=== PATIENT | female | born 1950 | race Caucasian/White ===

== ENCOUNTER → 2016-11-20 | Outpatient (CLI) | payer OTHER ==
[~2016-11-20] MED LIST: ASPEC81 PO; CLTP PO; INDSR60 PO; SERT-234 PO; TOPI50TA16 PO
--- NOTE | 2016-11-21 12:58 | MAMMOGRAPHY REPORT ---
BILATERAL DIGITAL SCREENING MAMMOGRAM TOMOSYNTHESIS WITH CAD: 11/20/2016 CLINICAL HISTORY: Asymptomatic. Personal history of breast cancer. TECHNIQUE: Breast tomosynthesis in addition to standard 2D mammography was performed. Current study was also evaluated with a Computer Aided Detection (CAD) system. COMPARISON: Comparison is made to exams dated: 11/15/2015 mammogram, 11/09/2014 mammogram, 11/03/2013 m ammogram, 10/31/2012 mammogram, 10/31/2011 mammogram, and 10/25/2010 mammogram - [facility] nter. BREAST COMPOSITION: There are scattered areas of fibroglandular density in both breasts. FINDINGS: There is expected architectural distortion and surgical clips in the upper outer posterior right breast, at the site of prior lumpectomy. There is a stable asymmetry in the superior posteri or left breast, only seen on the MLO view. No new suspicious mass, architectural distortion or clus ter of microcalcifications is seen. IMPRESSION: ACR BI-RADS CATEGORY 1: NEGATIVE There is no mammographic evidence of malignancy. A 1 year screening mammogram is recommended. The p atient will receive written notification of the results. Approximately 10% of breast cancers are not detected with mammography. A negative mammographic repor t should not delay biopsy if a clinically suggestive mass is present. Kenisha Gore M.D. ay/:11/20/2016 17:38:09 Facilities Assistant: Radha LONG)(Darnell), [facility] letter sent: Normal 1/2 BI-RADS Code: ACR BI-RADS Category 1: Negative
== END | disposition home or self-care (01) ==
LOC: C.MAMM 08:43
PROVIDERS: ATTEND Family Medicine
DX: Z12.31 Encounter for screening mammogram for malignant neoplasm of breast (principal); Z85.3 Personal history of malignant neoplasm of breast

== ENCOUNTER 2017-11-04 11:33 | Emergency (ER) | payer OTHER ==
[~2017-11-04] VITALS: Ht 167.6 cm; Wt 72.6 kg
[2017-11-04 11:38] VITALS: Ht 167.6 cm; Wt 72.6 kg
[2017-11-04] MEDS ORDERED: ASPCH81X PO (11:50)
[2017-11-04] MEDS ORDERED: PROP120C PO (11:50)
[2017-11-04] MEDS ORDERED: CALC-354 PO (11:50)
[2017-11-04] MEDS ORDERED: ACETAMINOPHEN 325 MG TAB PO STA (12:26)
[2017-11-04] MEDS ORDERED: ONDANSETRON INJ 2 MG/ML 2 ML VIAL IV STA (12:26)
[2017-11-04 12:33] VITALS: O2SAT 99
[2017-11-04 12:37] LABS: HEMATOCRIT 40.5 % (37-47); HEMOGLOBIN 13.3 g/dL (12.0-16.0); MEAN CELL VOLUME 87.5 fL (80-100); MEAN CORPUSCULAR HEMOGLOBIN 28.7 pg (25-34); MEAN CORPUSCULAR HGB CONC 32.8 g/dl (32-36); MEAN PLATELET VOLUME 9.1 fL (7.4-10.4); PLATELET COUNT 164 K/uL (130-400); RED CELL DISTRIBUTION WIDTH CV 13.9 % (11.5-14.5); RED CELL DISTRIBUTION WIDTH SD 44.5 fL (36.4-46.3); WHITE BLOOD COUNT 4.15 K/uL (4.8-10.8)
[2017-11-04] MEDS: MoRPHine SULFATE 4 MG/ML 1 ML CARP\\VIAL IV PRN ×2 (12:45→13:10)
--- NOTE | 2017-11-04 12:46 | EMERGENCY ROOM VISIT NOTE ---
History Report prepared by Silvana: Hector Moore Under the Supervision of: Dr. Tang Michelle D.O. First contact with patient: 12:20 Chief Complaint: CHEST PAIN Stated Complaint: CHEST PAINS History of Present Illness The patient is a 67 year old female who presents to the Emergency Room with complaints of worsening sharp left sided chest pain starting around 0800 this morning. She currently rates her discomfort as an 8-9/10 in severity, and nothing makes the pain better or worse. The patient states that she did not have any pain this morning, and she states that she did not do anything to irritate the chest wall, and she has not been coughing more recently. She notes that the pain makes her feel short of breath, and she denies any nausea, vomiting, sweating, and rash. The patient notes that the pain is staying in the same spot. She reports that she took aspirin prior to coming in, and she states that this has not helped the pain. The patient denies any history of blood clots in the legs or lungs, family history of blood clots, recent long travel or car trips, history of heart attack, asthma and COPD, and she is not on blood thinners. Source of History: patient Onset: 0800 Position: chest (left) Symptom Intensity: 8-9/10 Quality: sharp Timing: worsening Modifying Factors (Worsening): other (nothing) Modifying Factors (Relieving): other (nothing) Associated Symptoms: No SOB, No nausea, No vomiting, No rash Review of Systems See HPI for pertinent positives & negatives. A total of 10 systems reviewed and were otherwise negative. Past Medical & Surgical Surgical Problems: (1) H/O Spinal surgery Family History Cancer Diabetes mellitus FH: heart disease Hypertension Social History Smoking Status: Former Smoker Alcohol Use: none Marital Status: Occupation Status: retired Current/Historical Medications Scheduled Aspirin (Aspirin Chewable), 81 MG PO DAILY Calcium Carbonate-Cholecalcife (Caltrate 600+D), 1 TAB PO DAILY Propranolol Er (Inderal Er *), 120 MG PO QPM Propranolol Hcl (Propranolol Hcl Er), 120 MG PO QPM Sertraline (Zoloft), 100 MG PO QPM Topiramate (Topamax), 50 MG PO BID Scheduled PRN Tramadol (Ultram), 50 MG PO Q4H PRN for Pain Allergies Coded Allergies: BEE STING (Verified Allergy, Mild, 5/7/18) NO KNOWN DRUG ALLERGIES (Verified Allergy, Unknown, ., 11/04/17) Physical Exam Vital Signs Date Time Temp Pulse Resp B/P (MAP) Pulse Ox O2 Delivery O2 Flow Rate FiO2 11/04/17 13:46 63 18 122/75 96 Room Air 11/04/17 12:42 63 18 142/93 96 Room Air 11/04/17 12:33 99 Room Air 11/04/17 12:20 66 11/04/17 11:38 68 20 147/92 100 Room Air Physical Exam GENERAL: Patient is in mild distress secondary to pain. HEENT: No acute trauma, normocephalic atraumatic, mucous membranes moist, no nasal congestion, no scleral icterus. NECK: No stridor, no adenopathy, no meningismus, trachea is midline. LUNGS: Clear to auscultation bilaterally, no wheeze, no rhonchi, breath sounds equal. HEART: Without murmurs gallops or rubs, regular rate and rhythm. CHEST: Non-tender chest wall. No rash. Pain does not worsen with movement or twisting. ABDOMEN: Soft, nontender, bowel sounds positive, no hernias, no peritonitis. EXTREMITIES: No cyanosis or edema, full range of motion of all the joints without pain or difficulty, no signs for acute trauma. NEUROLOGIC: Oriented x 3, no acute motor or sensory deficits, no focal weakness. SKIN: No rash, no jaundice, no diaphoresis. Medical Decision & Procedures ER Provider Diagnostic Interpretation: Radiology results as stated below per my review and radiologist interpretation: CHEST ONE VIEW PORTABLE HISTORY: Atypical CHEST PAIN COMPARISON: Chest 05/10/2008. FINDINGS: The heart is normal in size. Linear density within the left perihilar location favors scarring or atelectasis. The lungs are otherwise clear. Surgical clips again noted within the right breast. No pleural effusions. No pneumothorax. IMPRESSION: No acute process. Electronically signed by: Bartolome Hughes M.D. 11/04/2017 1:06 PM Dictated Date/Time: 11/04/2017 1:04 PM Laboratory Results 11/04/17 12:10 11/04/17 12:10 Test 11/04/17 12:10 11/04/17 12:31 Red Blood Count 4.63 M/uL (4.2-5.4) Mean Corpuscular Volume 87.5 fL (80-100) Mean Corpuscular Hemoglobin 28.7 pg (25-34) Mean Corpuscular Hemoglobin Concent 32.8 g/dl (32-36) RDW Standard Deviation 44.5 fL (36.4-46.3) RDW Coefficient of Variation 13.9 % (11.5-14.5) Mean Platelet Volume 9.1 fL (7.4-10.4) Prothrombin Time 10.0 SECONDS (9.0-12.0) Prothromb Time International Ratio 1.0 (0.9-1.1) Activated Partial Thromboplast Time 24.9 SECONDS (21.0-31.0) Partial Thromboplastin Ratio 1.0 Anion Gap 8.0 mmol/L (3-11) Est Creatinine Clear Calc Drug Dose 51.8 ml/min Estimated GFR () 62.5 Estimated GFR (Non- 53.9 BUN/Creatinine Ratio 20.4 (10-20) Calcium Level 8.7 mg/dl (8.5-10.1) Total Bilirubin 0.5 mg/dl (0.2-1) Aspartate Amino Transf (AST/SGOT) 16 U/L (15-37) Alanine Aminotransferase (ALT/SGPT) 16 U/L (12-78) Alkaline Phosphatase 79 U/L (45-117) Troponin I < 0.015 ng/ml (0-0.045) Total Protein 7.4 gm/dl (6.4-8.2) Albumin 3.7 gm/dl (3.4-5.0) Globulin 3.7 gm/dl (2.5-4.0) Albumin/Globulin Ratio 1.0 (0.9-2) Lipase 420 U/L (73-393) Bedside D-Dimer 345 ng/mlFEU (0-450) Laboratory results reviewed by me. Medications Administered Medications (Trade) Dose Ordered Sig/Radha Route Start Time Stop Time Status Last Admin Dose Admin Morphine Sulfate (MoRPHine SULFATE INJ) 4 mg Q15M PRN IV 11/04/17 12:30 11/04/17 14:15 DC 11/04/17 13:10 4 MG Ondansetron HCl (Zofran Inj) 4 mg NOW STAT IV 11/04/17 12:26 11/04/17 12:28 DC 11/04/17 12:45 4 MG Acetaminophen (Tylenol Tab) 650 mg NOW STAT PO 11/04/17 12:26 11/04/17 12:28 DC 11/04/17 12:45 650 MG ECG Per My Interpretation Indication: chest pain Rate (beats per minute): 67 Rhythm: normal sinus Findings: no ectopy, other (No ST elevation or PVC) ED Course 1220: The patient was evaluated in room A2. A complete history and physical exam was performed. 1226: Tylenol Tab 650mg PO, Zofran 4mg IV 1230: Morphine Sulfate 4mg IV 1336: Reevaluated the patient. Discussed results and discharge instructions: she verbalized understanding and agreement. The patient is ready for discharge. Medical Decision Differential diagnoses include: TX, musculoskeletal pain, pleurisy, pneumonia, pneumothorax, PE, aortic dissection, rib injury. There is no leukocytosis or concerning anemia. No significant electrolyte abnormality, kidney failure or hepatitis. Lipase is slightly elevated but not high enough to diagnose pancreatitis. EKG done while she was having significant pain shows a normal sinus rhythm, no acute ischemia. Cardiac enzyme testing 1 is not consistent with acute cardiac injury. Chest film does not show free air, mediastinal widening, pneumonia or pneumothorax. There was no coagulopathy. D-dimer testing here is not elevated, with a negative d-dimer and my low suspicion for PE, I will stop the workup for this diagnosis. The patient was given oral Tylenol, IV Zofran and IV morphine. She feels markedly improved. The patient presents with sharp left-sided chest pain. The pain is very likely musculoskeletal as her workup here is benign. She was reassured. She is being discharged with heat to the area, Tylenol or tramadol for pain. If worsening, she can return. Outpatient family doctor follow-up was suggested. [place] Drug Monitoring Program Search Results: patient reviewed within database, no issues identified Medication Reconcilliation Current Medication List: was personally reviewed by me Blood Pressure Screening Patient's blood pressure: Elevated blood pressure Blood pressure disposition: Elevated BP felt to be situational Impression Primary Impression: Left sided chest pain Scribe Attestation The scribe's documentation has been prepared under my direction and personally reviewed by me in its entirety. I confirm that the note above accurately reflects all work, treatment, procedures, and medical decision making performed by me. Departure Information Dispostion Home / Self-Care Prescriptions Tramadol (Ultram) 50 Mg Tab 50 MG PO Q4H Y for Pain, #10 TAB Prov: Mitch Cast M.D. 11/04/17 Referrals Tushar Mina III, M.D. (PCP) Forms Call Back Authorization, HOME CARE DOCUMENTATION FORM, IMPORTANT VISIT INFORMATION Patient Instructions My [employer] Additional Instructions heat to the chest wall will help--40 minutes at a time several times per day rest no lifting tylenol for pain may use tramadol 1 tab every 4 hours for severe pain if needed see caleb ambrocio for a recheck this week heart and lung testing today was all ok return if worsening or not improving
[2017-11-04 12:47] LABS: PTT PATIENT 24.9 SECONDS (21.0-31.0)
[2017-11-04 12:57] LABS: ALBUMIN 3.7 gm/dl (3.4-5.0); ALT/SGPT 16 U/L (12-78); AST/SGOT 16 U/L (15-37); BLOOD UREA NITROGEN 22 mg/dl (7-18); CALCIUM 8.7 mg/dl (8.5-10.1); CARBON DIOXIDE 22 mmol/L (21-32); CREATININE 1.06 mg/dl (0.60-1.20); GLUCOSE 90 mg/dl (70-99); LIPASE 420 U/L (73-393); POTASSIUM 3.9 mmol/L (3.5-5.1); SODIUM 137 mmol/L (136-145)
[2017-11-04 13:02] LABS: ALKALINE PHOSPHATASE 79 U/L (45-117); TOTAL PROTEIN 7.4 gm/dl (6.4-8.2)
--- NOTE | 2017-11-04 13:07 | DIAGNOSTIC IMAGING REPORT ---
CHEST ONE VIEW PORTABLE HISTORY: Atypical CHEST PAIN COMPARISON: Chest 05/10/2008. FINDINGS: The heart is normal in size. Linear density within the left perihilar location favors scarring or atelectasis. The lungs are otherwise clear. Surgical clips again noted within the right breast. No pleural effusions. No pneumothorax. IMPRESSION: No acute process. Electronically signed by: Bartolome Hughes M.D. 11/04/2017 1:06 PM Dictated Date/Time: 11/04/2017 1:04 PM
[2017-11-04] MEDS ORDERED: TRAM-10 PO (13:44)
[2017-11-04 13:46] VITALS: BP 122/75; PULSE 63; O2SAT 96
== END 2017-11-04 14:00 | disposition home or self-care (01) ==
LOC: C.EDB 11:34 → C.EDA 14:00
DX: R07.89 Other chest pain (principal); Z87.891 Personal history of nicotine dependence; Z79.82 Long term (current) use of aspirin; Z79.899 Other long term (current) drug therapy; Z91.030 Bee allergy status

== ENCOUNTER → 2017-11-21 | Outpatient (CLI) | payer OTHER ==
[~2017-11-21] MED LIST changes: +ASPCH81X PO; -ASPEC81 PO; +CALC-354 PO; -CLTP PO; +PROP120C PO; +TRAM-10 PO
--- NOTE | 2017-11-22 15:19 | MAMMOGRAPHY REPORT ---
BILATERAL DIGITAL SCREENING MAMMOGRAM TOMOSYNTHESIS WITH CAD: 11/21/2017 CLINICAL HISTORY: Asymptomatic. Personal history of breast cancer. TECHNIQUE: Breast tomosynthesis in addition to standard 2D mammography was performed. Current study was also evaluated with a Computer Aided Detection (CAD) system. COMPARISON: Comparison is made to exams dated: 11/20/2016 mammogram, 11/15/2015 mammogram, 11/09/2014 m ammogram, 11/03/2013 mammogram, 10/31/2012 mammogram, and 10/31/2011 mammogram - [facility] er. BREAST COMPOSITION: There are scattered areas of fibroglandular density in both breasts. FINDINGS: No suspicious masses, calcifications, or areas of architectural distortion are noted in ei ther breast. There has been no significant interval change compared to prior exams. There are stable postsurgical changes in the right upper outer quadrant. A linear scar marker overlies the right upp er outer breast. Focal asymmetry in the left superior posterior breast at approximately 12:00 is sta ble dating back to at least the 2008 exam. IMPRESSION: ACR BI-RADS CATEGORY 2: BENIGN There is no mammographic evidence of malignancy. A 1 year screening mammogram is recommended. The pa tient will receive written notification of the results. Approximately 10% of breast cancers are not detected with mammography. A negative mammographic report should not delay biopsy if a clinically suggestive mass is present. Yulia Kruse M.D. /:11/21/2017 16:01:04 Manager Shell: Radha ORO(Jennyfer)(Darnell), [facility] letter sent: Normal 1/2 BI-RADS Code: ACR BI-RADS Category 2: Benign
== END | disposition home or self-care (01) ==
LOC: C.MAMM 09:38
PROVIDERS: ATTEND Family Medicine
DX: Z12.31 Encounter for screening mammogram for malignant neoplasm of breast (principal); Z85.3 Personal history of malignant neoplasm of breast

== ENCOUNTER 2020-06-06 14:45 | Observation (INO) ==
[2020-06-06] MEDS ORDERED: ONDANSETRON INJ 2 MG/ML 2 ML VIAL IV STA (15:12)
[2020-06-06] MEDS ORDERED: MoRPHine SULFATE 4 MG/ML 1 ML CARP\\VIAL IV STA (15:12)
--- NOTE | 2020-06-06 15:20 | Emergency Department Note ---
History of Present Illness General Chief complaint: Chest Pain Stated complaint: CHEST PAIN Time Seen by Provider: 06/06/20 15:06 History of Present Illness Maximum Pain Intensity: 10 This is a 70-year-old female that presents to the emergency department via private vehicle with complaints of "left-sided chest pain". The patient notes that the discomfort began earlier today around 1 PM while she was laying down at her home watching TV. She notes that the pain radiates into the left shoulder/left neck region and into the left proximal arm. She has associated lightheadedness. She describes the pain as sharp and currently rates the pain is a 6/10 that waxes and wanes. She notes that when she sat up the pain did seem to dissipate but then returned therefore prompting arrival here today. She denies any known trauma, injury, aggravating or alleviating factors, shortness of breath, fevers, chills or cough. She denies any history of VA or PE. No history of hypertension or hypercholesterolemia. She denies any known cardiac troubles. Patient denies any recent strenuous activities. She denies worsening pain with movement of the left arm or pressing on the chest. Home Medications Medication Instructions Recorded Confirmed Type aspirin [Aspirin Low-Strength] 81 mg PO DAILY #0 11/04/17 06/06/20 History propranolol 120 mg PO HS #0 11/04/17 06/06/20 History doxepin 20 mg PO HS 06/06/20 06/06/20 History rizatriptan 0 mg PO .COMPLEX 06/06/20 06/06/20 History topiramate 50 mg PO BID 06/06/20 06/06/20 History trazodone 150 mg PO HS 06/06/20 06/06/20 History Allergies Allergy/AdvReac Type Severity Reaction Status Date / Time bee venom protein (honey bee) Allergy Mild Verified 06/06/20 16:18 No Known Drug Allergies Allergy Unknown . Verified 06/06/20 16:18 Past Med/Surg History Medical History CKD (chronic kidney disease), stage III History of breast cancer 20 years ago, s/p partial mastectomy Hx of migraines Insomnia Ulcerative colitis Surgical History H/O laminectomy H/O partial mastectomy H/O spinal fusion H/O Spinal surgery Hx of tonsillectomy Family History Other Diabetes Heart disease Rheumatoid arthritis Social History Smoking Status: Never smoker Hx Alcohol Use: No Hx Substance Use: No Feels Safe at Home: Yes Review of Systems A total of 10 systems reviewed and were otherwise negative Physical Exam Vital Signs Vital Signs - 24 hr 06/06/20 14:50 06/06/20 15:13 06/06/20 17:57 Temperature 36.5 C Temperature Source Oral Pulse Rate 73 Pulse Rate [Apical] 66 Pulse Rhythm [Apical] Regular Pulse Strength [Apical] Normal Respiratory Rate 20 16 Respiratory Effort / Characteristics Non-Labored Spontaneous Non-Labored Spontaneous Respiratory Depth Normal Normal Respiratory Pattern Regular Regular Blood Pressure 125/82 Blood Pressure [Right Arm] 129/67 Blood Pressure Mean 96 Blood Pressure Mean [Right Arm] 87 Blood Pressure Position Sitting Blood Pressure Position [Right Arm] Sitting Pulse Oximetry 100 98 Oxygen Delivery Method Room Air Room Air Room Air Sepsis Recent Fever Within 48 Hours No Sepsis New/Unexplained Change in Mental Status N/A Sepsis Action Taken by Nursing No Action Required 06/06/20 19:00 Temperature Temperature Source Pulse Rate Pulse Rate [Apical] 64 Pulse Rhythm [Apical] Regular Pulse Strength [Apical] Normal Respiratory Rate 14 Respiratory Effort / Characteristics Non-Labored Spontaneous Respiratory Depth Normal Respiratory Pattern Regular Blood Pressure Blood Pressure [Right Arm] 114/70 Blood Pressure Mean Blood Pressure Mean [Right Arm] 84 Blood Pressure Position Blood Pressure Position [Right Arm] Lying Pulse Oximetry 98 Oxygen Delivery Method Room Air Sepsis Recent Fever Within 48 Hours Sepsis New/Unexplained Change in Mental Status Sepsis Action Taken by Nursing VITAL SIGNS - Vital signs and nursing notes were reviewed. Stable and afebrile. GENERAL -70-year-old female appearing her stated age who is in no acute distress. Communicates well with provider and answers questions appropriately. SKIN - Without rashes. No meningeal or petechial rash. HEAD - NC/AT. EYES - Sclera anicteric. NECK - Neck with FROM. No nuchal rigidity. LUNGS - Chest wall symmetric without accessory muscle use, intercostals retractions, or central cyanosis. Normal vesicular breath sounds CTA B/L. No wheezes, rales, or rhonchi appreciated. CARDIAC - RRR with S1/S2. No murmur, rubs, or gallops appreciated. ABDOMEN - Abdominal contour normal without pulsations or visible masses. BS normoactive all four quadrants. No tenderness, palpable masses, hepatosplenomegaly, or ascites noted. EXTREMITIES - No clubbing or peripheral cyanosis. No pretibial edema present. Left shoulder with active range of motion does not elicit any worsening of sym ptoms. +5/5 strength noted in UE/LE bilaterally. NEUROLOGIC - Cranial nerves II through XII grossly intact. PSYCH - A&Ox3 and cooperates fully with examiner. Pt is very pleasant and interacts well with examiner. Course Administered Medications Discontinued Medications Ioversol (Optiray 320 125ml) 119 ml IV ONCE ONE Stop: 06/06/20 17:22 Last Admin: 06/06/20 17:21 Dose: 119 ml Documented by: [id number] Morphine Sulfate (Morphine Sulfate 4 Mg/Ml 1 Ml Carp\\Vial) 4 mg IV NOW STA Stop: 06/06/20 15:13 Last Admin: 06/06/20 16:32 Dose: 4 mg Documented by: [id number] Ondansetron HCl (Ondansetron Inj 2 Mg/Ml 2 Ml Vial) 4 mg IV NOW STA Stop: 06/06/20 15:13 Last Admin: 06/06/20 16:32 Dose: 4 mg Documented by: [id number] Medical Decision Making Laboratory Data Result diagrams: 06/06/20 15:47 06/06/20 15:47 Lab Results 06/06/20 06/06/20 06/06/20 Range/Units 15:47 15:47 15:47 WBC 3.89 L (4.8-10.8) K/uL RBC 4.30 (4.2-5.4) M/uL Hgb 11.7 L (12.0-16.0) g/dL Hct 36.9 L (37-47) % MCV 85.8 (80-100) fL MCH 27.2 (25-34) pg MCHC 31.7 L (32-36) g/dL RDW Std Deviation 50.1 H (36.4-46.3) fL RDW Coeff of Ashley 15.9 H (11.5-14.5) % Plt Count 170 (130-400) K/uL MPV 9.5 (7.4-10.4) fL Immature Gran % (Auto) 2.6 % Neut % (Auto) 36.8 % Lymph % (Auto) 45.2 % [place] % (Auto) 9.0 % Eos % (Auto) 5.9 % Baso % (Auto) 0.5 % Neut # (Auto) 1.43 (1.4-6.5) K/uL Lymph # (Auto) 1.76 (1.2-3.4) K/uL [place] # (Auto) 0.35 (0.11-0.59) K/uL Eos # (Auto) 0.23 (0-0.5) K/uL Baso # (Auto) 0.02 (0-0.2) K/uL Immature Gran # (Auto) 0.10 H (0.00-0.02) K/uL PT 10.6 (9.0-12.0) Seconds INR 1.0 (0.9-1.1) APTT 27.0 (21.0-31.0) Seconds PTT Ratio 1.0 D-Dimer 580 H* (0-500) ug/L FEU Sodium 140 (136-145) mmol/L Potassium 3.4 L (3.5-5.1) mmol/L Chloride 111 H (98-107) mmol/L Carbon Dioxide 22 (21-32) mmol/L Anion Gap 7.0 (3-11) BUN 18 (7-18) mg/dl Creatinine 1.13 (0.6-1.2) mg/dl Est Cr Clr Drug Dosing Not Reportable Est GFR ( Amer) 56.6 Est GFR (Non-Af Amer) 48.9 BUN/Creatinine Ratio 15.8 (10-20) Glucose 88 (70-99) mg/dl Calcium 8.4 L (8.5-10.1) mg/dl Magnesium 2.1 (1.8-2.4) mg/dl Total Bilirubin 0.5 (0.2-1) mg/dl AST 11 L (15-37) U/L ALT 11 L (12-78) U/L Alkaline Phosphatase 95 (45-117) U/L Troponin I < 0.015 (0-0.045) ng/ml Total Protein 7.4 (6.4-8.2) gm/dl Albumin 3.6 (3.4-5.0) gm/dl Globulin 3.8 (2.5-4.0) gm/dl Albumin/Globulin Ratio 0.9 (0.9-2) Lipase 281 (73-393) U/L TSH 8.040 H (0.300-4.500) uIu/ml Free T4 0.98 (0.8-1.6) ng/dl SARS-CoV-2 Ag (Rapid) (Negative) 06/06/20 06/06/20 Range/Units 18:18 18:47 WBC (4.8-10.8) K/uL RBC (4.2-5.4) M/uL Hgb (12.0-16.0) g/dL Hct (37-47) % MCV (80-100) fL MCH (25-34) pg MCHC (32-36) g/dL RDW Std Deviation (36.4-46.3) fL RDW Coeff of Ashley (11.5-14.5) % Plt Count (130-400) K/uL MPV (7.4-10.4) fL Immature Gran % (Auto) % Neut % (Auto) % Lymph % (Auto) % [place] % (Auto) % Eos % (Auto) % Baso % (Auto) % Neut # (Auto) (1.4-6.5) K/uL Lymph # (Auto) (1.2-3.4) K/uL [place] # (Auto) (0.11-0.59) K/uL Eos # (Auto) (0-0.5) K/uL Baso # (Auto) (0-0.2) K/uL Immature Gran # (Auto) (0.00-0.02) K/uL PT (9.0-12.0) Seconds INR (0.9-1.1) APTT (21.0-31.0) Seconds PTT Ratio D-Dimer (0-500) ug/L FEU Sodium (136-145) mmol/L Potassium (3.5-5.1) mmol/L Chloride (98-107) mmol/L Carbon Dioxide (21-32) mmol/L Anion Gap (3-11) BUN (7-18) mg/dl Creatinine (0.6-1.2) mg/dl Est Cr Clr Drug Dosing Est GFR ( Amer) Est GFR (Non-Af Amer) BUN/Creatinine Ratio (10-20) Glucose (70-99) mg/dl Calcium (8.5-10.1) mg/dl Magnesium (1.8-2.4) mg/dl Total Bilirubin (0.2-1) mg/dl AST (15-37) U/L ALT (12-78) U/L Alkaline Phosphatase (45-117) U/L Troponin I < 0.015 (0-0.045) ng/ml Total Protein (6.4-8.2) gm/dl Albumin (3.4-5.0) gm/dl Globulin (2.5-4.0) gm/dl Albumin/Globulin Ratio (0.9-2) Lipase (73-393) U/L TSH (0.300-4.500) uIu/ml Free T4 (0.8-1.6) ng/dl SARS-CoV-2 Ag (Rapid) Negative (Negative) Imaging Data Radiologist's Impression: XR chest 1V portable CLINICAL HISTORY: left sided chest pain COMPARISON STUDY: Chest radiograph November 04, 2017. FINDINGS: Lung volumes are normal. There is no pneumothorax or pleural effusion. Apparent left basilar opacity likely reflects pulmonary vessels or atelectasis. Cardiac size is normal. Mediastinal contours are normal. IMPRESSION: Apparent left basilar opacity. This likely reflects pulmonary vessels or atelectasis. An infectious process could appear similar but is considered less likely. ACT 112: Negative or not required by law. Electronically signed by: Agustín Wharton M.D. 06/06/2020 4:14 PM CHEST CTA for PULMONARY ARTERIES CT DOSE: 214.44 mGy.cm HISTORY: left sided chest pain, elevated D dimer TECHNIQUE: Multiaxial CT images of the chest were performed following the intravenous administration of contrast to evaluate the pulmonary arteries. Maximal intensity projection images were also obtained. A dose lowering technique was utilized adhering to the principles of ALARA. COMPARISON STUDY: Chest CTA 09/29/2010. FINDINGS: Normal caliber thoracic aorta with no evidence for dissection. The heart is normal in size. No pleural or pericardial effusions. Limited views of the upper abdomen demonstrate a normal liver and spleen. Normal esophagus. Surgical clips noted within the right breast. No mediastinal lymphadenopathy. No filling defects within the pulmonary arteries to suggest pulmonary embolus. A few prominent bilateral hilar lymph nodes have slightly increased in size. Dominant right hilar lymph node on image 128 measures 9 mm in short axis diameter. Old, healed left-sided rib fractures. No acute fractures within the visualized osseous structures. No pneumothorax. There is mild central bronchial wall thickening. Mosaic attenuation within the lungs likely represents air trapping. A few scattered small linear densities suggestive of subsegmental atelectasis. Groundglass densities within the lung bases also favor dependent change. A low-grade pneumonitis is considered less likely but not entirely excluded. IMPRESSION: 1. No evidence for pulmonary embolus. 2. Mosaic attenuation within the lungs consistent with air trapping. This can be seen in the setting of small airways disease. 3. Mild central bronchial wall thickening suggestive of a bronchitis. 4. Groundglass densities within the lung bases favor mild dependent change. A low-grade superimposed pneumonitis cannot be excluded but is considered less l ikely. 5. A few prominent subcentimeter bilateral hilar lymph nodes. These have slightly increased in size. ACT 112: Negative or not required by law. Electronically signed by: Bartolome Hughes M.D. 06/06/2020 5:38 PM Blood Pressure Additional Comments: EKG per my interpretation reveals normal sinus rhythm rate of 69 bpm. No ectopy or ischemic change. No ST elevation. QTc 420. No evidence of VA. This was compared to EKG of November 04, 2017 and no significant change was found. Indication for EKG is left-sided chest pain. MDM Narrative Patient was seen and evaluated as above in room C2. Review was performed of nursing notes and vital signs. I did review pertinent previous visits and patient history. After obtaining a thorough history and physical examination the above work up was performed. Patient presents to us today with left-sided chest pain. No known trauma or injury. It is sharp in nature. It radiates to the left side of the neck and left arm. She denies any known cardiac or pulmonary history. No fevers or chills. Her vital signs are stable. Patient did take 2 baby aspirin prior to arrival. On my examination at this time she has nontoxic. No reproducible discomfort. She was ordered IV morphine for pain and IV Zofran for any potential nausea that may come from this. She was reevaluated with some improvement. Her EKG is not consistent with STEMI. Chest x-ray reveals possible left basilar opacity versus pulmonary vessels versus atelectasis. Laboratory studies reveal decreased white blood cell count of 3.9 with hemoglobin 11.7. No significant electrolyte disturbance. Mild hypokalemia at 3.4. Troponin negative. TSH elevated with free T4 being normal. Patient's heart score is 3-4. D-dimer elevated. CT of the chest obtained. No PE. The patient CTA does not suggest any PE. There is potential bronchitis but I will note she has no cough and clinically this does not appear to be the case. Given the patient's presentation with elevated heart score it is felt that further evaluation and management the inpatient setting is warranted. Please refer to further documentation regarding her stay. Case discussed with the hospitalist. Patient amenable to staying and is in agreement with plan. Case was discussed with the attending physician. An order was placed for continuous cardiac monitoring. The monitor shows a rate of 69 with sinus rhythm. I attest that I have personally reviewed the patient medication list. I attest that I have reviewed the patient's blood pressure and it was found to be elevated at time of arrival mildly. GCS: 15 In the evaluation and treatment of this patient, the following differential diagnoses were considered: VA, ASC, Dysrhythmia, Angina, Mediastinitis, GERD, Esophagitis, PE, Pneumonia, Bronchitis, Costochondritis, Rib Fracture, Zoster, COVID-19, among others. Impression & Plan Left-sided chest pain Discharge Plan Visit Data Chief Complaint: Chest Pain Stated Complaint: CHEST PAIN ED Provider: Mitch Cast ED Midlevel Provider: Matthew Reyes Discharge Problem: Left-sided chest pain Patient Disposition: Admitted As Inpatient Condition: Good Forms Stand Alone Forms: [facility] Prescriptions Prescriptions: No Action aspirin [Aspirin Low-Strength] 81 mg Tablet,Delayed Release (Dr/Ec) 81 mg PO DAILY Qty: 0 RF: 0 propranolol 120 mg Capsule,Extended Release 24 Hr 120 mg PO HS Qty: 0 RF: 0 doxepin 10 mg capsule 20 mg PO HS RF: 0 topiramate 25 mg tablet 50 mg PO BID RF: 0 trazodone 150 mg tablet 150 mg PO HS RF: 0 rizatriptan 10 mg Tablet 0 mg PO .COMPLEX RF: 0 Referrals Referrals: Tushar Mina MD [Primary Care Provider] -
[2020-06-06 15:56] LABS: Basophils # (auto) 0.02 K/uL (0-0.2); Basophils % (auto) 0.5 %; Eosinophils # (auto) 0.23 K/uL (0-0.5); Eosinophils % (auto) 5.9 %; Hematocrit (blood only) 36.9 % (37-47); Hemoglobin 11.7 g/dL (12.0-16.0); Immature Granulocytes % (auto) 2.6 %; Lymphocytes # (auto) 1.76 K/uL (1.2-3.4); Lymphocytes % (auto) 45.2 %; Mean Corpuscular Hemoglobin 27.2 pg (25-34); Mean Corpuscular Hgb Conc 31.7 g/dL (32-36); Mean Corpuscular Volume 85.8 fL (80-100); Mean Platelet Volume 9.5 fL (7.4-10.4); Monocytes # (auto) 0.35 K/uL (0.11-0.59); Neutrophils # (auto) 1.43 K/uL (1.4-6.5); Neutrophils % (auto) 36.8 %; Platelet Count 170 K/uL (130-400); RDW Coefficient of Variation 15.9 % (11.5-14.5); RDW Standard Deviation 50.1 fL (36.4-46.3); White Blood Count 3.89 K/uL (4.8-10.8)
--- NOTE | 2020-06-06 16:03 | Electrocardiogram Report ---
Test Reason : Blood Pressure : / mmHG Vent. Rate : 069 BPM Atrial Rate : 069 BPM P-R Int : 158 ms QRS Dur : 080 ms QT Int : 392 ms P-R-T Axes : 061 050 033 degrees QTc Int : 420 ms Normal sinus rhythm Normal ECG When compared with ECG of 04-NOV-2017 11:42, No significant change was found Confirmed by Darío Waller ([id number]) on 06/06/2020 4:02:48 PM Referred By: ED Confirmed By:Darío Waller
[2020-06-06 16:11] LABS: Prothrombin Time 10.6 Seconds (9.0-12.0)
--- NOTE | 2020-06-06 16:16 | XRay Report ---
XR chest 1V portable CLINICAL HISTORY: left sided chest pain COMPARISON STUDY: Chest radiograph November 04, 2017. FINDINGS: Lung volumes are normal. There is no pneumothorax or pleural effusion. Apparent left basila r opacity likely reflects pulmonary vessels or atelectasis. Cardiac size is normal. Mediastinal conto urs are normal. IMPRESSION: Apparent left basilar opacity. This likely reflects pulmonary vessels or atelectasis. An infectious process could appear similar but is considered less likely. ACT 112: Negative or not required by law. Electronically signed by: Agustín Wharton M.D. 06/06/2020 4:14 PM
[2020-06-06 16:17] LABS: D Dimer 580 ug/L FEU (0-500)
[2020-06-06 16:45] LABS: Alanine Aminotransferase 11 U/L (12-78); Albumin Level 3.6 gm/dl (3.4-5.0); Aspartate Aminotransferase 11 U/L (15-37); BUN Creatinine Ratio 15.8 (10-20); Blood Urea Nitrogen 18 mg/dl (7-18); Calcium 8.4 mg/dl (8.5-10.1); Carbon Dioxide 22 mmol/L (21-32); Chloride 111 mmol/L (98-107); Est GFR (African American) 56.6; Est GFR (Non-African American) 48.9; Glucose 88 mg/dl (70-99); Lipase 281 U/L (73-393); Magnesium 2.1 mg/dl (1.8-2.4); Potassium 3.4 mmol/L (3.5-5.1); Sodium 140 mmol/L (136-145)
[2020-06-06 16:56] LABS: Albumin Globulin Ratio 0.9 (0.9-2); Alkaline Phosphatase 95 U/L (45-117); Bilirubin,Total 0.5 mg/dl (0.2-1); Globulin 3.8 gm/dl (2.5-4.0); Total Protein 7.4 gm/dl (6.4-8.2); Troponin I < 0.015 ng/ml (0-0.045)
[2020-06-06 17:09] LABS: T4 Free Thyroxine 0.98 ng/dl (0.8-1.6)
[2020-06-06] MEDS ORDERED: OPTIRAY 320 125ml IV ONE (17:21)
--- NOTE | 2020-06-06 17:39 | CT Scan Report ---
CHEST CTA for PULMONARY ARTERIES CT DOSE: 214.44 mGy.cm HISTORY: left sided chest pain, elevated D dimer TECHNIQUE: Multiaxial CT images of the chest were performed following the intravenous administration of contrast to evaluate the pulmonary arteries. Maximal intensity projection images were also obtaine d. A dose lowering technique was utilized adhering to the principles of ALARA. COMPARISON STUDY: Chest CTA 09/29/2010. FINDINGS: Normal caliber thoracic aorta with no evidence for dissection. The heart is normal in size. No pleural or pericardial effusions. Limited views of the upper abdomen demonstrate a normal liver a nd spleen. Normal esophagus. Surgical clips noted within the right breast. No mediastinal lymphadenop athy. No filling defects within the pulmonary arteries to suggest pulmonary embolus. A few prominent bilateral hilar lymph nodes have slightly increased in size. Dominant right hilar lymph node on image 128 measures 9 mm in short axis diameter. Old, healed left-sided rib fractures. No acute fractures w ithin the visualized osseous structures. No pneumothorax. There is mild central bronchial wall thicke [place]. Mosaic attenuation within the lungs likely represents air trapping. A few scattered small linea r densities suggestive of subsegmental atelectasis. Groundglass densities within the lung bases also favor dependent change. A low-grade pneumonitis is considered less likely but not entirely excluded. IMPRESSION: 1. No evidence for pulmonary embolus. 2. Mosaic attenuation within the lungs consistent with air trapping. This can be seen in the setting of small airways disease. 3. Mild central bronchial wall thickening suggestive of a bronchitis. 4. Groundglass densities within the lung bases favor mild dependent change. A low-grade superimposed pneumonitis cannot be excluded but is considered less likely. 5. A few prominent subcentimeter bilateral hilar lymph nodes. These have slightly increased in size. ACT 112: Negative or not required by law. Electronically signed by: Bartolome Hughes M.D. 06/06/2020 5:38 PM
--- NOTE | 2020-06-06 18:43 | Emergency Department Note ---
ED Visit Note Patient was seen by our PA/REHABILITATION ENGINEER. I was involved in the patient's care and did evaluate the patient myself. I was involved in the care throughout the ER stay. The patient presents with chest pain. Initial cardiac troponin was unremarkable. ECG was unremarkable. She does carry some cardiac risk factors. Further cardiac work-up was felt warranted. The patient is being hospitalized. .
--- NOTE | 2020-06-06 19:35 | History & Physical Report ---
Date of Service June 06, 2020 Assessment & Plan (1) Chest pain: This is a 70yo F with a PMH of CKD III, migraines, history of ulcerative colitis, history of breast cancer and other medical problems who presents with chest pain starting this afternoon. 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 + family history of heart disease -Initial troponin normal, EKG with normal sinus rhythm -D-dimer elevated but CTA without evidence of PE -CTA chest with mosaic attenuation within the lungs consistent with air trapping. This can be seen in the setting of small airways disease and mild central bronchial wall thickening suggestive of a bronchitis but afebrile, no cough or SOB -Monitor on telemetry, trend troponin, repeat EKG in AM, SL NTG PRN -TTE, routine cardiology consult, NPO @ [place] in case of stress test (2) CKD (chronic kidney disease), stage III: Kidney function at baseline. Monitor with daily BMP (3) Hx of migraines: Continue propranolol, doxepin, topiramate (4) Insomnia: Continue trazodone DVT Ppx: SQ heparin Code status: FULL PCP: Leopoldo Dispo: Observation telemetry. Plan to return home once medically stable. Patient seen in collaboration with Dr. Cai. Please see addendum. History of Present Illness Chief Complaint: chest pain Primary Care Provider: Tushar Mina MD This is a 70yo F with a PMH of CKD III, migraines, history of ulcerative colitis, history of breast cancer and other medical problems who presents with chest pain starting this afternoon. Discomfort came on while watching TV and describes as 6/10 sharp left-sided pain with radiation into left shoulder and neck. Pain would wax and wane, lasting approximately 1-2 minutes before dissipating. Has not had pain since arriving in ED. Associated with lightheadedness but denies diaphoresis, SOB, nausea or vomiting. Not made worse with exertion. Denies any personal history of chest pain except for one episode in 2010, when she underwent an exercise stress test that was negative. Denies increased stress or history of acid reflux. No h/o HTN or DM. Family history of arrhythmia (father) and CAD requiring triple bypass (son). Currently chest pain free. Denies fever, chills, lightheadedness, headache, chest pain, SOB, nausea, vomiting, abdominal pain, dysuria, diarrhea or constipation. Allergies Allergy/AdvReac Type Severity Reaction Status Date / Time bee venom protein (honey bee) Allergy Mild Verified 06/06/20 16:18 No Known Drug Allergies Allergy Unknown . Verified 06/06/20 16:18 Home Medications Medication Instructions Recorded Confirmed Type aspirin [Aspirin Low-Strength] 81 mg PO DAILY #0 11/04/17 06/06/20 History propranolol 120 mg PO HS #0 11/04/17 06/06/20 History doxepin 20 mg PO HS 06/06/20 06/06/20 History rizatriptan 0 mg PO .COMPLEX 06/06/20 06/06/20 History topiramate 50 mg PO BID 06/06/20 06/06/20 History trazodone 150 mg PO HS 06/06/20 06/06/20 History Past Med/Surg History Medical History CKD (chronic kidney disease), stage III History of breast cancer 20 years ago, s/p partial mastectomy Hx of migraines Insomnia Ulcerative colitis Surgical History H/O laminectomy H/O partial mastectomy H/O spinal fusion H/O Spinal surgery Hx of tonsillectomy Family History Other Diabetes Heart disease Rheumatoid arthritis Social History Smoking Status: Never smoker Hx Alcohol Use: No Hx Substance Use: No Preferred Language: Maori Communication Ability: Effective 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 Physical Exam Physical Exam: General Appearance: WD/WN, vitals as above, NAD, sitting up in bed, pleasant, conversing easily Head: normocephalic, atraumatic Eyes: normal inspection, PERRL, conjunctivae normal, anicteric sclerae ENT: external ear and nose normal, oropharynx normal Neck: normal visual inspection, trachea midline, no thyromegaly Respiratory: normal respiratory effort, lungs clear to auscultation, no wheeze, rales, rhonchi. No accessory muscle use Cardiovascular: regular rate, rhythm, no murmur, normal peripheral pulses, no BLE edema. Vessels: no JVD Chest: normal inspection of chest, pain not reproducible with palpation Abdomen/GI: normal bowel sounds, soft, nontender, no hepatosplenomegaly Extremities/Musculoskeletal: no cyanosis or clubbing, extremities motor strength 5/5 Neurologic: PERRL, EOMI, accommodation nl, no face palsy, no dysarthria, CN's II-XI intact bilaterally and moves all extremities Psychiatric: A+Ox3, euthymic affect Skin: no rashes, normal color, warm/dry Results & Data Results & Data ([facility]) Vital Signs (Past 12 Hours) Vital Signs Temp Pulse Pulse Resp BP BP Pulse Ox 06/06/20 19:00 64 14 114/70 98 06/06/20 17:57 66 16 129/67 98 06/06/20 14:50 36.5 C 73 20 125/82 100 Laboratory Results Short CBC 06/06/20 Range/Units 15:47 WBC 3.89 L (4.8-10.8) K/uL Hgb 11.7 L (12.0-16.0) g/dL Hct 36.9 L (37-47) % Plt Count 170 (130-400) K/uL BMP 06/06/20 15:47 Sodium 140 Potassium 3.4 L Chloride 111 H Carbon Dioxide 22 BUN 18 Creatinine 1.13 Glucose 88 Calcium 8.4 L Cardiac Enzymes 06/06/20 06/06/20 Range/Units 15:47 18:47 Troponin I < 0.015 < 0.015 (0-0.045) ng/ml Liver Function 06/06/20 Range/Units 15:47 Total Bilirubin 0.5 (0.2-1) mg/dl AST 11 L (15-37) U/L ALT 11 L (12-78) U/L Alkaline Phosphatase 95 (45-117) U/L Albumin 3.6 (3.4-5.0) gm/dl Diagnostic Findings CXR: IMPRESSION: Apparent left basilar opacity. This likely reflects pulmonary vessels or atelectasis. An infectious process could appear similar but is considered less likely. CTA chest: IMPRESSION: 1. No evidence for pulmonary embolus. 2. Mosaic attenuation within the lungs consistent with air trapping. This can be seen in the setting of small airways disease. 3. Mild central bronchial wall thickening suggestive of a bronchitis. 4. Groundglass densities within the lung bases favor mild dependent change. A low-grade superimposed pneumonitis cannot be excluded but is considered less likely. 5. A few prominent subcentimeter bilateral hilar lymph nodes. These have slightly increased in size. ECG Rhythm: normal sinus Change: no significant change Code Status & VTE Plan VTE Prophylaxis Plan VTE Prophylaxis will be ordered: Yes Supervising Physician Co-Signing Physician Notes Pt seen and examined by me, care coordinated with Constance Rasheed PA-C, pls refer to her note above for further detail. Mrs. De La Cruz is a 70yo F with CKD III, migraines, history of ulcerative colitis, history of breast cancer, fam hx odf CAD, who presents with chest pain associated w/ lightheadedness while at rest. Pt reports 6/10 sharp left-sided pain with radiation into left shoulder and neck. Received ASA and nitro. In ED CT PE obtained and negative for PE or aortic dissection. ECG w/o ischemic changes, Trop so far negative. Pain has resolved in ED however later when pt was laying on her side it was bothering her again but says not nearly as much. She also reports frequent episodes of lightheadedness. Currently laying in bed in NAD, reports mild left chest discomfort while laying on the left side and on and off feeling of lightheadedness. However pain/ discomfort not reproducible on phys. exam. She is alert and oriented and answering questions appropriately. Heart sounds regular. Lung clear to auscultation w/o wheezing, rhonchi, crackles. Abdomen soft, nontender, nondistended. Pt moves all extremities spontaneously. Skin is warm dry, well perfused. There is no LE edema. Pt brings up her code status and wants to make sure she is DNR/DNI. Will monitor on tele overnight, trend trop., repeat ECG in the morning. Plan to obtain echo and further discuss results w/ cardiology. Beata Cai MD
[2020-06-06] MEDS ORDERED: ACETAMINOPHEN 325 MG TAB PO PRN (21:42)
[2020-06-06] MEDS ORDERED: POLYETHYLENE (MIRALAX) 17 GM PACK PO PRN (21:42)
[2020-06-06] MEDS ORDERED: ONDANSETRON INJ 2 MG/ML 2 ML VIAL IV PRN (21:42)
[2020-06-06] MEDS ORDERED: NITROGLYCERIN SL 0.4 MG/TAB TAB SL PRN (21:42)
[2020-06-06] MEDS: TOPIRAMATE 50 MG TAB PO SCH (22:54)
[2020-06-06] MEDS: traZODone HCL 50 MG TAB PO SCH (22:54)
[2020-06-06] MEDS: DOXEPIN HCL 10 MG CAPSULE PO SCH (22:54)
[2020-06-06] MEDS: HEPARIN SOD 5,000 UNIT/0.5 ML VIAL SQ SCH (22:54)
[2020-06-06] MEDS: PROPRANOLOL HCL 60 MG LA CAP PO SCH (22:54)
[2020-06-06] MEDS ORDERED: POTASSIUM CHLORIDE CRTAB 20 MEQ TABCR PO STA (23:15)
[2020-06-07 04:02] LABS: Hematocrit (blood only) 33.8 % (37-47); Hemoglobin 10.6 g/dL (12.0-16.0); Mean Corpuscular Hemoglobin 27.3 pg (25-34); Mean Corpuscular Hgb Conc 31.4 g/dL (32-36); Mean Corpuscular Volume 87.1 fL (80-100); Mean Platelet Volume 9.5 fL (7.4-10.4); Platelet Count 149 K/uL (130-400); RDW Coefficient of Variation 15.9 % (11.5-14.5); RDW Standard Deviation 51.1 fL (36.4-46.3); Red Blood Count 3.88 M/uL (4.2-5.4); White Blood Count 4.17 K/uL (4.8-10.8)
[2020-06-07 04:34] LABS: BUN Creatinine Ratio 13.5 (10-20); Blood Urea Nitrogen 18 mg/dl (7-18); Carbon Dioxide 26 mmol/L (21-32); Chloride 113 mmol/L (98-107); Creatinine Clr Calc Pharmacy 37.7 ml/min; Est GFR (African American) 46.5; Est GFR (Non-African American) 40.1; Glucose 109 mg/dl (70-99); Potassium 3.9 mmol/L (3.5-5.1); Sodium 142 mmol/L (136-145)
[2020-06-07 04:42] LABS: Chol HDL Ratio 3; Cholesterol 187 mg/dl (0-200); HDL Cholesterol 55 mg/dl; LDL Cholesterol Calculated 114 mg/dl; Triglycerides 92 mg/dl (0-150); Troponin I < 0.015 ng/ml (0-0.045); VLDL Cholesterol 18 mg/dl
[2020-06-07 06:07] LABS: Estimated Average Glucose 105 mg/dl; Hemoglobin A1C 5.3 % (4.5-5.6)
[2020-06-07 06:18] LABS: Appearance Urine Clear (Clear); Bilirubin Urine Negative (Negative); Blood Urine Negative (Negative); Color Urine Yellow; Glucose Urine UA Negative (Negative); Ketones Urine Negative (Negative); Leukocyte Esterase Urine Negative (Negative); Nitrite Urine Negative (Negative); Protein Urine Negative (Negative); Specific Gravity Urine 1.035 (1.000-1.030); Urobilinogen Urine Negative (Negative)
[2020-06-07] MEDS: HEPARIN SOD 5,000 UNIT/0.5 ML VIAL SQ SCH ×3 (06:21→21:04)
[2020-06-07] MEDS: ASPIRIN 81 MG ECTAB PO SCH (08:46)
[2020-06-07] MEDS: TOPIRAMATE 50 MG TAB PO SCH ×2 (08:46→20:55)
[2020-06-07] MEDS ORDERED: LACTATED RINGER'S 1,000 ML IV SCH (10:15)
[2020-06-07] MEDS ORDERED: METOPROLOL TARTRATE 1 MG/ML VIAL IV ONE (12:07)
[2020-06-07] MEDS ORDERED: ATROPINE SULFATE 0.1 MG/ML 10ML SYR IV ONE (12:07)
[2020-06-07] MEDS ORDERED: DOBUTamine HCL 12.5 MG/ML 20 ML VIAL IV ONE (12:07)
--- NOTE | 2020-06-07 14:14 | Cardiology Consultation ---
Date of Consultation June 07, 2020 Assessment & Plan (1) Chest pain: (2) CKD (chronic kidney disease), stage III: Dobutamine stress echocardiogram was negative for ischemia. No cardiac source for chest discomfort found. Recommend treatment for GERD. History of Present Illness Reason for Consultation: chest pain Requesting Physician: Dr. Coronado Attending Physician: Jamie Shultz MD History of Present Illness Mrs. Bonner a very pleasant 70-year-old woman who does not routinely follow with outpatient cardiology. She presented to [facility] on 06/06/2020 with complaints of chest pain. Patient states that around 1:00 in the afternoon she was sitting watching television when she suddenly developed left- sided chest pain. She described the sensation as sharp and burning with radiation up to her left shoulder and down her left arm. She denies any associated symptoms of shortness of breath, diaphoresis, palpitations, lightheadedness, nausea, dizziness or syncope. The discomfort waxed and waned and she presented to the emergency department.Upon arrival her ischemic evaluation was unremarkable and she was admitted to telemetry without further chest discomfort overnight. States she had one previously similar episode approximately 10 years ago for which she underwent stress testing as an outpatient which was unremarkable. Allergies Allergy/AdvReac Type Severity Reaction Status Date / Time bee venom protein (honey bee) Allergy Mild Verified 06/06/20 16:18 No Known Drug Allergies Allergy Unknown . Verified 06/06/20 16:18 Home Medications Medication Instructions Recorded Confirmed Type aspirin [Aspirin Low-Strength] 81 mg PO DAILY #0 11/04/17 06/06/20 History propranolol 120 mg PO HS #0 11/04/17 06/06/20 History doxepin 20 mg PO HS 06/06/20 06/06/20 History rizatriptan 0 mg PO .COMPLEX 06/06/20 06/06/20 History topiramate 50 mg PO BID 06/06/20 06/06/20 History trazodone 150 mg PO HS 06/06/20 06/06/20 History Patient History Medical History CKD (chronic kidney disease), stage III History of breast cancer 20 years ago, s/p partial mastectomy Hx of migraines Insomnia Ulcerative colitis Surgical History H/O laminectomy H/O partial mastectomy H/O spinal fusion H/O Spinal surgery Hx of tonsillectomy Family History Other Diabetes Heart disease Rheumatoid arthritis Social History Smoking Status: Never smoker Hx Alcohol Use: No Hx Substance Use: No Preferred Language: Burkinan Communication Ability: Effective 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 No acute distress. HEENT: Normocephalic, atraumatic. Pupils equal, round and reactive to light and accommodation. Extraocular muscles are intact. Anicteric sclera. Moist mucous membranes. Neck: No JVD. No bruit. Cardiovascular: Regular. Positive S-4. Normal S-1 and S-2. No S-3. No murmurs or rubs. Pulmonary: Clear to auscultation B/L. No rales, rhonchi or wheezing Abdomen: Bowel sounds x 4, soft. No rebound, guarding or tenderness. No organomegaly. Extremities: No clubbing, cyanosis or edema. +2 pedal pulses bilaterally. Skin: Warm and dry. Results & Data ([facility]) Vital Signs (Past 12 Hours) Vital Signs Temp Pulse Pulse Resp BP BP Pulse Ox 06/07/20 11:05 36.4 C L 65 18 102/65 96 06/07/20 08:00 62 06/07/20 07:01 36.5 C 62 16 94/52 L 92 06/07/20 03:38 36.4 C L 63 18 93/59 L 90 Laboratory Results Laboratory Results - last 24 hr 06/06/20 06/06/20 06/06/20 15:47 15:47 15:47 WBC 3.89 L RBC 4.30 Hgb 11.7 L Hct 36.9 L MCV 85.8 MCH 27.2 MCHC 31.7 L RDW Std Deviation 50.1 H RDW Coeff of Ashley 15.9 H Plt Count 170 MPV 9.5 Immature Gran % (Auto) 2.6 Neut % (Auto) 36.8 Lymph % (Auto) 45.2 [place] % (Auto) 9.0 Eos % (Auto) 5.9 Baso % (Auto) 0.5 Neut # (Auto) 1.43 Lymph # (Auto) 1.76 [place] # (Auto) 0.35 Eos # (Auto) 0.23 Baso # (Auto) 0.02 Immature Gran # (Auto) 0.10 H PT 10.6 INR 1.0 APTT 27.0 PTT Ratio 1.0 D-Dimer 580 H* Sodium 140 Potassium 3.4 L Chloride 111 H Carbon Dioxide 22 Anion Gap 7.0 BUN 18 Creatinine 1.13 Est Cr Clr Drug Dosing Not Reportable Est GFR ( Amer) 56.6 Est GFR (Non-Af Amer) 48.9 BUN/Creatinine Ratio 15.8 Glucose 88 Estimat Average Glucose Hemoglobin A1c Calcium 8.4 L Magnesium 2.1 Total Bilirubin 0.5 AST 11 L ALT 11 L Alkaline Phosphatase 95 Troponin I < 0.015 Total Protein 7.4 Albumin 3.6 Globulin 3.8 Albumin/Globulin Ratio 0.9 Triglycerides Cholesterol LDL Cholesterol, Calc VLDL Cholesterol, Calc HDL Cholesterol Cholesterol/HDL Ratio Lipase 281 TSH 8.040 H Free T4 0.98 Urine Color Urine Appearance Urine pH Ur Specific [place] Urine Protein Urine Glucose (UA) Urine Ketones Urine Blood Urine Nitrite Urine Bilirubin Urine Urobilinogen Ur Leukocyte Esterase SARS-CoV-2 Ag (Rapid) 06/06/20 06/06/20 06/06/20 18:18 18:47 21:49 WBC RBC Hgb Hct MCV MCH MCHC RDW Std Deviation RDW Coeff of [place] Plt Count MPV Immature Gran % (Auto) Neut % (Auto) Lymph % (Auto) [place] % (Auto) Eos % (Auto) Baso % (Auto) Neut # (Auto) Lymph # (Auto) [place] # (Auto) Eos # (Auto) Baso # (Auto) Immature Gran # (Auto) PT INR APTT PTT Ratio D-Dimer Sodium Potassium Chloride Carbon Dioxide Anion Gap BUN Creatinine Est Cr Clr Drug Dosing Est GFR ( Amer) Est GFR (Non-Af Amer) BUN/Creatinine Ratio Glucose Estimat Average Glucose Hemoglobin A1c Calcium Magnesium Total Bilirubin AST ALT Alkaline Phosphatase Troponin I < 0.015 < 0.015 Total Protein Albumin Globulin Albumin/Globulin Ratio Triglycerides Cholesterol LDL Cholesterol, Calc VLDL Cholesterol, Calc HDL Cholesterol Cholesterol/HDL Ratio Lipase TSH Free T4 Urine Color Urine Appearance Urine pH Ur Specific [place] Urine Protein Urine Glucose (UA) Urine Ketones Urine Blood Urine Nitrite Urine Bilirubin Urine Urobilinogen Ur Leukocyte Esterase SARS-CoV-2 Ag (Rapid) Negative 06/07/20 06/07/20 06/07/20 03:52 03:52 03:52 WBC 4.17 L RBC 3.88 L Hgb 10.6 L Hct 33.8 L MCV 87.1 MCH 27.3 MCHC 31.4 L RDW Std Deviation 51.1 H RDW Coeff of Ashley 15.9 H Plt Count 149 MPV 9.5 Immature Gran % (Auto) Neut % (Auto) Lymph % (Auto) [place] % (Auto) Eos % (Auto) Baso % (Auto) Neut # (Auto) Lymph # (Auto) [place] # (Auto) Eos # (Auto) Baso # (Auto) Immature Gran # (Auto) PT INR APTT PTT Ratio D-Dimer Sodium 142 Potassium 3.9 Chloride 113 H Carbon Dioxide 26 Anion Gap 3.0 BUN 18 Creatinine 1.33 H Est Cr Clr Drug Dosing 37.7 Est GFR ( Amer) 46.5 Est GFR (Non-Af Amer) 40.1 BUN/Creatinine Ratio 13.5 Glucose 109 H Estimat Average Glucose 105 Hemoglobin A1c 5.3 Calcium 8.0 L Magnesium Total Bilirubin AST ALT Alkaline Phosphatase Troponin I < 0.015 Total Protein Albumin Globulin Albumin/Globulin Ratio Triglycerides 92 Cholesterol 187 LDL Cholesterol, Calc 114 VLDL Cholesterol, Calc 18 HDL Cholesterol 55 Cholesterol/HDL Ratio 3 Lipase TSH Free T4 Urine Color Urine Appearance Urine pH Ur Specific [place] Urine Protein Urine Glucose (UA) Urine Ketones Urine Blood Urine Nitrite Urine Bilirubin Urine Urobilinogen Ur Leukocyte Esterase SARS-CoV-2 Ag (Rapid) 06/07/20 06:05 WBC RBC Hgb Hct MCV MCH MCHC RDW Std Deviation RDW Coeff of [place] Plt Count MPV Immature Gran % (Auto) Neut % (Auto) Lymph % (Auto) [place] % (Auto) Eos % (Auto) Baso % (Auto) Neut # (Auto) Lymph # (Auto) [place] # (Auto) Eos # (Auto) Baso # (Auto) Immature Gran # (Auto) PT INR APTT PTT Ratio D-Dimer Sodium Potassium Chloride Carbon Dioxide Anion Gap BUN Creatinine Est Cr Clr Drug Dosing Est GFR ( Amer) Est GFR (Non-Af Amer) BUN/Creatinine Ratio Glucose Estimat Average Glucose Hemoglobin A1c Calcium Magnesium Total Bilirubin AST ALT Alkaline Phosphatase Troponin I Total Protein Albumin Globulin Albumin/Globulin Ratio Triglycerides Cholesterol LDL Cholesterol, Calc VLDL Cholesterol, Calc HDL Cholesterol Cholesterol/HDL Ratio Lipase TSH Free T4 Urine Color Yellow Urine Appearance Clear Urine pH 5.0 Ur Specific [place] 1.035 H Urine Protein Negative Urine Glucose (UA) Negative Urine Ketones Negative Urine Blood Negative Urine Nitrite Negative Urine Bilirubin Negative Urine Urobilinogen Negative Ur Leukocyte Esterase Negative SARS-CoV-2 Ag (Rapid) Medications Administered Current Inpatient Medications Acetaminophen (Acetaminophen 325 Mg Tab) 650 mg PO Q4H PRN PRN Reason: Pain or Fever Stop: 07/06/20 21:41 Aspirin (Aspirin 81 Mg Ectab) 81 mg PO DAILY [facility] Stop: 07/07/20 08:59 Last Admin: 06/07/20 08:46 Dose: 81 mg Documented by: Doxepin HCl (Doxepin Hcl 10 Mg Capsule) 20 mg PO HS [facility] Stop: 07/06/20 21:59 Last Admin: 06/06/20 22:54 Dose: 20 mg Documented by: Heparin Sodium (Porcine) (Heparin Sod 5,000 Unit/0.5 Ml Vial) 5,000 units SQ Q8 DIMITRI Stop: 07/06/20 21:59 Last Admin: 06/07/20 06:21 Dose: 5,000 units Documented by: Lactated Ringer's (Lr) 1,000 mls @ 80 mls/hr IV .[id number] [facility] Stop: 06/07/20 22:44 Last Admin: 06/07/20 11:39 Dose: 80 mls/hr Documented by: Nitroglycerin (Nitroglycerin Sl 0.4 Mg/Tab Tab) 0.4 mg SL UD PRN PRN Reason: Chest Pain Stop: 07/06/20 21:41 Ondansetron HCl (Ondansetron Inj 2 Mg/Ml 2 Ml Vial) 4 mg IV Q6H PRN PRN Reason: Nausea Stop: 07/06/20 21:41 Polyethylene Glycol (Polyethylene (Miralax) 17 Gm Pack) 17 gm PO DAILY PRN PRN Reason: Constipation Stop: 07/06/20 21:41 Propranolol HCl (Propranolol Hcl 60 Mg [place]) 120 mg PO [facility] Stop: 07/06/20 21:59 Last Admin: 06/06/20 22:54 Dose: 120 mg Documented by: Topiramate (Topiramate 50 Mg Tab) 50 mg PO BID [facility] Stop: 07/06/20 21:59 Last Admin: 06/07/20 08:46 Dose: 50 mg Documented by: Trazodone HCl (Trazodone Hcl 50 Mg Tab) 150 mg PO [facility] Stop: 07/06/20 21:59 Last Admin: 06/06/20 22:54 Dose: 150 mg Documented by:
--- NOTE | 2020-06-07 14:58 | Electrocardiogram Report ---
Test Reason : Blood Pressure : / mmHG Vent. Rate : 061 BPM Atrial Rate : 061 BPM P-R Int : 172 ms QRS Dur : 078 ms QT Int : 424 ms P-R-T Axes : 066 064 053 degrees QTc Int : 426 ms Normal sinus rhythm Nonspecific ST abnormality Abnormal ECG When compared with ECG of 06-JUN-2020 14:55, No significant change was found Confirmed by Darío Waller ([id number]) on 06/07/2020 2:58:09 PM Referred By: REFERRED SELF Confirmed By:Darío Waller
--- NOTE | 2020-06-07 15:42 | Hospitalist Progress Note ---
Date of Service June 07, 2020 Assessment & Plan (1) Chest pain: Patient is a 70yr female with H/O CKD III, migraines, history of ulcerative colitis, history of breast cancer and other medical problems who presents with chest pain starting this afternoon. Chest Pain: R/O ACS Troponin:Negative EKG shows: Nonspecific ST abnormality CXR: Apparent left basilar opacity. This likely reflects pulmonary vessels or atelectasis. An infectious process could appear similar but is considered less likely. ECHO: Borderline global hypokinesis of left ventricle. Grade 2 diastolic dysfunction. Mild aortic regurgitation. Mild mitral regurgitation. EF 50 to 55%. Mild concentric LVH. Lipid Panel WNL Planned for Stress test today Continue Aspirin 81mg daily Oxygen PRN Further management based on stress test Appreciate cardiology input Elevated D-dimer CT:No evidence for pulmonary embolus. Abnormal CT -CTA: Mosaic attenuation within the lungs consistent with air trapping. This can be seen in the setting of small airways disease. Mild central bronchial wall thickening suggestive of a bronchitis. Groundglass densities within the lung bases favor mild dependent change. A low-grade superimposed pneumonitis cannot be excluded but is considered less likely. A few prominent subcentimeter bilateral hilar lymph nodes. These have slightly increased in size. -Denies any respiratory symptoms -SARS-CoV2 Ag Negative -Further work-up prior hilar lymphadenopathy as outpatient (2) CKD (chronic kidney disease), stage III: SHALONDA on CKD III Cr:1.33 today Gentle IV fluids Avoid nephrotoxic agents as able Monitor renal function (3) Hx of migraines: Continue propranolol, doxepin, topiramate (4) Insomnia: Continue trazodone DVT Px: SQ heparin Code status: FULL Disposition Expect to discharge home when medically stable Admission and Anticipated Discharge Date Admission Date: June 06, 2020 Subjective Patient is seen and examined at bedside Chest pain completely resolved respiration Denies any nausea, vomiting, abdominal pain, shortness of breath, dizziness Discussed with cardiology today Plan for stress test today Offers no other complaints Eager to get discharged Review of Systems Review of Systems: All systems reviewed & are unremarkable except as noted in HPI & below Physical Exam Physical Exam: Physical Exam: Vitals signs as noted above General Appearance:Moderately built and nourished, no apparent distress Head: normocephalic, Atraumatic Eyes: normal inspection, EOMI Neck: supple, Trachea midline Respiratory/Chest: Normal breath sounds, CTA, No accessory muscle use Cardiovascular: S1, S2, No murmur Abdomen/GI:Soft, Non tender, Bowel sounds present Extremities/Musculoskelatal:normal inspection, no edema Neurologic/Psych:AAOX3, grossly no focal neurological deficits Skin: normal color, warm Results & Data Results & Data ([facility]) Vital Signs (Past 12 Hours) Vital Signs Temp Pulse Pulse Resp BP BP Pulse Ox 06/07/20 15:12 36.6 C 76 18 99/63 L 97 06/07/20 11:05 36.4 C L 65 18 102/65 96 06/07/20 08:00 62 06/07/20 07:01 36.5 C 62 16 94/52 L 92 Laboratory Results Short CBC 06/06/20 06/07/20 Range/Units 15:47 03:52 WBC 3.89 L 4.17 L (4.8-10.8) K/uL Hgb 11.7 L 10.6 L (12.0-16.0) g/dL Hct 36.9 L 33.8 L (37-47) % Plt Count 170 149 (130-400) K/uL BMP 06/06/20 06/07/20 15:47 03:52 Sodium 140 142 Potassium 3.4 L 3.9 Chloride 111 H 113 H Carbon Dioxide 22 26 BUN 18 18 Creatinine 1.13 1.33 H Glucose 88 109 H Calcium 8.4 L 8.0 L Cardiac Enzymes 06/06/20 06/06/20 06/06/20 Range/Units 15:47 18:47 21:49 Troponin I < 0.015 < 0.015 < 0.015 (0-0.045) ng/ml 06/07/20 Range/Units 03:52 Troponin I < 0.015 (0-0.045) ng/ml Liver Function 06/06/20 Range/Units 15:47 Total Bilirubin 0.5 (0.2-1) mg/dl AST 11 L (15-37) U/L ALT 11 L (12-78) U/L Alkaline Phosphatase 95 (45-117) U/L Albumin 3.6 (3.4-5.0) gm/dl Urine 06/07/20 Range/Units 06:05 Urine Color Yellow Urine Appearance Clear (Clear) Urine pH 5.0 (4.5-7.5) Ur Specific [place] 1.035 H (1.000-1.030) Urine Protein Negative (Negative) Urine Glucose (UA) Negative (Negative)
[2020-06-07] MEDS: traZODone HCL 50 MG TAB PO SCH (20:53)
[2020-06-07] MEDS: PROPRANOLOL HCL 60 MG LA CAP PO SCH ×2 (20:54→21:01)
[2020-06-07] MEDS: DOXEPIN HCL 10 MG CAPSULE PO SCH (20:54)
[2020-06-08] MEDS: HEPARIN SOD 5,000 UNIT/0.5 ML VIAL SQ SCH (05:49)
[2020-06-08 07:44] LABS: Hematocrit (blood only) 32.9 % (37-47); Hemoglobin 10.4 g/dL (12.0-16.0); Mean Corpuscular Hemoglobin 27.2 pg (25-34); Mean Corpuscular Hgb Conc 31.6 g/dL (32-36); Mean Corpuscular Volume 86.1 fL (80-100); Mean Platelet Volume 9.6 fL (7.4-10.4); Platelet Count 139 K/uL (130-400); RDW Coefficient of Variation 15.8 % (11.5-14.5); RDW Standard Deviation 49.5 fL (36.4-46.3); Red Blood Count 3.82 M/uL (4.2-5.4); White Blood Count 3.53 K/uL (4.8-10.8)
[2020-06-08 08:15] LABS: BUN Creatinine Ratio 14.7 (10-20); Calcium 8.9 mg/dl (8.5-10.1); Creatinine Clr Calc Pharmacy 34.8 ml/min; Est GFR (African American) 42.2; Est GFR (Non-African American) 36.4; Potassium 3.9 mmol/L (3.5-5.1)
[2020-06-08] MEDS: TOPIRAMATE 50 MG TAB PO SCH (08:33)
[2020-06-08] MEDS: ASPIRIN 81 MG ECTAB PO SCH (08:34)
[2020-06-08] MEDS ORDERED: MECLIZINE 12.5 MG TAB PO PRN (11:56)
--- NOTE | 2020-06-08 12:40 | Hospitalist Progress Note ---
Date of Service June 08, 2020 Assessment & Plan (1) Chest pain: Patient is a 70yr female with H/O CKD III, migraines, history of ulcerative colitis, history of breast cancer and other medical problems who presents with chest pain starting this afternoon. Chest Pain: R/O ACS Troponin:Negative EKG shows: Nonspecific ST abnormality CXR: Apparent left basilar opacity. This likely reflects pulmonary vessels or atelectasis. An infectious process could appear similar but is considered less likely. ECHO: Borderline global hypokinesis of left ventricle. Grade 2 diastolic dysfunction. Mild aortic regurgitation. Mild mitral regurgitation. EF 50 to 55%. Mild concentric LVH. Lipid Panel WNL Dobutamine stress test: Nonischemic. No arrhythmias. Diffuse upsloping ST segment depressions at peak heart rate. Chest discomfort was not reproduced. Normal heart rate and blood pressure response to dobutamine infusion. Continue Aspirin 81mg daily Oxygen PRN Appreciate cardiology input Chronic Dizziness > 2 months as per patient w she describes as "room spinning" Start on Antivert PRN Advised to to follow up with ENT as outpatient Elevated D-dimer CT:No evidence for pulmonary embolus. No leg swelling noted Denies calf pain Abnormal CT -CTA: Mosaic attenuation within the lungs consistent with air trapping. This can be seen in the setting of small airways disease. Mild central bronchial wall thickening suggestive of a bronchitis. Groundglass densities within the lung bases favor mild dependent change. A low-grade superimposed pneumonitis cannot be excluded but is considered less likely. A few prominent subcentimeter bilateral hilar lymph nodes. These have slightly increased in size. -Denies any respiratory symptoms -SARS-CoV2 Ag Negative -Further work-up prior hilar lymphadenopathy as outpatient (2) CKD (chronic kidney disease), stage III: CKD III Baseline Cr 1.2-1.3 Cr:1.4 today Received gentle IV fluids Avoid nephrotoxic agents as able Monitor renal function (3) Hx of migraines: Continue propranolol, doxepin, topiramate (4) Insomnia: Continue trazodone DVT Px: SQ heparin Code status: FULL Disposition Plan to discharge home today Admission and Anticipated Discharge Date Admission Date: June 06, 2020 Subjective Patient is seen and examined at bedside No recurrence of chest pain Eager to get discharged Reports chronic dizziness for 2 months or greater Discussed with cardiology today Offers no other complaints Plan to discharge home today Denies any Chest pain, nausea, vomiting, abdominal pain, shortness of breath, dizziness Review of Systems Review of Systems: All systems reviewed & are unremarkable except as noted in HPI & below Physical Exam Physical Exam: Physical Exam: Vitals signs as noted above General Appearance:Moderately built and nourished, no apparent distress Head: normocephalic, Atraumatic Eyes: normal inspection, EOMI Neck: supple, Trachea midline Respiratory/Chest: Normal breath sounds, CTA, No accessory muscle use Cardiovascular: S1, S2, No murmur Abdomen/GI:Soft, Non tender, Bowel sounds present Extremities/Musculoskelatal:normal inspection, no edema Neurologic/Psych:AAOX3, grossly no focal neurological deficits Skin: normal color, warm Results & Data Results & Data ([facility]) Vital Signs (Past 12 Hours) Vital Signs Temp Pulse Pulse Resp BP Pulse Ox 06/08/20 11:38 36.7 C 78 18 109/62 95 06/08/20 07:05 36.4 C L 74 18 96/89 L 94 06/08/20 03:21 37 C 66 16 109/65 95 06/08/20 03:03 82 Laboratory Results Short CBC 06/08/20 Range/Units 07:08 WBC 3.53 L (4.8-10.8) K/uL Hgb 10.4 L (12.0-16.0) g/dL Hct 32.9 L (37-47) % Plt Count 139 (130-400) K/uL BMP 06/08/20 07:08 Sodium 141 Potassium 3.9 Chloride 112 H Carbon Dioxide 23 BUN 21 H Creatinine 1.44 H Glucose 93 Calcium 8.9
--- NOTE | 2020-06-08 12:46 | Discharge Summary ---
Date of Service June 08, 2020 Admission HPI Per Admitting Provider This is a 70yo F with a PMH of CKD III, migraines, history of ulcerative colitis, history of breast cancer and other medical problems who presents with chest pain starting this afternoon. Discomfort came on while watching TV and describes as 6/10 sharp left-sided pain with radiation into left shoulder and neck. Pain would wax and wane, lasting approximately 1-2 minutes before dissipating. Has not had pain since arriving in ED. Associated with lightheadedness but denies diaphoresis, SOB, nausea or vomiting. Not made worse with exertion. Denies any personal history of chest pain except for one episode in 2010, when she underwent an exercise stress test that was negative. Denies increased stress or history of acid reflux. No h/o HTN or DM. Family history of arrhythmia (father) and CAD requiring triple bypass (son). Currently chest pain free. Denies fever, chills, lightheadedness, headache, chest pain, SOB, nausea, vomiting, abdominal pain, dysuria, diarrhea or constipation. Admission Exam Per Admitting Provider Physical Exam Physical Exam: General Appearance: WD/WN, vitals as above, NAD, sitting up in bed, pleasant, conversing easily Head: normocephalic, atraumatic Eyes: normal inspection, PERRL, conjunctivae normal, anicteric sclerae ENT: external ear and nose normal, oropharynx normal Neck: normal visual inspection, trachea midline, no thyromegaly Respiratory: normal respiratory effort, lungs clear to auscultation, no wheeze, rales, rhonchi. No accessory muscle use Cardiovascular: regular rate, rhythm, no murmur, normal peripheral pulses, no BLE edema. Vessels: no JVD Chest: normal inspection of chest, pain not reproducible with palpation Abdomen/GI: normal bowel sounds, soft, nontender, no hepatosplenomegaly Extremities/Musculoskeletal: no cyanosis or clubbing, extremities motor strength 5/5 Neurologic: PERRL, EOMI, accommodation nl, no face palsy, no dysarthria, CN's II-XI intact bilaterally and moves all extremities Psychiatric: A+Ox3, euthymic affect Skin: no rashes, normal color, warm/dry Principal Diagnosis Chest Pain Discharge Data Allergies Allergy/AdvReac Type Severity Reaction Status Date / Time bee venom protein (honey bee) Allergy Mild Verified 06/06/20 16:18 No Known Drug Allergies Allergy Unknown . Verified 06/06/20 16:18 Consultations 06/06/20 17:53 ED Decision to Admit Stat 06/07/20 08:00 Consult Cardiology Routine Procedures Performed CXR: Apparent left basilar opacity. This likely reflects pulmonary vessels or atelectasis. An infectious process could appear similar but is considered less likely. ECHO: Borderline global hypokinesis of left ventricle. Grade 2 diastolic dysfunction. Mild aortic regurgitation. Mild mitral regurgitation. EF 50 to 55%. Mild concentric LVH Ordered Studies 06/06/20 16:27 CT angio chest PE protocol Stat Hospital Course (1) Chest pain: Patient is a 70yr female with H/O CKD III, migraines, history of ulcerative colitis, history of breast cancer and other medical problems who presents with chest pain starting this afternoon. Chest Pain: R/O ACS Troponin:Negative EKG shows: Nonspecific ST abnormality CXR: Apparent left basilar opacity. This likely reflects pulmonary vessels or atelectasis. An infectious process could appear similar but is considered less likely. ECHO: Borderline global hypokinesis of left ventricle. Grade 2 diastolic dysfunction. Mild aortic regurgitation. Mild mitral regurgitation. EF 50 to 55%. Mild concentric LVH. Lipid Panel WNL Dobutamine stress test: Nonischemic. No arrhythmias. Diffuse upsloping ST segment depressions at peak heart rate. Chest discomfort was not reproduced. Normal heart rate and blood pressure response to dobutamine infusion. Continue Aspirin 81mg daily Oxygen PRN Appreciate cardiology input Chronic Dizziness > 2 months as per patient w she describes as "room spinning" Start on Antivert PRN Advised to to follow up with ENT as outpatient Elevated D-dimer CT:No evidence for pulmonary embolus. No leg swelling noted Denies calf pain Abnormal CT -CTA: Mosaic attenuation within the lungs consistent with air trapping. This can be seen in the setting of small airways disease. Mild central bronchial wall thickening suggestive of a bronchitis. Groundglass densities within the lung bases favor mild dependent change. A low-grade superimposed pneumonitis cannot be excluded but is considered less likely. A few prominent subcentimeter bilateral hilar lymph nodes. These have slightly increased in size. -Denies any respiratory symptoms -SARS-CoV2 Ag Negative -Further work-up prior hilar lymphadenopathy as outpatient (2) CKD (chronic kidney disease), stage III: CKD III Baseline Cr 1.2-1.3 Cr:1.4 today Received gentle IV fluids Avoid nephrotoxic agents as able Monitor renal function (3) Hx of migraines: Continue propranolol, doxepin, topiramate (4) Insomnia: Continue trazodone DVT Px: SQ heparin Code status: FULL Disposition Plan to discharge home today Total Time Total Time Spent Total Time Spent (In Minutes): 36 minutes Total Time Includes: Examination of the Patient, Discharge Planning, Medication Reconciliation, Communication With Other Providers and Other Discharge Plan Discharge Items Patient Disposition: Home - Self-Care Reason For Visit: CHEST PAIN RULE OUT Discharge Diagnosis: Chest Pain Condition on Discharge: Good Activity: Resume your previous activity Exercise/Sports: Gradually increase as tolerated Non-emergency contact: Primary Care Provider Call non-emergency contact if: you have any medication questions, your symptoms worsen, your pain is not controlled, your pain is worsening, your pain is unusual for you, your pain is concerning for you and you have a fever Follow-up/Referrals: Tushar Mina MD [Primary Care Provider] - (Date & Time 06/13/2020 2:00 PM Provider Tushar Mina III, MD Department [facility] ) Diet: Heart Healthy Addtl Attending Provider Instructions: Follow up with your PCP on 06/13/2020 at 2:00 PM Follow-up with your ENT physician as outpatient as advised for evaluation of your dizziness. Seek immediate medical attention if your symptoms reoccur or worsen Pending Studies at Discharge: No Stand-Alone Forms: My Vers[employer], Smoking Cessation Medications and DC Order Prescriptions: New meclizine 12.5 mg Tablet 12.5 mg PO BID PRN (Reason: dizziness) Qty: 30 RF: 0 Continued aspirin 81 mg Tablet,Delayed Release (Dr/Ec) 81 mg PO DAILY Qty: 0 RF: 0 propranolol 120 mg Capsule,Extended Release 24 Hr 120 mg PO HS Qty: 0 RF: 0 doxepin 10 mg capsule 20 mg PO HS RF: 0 topiramate 25 mg tablet 50 mg PO BID RF: 0 trazodone 150 mg tablet 150 mg PO HS RF: 0 rizatriptan 10 mg Tablet 0 mg PO .COMPLEX RF: 0 Discharge Orders: Discharge Order (Routine); Ordered 06/08/20 Ordered By: Jamie K. Vangala Admission Data Admit Date/Time: 06/06/20 19:33 Attending Provider: Jamie Shultz Admit Provider: Pedro Cai Primary Care Provider: Tushar Mina Other Providers: Pedro Cai ; Elijah Powell Other Interventions: Discharge Summary Assessment (RN) Last Done: 06/08/20 12:52
--- NOTE | 2020-06-08 13:10 | Cardiology Progress Note ---
Date of Service June 08, 2020 Assessment & Plan (1) Chest pain: (2) CKD (chronic kidney disease), stage III: Dobutamine stress echocardiogram was negative for ischemia. No cardiac source for chest discomfort found. Recommend treatment for GERD. Will start on Protonix. Recommend follow-up with PCP for further management. Okay to DC to home from a cardiac standpoint. Admission and Anticipated Discharge Date Admission Date: June 06, 2020 Subjective Patient seen and examined, chart reviewed. States that she feels well. No complaints of recurrent chest discomfort, shortness of breath, palpitations, lightheadedness, dizziness or syncope. Telemetry reviewed: Normal sinus rhythm without arrhythmia or significant ectopy. Review of Systems Review of Systems: All systems reviewed & are unremarkable except as noted in HPI & below Physical Exam Physical Exam: General: Awake, alert and oriented x 3. No acute distress. HEENT: Normocephalic, atraumatic. Pupils equal, round and reactive to light and accommodation. Extraocular muscles are intact. Anicteric sclera. Moist mucous membranes. Neck: No JVD. No bruit. Cardiovascular: Regular. Positive S-4. Normal S-1 and S-2. No S-3. No murmurs or rubs. Pulmonary: Clear to auscultation B/L. No rales, rhonchi or wheezing Abdomen: Bowel sounds x 4, soft. No rebound, guarding or tenderness. No organomegaly. Extremities: No clubbing, cyanosis or edema. +2 pedal pulses bilaterally. Skin: Warm and dry. Results & Data ([facility]) Vital Signs (Past 12 Hours) Vital Signs Temp Pulse Pulse Pulse Resp BP Pulse Ox 06/08/20 12:52 36.7 C 71 78 18 109/62 95 06/08/20 11:38 36.7 C 78 18 109/62 95 06/08/20 07:05 36.4 C L 74 18 96/89 L 94 06/08/20 03:21 37 C 66 16 109/65 95 06/08/20 03:03 82
[2020-06-08] MEDS ORDERED: PANTOprazole 40 MG TAB PO SCH (13:15)
== END 2020-06-08 13:32 | disposition home or self-care (01) ==
LOC: 2S 14:45 → ED 14:45 → SUATTDRO 19:33 → 2S 21:23

== ENCOUNTER 2023-10-29 14:07 | Inpatient (IN) ==
[2023-10-29 15:15] LABS: Appearance Urine Clear (Clear); Bilirubin Urine Negative (Negative); Blood Urine Negative (Negative); Color Urine Yellow; Glucose Urine UA Negative (Negative); Ketones Urine Negative (Negative); Leukocyte Esterase Urine Negative (Negative); Nitrite Urine Negative (Negative); Protein Urine Negative (Negative); Specific Gravity Urine 1.014 (1.000-1.030); Urobilinogen Urine Negative (Negative); pH Urine 5.5 (4.5-7.5)
[2023-10-29 15:25] LABS: Albumin Globulin Ratio 1.2 (0.9-2); Albumin Level 4.1 gm/dl (3.4-5.0); BUN Creatinine Ratio 16.2 (10-20); Bilirubin,Total 1.1 mg/dl (0.2-1.0); Calcium 9.3 mg/dl (8.6-10.3); Creatinine Clr Calc Pharmacy 43.2 ml/min; Est GFR (African American) 56.7 ml/min; Est GFR (Non-African American) 48.9 ml/min; Globulin 3.3 gm/dl (2.5-4.0); Potassium 3.6 mmol/L (3.5-5.1); Total Protein 7.4 gm/dl (6.0-8.3)
[2023-10-29 15:30] LABS: Basophils # (auto) 0.04 K/uL (0.00-0.20); Basophils % (auto) 0.9 %; Eosinophils # (auto) 0.13 K/uL (0.00-0.50); Hemoglobin 10.8 g/dl (12.0-16.0); Immature Granulocytes # (auto) 0.27 K/uL (0.01-0.20); Immature Granulocytes % (auto) 6.1 %; Lymphocytes # (auto) 1.82 K/uL (1.20-3.40); Lymphocytes % (auto) 41.4 %; Mean Corpuscular Hemoglobin 28.1 pg (25.0-34.0); Mean Corpuscular Hgb Conc 31.8 g/dL (32.0-36.0); Mean Corpuscular Volume 88.3 fL (80.0-100.0); Monocytes # (auto) 0.38 K/uL (0.11-0.59); Monocytes % (auto) 8.6 %; Neutrophils # (auto) 1.76 K/uL (1.40-6.50); Platelet Count 0 K/uL (130-400); Platelet Estimate Signific. Decreased (Normal); Polychromasia 1+; RDW Coefficient of Variation 15.9 % (11.5-14.5); RDW Standard Deviation 50.4 fL (36.4-46.3); Red Blood Count 3.85 M/uL (4.20-5.40)
[2023-10-29 15:42] LABS: Partial Thromboplastin Ratio 1.1; Partial Thromboplastin Time 30 Seconds (21-31); Prothrombin Time 10.9 Seconds (9.0-12.0)
[2023-10-29] MEDS ORDERED: SODIUM CHLORIDE 0.9% 250 ML IV PRN (15:53)
[2023-10-29] MEDS ORDERED: methylPREDNISolone 1,000 MG in SYRINGE 0 ML IV ONE (15:53)
--- NOTE | 2023-10-29 16:05 | History & Physical Report ---
Date of Service October 29, 2023 Assessment & Plan (1) Acute ITP: (2) CKD (chronic kidney disease), stage III: (3) Ulcerative colitis: (4) Hx of migraines: (5) Insomnia: Plan This is a 73yo F with a PMH of migraine headaches, CKD III, ulcerative colitis, insomnia and other medical problems listed below who presents with a new rash on arms and legs as well as on tongue she first noticed earlier today and was found to have severe thrombocytopenia with platelet count of zero concerning for ITP. Acute ITP Endorsing early satiety, ambulatory instability and intermittent hematuria for past few months, developed lesion on hard palate 2 weeks ago and diffuse petechial/purpuric rash on BUE and BLE as well as tongue and intraorally today Platelet count of zero VSS, pancytopenic CBC with WBC 4.4, RBC 3.85, hgb 10.8, plt 0 No acute bleeding, CT head without evidence of hemorrhage, mass effect, or evidence of acute territorial ischemia by CT criteria. ED provider discussed with Dr. Aguayo, who recommends methylprednisolone 1gm, IVIG 1g/kg to continue daily, 1u platelets ordered in the ED (verified, not yet received from blood bank) Heme/onc consulted Repeat CBC with diff in AM, as well as coags, CMP, HIV hepatitis panel, EBV and CMV Discontinued aspirin Reviewed home meds - denies new medications, no obvious cause for drug induced ITP Fall precautions, monitor for acute bleeding Early satiety Intermittent hematuria Endorsing these complains for >2 months No N/V, CMP unremarkable aside from tbili 1.1, notably pancytopenic as above UA unremarkable Likely to need at least abdominal imaging once more stable H/o Migraine headaches Denies currently Continue Topamax, doxepin, propranolol with hold parameters, PRN Rizatriptan History of Ulcerative colitis Per chart review Not on any meds, endorses intermittent BRBPR with bowel movements but usually when constipation, attributes to hemorrhoids Insomnia Trazodone HS DVT Ppx: contraindicated given severe thrombocytopenia as above Code status: DNR/DNI PCP: Leopoldo Dispo: Admitted to PCU Patient seen in collaboration with Dr. Gates. Please see addendum. I spent a total of 75 minutes coordinating, documenting, and providing care for this patient excluding time spent in the performance of separately billed se rvices. History of Present Illness Chief Complaint: lesions on tongue Primary Care Provider: Tushar Mina MD This is a 73yo F with a PMH of migraine headaches, CKD III, ulcerative colitis, insomnia and other medical problems listed below who presents with a new rash on arms and legs as well as on tongue she first noticed earlier today. Noted a black ulcer on top of mouth 2 weeks ago but rash on limps, tongue developed today and patient came to ED for further evaluation. Endorses feeling poorly over the past 3 months - first noted some "stumbling" with walking but denies fall, does not use assistive device to walk but "probably should". Also endorses feeling sick after eating over the past 2 months. She has been cooking and then takes a bite or two and feels like she cannot eat anymore and needs to lay down. Denies nausea, vomiting or abdominal pain. Endorses occasional gum bleeding when brushes teeth and also occasionally notes bright red urine in toilet bowl but "hasn't thought much of it". Does not remember the last time she went to PCP. No recent medication changes, URI symptoms or significant tylenol/advil use. Allergies Allergy/AdvReac Type Severity Reaction Status Date / Time bee venom protein (honey bee) Allergy Mild Verified 06/06/20 16:18 No Known Drug Allergies Allergy Unknown . Verified 06/06/20 16:18 Home Medications Medication Instructions Recorded Confirmed Type aspirin 81 mg tablet,delayed 81 mg PO HS ##0 11/04/17 10/29/23 History release doxepin 10 mg capsule 20 mg PO HS 06/06/20 10/29/23 History rizatriptan 10 mg tablet 10 mg PO UD 06/06/20 10/29/23 History topiramate 25 mg tablet 50 mg PO BID 06/06/20 10/29/23 History trazodone 150 mg tablet 150 mg PO HS 06/06/20 10/29/23 History docusate sodium 100 mg tablet 100 mg PO HS 10/29/23 10/29/23 History fluticasone propionate 50 1 spray intranasal DAILY 10/29/23 10/29/23 History mcg/actuation nasal spray,suspension levothyroxine 50 mcg tablet 50 mcg PO DAILY 10/29/23 10/29/23 History propranolol 160 mg capsule,24 160 mg PO HS 10/29/23 10/29/23 History hr,extended release sertraline 100 mg tablet 100 mg PO HS 10/29/23 10/29/23 History Past Med/Surg History Medical History History of breast cancer 20 years ago, s/p partial mastectomy Insomnia CKD (chronic kidney disease), stage III Ulcerative colitis Hx of migraines Surgical History Hx of tonsillectomy H/O laminectomy H/O spinal fusion H/O partial mastectomy H/O Spinal surgery Family History Other Diabetes Heart disease Rheumatoid arthritis Social History Smoking Status: Former smoker Hx Alcohol Use: No Hx Substance Use: No Preferred Language: Icelandic Communication Ability: Effective 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 Physical Exam Physical Exam: Please see Dr. Gates' addendum for physical exam. Results & Data Results & Data Vital Signs (Past 12 Hours) Vital Signs Temp Pulse Resp BP Pulse Ox O2 Del Method O2 Flow Rate 10/29/23 15:31 76 10/29/23 15:00 Room Air 0 10/29/23 14:12 36.6 C 90 20 107/73 98 Room Air Laboratory Results Short CBC 10/29/23 Range/Units 14:40 WBC 4.40 L (4.8-10.8) K/ul Hgb 10.8 L (12.0-16.0) g/dl Hct 34.0 L (37.0-47.0) % Plt Count 0 L* (130-400) K/uL BMP 10/29/23 14:40 Sodium 135 L Potassium 3.6 Chloride 103 Carbon Dioxide 22 BUN 18 Creatinine 1.11 Glucose 95 Calcium 9.3 Liver Function 10/29/23 Range/Units 14:40 Total Bilirubin 1.1 H (0.2-1.0) mg/dl AST 35 (13-39) U/L ALT 21 (7-52) U/L Alkaline Phosphatase 149 H (34-104) U/L Albumin 4.1 (3.4-5.0) gm/dl Urine 10/29/23 Range/Units 14:39 Urine Color Yellow Urine Appearance Clear (Clear) Urine pH 5.5 (4.5-7.5) Ur Specific [place]ster 1.014 (1.000-1.030) Urine Protein Negative (Negative) Urine Glucose (UA) Negative (Negative) Diagnostic Findings Head CT 10/29/23 15:42 CT SCAN OF THE BRAIN WITHOUT IV CONTRAST CLINICAL HISTORY: Bruising. Rash. COMPARISON STUDY: CT of the brain dated 07/05/2006. TECHNIQUE: Unenhanced axial CT scan of the brain is performed from the vertex to the skull base. A dose lowering technique was utilized adhering to the principles of ALARA. CT DOSE: 625.8 mGy.cm FINDINGS: Brain parenchyma: There is age-related involutional change noting mild subcortic al and periventricular microangiopathic disease. There is no hemorrhage, mass effect, or evidence of acute territorial ischemia by CT criteria. Lopez-white matter differentiation is preserved. No extra-axial fluid collection is seen. Ventricles, sulci, cisterns: Prominent secondary to involutional change. Intracranial vasculature: There is atherosclerotic calcification of the cavernous carotid arteries. Calvarium: Unremarkable. Sinuses and mastoids: There is moderate mucosal thickening in the left maxillary antrum. The remaining visualized paranasal sinuses are clear. There is a right m astoid effusion. The left mastoid air cells are well pneumatized. Orbits: The bony orbits are grossly intact. There are bilateral ocular lens implants. IMPRESSION: There is no hemorrhage, mass effect, or evidence of acute territorial ischemia by CT criteria. ACT 112: Negative or not required by law. Electronically signed by: Mitch Tarango M.D. 10/29/2023 4:18 PM Supervising Physician Co-Signing Physician Notes I have seen and discussed the case with the collaborating advanced practitioner. I agree with the above H&P. I have reviewed and confirmed the patients medical history, the findings on physical examination, and the patients diagnosis and treatment plan with Wili CHO and agree with the information documented. In short, Ms De La Cruz is a 73 year old woman with history CKD III, migraines, history of ulcerative colitis, history of breast cancer who is admitted for eval and management of ITP. Patient states she awoke this morning with new, black and painful lesions on tongue. She reports a small painful lesion on the roof of her mouth that was present roughly 1-2 weeks prior, but she didn't pay much mind. She reports feeling poorly for last 2 months--marked by poor appetite, but states that last few days it was much better. She reports weakness when walking, noting she should, but doesn't, use a cane. She also mentions vague history of intermittent hematuria--stating her urine is bright red at times and she thought that just was "apart of stage 3 kidney issues." She denies fevers. Endorses night sweats and attributes it to weather. Denies chest pain, abdominal pain, or other concerns. She states she does not take NSAIDS--outside of a daily aspirin. No recent falls. No recent medication adjustments. No history of autoimmunity. GENERAL APPEARANCE: AxOx4, seemingly well appearing, pleasant woman HEENT: NC, AT. MMM. EOMI, clear conjunctiva, oropharynx clear. NECK: Supple without lymphadenopathy. No stiffness or restricted ROM. HEART: Normal rate and regular rhythm, normal S1/S1, no m/r/g LUNGS: CTAB, moving air well. No crackles or wheezes are heard. ABDOMEN: Soft, nontender, nondistended with good bowel sounds heard. BACK: No CVAT, no obvious deformity. EXTREMITIES: Without cyanosis, clubbing or edema. NEUROLOGICAL: Grossly nonfocal. Alert and oriented, moving all 4 extremities. CN not formally tested but appear grossly intact. Observed to ambulate with normal gait. Skin: Warm and dry without any rash. #ITP CT head w/o bleed Hematology consult -1g methylprednisolone, IVIG 1g/kg to continue daily -1 U platelets to be administered in ED HIV, hepatitis panel, EBV and CMV in am CBC and coags in am Reviewed meds, nothing c/w with drug induced thrombocytopenia, d/c asa #Intermittent hematuria -UA negative, consider abdominal imaging #Migraines doxepin, propranolol, topamax #insomnia trazadone rest of plan as above I spent a total of 35 minutes coordinating, documenting, and providing care for this patient excluding time spent in the performance of separately billed services. All of the aforementioned completed outside of collaborating with the assigned advanced practitioner for a full treatment plan. I have reviewed the advanced practitioner's documentation, and I agree with, and take responsibility for the plan of care
--- NOTE | 2023-10-29 16:20 | CT Scan Report ---
CT SCAN OF THE BRAIN WITHOUT IV CONTRAST CLINICAL HISTORY: Bruising. Rash. COMPARISON STUDY: CT of the brain dated 07/05/2006. TECHNIQUE: Unenhanced axial CT scan of the brain is performed from the vertex to the skull base. A do se lowering technique was utilized adhering to the principles of ALARA. CT DOSE: 625.8 mGy.cm FINDINGS: Brain parenchyma: There is age-related involutional change noting mild subcortical and periventricula r microangiopathic disease. There is no hemorrhage, mass effect, or evidence of acute territorial isc hemia by CT criteria. Lopez-white matter differentiation is preserved. No extra-axial fluid collection is seen. Ventricles, sulci, cisterns: Prominent secondary to involutional change. Intracranial vasculature: There is atherosclerotic calcification of the cavernous carotid arteries. Calvarium: Unremarkable. Sinuses and mastoids: There is moderate mucosal thickening in the left maxillary antrum. The remainin g visualized paranasal sinuses are clear. There is a right mastoid effusion. The left mastoid air nikki ls are well pneumatized. Orbits: The bony orbits are grossly intact. There are bilateral ocular lens implants. IMPRESSION: There is no hemorrhage, mass effect, or evidence of acute territorial ischemia by CT manuelt marco. ACT 112: Negative or not required by law. Electronically signed by: Mitch Tarango M.D. 10/29/2023 4:18 PM
[2023-10-29] MEDS: methylPREDNISolone 1,000 MG in DEXTROSE 5% 250 ML IV STA (16:29)
[2023-10-29] MEDS: Octagam 10% IVIG 10 gram bottle IV SCH (18:24)
[2023-10-29] MEDS: IMMUNE GLOBULIN (HUMAN) SOLN IV ONE (18:45)
--- NOTE | 2023-10-29 19:43 | Emergency Department Note ---
History of Present Illness General Chief complaint: Referred by Doctor Stated complaint: REF BY DOC, POTENTIAL INTERNAL BLEEDING Time Seen by Provider: 10/29/23 15:00 History of Present Illness Provider complaint: Mouth lesions rash Onset (ago): day(s) 1 Associated symptoms: + rash 73-year-old female presents emergency department for lesions in her mouth and rash. Patient states she woke up this morning had black blisters on her tongue swell a rash on her body. She denies any new foods, detergents, soaps. No itching. No difficulty swallowing. No headache. No chest pain or difficult breathing no nausea vomiting or diarrhea. No melena hematochezia. No hematuria or dysuria. No blood thinners. Home Medications Medication Instructions Recorded Confirmed Type aspirin 81 mg tablet,delayed 81 mg PO HS ##0 11/04/17 10/29/23 History release doxepin 10 mg capsule 20 mg PO HS 06/06/20 10/29/23 History rizatriptan 10 mg tablet 10 mg PO UD 06/06/20 10/29/23 History topiramate 25 mg tablet 50 mg PO BID 06/06/20 10/29/23 History trazodone 150 mg tablet 150 mg PO HS 06/06/20 10/29/23 History docusate sodium 100 mg tablet 100 mg PO HS 10/29/23 10/29/23 History fluticasone propionate 50 1 spray intranasal DAILY 10/29/23 10/29/23 History mcg/actuation nasal spray,suspension levothyroxine 50 mcg tablet 50 mcg PO DAILY 10/29/23 10/29/23 History propranolol 160 mg capsule,24 160 mg PO HS 10/29/23 10/29/23 History hr,extended release sertraline 100 mg tablet 100 mg PO HS 10/29/23 10/29/23 History Allergies Allergy/AdvReac Type Severity Reaction Status Date / Time bee venom protein (honey bee) Allergy Mild Verified 06/06/20 16:18 No Known Drug Allergies Allergy Unknown . Verified 06/06/20 16:18 Past Med/Surg History Medical History History of breast cancer 20 years ago, s/p partial mastectomy Insomnia CKD (chronic kidney disease), stage III Ulcerative colitis Hx of migraines Surgical History Hx of tonsillectomy H/O laminectomy H/O spinal fusion H/O partial mastectomy H/O Spinal surgery Family History Other Diabetes Heart disease Rheumatoid arthritis Social History Smoking Status: Former smoker Hx Alcohol Use: No Hx Substance Use: No Preferred Language: Eritrean Communication Ability: Effective Email Production Specialist Required: No Beliefs That Will Affect Care: None Current Living Situation: Spouse Feels Safe at Home: Yes Assistive Devices: Hearing Aid - Bilateral Physical Exam Vital Signs Vital Signs - 24 hr 10/29/23 14:12 10/29/23 15:00 10/29/23 15:15 Temperature 36.6 C Temperature Source Temporal Artery Scan Pulse Rate 90 79 Pulse Rate [Apical] Pulse Rate from SpO2 Sensor 79 Pulse Rhythm Respiratory Rate 20 16 Respiratory Effort / Characteristics Non-Labored Spontaneous Respiratory Depth Normal Blood Pressure 107/73 Blood Pressure [Right Arm] Blood Pressure Mean 84 Blood Pressure Mean [Right Arm] Pulse Oximetry 98 96 Oxygen Delivery Method Room Air Room Air Oxygen Flow Rate 0 Sepsis Recent Fever Within 48 Hours No Sepsis New/Unexplained Change in Mental Status N/A Sepsis Action Taken by Nursing No Action Required 10/29/23 15:30 10/29/23 15:30 10/29/23 15:31 Temperature Temperature Source Pulse Rate 76 76 Pulse Rate [Apical] Pulse Rate from SpO2 Sensor 76 Pulse Rhythm Respiratory Rate 17 Respiratory Effort / Characteristics Respiratory Depth Blood Pressure 104/62 Blood Pressure [Right Arm] Blood Pressure Mean 80 Blood Pressure Mean [Right Arm] Pulse Oximetry 97 Oxygen Delivery Method Oxygen Flow Rate Sepsis Recent Fever Within 48 Hours Sepsis New/Unexplained Change in Mental Status Sepsis Action Taken by Nursing 10/29/23 16:11 10/29/23 16:11 10/29/23 16:15 Temperature Temperature Source Pulse Rate 79 81 Pulse Rate [Apical] 81 Pulse Rate from SpO2 Sensor 79 80 Pulse Rhythm Respiratory Rate 18 17 18 Respiratory Effort / Characteristics Respiratory Depth Blood Pressure Blood Pressure [Right Arm] 114/92 Blood Pressure Mean Blood Pressure Mean [Right Arm] 99 Pulse Oximetry 100 99 99 Oxygen Delivery Method Room Air Oxygen Flow Rate Sepsis Recent Fever Within 48 Hours Sepsis New/Unexplained Change in Mental Status Sepsis Action Taken by Nursing 10/29/23 16:30 10/29/23 16:30 10/29/23 16:45 Temperature Temperature Source Pulse Rate 80 74 Pulse Rate [Apical] Pulse Rate from SpO2 Sensor 80 74 Pulse Rhythm Respiratory Rate 16 19 Respiratory Effort / Characteristics Respiratory Depth Blood Pressure 130/86 Blood Pressure [Right Arm] Blood Pressure Mean 101 Blood Pressure Mean [Right Arm] Pulse Oximetry 98 100 Oxygen Delivery Method Oxygen Flow Rate Sepsis Recent Fever Within 48 Hours Sepsis New/Unexplained Change in Mental Status Sepsis Action Taken by Nursing 10/29/23 17:00 10/29/23 17:00 10/29/23 17:44 Temperature 36.8 C Temperature Source Oral Pulse Rate 73 76 Pulse Rate [Apical] Pulse Rate from SpO2 Sensor 72 Pulse Rhythm Regular Respiratory Rate 15 20 Respiratory Effort / Characteristics Respiratory Depth Blood Pressure 134/78 133/79 Blood Pressure [Right Arm] Blood Pressure Mean 95 97 Blood Pressure Mean [Right Arm] Pulse Oximetry 99 99 Oxygen Delivery Method Oxygen Flow Rate Sepsis Recent Fever Within 48 Hours Sepsis New/Unexplained Change in Mental Status Sepsis Action Taken by Nursing 10/29/23 18:07 10/29/23 18:22 10/29/23 18:43 Temperature 36.5 C 36.4 C L Temperature Source Oral Oral Pulse Rate 75 74 Pulse Rate [Apical] 75 Pulse Rate from SpO2 Sensor Pulse Rhythm Regular Respiratory Rate 20 20 14 Respiratory Effort / Characteristics Respiratory Depth Blood Pressure 111/75 118/76 Blood Pressure [Right Arm] 121/73 Blood Pressure Mean 87 90 Blood Pressure Mean [Right Arm] 89 Pulse Oximetry 97 95 96 Oxygen Delivery Method Room Air Oxygen Flow Rate Sepsis Recent Fever Within 48 Hours Sepsis New/Unexplained Change in Mental Status Sepsis Action Taken by Nursing 10/29/23 18:52 10/29/23 19:00 10/29/23 19:19 Temperature 36.8 C Temperature Source Oral Pulse Rate 79 Pulse Rate [Apical] 77 77 Pulse Rate from SpO2 Sensor Pulse Rhythm Respiratory Rate 18 14 17 Respiratory Effort / Characteristics Respiratory Depth Blood Pressure 121/73 Blood Pressure [Right Arm] 124/74 124/74 Blood Pressure Mean 89 Blood Pressure Mean [Right Arm] 90 90 Pulse Oximetry 97 95 96 Oxygen Delivery Method Room Air Oxygen Flow Rate Sepsis Recent Fever Within 48 Hours Sepsis New/Unexplained Change in Mental Status Sepsis Action Taken by Nursing 10/29/23 19:20 10/29/23 19:24 Temperature Temperature Source Pulse Rate 77 81 Pulse Rate [Apical] Pulse Rate from SpO2 Sensor Pulse Rhythm Respiratory Rate 17 Respiratory Effort / Characteristics Respiratory Depth Blood Pressure 124/74 Blood Pressure [Right Arm] Blood Pressure Mean 90 Blood Pressure Mean [Right Arm] Pulse Oximetry 96 Oxygen Delivery Method Oxygen Flow Rate Sepsis Recent Fever Within 48 Hours Sepsis New/Unexplained Change in Mental Status Sepsis Action Taken by Nursing Physical Exam GENERAL: She is oriented to person, place, and time. She appears well-developed and well-nourished. She does not appear distressed. HENT: Exam performed. -Head: Normocephalic and atraumatic. -Right Ear: External ear normal. No mastoid erythema -Left Ear: External ear normal. No mastoid erythema -Mouth/Throat: The oropharynx is clear and moist. No trismus in the jaw. No dental abscesses or uvula swelling. No oropharyngeal exudate or tonsillar abscesses. Multiple dark lesions on the patient's tongue, palate, and buccal mucosa consistent with the appearance of wet purpura. EYES: Conjunctivae and EOM are normal. Pupils are equal, round, and reactive to light. Right eye exhibits no discharge. Left eye exhibits no discharge. No scleral icterus. NECK: Normal range of motion. Neck supple. No JVD present. No spinous process tenderness present. No rigidity. No tracheal deviation and normal range of motion present. CV: Normal rate, regular rhythm, normal heart sounds and intact distal pulses. There is no peripheral edema. Palpable radial pulses bue. PULM/CHEST: Effort normal and breath sounds normal. No respiratory distress. No stridor. She has no wheezes. She has no rales. -Chest Wall: She exhibits no tenderness. ABD: The abdomen is soft.There is no tenderness. There is no rebound, no guarding. MUSC/SKEL: Normal range of motion. There is no peripheral edema, tenderness or deformity. LYMPH: No cervical adenopathy. NEURO: She is alert and oriented to person, place, and time. She has normal strength. No cranial nerve deficit or sensory deficit. Coordination and gait normal. GCS eye subscore is 4. GCS verbal subscore is 5. GCS motor subscore is 6. Cerebellar tests wnl. SKIN: Petechial rash over the bilateral upper and lower extremities. PSYCH: She has a normal mood and affect. Behavior is normal. Judgment and thought content normal. Course Course 1500: The patient was evaluated in room D6. A complete history and physical exam was performed Cardiac monitoring: An order was placed for continuous cardiac monitoring. The monitor shows a rate of 80 with sinus rhythm interpreted by me 1553: Vital signs stable. Labs show white blood cell count of 4.4 hemoglobin 10.8 platelet count of 0. Metabolic profile within normal limits. Discussed the case with Dr. Aguayo. She agrees we should obtain a CT of the head to rule out spontaneous ICH. She recommends giving the patient 1 g methylprednisolone, IVIG 1 g/kg/day, and 1 unit of platelets. Will plan to admit to the hospitalist team. 1620: CT of the head within normal limits. Patient will be admitted to [facility] hospitalist team Administered Medications Immune Globulin (Octagam 10%) 100 mls @ 42.06 mls/hr IV TODAY@1830 [facility]; Protocol Stop: 10/31/23 20:53 Last Admin: 10/29/23 18:24 Dose: 1 mg/kg/min, 42.1 mls/hr Documented By: SJ Discontinued Medications Methylprednisolone 1,000 mg/ (Dextrose) 266 mls @ 266 mls/hr IV NOW STA Stop: 10/29/23 16:58 Last Infusion: 10/29/23 17:29 Dose: Infused Documented By: Admin: 10/29/23 16:29 Dose: 266 mls/hr Documented By: SJ Immune Globulin (Immune Globulin (Human) Soln ) 1 each IV NOW ONE Stop: 10/29/23 15:54 Last Admin: 10/29/23 18:45 Dose: Not Given Documented By: SJ Critical Care Time Critical Care Time: Yes Total Critical Care Time: 74 I have personally spent greater than 74 minutes of critical care time in the direct management of this patient. This includes bedside care, interpretation of diagnostic studies, and testing, discussion with consultants, patient, and family members, and other required patient management activities. This 74 minutes is in excess of all separately billable procedures. Medical Decision Making Laboratory Data Attestation: I reviewed the patient's lab results. 10/29/23 14:40 10/29/23 14:40 Lab Results 10/29/23 10/29/23 10/29/23 Range/Units 14:39 14:40 16:28 WBC 4.40 L (4.8-10.8) K/ul RBC 3.85 L (4.20-5.40) M/uL Hgb 10.8 L (12.0-16.0) g/dl Hct 34.0 L (37.0-47.0) % MCV 88.3 (80.0-100.0) fL MCH 28.1 (25.0-34.0) pg MCHC 31.8 L (32.0-36.0) g/dL RDW Std Deviation 50.4 H (36.4-46.3) fL RDW Coeff of Ashley 15.9 H (11.5-14.5) % Plt Count 0 L* (130-400) K/uL Immature Gran % (Auto) 6.1 % Neut % (Auto) 40.0 % Lymph % (Auto) 41.4 % [place] % (Auto) 8.6 % Eos % (Auto) 3.0 % Baso % (Auto) 0.9 % Neut # (Auto) 1.76 (1.40-6.50) K/uL Lymph # (Auto) 1.82 (1.20-3.40) K/uL [place] # (Auto) 0.38 (0.11-0.59) K/uL Eos # (Auto) 0.13 (0.00-0.50) K/uL Baso # (Auto) 0.04 (0.00-0.20) K/uL Immature Gran # (Auto) 0.27 H (0.01-0.20) K/uL Platelet Estimate Signific. Decreased L (Normal) Polychromasia 1+ PT 10.9 (9.0-12.0) Seconds INR 1.0 (0.9-1.1) APTT 30 (21-31) Seconds PTT Ratio 1.1 Sodium 135 L (136-145) mmol/L Potassium 3.6 (3.5-5.1) mmol/L Chloride 103 (98-107) mmol/L Carbon Dioxide 22 (21-32) mmol/L Anion Gap 10 (3-11) BUN 18 (6-23) mg/dl Creatinine 1.11 (0.6-1.2) mg/dl Est Cr Clr Drug Dosing 43.2 ml/min Est GFR ( Amer) 56.7 ml/min Est GFR (Non-Af Amer) 48.9 ml/min BUN/Creatinine Ratio 16.2 (10-20) Glucose 95 (70-99(Fasting)) mg/dl Calcium 9.3 (8.6-10.3) mg/dl Total Bilirubin 1.1 H (0.2-1.0) mg/dl AST 35 (13-39) U/L ALT 21 (7-52) U/L Alkaline Phosphatase 149 H (34-104) U/L Total Protein 7.4 (6.0-8.3) gm/dl Albumin 4.1 (3.4-5.0) gm/dl Globulin 3.3 (2.5-4.0) gm/dl Albumin/Globulin Ratio 1.2 (0.9-2) Urine Color Yellow Urine Appearance Clear (Clear) Urine pH 5.5 (4.5-7.5) Ur Specific [place] 1.014 (1.000-1.030) Urine Protein Negative (Negative) Urine Glucose (UA) Negative (Negative) Urine Ketones Negative (Negative) Urine Blood Negative (Negative) Urine Nitrite Negative (Negative) Urine Bilirubin Negative (Negative) Urine Urobilinogen Negative (Negative) Ur Leukocyte Esterase Negative (Negative) Blood Type A Positive Blood Type Recheck Antibody Screen NEGATIVE 10/29/23 Range/Units 17:45 WBC (4.8-10.8) K/ul RBC (4.20-5.40) M/uL Hgb (12.0-16.0) g/dl Hct (37.0-47.0) % MCV (80.0-100.0) fL MCH (25.0-34.0) pg MCHC (32.0-36.0) g/dL RDW Std Deviation (36.4-46.3) fL RDW Coeff of Ashley (11.5-14.5) % Plt Count (130-400) K/uL Immature Gran % (Auto) % Neut % (Auto) % Lymph % (Auto) % [place] % (Auto) % Eos % (Auto) % Baso % (Auto) % Neut # (Auto) (1.40-6.50) K/uL Lymph # (Auto) (1.20-3.40) K/uL [place] # (Auto) (0.11-0.59) K/uL Eos # (Auto) (0.00-0.50) K/uL Baso # (Auto) (0.00-0.20) K/uL Immature Gran # (Auto) (0.01-0.20) K/uL Platelet Estimate (Normal) Polychromasia PT (9.0-12.0) Seconds INR (0.9-1.1) APTT (21-31) Seconds PTT Ratio Sodium (136-145) mmol/L Potassium (3.5-5.1) mmol/L Chloride (98-107) mmol/L Carbon Dioxide (21-32) mmol/L Anion Gap (3-11) BUN (6-23) mg/dl Creatinine (0.6-1.2) mg/dl Est Cr Clr Drug Dosing ml/min Est GFR ( Amer) ml/min Est GFR (Non-Af Amer) ml/min BUN/Creatinine Ratio (10-20) Glucose (70-99(Fasting)) mg/dl Calcium (8.6-10.3) mg/dl Total Bilirubin (0.2-1.0) mg/dl AST (13-39) U/L ALT (7-52) U/L Alkaline Phosphatase (34-104) U/L Total Protein (6.0-8.3) gm/dl Albumin (3.4-5.0) gm/dl Globulin (2.5-4.0) gm/dl Albumin/Globulin Ratio (0.9-2) Urine Color Urine Appearance (Clear) Urine pH (4.5-7.5) Ur Specific [place] (1.000-1.030) Urine Protein (Negative) Urine Glucose (UA) (Negative) Urine Ketones (Negative) Urine Blood (Negative) Urine Nitrite (Negative) Urine Bilirubin (Negative) Urine Urobilinogen (Negative) Ur Leukocyte Esterase (Negative) Blood Type Blood Type Recheck A Positive Antibody Screen Imaging Data Attestation: I personally reviewed and interpreted this imaging study as follows: My Impression: CT head: No ICH Radiologist's Impression: Head CT 10/29/23 15:42 CT SCAN OF THE BRAIN WITHOUT IV CONTRAST CLINICAL HISTORY: Bruising. Rash. COMPARISON STUDY: CT of the brain dated 07/05/2006. TECHNIQUE: Unenhanced axial CT scan of the brain is performed from the vertex to the skull base. A dose lowering technique was utilized adhering to the principles of ALARA. CT DOSE: 625.8 mGy.cm FINDINGS: Brain parenchyma: There is age-related involutional change noting mild subcortical and periventricular microangiopathic disease. There is no hemorrhage, mass effect, or evidence of acute territorial ischemia by CT criteria. Lopez-white matter differentiation is preserved. No extra-axial fluid collection is seen. Ventricles, sulci, cisterns: Prominent secondary to involutional change. Intracranial vasculature: There is atherosclerotic calcification of the cavernous carotid arteries. Calvarium: Unremarkable. Sinuses and mastoids: There is moderate mucosal thickening in the left maxillary antrum. The remaining visualized paranasal sinuses are clear. There is a right mastoid effusion. The left mastoid air cells are well pneumatized. Orbits: The bony orbits are grossly intact. There are bilateral ocular lens implants. IMPRESSION: There is no hemorrhage, mass effect, or evidence of acute territorial ischemia by CT criteria. ACT 112: Negative or not required by law. Electronically signed by: Mitch Tarango M.D. 10/29/2023 4:18 PM [facility] Narrative 1500: The patient was evaluated in room D6. A complete history and physical exam was performed Cardiac monitoring: An order was placed for continuous cardiac monitoring. The monitor shows a rate of 80 with sinus rhythm interpreted by oh 1553: Vital signs stable. Labs show white blood cell count of 4.4 hemoglobin 10.8 platelet count of 0. Metabolic profile within normal limits. Discussed the case with Dr. Aguayo. She agrees we should obtain a CT of the head to rule out spontaneous ICH. She recommends giving the patient 1 g methylprednisolone, IVIG 1 g/kg/day, and 1 unit of platelets. Will plan to admit to the hospitalist team. 1620: CT of the head within normal limits. Patient will be admitted to [facility] hospitalist team Impression & Plan Acute ITP Discharge Plan Visit Data Chief Complaint: Referred by Doctor Stated Complaint: REF BY DOC, POTENTIAL INTERNAL BLEEDING ED Provider: Angel Lindsey Discharge Problem: Acute ITP Patient Disposition: Admitted As Inpatient Forms Stand Alone Forms: [facility] [place] Prescriptions Prescriptions: No Action aspirin 81 mg Tablet,Delayed Release (Dr/Ec) 81 mg PO HS Qty: 0 doxepin 10 mg capsule 20 mg PO HS topiramate 25 mg tablet 50 mg PO BID trazodone 150 mg tablet 150 mg PO HS rizatriptan 10 mg Tablet 10 mg PO UD Rx Instructions: Take 1 tab PO for migraine at onset of headache propranolol 160 mg capsule,extended release 24 hr 160 mg PO HS sertraline 100 mg tablet 100 mg PO HS levothyroxine 50 mcg tablet 50 mcg PO DAILY fluticasone propionate 50 mcg/actuation spray,suspension 1 spray INTRANASAL DAILY docusate sodium 100 mg Tablet 100 mg PO HS Referrals Referrals: Tushar Mina MD [Primary Care Provider] -
[2023-10-29] MEDS ORDERED: ONDANSETRON INJ 2 MG/ML 2 ML VIAL IV PRN (20:03)
[2023-10-29] MEDS ORDERED: ACETAMINOPHEN 325 MG TAB PO PRN (20:03)
[2023-10-29] MEDS: Octagam 10% IVIG 20 gram bottle IV SCH (20:32)
[2023-10-29] MEDS: FIRST - Mouthwash BLM 119 ML PO SCH (21:07)
[2023-10-29] MEDS: DOCUSATE SODIUM 100 MG CAP PO SCH (21:09)
[2023-10-29] MEDS: DOXEPIN HCL 10 MG CAPSULE PO SCH (21:10)
[2023-10-29] MEDS: SERTRALINE HCL 100 MG TABLET PO SCH (21:11)
[2023-10-29] MEDS: PROPRANOLOL HCL LA 80 MG CAPCR PO SCH (21:11)
[2023-10-29] MEDS: TOPIRAMATE 50 MG TAB PO SCH (21:12)
[2023-10-29] MEDS: traZODone HCL 50 MG TAB PO SCH (21:12)
[2023-10-29] MEDS ORDERED: Nursing to Pharmacy Communication SCH (23:15)
[2023-10-30] MEDS: LEVOTHYROXINE SODIUM 50 MCG TABLET PO SCH (06:04)
[2023-10-30 07:28] LABS: Albumin Globulin Ratio 0.7 (0.9-2); Albumin Level 3.6 gm/dl (3.4-5.0); BUN Creatinine Ratio 16.3 (10-20); Bilirubin,Total 0.8 mg/dl (0.2-1.0); Calcium 8.6 mg/dl (8.6-10.3); Creatinine Clr Calc Pharmacy 51.1 ml/min; Est GFR (African American) 61.3 ml/min; Est GFR (Non-African American) 52.9 ml/min; Globulin 5.1 gm/dl (2.5-4.0); Potassium 3.7 mmol/L (3.5-5.1); Total Protein 8.7 gm/dl (6.0-8.3)
[2023-10-30 07:38] LABS: Partial Thromboplastin Ratio 1.1; Partial Thromboplastin Time 30 Seconds (21-31); Prothrombin Time 11.1 Seconds (9.0-12.0)
[2023-10-30 07:46] LABS: Basophils # (auto) 0.01 K/uL (0.00-0.20); Basophils % (auto) 0.4 %; Hematocrit (blood only) 29.4 % (37.0-47.0); Hemoglobin 9.6 g/dl (12.0-16.0); Immature Granulocytes # (auto) 0.21 K/uL (0.01-0.20); Immature Retic Fraction 18.6 % (2.3-15.9); Lymphocytes # (auto) 0.47 K/uL (1.20-3.40); Lymphocytes % (auto) 17.9 %; Mean Corpuscular Hemoglobin 28.5 pg (25.0-34.0); Mean Corpuscular Hgb Conc 32.7 g/dL (32.0-36.0); Mean Corpuscular Volume 87.2 fL (80.0-100.0); Monocytes # (auto) 0.04 K/uL (0.11-0.59); Monocytes % (auto) 1.5 %; Neutrophils % (auto) 72.2 %; Platelet Count 4 K/uL (130-400); Platelet Estimate Signific. Decreased (Normal); RDW Coefficient of Variation 15.7 % (11.5-14.5); RDW Standard Deviation 49.5 fL (36.4-46.3); Red Blood Count 3.37 M/uL (4.20-5.40); Reticulated Hemoglobin 31.8 pg (28.2-36.6); Reticulocyte % 3.53 % (0.50-2.00); White Blood Count 2.63 K/ul (4.8-10.8)
[2023-10-30] MEDS: FLUTICASONE PROPIONATE NA SPR 16 GM BTL NAE SCH (08:35)
[2023-10-30] MEDS: methylPREDNISolone 1,000 MG in DEXTROSE 5% 250 ML IV SCH (08:49)
[2023-10-30] MEDS ORDERED: methylPREDNISolone 125 MG/2 ML VIAL IV SCH (09:00)
--- NOTE | 2023-10-30 13:40 | Hospitalist Progress Note ---
Date of Service October 30, 2023 Assessment & Plan (1) Acute ITP: (2) CKD (chronic kidney disease), stage III: (3) Ulcerative colitis: (4) Hx of migraines: (5) Insomnia: Plan This is a 73yo F with a PMH of migraine headaches, CKD III, ulcerative colitis, insomnia who presented with a new rash on arms and legs as well as on tongue she first noticed earlier today and was found to have severe thrombocytopenia with platelet count of zero concerning for ITP. Acute ITP Endorsing early satiety, ambulatory instability and intermittent hematuria for past few months, developed lesion on hard palate 2 weeks ago and diffuse petechial/purpuric rash on BUE and BLE as well as tongue and intraorally Platelet count of zero on admission Pancytopenic CBC with WBC 4.4, hgb 10.8, plt 0 No acute bleeding, CT head without evidence of hemorrhage, mass effect, or evidence of acute territorial ischemia by CT criteria. ED provider discussed with Hematology Dr. Aguayo on admission, who recommended methylprednisolone 1gm, IVIG 1g/kg to continue daily, 1u platelets ordered in the ED Heme/onc consulted, appreciate recs Coags, peripheral smear, anemia labs pending HIV, hepatitis panel, EBV and CMV testing all pending Discontinued aspirin Reviewed home meds - denies new medications, no obvious cause for drug induced ITP Fall precautions, monitor for acute bleeding Continue IVIG, methylprednisolone as above, appreciate further Hematology recs Platelet count currently improving. Early satiety Intermittent hematuria Endorsing these complaints for >2 months No N/V, CMP unremarkable aside from tbili 1.1, notably pancytopenic as above UA unremarkable Consider CT abd/pelvis for further evaluation H/o Migraine headaches Denies currently Continue Topamax, doxepin, propranolol with hold parameters, PRN Rizatriptan History of Ulcerative colitis Per chart review Not on any meds, endorses intermittent BRBPR with bowel movements but usually when constipation, attributes to hemorrhoids Insomnia Trazodone HS DVT Ppx: contraindicated given severe thrombocytopenia as above Code status: DNR/DNI Dispo: PT/OT once medically stable Admission and Anticipated Discharge Date Admission Date: October 29, 2023 Subjective Pt was seen in the AM with at bedside. She was sitting in the chair, denied acute concerns. Notes no episodes of hematuria while in the hospital. Denied epistaxis, hemoptysis, bloody stools Review of Systems Review of Systems: All systems reviewed & are unremarkable except as noted in Subjective Physical Exam Physical Exam: General: Alert, oriented. No acute distress Skin: noted petechial rash on lower extremities bilaterally, tongue Psych: Appropriate mood and affect Neuro: No gross deficits HEENT: NC/AT Chest: Nontender to palpation. CV: RRR Resp: Breath sounds clear bilaterally, no increased effort of breathing. Abdomen: Soft, nontender, nondistended Extremities: No edema in lower extremities bilaterally. noted petechial rash on lower extremities bilaterally Results & Data Results & Data Vital Signs (Past 12 Hours) Vital Signs Temp Pulse Resp BP Pulse Ox O2 Del Method 10/30/23 11:24 36.3 C L 69 18 136/75 99 Room Air 10/30/23 07:32 36.4 C L 67 17 109/67 95 Room Air 10/30/23 03:46 36.4 C L 76 16 119/72 97 Room Air
[2023-10-30] MEDS ORDERED: RIZATRIPTAN BENZOATE 10 MG TAB PO PRN (16:50)
--- NOTE | 2023-10-30 19:16 | Oncology Consultation ---
Date of Consultation October 30, 2023 Assessment & Plan (1) Acute ITP: S/p IVIG and steroids. Platelets are improving. If the platelets stay above 15,000/mcL than the and the patient does not have bleeding she can be discharged safely for an outpatient evaluation and institution of therapy for ITP. Will recommend dexamethasone 40 mg p.o. daily for 4 days which can be done while the patient is in the hospital and discharged. Plan Hematology will continue to follow the patient and make appropriate recommendations. Thank you for this interesting hematological consult. History of Present Illness Reason for Consultation: Thrombocytopenia Attending Physician: Molly Jerry MD History of Present Illness The patient is a very pleasant 73-year-old woman with history of chronic kidney disease, ulcerative colitis, migraines who presented to the hospital with new rash on arms and legs as well as on. Was found to have severe thrombocytopenia with a platelet count of 0 concerning for ITP. She was started on IVIG and methylprednisolone. Platelets improved to 17,000 on day 2. Hematology's been consulted to assist in management of this patient with severe ITP. Allergies Allergy/AdvReac Type Severity Reaction Status Date / Time bee venom protein (honey bee) Allergy Mild Verified 06/06/20 16:18 No Known Drug Allergies Allergy Unknown . Verified 06/06/20 16:18 Home Medications Medication Instructions Recorded Confirmed Type aspirin 81 mg tablet,delayed 81 mg PO HS ##0 11/04/17 10/29/23 History release doxepin 10 mg capsule 20 mg PO HS 06/06/20 10/29/23 History rizatriptan 10 mg tablet 10 mg PO UD 06/06/20 10/29/23 History topiramate 25 mg tablet 50 mg PO BID 06/06/20 10/29/23 History trazodone 150 mg tablet 150 mg PO HS 06/06/20 10/29/23 History docusate sodium 100 mg tablet 100 mg PO HS 10/29/23 10/29/23 History fluticasone propionate 50 1 spray intranasal DAILY 10/29/23 10/29/23 History mcg/actuation nasal spray,suspension levothyroxine 50 mcg tablet 50 mcg PO DAILY 10/29/23 10/29/23 History propranolol 160 mg capsule,24 160 mg PO HS 10/29/23 10/29/23 History hr,extended release sertraline 100 mg tablet 100 mg PO HS 10/29/23 10/29/23 History Patient History Medical History History of breast cancer 20 years ago, s/p partial mastectomy Insomnia CKD (chronic kidney disease), stage III Ulcerative colitis Hx of migraines Surgical History Hx of tonsillectomy H/O laminectomy H/O spinal fusion H/O partial mastectomy H/O Spinal surgery Family History Other Diabetes Heart disease Rheumatoid arthritis Social History Smoking Status: Never smoker Hx Alcohol Use: Yes Hx Substance Use: No Preferred Language: Khmer Communication Ability: Effective Cooler Worker Required: No Beliefs That Will Affect Care: None Current Living Situation: Spouse Current Living Situation Comment: From Home with Other Information That Helps Us Care for You: No Feels Safe at Home: Yes Safety Concerns: Feels Safe At This Time Assistive Devices: Cane and Walker Review of Systems Review of Systems: All systems reviewed & are unremarkable except as noted in HPI & below Constitutional: as per Subjective / HPI Eyes: as per Subjective / HPI Ear, Nose, Mouth, Throat: as per Subjective / HPI Respiratory: as per Subjective / HPI Cardiovascular: as per Subjective / HPI Gastrointestinal: as per Subjective / HPI Genitourinary: as per Subjective / HPI Musculoskeletal: as per Subjective / HPI Integumentary: as per Subjective / HPI Neurologic: as per Subjective / HPI Endocrine: as per Subjective / HPI Hematologic / Lymphatic: as per Subjective / HPI Results & Data Vital Signs (Past 12 Hours) Vital Signs Temp Pulse Resp BP Pulse Ox O2 Del Method 10/30/23 18:47 36.5 C 78 18 130/82 96 Room Air 10/30/23 18:33 36.5 C 75 18 128/80 96 Room Air 10/30/23 18:14 36.6 C 76 18 120/73 96 Room Air 10/30/23 16:21 36.5 C 78 16 138/73 95 Room Air 10/30/23 11:24 36.3 C L 69 18 136/75 99 Room Air 10/30/23 07:32 36.4 C L 67 17 109/67 95 Room Air
--- OUTSIDE RECORDS SUMMARY | 2023-10-30 20:37 | External Medical Summary | Summary of Care ---
Author Name Unknown Organization [facility] Address [address] [place] [address] Phone [phone] Care Team Providers Care Photocopying Machine Operator Name Role Phone Leopoldo BARNHART MD, Tushar Manzo Primary Care Provider [phone] Reason for Visit * Reason Onset Date Comments Test Results 09/04/2023 Encounter Details Date Type Department Care Team (Late st Contact Info) Description 09/04/2023 Telephone Family Practice [facility] [address] [facility] [place] [address] Tusahr Mina III, MD [address] [place] [address] Test Results Allergies Active Allergy Reactions Criticality Noted Date Comments Bee Stings 04/04/2010 Swelling, sick to stomach Yellow Jacket Venom 02/28/2012 Swelling, sick to stomach documented as of this encounter (statuses as of 09/04/2023) Medications Medication Sig Dispensed Refills Start Date End Date Status ASPIRIN 81 MG PO TABS patient takes one tablet by mouth daily at bedtime 0 Active tiZANidine HCl 4 MG Oral Tablet (Zanaflex) Take 1 Tablet by mouth every 6 hours as needed for Muscle spasms. 30 Tablet 0 08/16/2022 Active Rizatriptan Benzoate 10 MG Oral Tablet (Maxalt)Indication s:Migraine variant TAKE ONE TABLET BY MOUTH NEEDED FOR MIGRAINE AT ONSET OF HEADACHE, MAY REPEAT EVERY 2 HOURS UP TO TWO TIMES. UP TO 3 TABLETS IN 24 HOURS 20 Tablet 1 09/19/2022 09/19/2023 Active Doxepin HCl 10 MG Oral Capsule (SINEquan) TAKE TWO CAPSULES BY MOUTH AT BEDTIME 200 Capsule 1 07/04/2023 07/03/2024 Active Propranolol HCl ER 160 MG Oral Capsule Extended Release 24 Hour TAKE ONE CAPSULE BY MOUTH EVERY DAY 90 Capsule 1 07/20/2023 07/19/2024 Active Sertraline HCl 100 MG Oral Tablet (Zoloft)Indication s:Adjustment disorder with depressed mood TAKE ONE TABLET BY MOUTH EVERY DAY 90 Tablet 2 07/30/2023 07/29/2024 Active Topiramate 25 MG Oral Tablet (topAMAX)Indicatio ns:Migraine variant TAKE TWO TABLETS BY MOUTH TWICE A DAY 360 Tablet 3 07/30/2023 07/29/2024 Active traZODone HCl 150 MG Oral Tablet (Desyrel) TAKE ONE TABLET BY MOUTH EVERY DAY AT BEDTIME 90 Tablet 2 07/30/2023 07/29/2024 Active Fluticasone Propionate 50 MCG/ACT Nasal Suspension (Flonase) APPLY ONE SPRAY INTO NOSTRIL EVERY MORNING 48 g 1 08/14/2023 08/13/2024 Active Levothyroxine Sodium 50 MCG Oral Tablet (Levoxyl) Take 1 Tablet by mouth in the morning. (at least 30 min prior to breakfast or other meds)mon, tuues,thurs,fri sattake 1and 1/2 tab wed and sun. 35 Tablet 11 08/28/2023 Active Docusate Sodium 60 MG/15ML Oral Syrup (Colace) Take 25 mL by mouth in the morning and 25 mL before bedtime. 0 Active documented as of this encounter (statuses as of 09/04/2023) Active Problems Problem Noted Date Diagnosed Date Adjustment disorder with depressed mood 05/07/20 22 Classical migraine without intractable migraine 07/14/2021 Hyperlipidemia 07/14/2021 Ulcerative colitis without complications 021 Gastro-esophageal reflux disease without esophag itis 03/29/2021 Dependent relative needing care at home 03/29/20 21 Stage 3b chronic kidney disease 05/09/2020 Overview: Per CKD protocol Status post lumbar laminectomy 05/30/2019 Hypokalemia 05/30/2019 Collagenous colitis 08/23/2017 Spondylolisthesis 09/02/2012 Disorder of intervertebral disc 04/07/2008 ADVANCE DIRECTIVE INFORMATION 03/28/2005 Overview: Yes, Patient instructed to provide copy of advance directive for provider to review and to be scanned into Electronic Medical Record CA IN SITU BREAST 03/02/2003 CLASSICAL MIGRAINE WITHOU MENTION OF INTRACTABLE MIGRAINE documented as of this encounter (statuses as of 09/04/2023) Resolved Problems Problem Noted Date Diagnosed Date Resolved Date 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 Kidney disease, chronic, sta ge III (GFR 30-59 ml/min) 09/13/2014 05/12/2020 Overview: Per CKD protocol #1 Other osteoporosis without c urrent pathological fracture 07/13/2009 07/14/2021 Overview: ICD-10 update of inactive term Menopause 05/18/2019 INFORMATION 01/02/2023 documented as of this encounter (statuses as of 09/04/2023) Immunizations Name Administration Dates Next Due COVID-19 mRNA, LNP-s, No Pre serve, 2-Dose Series (G-Snap!) 06/20/2021,09/22/2020,09/01/2020 COVID-19, MRNA-LNP, 23-24, P F, 30 MCG/0.3 mL, 12 YRS AND ABOVE, IM ([employer]-Comirnat) 04/08/2023 Covid-19, Mrna, Lnp-s, Pf, B ivalent, 30 Mcg, IM, 12 yrs and above (Pfizer) 04/19/2022 H1N1 2009 Influenza, IM 05/20/2009 Hepatitis B, 20+ yrs 11/27/2006,05/22/2006,04/24 PPD 04/24/2006 Pneumococcal Conjugate Vacc, 13 Valent (Prevnar) 04/05/2014 Pneumococcal Polysaccharide PPV23 (Pneumovax) 08/23/2017,09/30/2010 Seasonal Influenza Virus Vac cine, Unspecified Formulation 03/19/2018 Seasonal Influenza, PF, 6 M & above, IM , (FluLaval or Fluzone) 03/16/2020,03/28/2019,03/25/2017 Seasonal Influenza, Quadriva lent Hd (Fluzone Hd) 03/22/2023,03/07/2022,03/20/2021 Seasonal Influenza, Quadriva lent, No Preserve, IM 03/26/2016 Seasonal Influenza, Split, I IV3, With Preserve, Inj 03/21/2015,03/22/2014,03/16/2013,03/01,03/27/2011,03/15/2010,05/25/20,05/12/2008,05/06/2007,04/24/2006 03/22/2015 Seasonal Influenza, Trivalen t, High Dose, No Preserve, IM 03/18/2018 TDAP (age 10 and older)(Boostrix) 03/29/2021 TDAP (age 11 and older)(Adacel) 07/13/2009 Varicella Zoster Vaccine (Adult) 08/10/2009 Zoster Vaccine Recombinant (Shingrix) 03/18/2018 ,11/23/2017 documented as of this encounter Social History Tobacco Use Types Packs/Day Years Used Date Smoking Tobacco: Never Smokeless Tobacco: Never Alcohol Use Standard Drinks/Week Comments No 0 (1 standard drink = 0.6 oz pur e alcohol) PHQ-2 Answer Date Recorded PHQ Adult Total Score 0 03/01/2022 Sex and Gender Information Value Date Recorded Sex Assigned at Not on file Gender Identity Not on file Sexual Orientation Not on file Job Start Date Occupation Industry Not on file Not on file Not on file documented as of this encounter Functional Status Functional Status Response Date of Assess ment Are you deaf or do you have serious difficulty h earing? No 05/27/2019 Are you blind or do you have serious difficulty seeing, even when wearing glasses? No 05/27/2019 Do you have serious difficul ty walking or climbing stairs? (5 years old or older) No 05/27/2019 Do you have difficulty dress ing or bathing? (5 years old or older) No 05/27/2019 Because of a physical, menta l, or emotional condition, do you have difficulty doing errands alone such as visiting a doctor s office or shopping? (15 years old or older) No 05/27/20 19 Cognitive Status Response Date of Assessm ent Because of a physical, menta l, or emotional condition, do you have serious difficulty concentrating, remembering, or making decisions? (5 years old or older) No 05/27/2019 documented as of this encounter Miscellaneous Notes * Telephone Encounter - Flaquita Dimas LPN - 09/04/2023 10:10 AM EST Called pt. Informed of message. She verbalized understanding. * Telephone Encounter - Flaquita Dimas LPN - 09/04/2023 10:09 AM EST ----- Message from Tushar Mina III, MD sent at 08/28/2023 11:45 AM EST ----- Would increase thyroid to take 1-1/2 tablets on Saturday and Saturday check labs 2 months documented in this encounter Plan of Treatment Upcoming Encounters Date Type Department Care Team (Late st Contact Info) Description 11/08/2023 8:00 AM EDT Laboratory Laboratory [facility] [address] [place] [id number] [place] [address] [address] [facility] [place] [address] 01/09/2024 9:00 AM EDT Office Visit Family Practice [facility] [place] [address] [place] [address] Tushar Mina III, MD [address] [facility] [place] [address] Health Maintenance Due Date Last Done Comments Cologuard 1994 Sigmoidoscopy 1994 Fecal Occult Blood Test 06/29/2007 06/29/20, 06/08/2000, 05/22/1999 Depression Screening 03/01/2023 03/01/2022, 07/07/2015 (Discussed) Mammogram 12/13/2023 12/12/2022, 11/29, 12/01/2021, Additional history exists GFR 02/25/2024 08/27/2023, 07/0 10/2022, 02/26/2022, Additional history exists Albumin/Creatinine Ratio 08/27/2024 024, 03/19/2023, 04/12/2022, Additional history exists CKD HGB USE SMARTSET 56112 08/27/202408/27, 01/02/2023, 01/02/2023, Additional history exists CKD PHOS USE SMARTSET 72881 08/27/202408/02, 03/19/2023, 02/26/2022, Additional history exists TSH 08/27/2024 08/27/2023, 1008/2022, 03/29/2023, Additional history exists DXA Scan 05/14/2026 05/14/2022, 05/01, 08/28/2017, Additional history exists Lipid Panel 08/27/2028 08/27/2023, 07/01, 03/22/2021, Additional history exists DTaP,Tdap,and Td Vaccines (3 - Td or Tdap) 03/29/2031 03/29/2021, 07/13/2009, 05/12/1999 Colonoscopy 08/24/2031 08/24/2021, 08/02, 07/11/2015, Additional history exists Colorectal Cancer Screening 08/24/2031 Hepatitis B Completed 11/27/2006, 05/02, 04/24/2006 Pneumococcal Vaccine: 65+ Years Completed 08/23/2017, 04/05/2014, 09/30/2010 Zoster Vaccines Completed 03/18/2018, 10/30, 08/10/2009 Influenza Vaccine (FLU shot) Completed , 03/07/2022, 03/20/2021, Additional history exists COVID-19 Vaccine Completed 04/08/2023, , 06/20/2021, Additional history exists GARDASIL-HPV IMMUNIZATION SERIES Aged Out No longer eligible based on patient's age to complete this topic MENINGOCOCCAL (MENACTRA/MENVEO) Aged Out No longer eligible based on patient's age to complete this topic documented as of this encounter Medical Devices Implanted Type Area Network Applications Specialist Device Identifier Shelf Expiration Date Model / Serial / Lot Screw 6x45 Poly Si [id number] - [id number] Implanted:Qty : 4 on 10/22/2012 at OR [facility] [place] N/A: Spine Lumbar JNJ : [employer] [id number] / / Dung 5.5x45 Ti Prbnt [id number] - [id number] Implanted:Qty : 2 on 10/22/2012 at OR [facility] [place] N/A: Spine Lumbar JNJ : [employer] [id number] / / Screw Set Sng Inner [id number] - [id number] Implanted:Qty : 4 on 10/22/2012 at OR [facility] [place] N/A: Spine Lumbar JNJ : [employer] [id number] / / Graft Infuse Bone Sm [id number] - [id number] Implanted:Qty : 1 on 10/22/2012 at OR [facility] [place] N/A: Spine Lumbar [employer] : NEUROLOGIC PAIN 12/28/2014 [id number] / / [id number] Expedium Ti Sfx 5.5 Lat A6 - [id number] Implanted:Qty : 1 on 10/22/2012 at OR [facility] [place] N/A: Spine Lumbar JNJ : [employer] [id number] / / Cage 13 X 28 Implanted:Qty : 1 on 10/22/2012 at OR [facility] [place] N/A: Spine Lumbar [id number] / / Screw Set Sng Inner [id number] - [id number] Implanted:Qty : 4 on 06/06/2018 by Elijah Thorne MD at OR [facility] [place] N/A: Spine Lumbar JNJ : [employer] [id number] / / Description:Part of implant set Pre Lordosed Dung W Line 55mm - [id number] Implanted:Qty : 2 on 06/06/2018 by Elijah Thorne MD at OR [facility] [place] N/A: Spine Lumbar JNJ : [employer] [id number] / / Description:Part of implant set Expedium Ti Sfx 5.5 Lat A6 - [id number] Implanted:Qty : 1 on 06/06/2018 by Elijah Thorne MD at OR [facility] [place] N/A: Spine Lumbar JNJ : [employer] [id number] / / Description:Part of implant set Graft Infuse Bone Sm [id number] - [id number] Implanted:12/2017 by Elijah Thorne MD at OR [facility] [place] (Quantity not on file) [employer] : NEURO CARE 08/29/2019 [id number] / / [id number] 10x22 Caliber Interbody Implanted:Qty : 2 on 06/06/2018 by Elijah Thorne MD at OR [facility] [place] N/A: Spine Lumbar [employer] [id number] / / Description:Part of implant set Screw 7x40 Poly Si [id number] - [id number] Implanted:Qty : 2 on 06/06/2018 by Elijah Thorne MD at OR [facility] [place] N/A: Spine Lumbar JNJ : [employer] [id number] / / Description:Part of implant set Stimulan Rapid Cure 10cc - [id number] Implanted:Qty : 1 on 05/27/2019 by Elijah Thorne MD at OR [facility] [place] N/A: Spine Lumbar [employer] [id number] 02/28/2022 [id number] / / [id number] Screw 7x50 Poly Si [id number] - [id number] Implanted:Qty : 2 on 05/27/2019 by Elijah Thorne MD at OR [facility] [place] N/A: Spine Lumbar JNJ : [employer] [id number] / / Screw Set Sng Inner [id number] - [id number] Implanted:Qty : 2 on 05/27/2019 by Elijah Thorne MD at OR [facility] [place] N/A: Spine Lumbar JNJ : [employer] [id number] / / Depuy 5.5 Dung With Connector Implanted:Qty : 2 on 05/27/2019 by Elijah Thorne MD at OR [facility] [place] N/A: Spine Lumbar [id number] / / Expedium Ti Sfx 5.5 Lat A6 - [id number] Implanted:Qty : 1 on 05/27/2019 by Elijah Thorne MD at OR [facility] [place] N/A: Spine Lumbar JNJ : [employer] [id number] / / Globus 10x26 8-12mm Cage Implanted:Qty : 1 on 05/27/2019 by Elijah Thorne MD at OR [facility] [place] N/A: Spine Lumbar [id number] / / documented as of this encounter Advance Directives Latest Code Status on File Code Status Date Activated Date Inactivated Comments Full Code 05/27/2019 12:24 PM 05/31/2019 12:47 PM Th is order reflects the patients wishes and were consensually agreed upon. Question Answer Comments Discussion of Advance Directives occurred with: Patient Does the patient have a Living Will? No Does the patient have Health Care Power of Pediatric Clinical Nurse Specialist? No Code Status History Code Status Date Activated Date Inactivated Comments Full Code 06/09/2018 6:42 AM 06/11/2018 2:45 PM Thi s order reflects the patients wishes and were consensually agreed upon. Question Answer Comments Discussion of Advance Directives occurred with: Not Discussed Full Code 10/22/2012 11:03 AM 10/27/2012 2:43 PM This order reflects the patients wishes and were consensually agreed upon. Question Answer Comments Discussion of Advance Directives occurred with: Patient Does the patient have a Living Will? No Does the patient have Health Care Power of Pediatric Clinical Nurse Specialist? No Full Code 11/24/2009 6:53 AM 11/27/2009 3:28 PM This order reflects the patients wishes and were consensually agreed upon. Question Answer Comments Discussion of Advance Directives occurred with: Patient Does the patient have a Living Will? No Does the patient have Health Care Power of Pediatric Clinical Nurse Specialist? No Care Teams Photocopying Machine Operator Relationship Specialty Start Date End Date Tushar Mina III, MD [address] [place] [address] PCP - General 02/13/1996 documented as of this encounter
--- OUTSIDE RECORDS SUMMARY | 2023-10-30 20:38 | External Medical Summary ---
Author Name Unknown Address Unknown Organization K01:[facility] [place] - [address] [place] [address] Laboratory Report Ordering Provider Test Date Status RACHAEL PELAEZ III 08/27/2023 07:34:37 Final Observation Date Value Abnormality Reference (Units ) Status TSH 08/27/2023 07:34:37 32.40 Above high normal 0. 27-4.20 (uIU/mL) Final Performing Location [facility] [place] - [address] [place] [address]
--- OUTSIDE RECORDS SUMMARY | 2023-10-30 20:38 | External Medical Summary | Summary of Care ---
Author Name Unknown Organization [facility] Address [address] [place] [address] Phone [phone] Care Team Providers Care Information Services Manager Name Role Phone Leopoldo BARNHART MD, Latanya Manzo Primary Care Provider [phone] Reason for Visit * Reason Comments Medication Refill Encounter Details Date Type Department Care Team (Late st Contact Info) Description 07/29/2023 Refill Family Practice [facility] [address] [facility] [place] [address] Nannette Duncan PA-C [address] [facility] [place] [address] Migraine variant Allergies Active Allergy Reactions Criticality Noted Date Comments Bee Stings 04/04/2010 Swelling, sick to stomach Yellow Jacket Venom 02/28/2012 Swelling, sick to stomach documented as of this encounter (statuses as of 08/07/2023) Medications Medication Sig Dispensed Refills Start Date End Date Status ASPIRIN 81 MG PO TABS patient takes one tablet by mouth daily at bedtime 0 Active tiZANidine HCl 4 MG Oral Tablet (Zanaflex) Take 1 Tablet by mouth every 6 hours as needed for Muscle spasms. 30 Tablet 0 08/16/2022 Active Rizatriptan Benzoate 10 MG Oral Tablet (Maxalt)Indicati ons:Migraine variant TAKE ONE TABLET BY MOUTH NEEDED FOR MIGRAINE AT ONSET OF HEADACHE, MAY REPEAT EVERY 2 HOURS UP TO TWO TIMES. UP TO 3 TABLETS IN 24 HOURS 20 Tablet 1 09/19/2022 09/19/2023 Active Atorvastatin Calcium 20 MG Oral Tablet (Lipitor) TAKE ONE TABLET BY MOUTH EVERY DAY 90 Tablet 1 08/09/2022 08/09/2023 Active Fluticasone Propionate 50 MCG/ACT Nasal Suspension (Flonase) APPLY ONE SPRAY INTO NOSTRIL EVERY MORNING 48 g 1 02/14/2023 02/14/2024 Active Levothyroxine Sodium 50 MCG Oral Tablet (Levoxyl) Take 1 Tablet by mouth in the morning. (at least 30 min prior to breakfast or other meds)mon-sat,ta ke 1and 1/2 tab sun. 33 Tablet 11 03/20/2023 Active Levothyroxine Sodium 50 MCG Oral Tablet (Levoxyl) Take 1 Tablet by mouth in the morning. Mon-Sat -1and 1/2 tab Saturday (at least 30 min prior to breakfast or other meds). 90 Tablet 3 05/09/2023 Active Doxepin HCl 10 MG Oral Capsule (SINEquan) TAKE TWO CAPSULES BY MOUTH AT BEDTIME 200 Capsule 1 07/04/2023 07/03/2024 Active Propranolol HCl ER 160 MG Oral Capsule Extended Release 24 Hour TAKE ONE CAPSULE BY MOUTH EVERY DAY 90 Capsule 1 07/20/2023 07/19/2024 Active Sertraline HCl 100 MG Oral Tablet (Zoloft)Indicati ons:Adjustment disorder with depressed mood TAKE ONE TABLET BY MOUTH EVERY DAY 90 Tablet 2 07/30/2023 07/29/2024 Active Topiramate 25 MG Oral Tablet (topAMAX)Indicat ions:Migraine variant TAKE TWO TABLETS BY MOUTH TWICE A DAY 360 Tablet 3 07/30/2023 07/29/2024 Active traZODone HCl 150 MG Oral Tablet (Desyrel) TAKE ONE TABLET BY MOUTH EVERY DAY AT BEDTIME 90 Tablet 2 07/30/2023 07/29/2024 Active Topiramate 25 MG Oral Tablet (topAMAX)Indicat ions:Migraine variant TAKE TWO TABLETS BY MOUTH TWICE A DAY 360 Tablet 3 06/11/2022 07/29/2023 Discontinue d(Refill) documented as of this encounter (statuses as of 08/07/2023) Active Problems Problem Noted Date Diagnosed Date [...] as of this encounter (statuses as of 08/07/2023) Resolved Problems Problem Noted Date Diagnosed Date Resolved Date 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 Kidney disease, chronic, sta ge III (GFR 30-59 ml/min) 09/13/2014 05/12/2020 Overview: Per CKD protocol #1 Other osteoporosis without c urrent pathological fracture 07/13/2009 07/14/2021 Overview: ICD-10 update of inactive term Menopause 05/18/2019 INFORMATION 01/02/2023 documented as of this encounter (statuses as of 08/07/2023) Immunizations Name Administration Dates Next Due COVID-19 mRNA, LNP-s, No Pre serve, 2-Dose Series ([employer]) 06/20/2021,09/22/2020,09/01/2020 Covid-19, Mrna, Lnp-s, Pf, B ivalent, 30 Mcg, IM, 12 yrs and above ([employer]) 04/19/2022 H1N1 2009 Influenza, IM 05/20/2009 Hepatitis B, 20+ yrs 11/27/2006,05/22/2006,04/24 Influenza, Whole Virus 06/03/2000,03/31/1999 PPD 04/24/2006 Pneumococcal Conjugate Vacc, 13 Valent (Prevnar) 04/05/2014 Pneumococcal Polysaccharide PPV23 (Pneumovax) 08/23/2017,09/30/2010 Seasonal Influenza Virus Vac cine, Unspecified Formulation 03/19/2018 Seasonal Influenza, PF, 6 M & above, IM , (FluLaval or Fluzone) 03/16/2020,03/28/2019,03/25/2017 Seasonal Influenza, Quadriva lent Hd (Fluzone Hd) 03/22/2023,03/07/2022,03/20/2021 Seasonal Influenza, Quadriva lent, No Preserve, IM 03/26/2016 Seasonal Influenza, Split, I IV3, With Preserve, Inj 03/21/2015,03/22/2014,03/16/2013,03/01,03/27/2011,03/15/2010,05/25/20 09,05/12/2008,05/06/2007,04/24/2006,1 07/09/2004,04/15/2003,05/12/2002,06/0203/22/2015 Seasonal Influenza, Trivalen t, High Dose, No Preserve, IM 03/18/2018 TD - Tetanus/Diptheria (ADULT) 05/12/1999 TDAP (age 10 and older)(Boostrix) 03/29/2021 TDAP [...] encounter Miscellaneous Notes * Telephone Encounter - Aviva Barbosa OSA - 08/05/2023 4:22 PM EST Patient calling in stating that she received a message about scheduling a sooner appointment. Next available with DR Cano is at the end of October. Patient did take that appointment but wants to see if Dr Cano wanted her seen any sooner. Patient confirmed phone number as [phone] * Telephone Encounter - Lisette Rodriguez OSA - 08/03/2023 7:41 AM EST Several attempts Letter sent * Telephone Encounter - Lisette Rodriguez OSA - 08/02/2023 11:06 AM EST My g sent 2/ 2nd attempt * Telephone Encounter - Jen Rodriguez OSA - 07/31/2023 3:14 PM EST Unable to LMOM 07/31/2023 RMK * Telephone Encounter - Latanya Cano III, MD - 07/30/2023 11:13 AM EST Make a sooner appointment please for following up on chronic kidney disease * Telephone Encounter - Latanya Cano III, MD - 07/30/2023 11:13 AM ESTSigned Prescriptions: Disp Refills Topiramate 25 MG Oral Tablet (topAMAX) 360 Ta*3 Sig: TAKE TWO TABLETS BY MOUTH TWICE A DAY Authorizing Provider: LATANYA CANO III * Telephone Encounter - Shyla Webber RPh - 07/30/2023 7:00 AM EST Pending Prescriptions: Disp Refills Topiramate 25 MG Oral Tablet (topAMAX) 360 Ta*3 Sig: TAKE TWO TABLETS BY MOUTH TWICE A DAY * Telephone Encounter - Shyla Webber RPh - 07/30/2023 7:00 AM EST Refill pharmacists currently not authorized to approve refills for this class of medication per refill protocol. Please approve if appropriate. Thank you, Shyla Webber, PharmD. Clinical Pharmacist Pharmacy Refill Call Center 07/30/2023, 7:00 AM documented in this encounter Plan of Treatment Upcoming Encounters Date Type Department Care Team (Late st Contact Info) Description 09/02/2023 11:30 AM EST Office Visit Otolaryngology/Head & Neck/Facial Plastic [facility] [address] [facility] [place] [address] Gallo Sood MD [address] [facility] [place] [address] 11/27/2023 10:00 AM EDT Office Visit [facility] [address] [facility] [place], [place] [address] Latanya Cano III, MD [address] [facility] [place] [address] 01/09/2024 9:00 AM EDT Office Visit [facility] [address] [facility] [place] [address] Latanya Cano III, MD [address] [facility] [place] [address] Health Maintenance Due Date Last Done Comments Cologuard 1994 Sigmoidoscopy 1994 Fecal Occult Blood Test 06/29/2007 06/29/20 06, 06/08/2000, 05/22/1999 Depression Screening 03/01/2023 03/01/2022, 07/07/2015 (Discussed) GFR 07/05/2023 01/02/2023, 01/30, 07/12/2021, Additional history exists Mammogram 12/13/2023 12/12/2022, 11/29, 12/01/2021, Additional history exists CKD HGB USE SMARTSET 02145 01/03/202401/02, 01/02/2023, 04/12/2022, Additional history exists Albumin/Creatinine Ratio 03/19/2024 023, 04/12/2022, 09/02/2017, Additional history exists CKD PHOS USE SMARTSET 16349 03/19/202403/01, 02/26/2022, 03/22/2021, Additional history exists TSH 04/02/2024 04/02/2023, 03/02, 03/26/2023, Additional history exists DXA Scan 05/14/2026 05/14/2022, 05/01, 08/28/2017, Additional history exists Lipid Panel 07/12/2026 07/12/2021, 03/02, 08/15/2017, Additional history exists DTaP,Tdap,and Td Vaccines (3 [...] this encounter Medical Devices Implanted Type Area Family Therapist Device Identifier Shelf Expiration Date Model / Serial / Lot Cage 13 X 28 Implanted:Qty : 1 on 10/22/2012 at [place] [facility] [place]: Spine Lumbar [id number] / / Expedium Ti Sfx 5.5 Lat A6 - [id number] Implanted:Qty : 1 on 06/06/2018 by Elijah Thorne MD at [place] [facility] [place] N/A: Spine Lumbar JNJ : [employer] [id number] / / Description:Part of implant set Globus 10x26 8-12mm Cage Implanted:Qty : 1 on 05/27/2019 by Elijah Thorne MD at [place] [facility] [place] N/A: Spine Lumbar [id number] / / documented as of this encounter Visit Diagnoses Diagnosis Migraine variant Variants of migraine, not elsewhere classified, without mention of intractable migraine without mention of status migrainosus documented in this encounter Advance Directives Latest Code Status on File Code Status Date Activated Date Inactivated Comments Full Code 05/27/2019 12:24 PM 05/31/2019 12:47 PM Th is order reflects the patients wishes and were consensually agreed upon. Question Answer Comments Discussion of Advance Directives occurred with: Patient Does the patient have a Living Will? No Does the patient have Health Care Power of Supplier Engineer? No Code Status History Code Status Date Activated Date Inactivated Comments Full Code 06/09/2018 6:42 AM 06/11/2018 2:45 PM Th is order reflects the patients [...] the patient have Health Care Power of Supplier Engineer? No Full Code 11/24/2009 6:53 AM 11/27/2009 3:28 PM This order reflects the patients wishes and were consensually agreed upon. Question Answer Comments Discussion of Advance Directives occurred with: Patient Does the patient have a Living Will? No Does the patient have Health Care Power of Supplier Engineer? No Care Teams Information Services Manager Relationship Specialty Start Date End Date Latanya Cano III, MD [address] [place] [address] PCP - General 02/13/1996 documented as of this encounter
--- OUTSIDE RECORDS SUMMARY | 2023-10-30 20:38 | External Medical Summary | Summary of Care ---
Author Name Unknown Organization [facility] Address [address] [place] [address] Phone [phone] Care Team Providers Care Clipper Automatic Name Role Phone Leopoldo BARNHART MD, Tushar Manzo Primary Care Provider [phone] Reason for Visit * Reason Comments Outpatient Testing Encounter Details Date Type Department Care Team (Late st Contact Info) Description 08/27/2023 7:40 AM EST Laboratory [facility] [address] [place] [id number] [place] [address] [place] [address] [employer] Other*[id number]; Acquired hypothyroidism; Stage 3b chronic kidney disease (HCC); Stage 3 chronic kidney disease, unspecified whether stage 3a or 3b CKD (HCC); Screening for cardiovascular condition Allergies Active Allergy Reactions Criticality Noted Date Comments Bee Stings 04/04/2010 Swelling, sick to stomach Yellow Jacket Venom 02/28/2012 Swelling, sick to stomach documented as of this encounter (statuses as of 08/27/2023) Medications Medication Sig Dispensed Refills Start Date [...] HOURS 20 Tablet 1 09/19/2022 09/19/2023 Active Levothyroxine Sodium 50 MCG Oral Tablet (Levoxyl) Take 1 Tablet by mouth in the morning. (at least 30 min prior to breakfast or other meds)mon-sat,luis f e 1and / tab sun. 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 Kidney disease, chronic, sta ge III (GFR 30-59 ml/min) 09/13/2014 05/12/2020 Overview: Per CKD protocol #1 Other osteoporosis without c urrent pathological fracture 07/13/2009 07/14/2021 Overview: ICD-10 update of inactive term Menopause 05/18/2019 INFORMATION 01/02/2023 documented as of this encounter (statuses as of 08/27/2023) Immunizations Name Administration Dates Next Due COVID-19 mRNA, LNP-s, No Pre serve, 2-Dose Series ([employer]) 06/20/2021,09/22/2020,09/01/2020 Covid-19, Mrna, Lnp-s, Pf, B ivalent, 30 Mcg, IM, 12 yrs and above ([employer]) 04/19/2022 H1N1 2009 Influenza, IM 05/20/2009 Hepatitis [...] No 05/27/2019 documented as of this encounter Plan of Treatment Upcoming Encounters Date Type Department Care Team (Late st Contact Info) Description 08/27/2023 4:00 PM EST Office Visit [facility] [address] [facility] [place] [address] Nannette Duncan PA-C [address] [place] [address] 09/02/2023 11:30 AM EST Office Visit Otolaryngology/Head & Neck/Facial Plastic Surgery [address] [place] [address] Gallo Sood MD [address] [place] [address] 01/09/2024 9:00 AM EDT Office Visit [facility] [place] [address] Tusahr Mina III, MD [address] [facility] [place] [address] Pending Results Name Type Priority Associated Diagnoses Date /Time MYCODE SUBSEQUENT ADULT Lab Routine MyCode Research Other*[id number] 08/27/2023 7:34 AM EST TSH WITH FREE T4 IF INDICATED Lab Routine Acquired hypothyroidism 08/27/2023 7:34 AM EST RENAL FUNCTION PANEL Lab Routine Stage 3b chronic kidney disease (HCC) 08/27/2023 7:34 AM EST LIPID PANEL WITHOUT DIRECT LDL Lab Routine Screening for cardiovascular condition 08/27/2023 7:34 AM EST HGB Lab Routine Stage 3 chronic kidney disease, unspecified whether stage 3a or 3b CKD (HCC) 08/27/2023 7:34 AM EST PTH Lab Routine Stage 3 chronic kidney disease, unspecified whether stage 3a or 3b CKD (HCC) 08/27/2023 7:34 AM EST MYCODE SST1 Lab Routine My[employer] Other*[id number] 08/27/2023 7:34 AM EST MYCODE SST2 Lab Routine MyCode [employer] Other*[id number] 08/27/2023 7:34 AM EST ALBUMIN / CREATININE RATIO, URINE Lab Routine Stage 3 chronic kidney disease, unspecified whether stage 3a or 3b CKD (HCC) 08/27/2023 7:37 AM EST Health Maintenance Due Date Last Done Comments Cologuard 1994 Sigmoidoscopy 1994 Fecal Occult Blood Test 06/29/2007 06/29/20 06, 06/08/2000, 05/22/1999 Depression Screening 03/01/2023 03/01/2022, 07/07/2015 (Discussed) GFR 07/05/2023 01/02/2023, 01/30, 07/12/2021, Additional history exists Mammogram 12/13/2023 12/12/2022, 11/29, 12/01/2021, Additional history exists CKD HGB USE SMARTSET 15820 01/03/202401/02, 01/02/2023, 04/12/2022, Additional history exists Albumin/Creatinine Ratio 03/19/2024 023, 04/12/2022, 09/02/2017, Additional history exists CKD PHOS USE SMARTSET 53960 03/19/202403/01, 02/26/2022, 03/22/2021, Additional history exists TSH [...] this encounter Medical Devices Implanted Type Area Investigator Operator Device Identifier Shelf Expiration Date Model / Serial / Lot Screw 6x45 Poly Si [id number] - [id number] Implanted:Qty : 4 on 10/22/2012 at [place] [facility] [place] N/A: Spine Lumbar JNJ : [employer] [id number] / / Dung 5.5x45 Ti Prbnt [id number] - [id number] Implanted:Qty : 2 on 10/22/2012 at OR [facility] [place] N/A: Spine Lumbar JNJ : [employer] [id number] / / Screw Set Sng Inner [id number] - [id number] Implanted:Qty : 4 on 10/22/2012 at OR [facility] [place] N/A: Spine Lumbar JNJ : [employer] [id number] / / Graft Infuse Bone Sm [id number] - [id number] Implanted:Qty : 1 on 10/22/2012 at OR [facility] [place] N/A: Spine Lumbar [employer] : NEUROLOGIC PAIN 12/28/2014 [id number] / / [id number] Expedium Ti Sfx 5.5 Lat A6 - [id number] Implanted:Qty : 1 on 10/22/2012 at OR [facility] [place] N/A: Spine Lumbar JNJ : [employer] [id number] / / Cage 13 X 28 Implanted:Qty : 1 on 10/22/2012 at OR [facility] [place] N/A: Spine Lumbar 08.803.113 / / Screw Set Sng Inner [id number] - [id number] Implanted:Qty : 4 on 06/06/2018 by Elijah Thorne MD at OR [facility] [place] N/A: Spine Lumbar JNJ : [employer] [id number] / / Description:Part of implant set Pre Lordosed Dung W Line 55mm - [id number] Implanted:Qty : 2 on 06/06/2018 by Elijah Thorne MD at OR [facility] [place] N/A: Spine Lumbar JNJ : [facility]INE [id number] / / Description:Part of implant set Expedium Ti Sfx 5.5 Lat A6 - [id number] Implanted:Qty : 1 on 06/06/2018 by Elijah Thorne MD at OR [facility] [place] N/A: Spine Lumbar JNJ : [employer] [id number] / / Description:Part of implant set Graft Infuse Bone Sm [id number] - [id number] Implanted:12/2017 by Elijah Thorne MD at OR [facility] [place] (Quantity not on file) [employer] : NEURO CARE 08/29/2019 [id number] / / [id number] 10x22 Caliber Interbody Implanted:Qty : 2 on 06/06/2018 by Elijah Thorne MD at OR [facility] [place] N/A: Spine Lumbar [employer] 194.122 / / Description:Part of implant set Screw 7x40 Poly Si [id number] - [id number] Implanted:Qty : 2 on 06/06/2018 by Elijah Thorne MD at OR [facility] [place] N/A: Spine Lumbar JNJ : [employer] [id number] / / Description:Part of implant set Stimulan Rapid Cure 10cc - [id number] Implanted:Qty : 1 on 05/27/2019 by Elijah Thorne MD at OR [facility] [place] N/A: Spine Lumbar [employer] [id number] 02/28/2022 620-010 / / [id number] Screw 7x50 Poly Si [id number] - [id number] Implanted:Qty : 2 on 05/27/2019 by Elijah Thorne MD at OR [facility] [place] N/A: Spine Lumbar JNJ : [employer] [id number] / / Screw Set Sng Inner [id number] - [id number] Implanted:Qty : 2 on 05/27/2019 by Elijah Thorne MD at OR [facility] [place] N/A: Spine Lumbar JNJ : [employer] [id number] / / Depuy 5.5 Dung With Connector Implanted:Qty : 2 on 05/27/2019 by Elijah Thorne MD at OR [facility] [place] N/A: Spine Lumbar [id number] / / Expedium Ti Sfx 5.5 Lat A6 - [id number] Implanted:Qty : 1 on 05/27/2019 by Elijah Thorne MD at OR [facility] [place] N/A: Spine Lumbar JNJ : [employer] [id number] / / Globus 10x26 8-12mm Cage Implanted:Qty : 1 on 05/27/2019 by Elijah Thorne MD at OR [facility] [place] N/A: Spine Lumbar 194.126 / / documented as of this encounter Visit Diagnoses Diagnosis MyCode Research Other*[id number] Acquired hypothyroidism Unspecified hypothyroidism Stage 3b chronic kidney disease (HCC) Stage 3 chronic kidney disease, unspecified whether stage 3a or 3b CKD (HCC) Screening for cardiovascular condition Screening for other and unspecified cardiovascular conditions documented in this encounter Advance Directives Latest [...] the patient have Health Care Power of Manager Studio? No Code Status History Code Status Date [...] the patient have Health Care Power of Manager Studio? No Full Code 11/24/2009 6:53 AM 11/27/2009 3:28 PM This order reflects the patients wishes and were consensually agreed upon. Question Answer Comments Discussion of Advance Directives occurred with: Patient Does the patient have a Living Will? No Does the patient have Health Care Power of Manager Studio? No Care Teams Clipper Automatic Relationship Specialty Start Date End Date Tushar Mina III, MD [address] [facility] [place] [address] PCP - General 02/13/1996 documented as of this encounter
--- OUTSIDE RECORDS SUMMARY | 2023-10-30 20:38 | External Medical Summary ---
Author Name Unknown Address Unknown Organization [id number]:[facility] - [facility] [place] [address] [place] [address] Laboratory Report Ordering Provider Test Date Status 08/27/2023 07:34:37 Final Observation Date Value Abnormality Reference (Units ) Status Parathyrin.intact [Mass/volume] in Serum or Plasma 08/27/2023 07:34:37 46 15-65 (pg/mL) Final Performing Location [facility] - [address] [place] [address]
--- OUTSIDE RECORDS SUMMARY | 2023-10-30 20:38 | External Medical Summary ---
Author Name Unknown Address Unknown Organization [id number]:[facility] [address] Laboratory Report Ordering Provider Test Date Status 08/27/2023 07:34:37 Final Observation Date Value Abnormality Reference (Units ) Status Hemoglobin 08/27/2023 07:34:37 12.2 12.0-15.3 (g/dL) Final Performing Location [facility] [place] [address]
--- OUTSIDE RECORDS SUMMARY | 2023-10-30 20:38 | External Medical Summary ---
Author Name Unknown Address Unknown Organization [id number]:[facility] [place] [address] [place] [address] Laboratory Report Ordering Provider Test Date Status 08/27/2023 07:37:56 Final Normal: <30 mg/g creatinine< br/>High: 30-300 mg/g creatinine
Very High: >300 mg/g creatinine
Nephrotic: >2200 mg/g creatinine Observation Date Value Abnormality Reference (Units ) Status Albumin, Urine 08/27/2023 07:37:56 <1.20 (mg/dL) Final Creatinine, Urine 08/27/2023 07:37:56 89 (mg/dL) Final Albumin/Creatinine [Mass Ratio] in Urine 08/27/2023 07:37:56 <13 <30 (mg/g Creat) Final Performing Location [facility] [place] - [address] [place] [address]
--- OUTSIDE RECORDS SUMMARY | 2023-10-30 20:38 | External Medical Summary | Summary of Care ---
Author Name Unknown Organization [facility] Address [address] [place] [address] Phone [phone] Care Team Providers Care Lab Support Service Tech Name Role Phone Leopoldo BARNHART MD, Tushar Manzo Primary Care Provider [phone] Reason for Visit * Reason Comments Follow Up Encounter Details Date Type Department Care Team (Late st Contact Info) Description 09/02/2023 11:30 AM EST Office Visit Otolaryngology/Head & Neck/Facial Plastic Surgery [address] [place] [address] Gallo Sood MD [address], [place] [id number] Eustachian tube dysfunction, right*; Sensorineural hearing loss (SNHL) of both ears; Sudden right hearing loss; Middle ear effusion, right Allergies Active Allergy Reactions Criticality Noted Date Comments Bee Stings 04/04/2010 Swelling, sick to stomach Yellow Jacket Venom 02/28/2012 Swelling, sick to stomach documented as of this encounter (statuses as of 09/02/2023) Medications Medication Sig Dispensed Refills Start Date [...] breakfast or other meds)mon, tuues,thurs,fri sattake 1and 07/02 tab wed and sun. 35 Tablet 11 08/28/2023 Active Docusate Sodium 60 MG/15ML Oral Syrup (Colace) Take 25 mL by mouth in the morning and 25 mL before bedtime. 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 Kidney disease, chronic, sta ge III (GFR 30-59 ml/min) 09/13/2014 05/12/2020 Overview: Per CKD protocol #1 Other osteoporosis without c urrent pathological fracture 07/13/2009 07/14/2021 Overview: ICD-10 update of inactive term Menopause 05/18/2019 INFORMATION 01/02/2023 documented as of this encounter (statuses as of 09/02/2023) Immunizations Name Administration Dates Next Due COVID-19 mRNA, LNP-s, No Pre serve, 2-Dose Series ([employer]) 06/20/2021,09/22/2020,09/01/2020 COVID-19, MRNA-LNP, 23-24, P F, 30 MCG/0.3 mL, 12 YRS AND ABOVE, IM ([employer]-Comirnaty) 04/08/2023 Covid-19, Mrna, Lnp-s, Pf, B ivalent, [...] No 05/27/2019 documented as of this encounter Progress Notes * Shantell Palacios MD - 09/02/2023 11:54 AM EST Images from the original note were not included. Department of Otolaryngology - Head and Neck Surgery Facial Plastic Surgery [address] [address] 05/11/2022 3:22 PM CC: sudden hearing loss History of Present Illness: Cecily De La Cruz is a 72 year old female seen at the request of Tushar Mina III, MD for the initial evaluation of sudden hearing loss. Last week was in [place] and caught an upper respiratory infection, then felt her hearing in both ears went down. Feels crackling and snapping of both ears Feels she is getting drainage from both ear since this time Ears are itching a bit. She was seen by her PCP and given prednisone taper of 50mg. Feels her left ear is her better hearing ear since this time. Has had hearing aids for the last 6 years and states she has a symmetric hearing loss at her baseline. [facility] is where she obtained her hearing aids. Admits to tinnitus of both ears for many years, which has not changed since this recent ear issue started. Denies: Deafness, Vertigo, Ear drainage, Otalgia, Taste disturbance, Facial nerve palsy History of recurrent ear infections: yes History of ENT surgeries: none Family history of any ENT diseases: father and son with ear issues too Histories: Patient Active Problem List Diagnosis Code CA IN SITU BREAST D05.90 CLASSICAL MIGRAINE WITHOU MENTION OF INTRACTABLE MIGRAINE G43.109 ADVANCE DIRECTIVE INFORMATION Disorder of intervertebral disc M51.9 Spondylolisthesis M43.10 Collagenous colitis K52.831 Status post lumbar laminectomy Z98.890 Hypokalemia E87.6 Stage 3b chronic kidney disease N18.32 Ulcerative colitis without complications (HCC) K51.90 Gastro-esophageal reflux disease without esophagitis K21.9 Dependent relative needing care at home Z63.6 Classical migraine without intractable migraine G43.109 Hyperlipidemia E78.5 Adjustment disorder with depressed mood F43.21 Past Medical History: Diagnosis Date Breast Cancer, Past History 1999 right breast Diverticulitis of colon Herniated nucleus pulposus, L4-5 left 05/11/2008 left L4-5 disc INFORMATION FOOT PAIN Lumbar disc disease 2008 s/p surgery Migraine with aura Migraines-Classical Need for prophylactic hormone replacement therapy (postmenopausal) Hormone Therapy Relacement Steroid-induced osteoporosis Ulcerative colitis, unspecified collagenous Past Surgical History: Procedure Laterality Date BREAST LESION,OTHER,EXCISION Breast Lesion Excise COLONOSCOPY W/ BIOPSY (RECTUM) 01/27/09 done normal exam path pending COLONOSCOPY W/ BIOPSY (RECTUM) 09/09/2009 bxs, stool aspirate COLONOSCOPY, DIAGNOSTIC (RECTUM) 08/24/2021 diverticulosis in sigmoind and descending /biopsies show evidence of a condition called "microscopic colitis." / COLONOSCOPY FLEXIBLE PROXIMAL DIAGNOSTIC performed by Elvia Matthews MD at [facility] PROCEDURE NEC wisdom tooth removal INFORMATION reversal of tubal ligation LAMINOTOMY, ADDL LUMBAR N/A 06/06/2018 LAMINOTOMY ADDITIONAL LUMBAR DISK EXCISION performed by Mony Thorne MD at [facility] LIGATE/CUT OVIDUCT(S) REVERSAL LUMBAR / SACRAL EPIDURAL, SINGLE LEVEL 12/29/2018 INJECTION TRANSFORAMINAL EPIDURAL LUMBAR OR SACRAL performed by [place] Jermaine Craig DO at [facility] LUMBAR / SACRAL EPIDURAL, SINGLE LEVEL 01/15/2019 INJECTION TRANSFORAMINAL EPIDURAL LUMBAR OR SACRAL performed by Andrzej Craig DO at [facility] LUMBAR SPINE FUSION, POST INTERBODY 10/22/2012 ARTHRODESIS SPINE POSTERIOR INTERBODY WITH LAMINECTOMY LUMBAR performed by Mony Thorne MD at [facility] LUMBAR SPINE FUSION, POST INTERBODY N/A 06/06/2018 ARTHRODESIS SPINE POSTERIOR INTERBODY WITH LAMINECTOMY LUMBAR performed by Mony Thorne MD at [facility] LUMBAR SPINE FUSION, POST INTERBODY N/A 05/27/2019 ARTHRODESIS SPINE POSTERIOR INTERBODY WITH LAMINECTOMY LUMBAR performed by Mony Thorne MD at [facility] LUMBAR SPINE FUSION, POSTEROLATERAL 10/22/2012 ARTHRODESIS SPINE POSTERIOR LUMBAR performed by Mony Thorne MD at [facility] LUMBAR SPINE FUSION, POSTEROLATERAL N/A 05/27/2019 ARTHRODESIS SPINE POSTERIOR LUMBAR performed by Mony Thorne MD at [facility] MAMMOGRAM - 1 BREAST 10/17/2007 left, birad 2 MAMMOGRAM - BILATERAL 08/30/2003 birad code 2 MAMMOGRAM - BILATERAL 08/30/2004 birad code 2/yearly arbutina MAMMOGRAM - BILATERAL 09/05/2006 Birad code 2/benign findings MAMMOGRAM SCREENING-BILATERAL 10/15/2007 birad 0 MAMMOGRAM SCREENING-BILATERAL 10/19/2008 birad 2 OTHER back/spur removal PARTIAL MASTECTOMY 09/29/1999 Mastectomy, Partial RIGHT [facility] PUNCTURE DRAINAGE BREAST CYST 08/28/1999 Breast Biopsy, RIGHT [facility] REMOVE CATARACT, INSERT LENS PROSTH 07/01/2011 bilateral REMOVE LUMBAR SPINE LAMINA, 1 SEG 11/24/2009 LAMINECTOMY FACETECTOMY AND FORAMINOTOMY LUMBAR performed by MONY THORNE at [facility] REMOVE LUMBAR SPINE LAMINA, 1 SEG 10/22/2012 LAMINECTOMY FACETECTOMY AND FORAMINOTOMY POSTERIOR LUMBAR performed by Mony Thorne MD at [facility] REMOVE LUMBAR SPINE LAMINA, 1-2 N/A 06/06/2018 LAMINECTOMY POSTERIOR LUMBAR ONE OR TWO SEGMENTS performed by Mony Thorne MD at [facility] REMOVE LUMBAR SPINE LAMINA, 1-2 N/A 05/27/2019 LAMINECTOMY POSTERIOR LUMBAR ONE OR TWO SEGMENTS performed by Mony Thorne MD at [facility] REMOVE TONSILS & ADENOIDS, UNDER 12 Tonsillectomy/Adenoids,<12 Y/O SPINE SEG FIX, POST, 3-6 SEG, INSERT N/A 06/06/2018 POSTERIOR SPINE SEGMENTAL INSTRUMENTATION 3 TO 6 PSF performed by Mony Thorne MD at [facility] VAGINAL DELIVERY ONLY Vaginal Delivery VAGINAL DELIVERY ONLY Vaginal Delivery VAGINAL DELIVERY ONLY Vaginal Delivery Medications Current Outpatient Medications Medication Sig Dispense Refill ASPIRIN 81 MG PO TABS patient takes one tablet by mouth daily at bedtime tiZANidine HCl 4 MG Oral Tablet (Zanaflex) Take 1 Tablet by mouth every 6 hours as needed for Muscle spasms. 30 Tablet 0 Doxepin HCl 10 MG Oral Capsule (SINEquan) TAKE TWO CAPSULES BY MOUTH AT BEDTIME 200 Capsule 1 Propranolol HCl ER 160 MG Oral Capsule Extended Release 24 Hour TAKE ONE CAPSULE BY MOUTH EVERY DAY90 Capsule 1 Sertraline HCl 100 MG Oral Tablet (Zoloft) TAKE ONE TABLET BY MOUTH EVERY DAY 90 Tablet 2 Topiramate 25 MG Oral Tablet (topAMAX) TAKE TWO TABLETS BY MOUTH TWICE A DAY 360 Tablet 3 traZODone HCl 150 MG Oral Tablet (Desyrel) TAKE ONE TABLET BY MOUTH EVERY DAY AT BEDTIME 90 Tablet 2 Fluticasone Propionate 50 MCG/ACT Nasal Suspension (Flonase) APPLY ONE SPRAY INTO NOSTRIL EVERY MORNING 48 g 1 Levothyroxine Sodium 50 MCG Oral Tablet (Levoxyl) Take 1 Tablet by mouth in the morning. (at least 30 min prior to breakfast or other meds)mon, tuues,thurs,fri sattake 1and / tab wed and sun. 35 Tablet 11 Docusate Sodium 60 MG/15ML Oral Syrup (Colace) Take 25 mL by mouth in the morning and 25 mL before bedtime. Rizatriptan Benzoate 10 MG Oral Tablet (Maxalt) TAKE ONE TABLET BY MOUTH NEEDED FOR MIGRAINE AT ONSET OF HEADACHE, MAY REPEAT EVERY 2 HOURS UP TO TWO TIMES. UP TO 3 TABLETS IN 24 HOURS 20 Tablet 1 No current facility-administered medications for this visit. Allergies Review of patient's allergies indicates: Allergen Reactions Bee Stings Swelling, sick to stomach Yellow Jacket Venom Swelling, sick to stomach Family History Family History Problem Relation Age of Onset Hypertension Mother Heart Disorder Mother CHF Arthritis Mother rheumatoid Lung Disorder Mother 18 TB of lung Heart Disorder Father Afib Diabetes Father 50 IDDM No Past Hx Son No Past Hx Son Neurological Disorder Son mental retardation Diabetes Son Cancer Sister 54 breast, alive Lung Disorder Brother 54 sarcoidosis Arthritis Sister 50 unknown what kind Other (Arthritis sarcoid) Brother 50 unknown what kind Diabetes Brother 59 NIDDM Social History Social History Tobacco Use Smoking status: Never Smokeless tobacco: Never Substance Use Topics Alcohol use: No Vaping/E-Cigarette Use Vaping/E-Cigarette Use Never User Vaping/E-Cigarette Substances Vaping/E-Cigarette Devices Review of Systems Negative for constitutional, eyes, cardiac, pulmonary, hepatic, renal, digestive, hematologic, epileptic, syncopal, musculo-skeletal, mental health, integumentary, hypertensive, lipid, arthritic, diabetic, thyroid or neurologic disorders (except as listed in the PMH and Problem List). Physical Examination: There were no vitals taken for this visit. Vital Signs: There were no vitals filed for this visit. General: this is a healthy appearing female who appears her stated age, comfortable, and appropriately verbally conversant without hoarseness. Face: no cutaneous masses or lesions. Facial movement was symmetric without weakness. There was no sinus tenderness elicited. The parotid and submandibular glands were normal to palpation. Eyes: EOMI, pupils equal and reactive. No nystagmus. Cranial Nerves: Cranial nerves II, III, IV, and were noted to be intact via extra-ocular muscle movement testing. Cranial nerve VII noted to be intact and symmetric by facial movement. Cranial nerve VIII was tested. Cranial nerves IX and X noted to be intact by gag reflex and palatal movement. Cranial nerve XII noted to be intact by active and symmetric tongue movement. Nose: Examination of the nose revealed septum is non-obstructing. The turbinates are normal in appearance. No lesions, masses, polyps, or mucopurulence. Oral cavity: Examination of the oral cavity revealed no mass lesions or infection. The palate was noted to be intact without evidence of clefting. The tongue exhibited normal mobility. Oropharynx: Mucosa was moist without lesion or inflammation. Uvula midline. Tonsils unremakrable Ears: Examination of the ears revealed that the auricles were normally formed with no lesions. The external auditory canals were cleaned of any obstructing cerumen. Right Ear: Tympanic membrane intact with diffuse tympanosclerosis and effusion noted. Left Ear: Tympanic membrane intact with effusion and air bubbles noted. Neck: Visualization and palpation of the neck revealed no masses, thyromegaly or thyroid masses. Lymphatics (cervical):There were no palpable lymph nodes in the posterior triangle, submandibular triangle, jugulodigastric region, or central neck. Audiogram: Tympanograms: flat bilaterally with normal volume Consent: The patient has mixed hearing loss of the right ear Complications were discussed to include but not limited to bleeding, infection, scarring in the tympanic membrane, perforation which can be temporary or permanent, vertigo, hearing loss, inability tocure the condition and need for further intervention. Taste alteration was also discussed as was the remote chance of facial nerve palsy. Procedure: The patient was laid supine The right ear was examined under the microscope Cerumen was cleaned using the cerumen curette and suctioning The Apdyne applicator was used to anesthetize the anterior inferior quadrant of the tympanic membrane A myringotomy blade was used to make a small incision in the anterior inferior quadrant A mini reversible PE tube was placed Ciprodex drops were instilled into the right ear and patient felt her hearing was much improved Dr. Gallo Sood performed the procedure Patient felt she was able to hear and understand much better after tube placement, thus air scores and WRS were repeated on the right and revealed the following: Assessment and Plan: Cecily De La Cruz is a 72 year old female who presents for blocked ears and hearing loss (R>L) since last week. Patient was in [place] on a trip last week and developed an upper respiratory infection. Since this time she has felt the hearing is down and ears are blocked. At baseline she does wear hearing aids and has felt her hearing was the same in both ears, however now feels the left ear is the better hearing ear. Was seen by her PCP where she was placed on 50mg prednisone taper. Patient does not feel her hearing is any better. Denies otalgia or vertigo. Examination today reveals right TM intact with tympanosclerosis and effusion. Left TM intact with effusion and air bubbles noted. Audiogram reveals mixed hearing loss of both ears, worse in the right. WRS of the right ear has dropped from 84% at 70dB to now 0% at 95mcl. WRS of the left ear is 80% at 95dB. Discussed due infection of the right ear and WRS being 0%, infection could be spreading into inner ear and affecting speech discrimination. Discussed placement of right PE tube risks and benefits with patient. After informed consent, right PE tube placed by Dr. Gallo Sood as described above. Patient tolerated the procedure well. Left PE tube not placed, as left WRS is preserved and air-bubbles noted behind TM. After PE tube placement of the right ear and ciprodex drops were instilled, patient felt she was able to hear and understand speech much clearer. Air scores and WRS of the right ear wasrepeated and revealed closure of air-bone gap as well as increased WRS to 80% at 80dB. Based on clinical exam, history, and prior studies: Discussed findings with patient and her As hearing improved on the right with myringotomy and PE tube placement, no MRI or p.o. steroids warranted at this time Advised dry ear precautions to the right ear Ciprodex drops to the right ear twice daily x 2 weeks Augmentin BID x 10 days for left otitis media Afrin two sprays twice daily to the left nostril for 3 days then stop for 7 days and repeat cycle Continue daily Flonase as prescribed RTC 3-[address] Sood, or earlier as needed Patient seen and examined with Dr. Gallo Sood. I spent a total of 30-39 minutes (exact time 35 mins) on the date of service in preparation, delivery, and documentation of the care provided to Cecily De La Cruz excluding any time spent in the performance of separately billed services. Carlota Avila PA-C Otolaryngology / Head & Neck Surgery [facility] 05/11/22 3:22 PM Attending Attestation: I performed a history and physical examination of the patient on 05-11-2022, including specificallyon physical exam - ear exam . I have discussed the patient's management with the advanced practitioner. Please refer to the physician housekeeping assistant's note for the documented findings and plan of care. Consent: The patient has mixed hearing loss left ear . Complications were discussed to include but not limited to bleeding, infection, scarring in the tympanic membrane, perforation which can be temporary or permanent, vertigo, hearing loss, inability to cure the condition and need for further intervention. Taste alteration was also discussed as was the remote chance of facial nerve palsy. Procedure: The patient was laid supine The right ear was examined under the microscope Cerumen was cleaned using the cerumen curette and suctioning The Apdyne applicator was used to anesthetize the anterior inferior quadrant of the tympanic membrane A myringotomy blade was used to make a small incision in the anterior inferior quadrant A mini reversible PE tube was placed Patient's hearing immediately returned. Gallo Sood MD 05/11/2022 6:21 PM FOLLOW UP ON 06-06-2022 S: The patient reports that her hearing has been stable. She reports that she is having some difficulty understanding rather than hearing. She does not report any dizzy spells. She does have bilateral tinnitus. She does not complain of any ear drainage. She does complain of a clicking sound in the left ear. She [place] hearing aids [place] and mentions that they help her. She does not complain of any difficulty breathing swallowing or speaking. She does not have history of epistaxis. O: The patient is afebrile. Ears right ear shows a PE tube which is stable. The PE tube is not blocked. There is no drainage. Left ear tympanic membrane appears to be healthy. Air conduction was greater than bone conduction. Spencer's test did not lateralize to either ear. Nose nasal mucosa is pink and moist Throat and oropharynx are clear. Assessment and plan patient appears to have stable hearing after PE tube placement. She is here forher follow-up. She does not have any history of smoking. She is not undergone a nasopharyngoscopy and laryngoscopy. I will do this today to make certain that we are not dealing with a mass in the naso pharynx. I have explained to her that this is rather unusual since she is not a smoker however it does need to be checked out. Procedure: Due to patient's inability to cooperate with mirror exam or concern for structures otherwise not evaluated, fiberoptic examination of the larynx was performed. The nose was first topically decongested with topical oxymetazoline 0.05% spray and topically anesthetized with topical Lidocaine 4% spray. Nasopharynx was visualized and was without masses or lesions. Fiberoptic examination revealed no mass lesions. Vocal cord mobility was normal without paralysis or paresis. There was no significant edema or erythema of the larynx. No vocal cord masses were visualized. Exam was negative for post cricoid or pyriform sinuses lesions. The patient tolerated the procedure well. Patient should refrain from eating or drinking for 30-45 minutes due to anesthesia of the pharynx and possible interference with swallowing. Dr. Gallo Sood performed the procedure. Nasopharynx oropharynx and hypopharynx was all normal. On the right side the eustachian tubal orifice appears to have some swelling along the posterior nilsa. This is also the side that has the eustachian tube dysfunction. I have explained to the patient that once the tubes come out if she should develop fluid again in the ear 1 needs to consider doing a balloon tuboplasty. I would not do it prophy lactically. Of importance the patient also has a marked spur on the nasal septum on the right side. I have recommended that she continue using her Flonase. I will see her back in 6 months and earlierif necessary. Gallo Sood MD 06/06/2022 12:40 PM FOLLOW UP ON 12-05-2022 S: She is doing well No issues no pain or drainage out of the right ear O: Afebrile Patient has cerumen impaction in the right ear. The tube has extruded in the cerumen. Procedure: In order to assess ears in further detail, the patient was brought to the microscope room and the ears were evaluated under the operating microscope. The findings are as noted in the above physical exam. Dr. Gallo Sood performed the procedure. Using an alligator forceps the PE tube that was lying as a foreign body in the external auditory canal was removed. A very tiny perforation is noted in the anterior-inferior quadrant of the tympanic membrane. Assessment and plan: Patient has a tiny perforated tympanic membrane. This is acting like a ventilating tube. She uses hearing aids in both ears. I will see her back in 6 months and earlier if necessary. Dry ear precautions have been stressed. If the perforation does not get infected it may be reasonable to keep observing it. However if she starts developing ear infections it may be necessary to go in and patch the drum. Patient advised to see her coping machine operator in [facility] to adjust her hearing aids Gallo Sood MD 12/05/2022 12:55 PM FOLLOW UP ON 09/02/2023 Department of Otolaryngology - Head and Neck Surgery Facial Plastic Surgery [address] [phone] 09/02/2023 INTERVAL HISTORY: Cecily De La Cruz is a 73 year old female seen for follow-up of sudden hearing loss s/p PE tube placement on 05/11/2022 and tube was found to be extruded during last clinic visit on 12/05/2022. Since she was last seen, patient reports hearing and tinnitus are unchanged. She has not had any dizzy spells and has been consistent with Flonase daily. She keeps dry ear precautions. No muffled hearing, otalgia, otorrhea, autophony, or hyperacusis. Her last hearing evaluation was done at [facility] on 05/28/2023. Review of Systems: Negative for constitutional, eyes, cardiac, pulmonary, hepatic, renal, digestive, hematologic, epileptic, syncopal, musculo-skeletal, mental health, integumentary, hypertensive, lipid, arthritic, diabetic, thyroid or neurologic disorders (except as listed in the PMH and Problem List). Pertinent Physical Exam: General: Alert and appropriately verbally conversant without hoarseness. Ears: Examination of the ears revealed that the auricles were normally formed with no lesions. The external auditory canals were cleaned of any obstructing cerumen. Right Ear: Tympanic membrane with inferior perforation. Left Ear: Tympanic membrane intact. No evidence of perforations, effusions, infection, or retraction pockets. Tuning fork examination with the [employer] tuning fork revealed symmetric hearing with air > bone on left with no hearing on right. Spencer non-lateralizing. Nose: Examination of the nose revealed septum is non-obstructing. The turbinates are normal in appearance. No lesions, masses, polyps, or mucopurulence. Oral cavity: Examination of the oral cavity revealed no mass lesions or infection. Oropharynx: Mucosa was moist without lesion or inflammation. Uvula midline. Neck: Visualization and palpation of the neck revealed no masses, thyromegaly or thyroid masses. Assessment and Plan: Cecily De La Cruz is a 73 year old female who presents for follow-up of asymmetric HL (conductive on right and mixed on left) s/p PE tube placement in May 2022 with extrusion by 11/2022. She has persistent inferior perforation in the right ear. Audiogram today Follow up in 1 year or earlier if needed. Shantell Palacios MD Otolaryngology - Head and Neck Surgery, Resident 09/02/23 11:56 AM I have discussed the patient's management with the medical trainee and agree with the note. Please refer to the documented findings and plan of care. This patient's visit today consisted of an evaluation. I was present and confirmed the findings of the history and exam. I have seen and examined thepatient. She has a central perforation in the right ear. Audiogram was repeated. Word understanding is 76% on the right and 76% on the left. Bone conduction is almost symmetric on both sides. She has a small low-frequency air bone gap in the right ear which can be attributed to the tympanic membrane perforation. I would not recommend any repair since she has not had any ear drainage. She is doing well with the hearing aids. I will provide her with clearance for hearing aid evaluation and hearing aids. I will see her in 2 years and earlier if necessary. Gallo Sood MD 09/02/2023 1:01 PM Gallo Sood MD documented in this encounter Plan of Treatment Upcoming Encounters Date Type Department Care Team (Late st Contact Info) Description 01/09/2024 9:00 AM EDT Office Visit Family Practice [facility] [address] [facility] [place] [address] Tushar Mina III, MD [address] [facility] [place] [address] Scheduled Orders Name Type Priority Associated Diagnoses Orde r Schedule AUDIOLOGY LAB Procedures Routine Eustachian tube dysfunction, right Sensorineural hearing loss (SNHL) of both ears Ordered: 09/02/2023 Health Maintenance Due Date Last Done Comments Cologuard 1994 Sigmoidoscopy 1994 Fecal Occult Blood Test 06/29/2007 06/29/20 06, 06/08/2000, 05/22/1999 Depression Screening 03/01/2023 03/01/2022, 07/07/2015 (Discussed) Mammogram 12/13/2023 12/12/2022, 11/29, 12/01/2021, Additional history exists GFR 02/25/2024 08/27/2023, 10/2022, 02/26/2022, Additional history exists Albumin/Creatinine Ratio 08/27/2024 024, 03/19/2023, 04/12/2022, Additional history exists CKD HGB USE SMARTSET 24859 08/27/202408/27, 01/02/2023, 01/02/2023, Additional history exists CKD PHOS USE SMARTSET 30124 08/27/202408/02, 03/19/2023, 02/26/2022, Additional history exists TSH 08/27/2024 08/27/2023, 08/2022, 03/29/2023, Additional history exists DXA Scan 05/14/2026 [...] this encounter Medical Devices Implanted Type Area Advertising Display Rotator Device Identifier Shelf Expiration Date Model / Serial / Lot Screw 6x45 Poly Si [id number] - [id number] Implanted:Qty : 4 on 10/22/2012 at [place] [facility] [place] N/A: Spine Lumbar JNJ : [employer] [id number] / / Dung 5.5x45 Ti Prbnt [id number] - [id number] Implanted:Qty : 2 on 10/22/2012 at [place] [facility] [place] N/A: Spine Lumbar JNJ : [employer] [id number] / / Screw Set Sng Inner [id number] - [id number] Implanted:Qty : 4 on 10/22/2012 at [place] [facility] [place] N/A: Spine Lumbar JNJ : [employer] [id number] / / Graft Infuse Bone Sm 7328791 - [id number] Implanted:Qty : 1 on 10/22/2012 at [place] [facility] [place] N/A: Spine Lumbar [employer] : NEUROLOGIC PAIN 12/28/2014 [id number] / / [id number] Expedium Ti Sfx 5.5 Lat A6 - [id number] Implanted:Qty : 1 on 10/22/2012 at [place] [facility] [place] N/A: Spine Lumbar JNJ : [employer] [id number] / / Cage 13 X 28 Implanted:Qty : 1 on 10/22/2012 at [place] [facility] [place] N/A: Spine Lumbar 08.803.113 / / Screw Set Sng Inner [id number] - [id number] Implanted:Qty : 4 on 06/06/2018 by Mony Thorne MD at [place] [facility] [place] N/A: Spine Lumbar JNJ : [employer] [id number] / / Description:Part of implant set Pre Lordosed Dung W Line 55mm - [id number] Implanted:Qty : 2 on 06/06/2018 by Mony Thorne MD at [place] [facility] [place] N/A: Spine Lumbar JNJ : [employer] SP[employer] [id number] / / Description:Part of implant set Expedium Ti Sfx 5.5 Lat A6 - [id number] Implanted:Qty : 1 on 06/06/2018 by Mony Thorne MD at [place] [facility] [place] N/A: Spine Lumbar JNJ : [employer] [id number] / / Description:Part of implant set Graft Infuse Bone Sm [id number] - [id number] Implanted:12/2017 by Mony Thorne MD at [place] [facility] [place] (Quantity not on file) [employer] : NEURO CARE 08/29/2019 [id number] / / [id number] 10x22 Caliber Interbody Implanted:Qty : 2 on 06/06/2018 by Mony Thorne MD at [place] [facility] [place] N/A: Spine Lumbar [employer] 194.122 / / Description:Part of implant set Screw 7x40 Poly Si [id number] - [id number] Implanted:Qty : 2 on 06/06/2018 by Mony Thorne MD at [place] [facility] [place] N/A: Spine Lumbar JNJ : [employer] [id number] / / Description:Part of implant set Stimulan Rapid Cure 10cc - [id number] Implanted:Qty : 1 on 05/27/2019 by Mony Thorne MD at [place] [facility] [place] N/A: Spine Lumbar [employer] [id number] 02/28/2022 620-010 / / [id number] Screw 7x50 Poly Si [id number] - [id number] Implanted:Qty : 2 on 05/27/2019 by Mony Thorne MD at [place] [facility] [place] N/A: Spine Lumbar JNJ : [employer] [id number] / / Screw Set Sng Inner [id number] - [id number] Implanted:Qty : 2 on 05/27/2019 by Mony Thorne MD at [place] [facility] [place] N/A: Spine Lumbar JNJ : [employer] [id number] / / Depuy 5.5 Dung With Connector Implanted:Qty : 2 on 05/27/2019 by Mony Thorne MD at [place] [facility] [place] N/A: Spine Lumbar [id number] / / Expedium Ti Sfx 5.5 Lat A6 - [id number] Implanted:Qty : 1 on 05/27/2019 by Mony Thorne MD at [place] [facility] [place] N/A: Spine Lumbar JNJ : [employer] [id number] / / Globus 10x26 8-12mm Cage Implanted:Qty : 1 on 05/27/2019 by Mony Thorne MD at [place] [facility] [place] N/A: Spine Lumbar 194.126 / / documented as of this encounter Visit Diagnoses Diagnosis Eustachian tube dysfunction, right- Primary Sensorineural hearing loss (SNHL) of both ears Sudden right hearing loss Sudden hearing loss, unspecified Middle ear effusion, right documented in this encounter Advance Directives Latest [...] the patient have Health Care Power of Drafter Structural? No Code Status History Code Status Date [...] the patient have Health Care Power of Drafter Structural? No Full Code 11/24/2009 6:53 AM 11/27/2009 3:28 PM This order reflects the patients wishes and were consensually agreed upon. Question Answer Comments Discussion of Advance Directives occurred with: Patient Does the patient have a Living Will? No Does the patient have Health Care Power of Drafter Structural? No Care Teams Lab Support Service Tech Relationship Specialty Start Date End Date Tushar Mina III, MD [address] [place] [address] PCP - General 02/13/1996 documented as of this encounter
--- OUTSIDE RECORDS SUMMARY | 2023-10-30 20:38 | External Medical Summary ---
Author Name Unknown Address Unknown Organization K01:LAB[facility]ATORY [facility] - [address] [place] [address] Laboratory Report Ordering Provider Test Date Status RACHAEL PELAEZ III 08/27/2023 07:34:37 Final Observation Date Value Abnormality Reference (Units ) Status T4, Free 08/27/2023 07:34:37 1.2 0.9-1.7 (n g/dL) Final Performing Location [facility] - [address] [place] [address]
--- OUTSIDE RECORDS SUMMARY | 2023-10-30 20:38 | External Medical Summary | Summary of Care ---
Author Name Unknown Organization [facility] Address [address] [place] [address] Phone [phone] Care Team Providers Care Ep Specialist Name Role Phone Leopoldo BARNHART MD, Tushar Manzo Primary Care Provider [phone] Reason for Visit * Reason Onset Date Comments TRIAGE 05/28/2023 Encounter Details Date Type Department Care Team (Late st Contact Info) Description 05/28/2023 Telephone Otolaryngology/Head & Neck/Facial Plastic Surgery [address], [place] [phone] Gallo Sood MD [address], [place] [id number] TRIAGE Allergies Active Allergy Reactions Criticality Noted Date [...] Active Rizatriptan Benzoate 10 MG Oral Tablet (Maxalt)Indications :Migraine variant TAKE ONE TABLET BY MOUTH NEEDED FOR MIGRAINE AT ONSET OF HEADACHE, MAY REPEAT EVERY 2 HOURS UP TO TWO TIMES. UP TO 3 TABLETS IN 24 HOURS 20 Tablet 1 09/19/2022 09/19/2023 Active Levothyroxine Sodium 50 MCG Oral Tablet (Levoxyl) Take 1 Tablet by mouth in the morning. (at least 30 min prior to breakfast or other meds)mon-sat,take 1and 1/2 tab sun. 33 Tablet 11 03/20/2023 Active Levothyroxine Sodium 50 MCG Oral Tablet (Levoxyl) Take 1 Tablet by mouth in the morning. Mon-Sat -1and 1/2 tab Saturday (at least 30 min prior to breakfast or other meds). 90 Tablet 3 05/09/2023 Active documented as of this encounter (statuses [...] mRNA, LNP-s, No Pre serve, 2-Dose Series (RxApps) 06/20/2021,09/22/2020,09/01/2020 COVID-19, MRNA-LNP, 23-24, P F, 30 MCG/0.3 mL, 12 YRS AND ABOVE, IM ([facility]) 04/08/2023 Covid-19, Mrna, Lnp-s, Pf, B ivalent, 30 Mcg, IM, 12 yrs and above (RxApps) 04/19/2022 H1N1 2009 Influenza, IM 05/20/2009 Hepatitis [...] Split, I IV3, With Preserve, Inj 03/21/2015,03/22/2014,03/16/2013,03/01,03/27/2011,03/15/2010,05/25/20 09,05/12/2008,05/06/2007,04/24/2006 03/22/2015 Seasonal Influenza, Trivalen t, High Dose, [...] encounter Miscellaneous Notes * Telephone Encounter - Dez Phillips OSA - 05/28/2023 11:18 AM EST Pt has an ear infection in back of her ear drum and also needs clearance to get Hearing aids. She is schedule to be seen in August but she feels that she needs to be seen sooner. Thank You Dez documented in this encounter Plan of Treatment Upcoming Encounters Date Type Department Care Team (Late st Contact Info) Description 09/02/2023 11:30 AM EST Office Visit Otolaryngology/Head & Neck/Facial Plastic Surgery [address] [facility] [place] [id number] Gallo Sood MD [address] [place] [address] 01/09/2024 9:00 AM EDT Office Visit Family Practice [facility] [address] [place] [address] [place] [address] Tushar Mina III, MD [address] [place] [address] Health Maintenance Due Date Last Done Comments Cologuard 1994 Sigmoidoscopy 1994 Fecal Occult Blood Test 06/29/2007 06/29/20 06, 06/08/2000, 05/22/1999 Depression Screening 03/01/2023 03/01/2022, 07/07/2015 (Discussed) Mammogram 12/13/2023 12/12/2022, 11/29, 12/01/2021, Additional history exists GFR 02/25/2024 08/27/2023, 10/2022, 02/26/2022, Additional history exists Albumin/Creatinine Ratio 08/27/2024 024, 03/19/2023, 04/12/2022, Additional history exists CKD HGB USE SMARTSET 23872 08/27/202408/27, 01/02/2023, 01/02/2023, Additional history exists CKD PHOS USE SMARTSET 84636 08/27/202408/02, 03/19/2023, 02/26/2022, Additional history exists TSH [...] this encounter Medical Devices Implanted Type Area Staple Shear Operator Device Identifier Shelf Expiration Date Model / Serial / Lot Screw 6x45 Poly Si [id number] - [id number] Implanted:Qty : 4 on 10/22/2012 at OR [facility] [place] N/A: Spine Lumbar JNJ : [employer] [id number] / / Dung 5.5x45 Ti Prbnt [id number] - [id number] Implanted:Qty : 2 on 10/22/2012 at OR [facility] [place] N/A: Spine Lumbar JNJ : [employer] [id number] / / Screw Set Sng Inner [id number] - [id number] Implanted:Qty : 4 on 10/22/2012 at OR [facility] [place] N/A: Spine Lumbar JNJ : [employer] SP[employer] [id number] / / Graft Infuse Bone Sm 4988290 - [id number] Implanted:Qty : 1 on 10/22/2012 at OR [facility] [place] N/A: Spine Lumbar [employer] : NEUROLOGIC PAIN 12/28/2014 [id number] / / [id number] Expedium Ti Sfx 5.5 Lat A6 - [id number] Implanted:Qty : 1 on 10/22/2012 at OR [facility] [place] N/A: Spine Lumbar JNJ : [employer] [id number] / / Cage 13 X 28 Implanted:Qty : 1 on 10/22/2012 at OR [facility] [place] N/A: Spine Lumbar 08.803.113 / / Screw Set Sng Inner [id number] - [id number] Implanted:Qty : 4 on 06/06/2018 by Elijah Thorne MD at OR [facility] [place] N/A: Spine Lumbar JNJ : [employer] [id number] / / Description:Part of implant set Pre Lordosed Dung W Line 55mm - [id number] Implanted:Qty : 2 on 06/06/2018 by Elijah Thorne MD at OR [facility] [place] N/A: Spine Lumbar JNJ : [facility] SPINE [id number] / / Description:Part of implant set Expedium Ti Sfx 5.5 Lat A6 - [id number] Implanted:Qty : 1 on 06/06/2018 by Elijah Thorne MD at OR [facility] [place] N/A: Spine Lumbar JNJ : [employer] [id number] / / Description:Part of implant set Graft Infuse Bone Sm [id number] - [id number] Implanted:12/2017 by Elijah Thorne MD at OR [facility] [place] (Quantity not on file) [employer] : NEURO CARE 08/29/2019 [id number] / / [id number] 10x22 Caliber Interbody Implanted:Qty : 2 on 06/06/2018 by Elijah Thorne MD at OR [facility] [place] N/A: Spine Lumbar [employer] 194.122 / / Description:Part of implant set Screw 7x40 Poly Si [id number] - [id number] Implanted:Qty : 2 on 06/06/2018 by Elijah Thorne MD at OR [facility] [place] N/A: Spine Lumbar JNJ : [employer] [id number] / / Description:Part of implant set Stimulan Rapid Cure 10cc - [id number] Implanted:Qty : 1 on 05/27/2019 by Elijah Thorne MD at OR [facility] [place] N/A: Spine Lumbar [employer] [id number] 02/28/2022 620-010 / / [id number] Screw 7x50 Poly Si [id number] - [id number] Implanted:Qty : 2 on 05/27/2019 by Elijah Thorne MD at OR [facility] [place] N/A: Spine Lumbar JNJ : [employer] [id number] / / Screw Set Sng Inner [id number] - [id number] Implanted:Qty : 2 on 05/27/2019 by Elijah Thorne MD at OR [facility] [place] N/A: Spine Lumbar JNJ : [employer] [id number] / / Depuy 5.5 Dung With Connector Implanted:Qty : 2 on 05/27/2019 by Elijah Thorne MD at OR [facility] [place] N/A: Spine Lumbar [id number] / / Expedium Ti Sfx 5.5 Lat A6 - [id number] Implanted:Qty : 1 on 05/27/2019 by Elijah Thorne MD at OR [facility] [place] N/A: Spine Lumbar JNJ : [employer] [id number] / / Globus 10x26 8-12mm Cage Implanted:Qty : 1 on 05/27/2019 by Elijah Thorne MD at OR [facility] [place] N/A: Spine Lumbar 194.126 / / documented [...] the patient have Health Care Power of Landscape Photographer? No Code Status History Code Status Date [...] the patient have Health Care Power of Landscape Photographer? No Full Code 11/24/2009 6:53 AM 11/27/2009 3:28 PM This order reflects the patients wishes and were consensually agreed upon. Question Answer Comments Discussion of Advance Directives occurred with: Patient Does the patient have a Living Will? No Does the patient have Health Care Power of Landscape Photographer? No Care Teams Ep Specialist Relationship Specialty Start Date End Date Tushar Mina III, MD [address] [facility] [place] [address] PCP - General 02/13/1996 documented as of this encounter
--- OUTSIDE RECORDS SUMMARY | 2023-10-30 20:38 | External Medical Summary | Summary of Care ---
Author Name Unknown Organization [facility] Address [address] [place] [address] Phone [phone] Care Team Providers Care Retail Associate Manager Bilingual Name Role Phone Leopoldo BARNHART MD, Latanya Manoz Primary Care Provider [phone] Reason for Visit * Reason Comments Medication Refill Encounter Details Date Type Department Care Team (Late st Contact Info) Description 08/13/2023 Refill Family Practice [facility] [address] [facility] [place] [address] Latanya Cano III, MD [address] [place] [address] Allergies Active Allergy Reactions Criticality Noted Date Comments Bee Stings 04/04/2010 Swelling, sick to stomach Yellow Jacket Venom 02/28/2012 Swelling, sick to stomach documented as of this encounter (statuses as of 08/14/2023) Medications Medication Sig Dispensed Refills Start Date [...] 30 min prior to breakfast or other meds)mon-sat,asa ke 1and 1/2 tab sun. 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 Kidney disease, chronic, sta ge III (GFR 30-59 ml/min) 09/13/2014 05/12/2020 Overview: Per CKD protocol #1 Other osteoporosis without c urrent pathological fracture 07/13/2009 07/14/2021 Overview: ICD-10 update of inactive term Menopause 05/18/2019 INFORMATION 01/02/2023 documented as of this encounter (statuses as of 08/14/2023) Immunizations Name Administration Dates Next Due COVID-19 mRNA, LNP-s, No Pre serve, 2-Dose Series (Keepy) 06/20/2021,09/22/2020,09/01/2020 Covid-19, Mrna, Lnp-s, Pf, B ivalent, [...] encounter Miscellaneous Notes * Telephone Encounter - Josafat Tafoya [facility] - 08/14/2023 5:08 AM ESTSigned Prescriptions: Disp Refills Fluticasone Propionate 50 MCG/ACT Nasal Hare*48 g 1 Sig: APPLY ONESPRAY INTO NOSTRIL EVERY MORNINGAuthorizing Provider: LATANAY CANO III User: JOSAFAT TAFOYA documented in this encounter Plan of Treatment Upcoming Encounters Date Type Department Care Team (Late st Contact Info) Description 09/02/2023 11:30 AM EST Office Visit Otolaryngology/Head & Neck/Facial Plastic Surgery [address] [place] [address] Gallo Sood MD [address] [place] [address] 11/27/2023 10:00 AM EDT Office Visit [place] [address] [place] [address] Latanya Cano III, MD [facility] [place] [address] 01/09/2024 9:00 AM EDT Office Visit [place] [address] [place] [address] Latanya Cano III, MD [facility] [place] [address] Health Maintenance Due Date Last Done Comments Cologuard 1994 Sigmoidoscopy 1994 Fecal Occult Blood Test 06/29/2007 06/29/20 06, 06/08/2000, 05/22/1999 Depression Screening 03/01/2023 03/01/2022, 07/07/2015 (Discussed) GFR 07/05/2023 01/02/2023, 01/30, 07/12/2021, Additional history exists Mammogram 12/13/2023 12/12/2022, 11/29, 12/01/2021, Additional history exists CKD HGB USE SMARTSET 20468 01/03/202401/02, 01/02/2023, 04/12/2022, Additional history exists Albumin/Creatinine Ratio 03/19/2024 023, 04/12/2022, 09/02/2017, Additional history exists CKD PHOS USE SMARTSET 77785 03/19/202403/01, 02/26/2022, 03/22/2021, Additional history exists TSH [...] this encounter Medical Devices Implanted Type Area Checker In Device Identifier Shelf Expiration Date Model / Serial / Lot Cage 13 X 28 Implanted:Qty : 1 on 10/22/2012 [place] [facility] [place]/A: Spine Lumbar 08.803.113 / / Expedium Ti Sfx 5.5 Lat A6 - [id number] Implanted:Qty : 1 on 06/06/2018 by Elijah Thorne MD at [place] [facility] [place] N/A: Spine Lumbar JNJ : [employer] [id number] / / Description:Part of implant set Globus 10x26 8-12mm Cage Implanted:Qty : 1 on 05/27/2019 by Elijah Thorne MD at [place] [facility] [place] N/A: Spine Lumbar 194.126 / / documented [...] the patient have Health Care Power of Case Packer And Sealer? No Code Status History Code Status Date [...] the patient have Health Care Power of Case Packer And Sealer? No Full Code 11/24/2009 6:53 AM 11/27/2009 3:28 PM This order reflects the patients wishes and were consensually agreed upon. Question Answer Comments Discussion of Advance Directives occurred with: Patient Does the patient have a Living Will? No Does the patient have Health Care Power of Case Packer And Sealer? No Care Teams Retail Associate Manager Bilingual Relationship Specialty Start Date End Date Latanya Cano III, MD [address] [place] [address] PCP - General 02/13/1996 documented as of this encounter
--- OUTSIDE RECORDS SUMMARY | 2023-10-30 20:38 | External Medical Summary ---
Author Name Unknown Address Unknown Organization K01:LABORATORY [facility] [place] - [address] [place] [address] Laboratory Report Ordering Provider Test Date Status ANJUM JARRELL 08/27/2023 07:34:37 Final Observation Date Value Abnormality Reference (Units ) Status MYCODE SPECIMEN-SST 08/27/2023 07:34:37 Freezing of extracted DNA, whole blood and/or serum. Final Performing Location LABORATORY [facility] [place] - [address] [place] [address]
--- OUTSIDE RECORDS SUMMARY | 2023-10-30 20:38 | External Medical Summary ---
Author Name Unknown Address Unknown Organization K01:[facility] [place] [address] [place] [address] Laboratory Report Ordering Provider Test Date Status ANJUM JARRELL 08/27/2023 07:34:37 Final Observation Date Value Abnormality Reference (Units ) Status MYCODE SPECIMEN-SST 08/27/2023 07:34:37 Freezing of extracted DNA, whole blood and/or serum. Final Performing Location [facility] [place] [address] [place] [address]
--- OUTSIDE RECORDS SUMMARY | 2023-10-30 20:38 | External Medical Summary | Summary of Care ---
Author Name Unknown Organization [facility] Address [address] [place] [address] Phone [phone] Care Team Providers Care Recovery Engineer Name Role Phone Leopoldo BARNHART MD, Tushar Manzo Primary Care Provider Encounter Details Date Type Department Care Team (Latest Contact Info) Description 09/02/2023 9:00 AM EST Office Visit Audiology, [place] [address] [place] [address] Radha Jorge Au.D. [address], [place] [id number] Mixed conductive and sensorineural hearing loss of right ear with restricted hearing of left ear*; Sensorineural hearing loss (SNHL) of left ear with restricted hearing of right ear Allergies Active Allergy Reactions Criticality Noted Date [...] mRNA, LNP-s, No Pre serve, 2-Dose Series ([employer]) 06/20/2021,09/22/2020,09/01/2020 COVID-19, MRNA-LNP, 23-24, P F, 30 MCG/0.3 mL, 12 YRS AND ABOVE, IM ([facility]) 04/08/2023 Covid-19, Mrna, Lnp-s, Pf, B ivalent, [...] shopping? (15 years old or older) No 11/27/20 19 Cognitive Status Response Date of Assessm ent Because of a physical, menta l, or emotional condition, do you have serious difficulty concentrating, remembering, or making decisions? (5 years old or older) No 05/27/2019 documented as of this encounter Progress Notes * Radha Jorge Au.D. - 09/02/2023 12:44 PM EST Images from the original note were not included. AUDIOLOGIC EVALUATION Cecily De La Cruz 73 year old : 1950 Audiologic evaluation was completed on referral from Otolaryngology clinic. Tympanometry 41803 Right: Flat with normal equivalent volume ("Type B") Left: Flat with normal equivalent volume ("Type B") Standard comprehensive audiometry 88842 supra-aural earphones, Good reliability Right: moderate sloping to profound mixed hearing loss Left: mild sloping to profound sensorineural hearing loss Speech recognition thresholds were consistent with hearing thresholds. Word recognition scores, obtained via recorded material were: right 76%, left 76% Rigoberto Aguirre, [facility] [employer] Administrator Scan: audiogram, tympanograms documented in this encounter Plan of Treatment Upcoming Encounters Date Type Department Care Team (Late st Contact Info) Description 01/09/2024 9:00 AM EDT Office Visit Family Practice [facility] [address] [facility] [place] [address] Tushar Mina III, MD [address] [facility] [place] [address] Health Maintenance Due Date Last Done Comments Cologuard 1994 Sigmoidoscopy 1994 Fecal Occult Blood Test 06/29/2007 06/29/20 06, 06/08/2000, 05/22/1999 Depression Screening 03/01/2023 03/01/2022, 07/07/2015 (Discussed) Mammogram 12/13/2023 12/12/2022, 11/29, 12/01/2021, Additional history exists GFR 02/25/2024 08/27/2023, 070 10/2022, 02/26/2022, Additional history exists Albumin/Creatinine Ratio 08/27/2024 024, 03/19/2023, 04/12/2022, Additional history exists CKD HGB USE SMARTSET 19293 08/27/202408/27, 01/02/2023, 01/02/2023, Additional history exists CKD PHOS USE SMARTSET 56069 08/27/202408/02, 03/19/2023, 02/26/2022, Additional history exists TSH [...] this encounter Medical Devices Implanted Type Area Circulation Tender Device Identifier Shelf Expiration Date Model / Serial / Lot Screw 6x45 Poly Si [id number] - [id number] Implanted:Qty : 4 on 10/22/2012 at [facility] [place] N/A: Spine Lumbar JNJ : [employer] [id number] / / Dung 5.5x45 Ti Prbnt [id number] - [id number] Implanted:Qty : 2 on 10/22/2012 at [place] [facility] [place] N/A: Spine Lumbar JNJ : [employer] [id number] / / Screw Set Sng Inner [id number] - [id number] Implanted:Qty : 4 on 10/22/2012 at [place] [facility] [place] N/A: Spine Lumbar JNJ : DE[employer] SP[employer] [id number] / / Graft Infuse Bone Sm 1161219 - [id number] Implanted:Qty : 1 on 10/22/2012 at [place] [facility] [place] N/A: Spine Lumbar [employer] : NEUROLOGIC PAIN 12/28/2014 [id number] / / [id number] Expedium Ti Sfx 5.5 Lat A6 - [id number] Implanted:Qty : 1 on 10/22/2012 at [place] [facility] [place] N/A: Spine Lumbar JNJ : [employer] [id number] / / Cage 13 X 28 Implanted:Qty : 1 on 10/22/2012 at [place] [facility] [place] N/A: Spine Lumbar 08.803.113 / / Screw Set Sng Inner [id number] - [id number] Implanted:Qty : 4 on 06/06/2018 by Elijah Thorne MD at OR [facility] [place] N/A: Spine Lumbar JNJ : [employer] [id number] / / Description:Part of implant set Pre Lordosed Dung W Line 55mm - [id number] Implanted:Qty : 2 on 06/06/2018 by Elijah Thorne MD at [facility] [place] N/A: Spine Lumbar JNJ : DEPU[employer] SPINE [id number] / / Description:Part of implant set Expedium Ti Sfx 5.5 Lat A6 - [id number] Implanted:Qty : 1 on 06/06/2018 by Elijah Thorne MD at [facility] [place] N/A: Spine Lumbar JNJ : [employer] [id number] / / Description:Part of implant set Graft Infuse Bone Sm 6023933 - [id number] Implanted:12/2017 by Elijah Thorne MD at [facility] [place] (Quantity not on file) [employer] : NEURO CARE 08/29/2019 [id number] / / [id number] 10x22 Caliber Interbody Implanted:Qty : 2 on 06/06/2018 by Elijah Thorne MD at [facility] [place] N/A: Spine Lumbar [employer] 194.122 / / Description:Part of implant set Screw 7x40 Poly Si [id number] - [id number] Implanted:Qty : 2 on 06/06/2018 by Elijah Thorne MD at [facility] [place] N/A: Spine Lumbar JNJ : [employer] [id number] / / Description:Part of implant set Stimulan Rapid Cure 10cc - [id number] Implanted:Qty : 1 on 05/27/2019 by Elijah Thorne MD at [facility] [place] N/A: Spine Lumbar [employer] [id number] 02/28/2022 620-010 / / [id number] Screw 7x50 Poly Si [id number] - [id number] Implanted:Qty : 2 on 05/27/2019 by Elijah Thorne MD at [facility] [place] N/A: Spine Lumbar JNJ : [employer] [id number] / / Screw Set Sng Inner [id number] - [id number] Implanted:Qty : 2 on 05/27/2019 by Elijah Thorne MD at [facility] [place] N/A: Spine Lumbar JNJ : [employer] [id number] / / Depuy 5.5 Dung With Connector Implanted:Qty : 2 on 05/27/2019 by Elijah Thorne MD at [facility] [place] N/A: Spine Lumbar [id number] / / Expedium Ti Sfx 5.5 Lat A6 - [id number] Implanted:Qty : 1 on 05/27/2019 by Elijah Thorne MD at [facility] [place] N/A: Spine Lumbar JNJ : [employer] [id number] / / Globus 10x26 8-12mm Cage Implanted:Qty : 1 on 05/27/2019 by Elijah Thorne MD at [facility] [place] N/A: Spine Lumbar 194.126 / / documented as of this encounter Procedures Procedure Name Priority Date/Time Associated Diagnosis Comments AUDIOMETRIC RESULT 09/02/2023 documented in this encounter Results * AUDIOMETRIC RESULT (09/02/2023) 09/02/2023 Rad[facility] documented in this encounter Visit Diagnoses Diagnosis Mixed conductive and sensorineural hearing loss of right ear with restricted hearing of left ear- Primary Sensorineural hearing loss (SNHL) of left ear with restricted hearing of right ear documented in this encounter Advance Directives Latest [...] the patient have Health Care Power of International Trade Analyst? No Code Status History Code Status Date [...] the patient have Health Care Power of International Trade Analyst? No Full Code 11/24/2009 6:53 AM 11/27/2009 3:28 PM This order reflects the patients wishes and were consensually agreed upon. Question Answer Comments Discussion of Advance Directives occurred with: Patient Does the patient have a Living Will? No Does the patient have Health Care Power of International Trade Analyst? No Care Teams Recovery Engineer Relationship Specialty Start Date End Date Tushar Mina III, MD [address] [place] [address] PCP - General 02/13/1996 documented as of this encounter
--- OUTSIDE RECORDS SUMMARY | 2023-10-30 20:38 | External Medical Summary ---
Author Name Unknown Address Unknown Organization K09:[facility] [place] [address] Laboratory Report Ordering Provider Test Date Status 08/27/2023 07:34:37 Final Observation Date Value Abnormality Reference (Units ) Status BUN 08/27/2023 07:34:37 13 6-20 (mg/dL) Final Creatinine 08/27/2023 07:34:37 1.1 Above high normal 0.5-1.0 (mg/dL) Final Glomerular filtration rate/1.73 sq M.predicted [Volume Rate/Area] in Serum, Plasma or Blood by Creatinine-based formula (CKD-EPI) 08/27/2023 07:34:37 51 Below low normal >=60 (mL/min) Final eGFR is calculated based on the CKD-EPI 2020 equation SODIUM 08/27/2023 07:34:37 139 135-146 (m mol/L) Final Potassium 08/27/2023 07:34:37 3.7 3.5-5.1 (m mol/L) Final Cl 08/27/2023 07:34:37 104 98-107 (mm ol/L) Final CO2 08/27/2023 07:34:37 23 22-32 (mmo l/L) Final Anion gap 08/27/2023 07:34:37 12 7-15 (mmol /L) Final Glucose 08/27/2023 07:34:37 131 Above high normal 70 -120 (mg/dL) Final Calcium 08/27/2023 07:34:37 9.3 8.4-10.2 ( mg/dL) Final Albumin 08/27/2023 07:34:37 4.5 3.8-5.0 (g /dL) Final Phosphate 08/27/2023 07:34:37 3.8 2.5-4.8 (m g/dL) Final Performing Location [facility] [place] [address]
--- OUTSIDE RECORDS SUMMARY | 2023-10-30 20:38 | External Medical Summary | Summary of Care ---
Author Name Unknown Organization [facility] Address [address] [place] [address] Phone [phone] Care Team Providers Care Chief Deputy Coroner Name Role Phone Leopoldo BARNHART MD, Tushar Manzo Primary Care Provider [phone] Reason for Visit * Reason Comments Outpatient Testing Encounter Details Date Type Department Care Team (Late st Contact Info) Description 08/27/2023 7:40 AM EST Laboratory Laboratory [facility] [address] [place] [id number] [place], Lab Scenery [address] [place] [address] [employer] Other*[id number]; Acquired hypothyroidism; Stage 3b chronic kidney disease [...] mRNA, LNP-s, No Pre serve, 2-Dose Series ([employer]) 06/20/2021,09/22/2020,09/01/2020 Covid-19, Mrna, Lnp-s, Pf, B ivalent, 30 Mcg, IM, 12 yrs and above ([employer]) 04/19/2022 H1N1 2009 Influenza, IM 05/20/2009 Hepatitis [...] Description 08/27/2023 4:00 PM EST Office Visit [facility] [address] [facility] [place] [address] Nannette Duncan PA-C [address] [place] [address] 09/02/2023 11:30 AM EST Office Visit Otolaryngology/Head & Neck/Facial Plastic Surgery [address] [place] [facility] [place] [address] Gallo Sood MD [address] [place] [address] 01/09/2024 9:00 AM EDT [facility] Visit [facility] [place] [address] Tushar Mina III, MD [address] [facility] [place] [address] Pending Results Name Type Priority Associated Diagnoses Date /Time MYCODE SUBSEQUENT ADULT Lab Routine [employer] Other*[id number] 08/27/2023 7:34 AM EST TSH WITH FREE T4 IF INDICATED Lab Routine Acquired hypothyroidism 08/27/2023 7:34 AM EST RENAL FUNCTION PANEL Lab Routine Stage 3b chronic kidney disease (HCC) 08/27/2023 7:34 AM EST LIPID PANEL WITHOUT DIRECT LDL Lab Routine Screening for cardiovascular condition 08/27/2023 7:34 AM EST PTH Lab Routine Stage 3 chronic kidney disease, unspecified whether stage 3a or 3b CKD (HCC) 08/27/2023 7:34 AM EST MYCODE SST1 Lab Routine [employer] Other*[id number] 08/27/2023 7:34 AM EST MYCODE SST2 Lab Routine [employer] Other*[id number] 08/27/2023 7:34 AM EST ALBUMIN / CREATININE [...] Additional history exists CKD HGB USE SMARTSET 27653 01/03/202408/27, 01/02/2023, 01/02/2023, Additional history exists Albumin/Creatinine Ratio 03/19/2024 023, 04/12/2022, 09/02/2017, Additional history exists CKD PHOS USE SMARTSET 44932 03/19/202403/01, 02/26/2022, 03/22/2021, Additional history exists TSH [...] this encounter Medical Devices Implanted Type Area Corporate [employer]p [employer]vertising [employer] Online Device Identifier Shelf Expiration Date Model / Serial / Lot Screw 6x45 Poly Si [id number] - [id number] Implanted:Qty : 4 on 10/22/2012 at [place] [facility] [place] N/A: Spine Lumbar JNJ : [employer] [id number] / / Dung 5.5x45 Ti Prbnt [id number] - [id number] Implanted:Qty : 2 on 10/22/2012 at [place] [facility] [place] N/A: Spine Lumbar JNJ : [employer] [id number] / / Screw Set Sng Inner [id number] - [id number] Implanted:Qty : 4 on 10/22/2012 at [place] [facility] [place] N/A: Spine Lumbar JNJ : DE[employer] SPINE [id number] / / Graft Infuse Bone Sm 8765397 - [id number] Implanted:Qty : 1 on 10/22/2012 at [place] [facility] [place] N/A: Spine Lumbar [employer] : NEUROLOGIC PAIN 12/28/2014 [id number] / / [id number] Expedium Ti Sfx 5.5 Lat A6 - [id number] Implanted:Qty : 1 on 10/22/2012 at [place] [facility] [place] N/A: Spine Lumbar JNJ : [employer] [id number] / / Cage 13 X 28 Implanted:Qty : 1 on 10/22/2012 at [place] [facility] [place] N/A: Spine Lumbar 08.803.113 / / Screw Set Sng Inner [id number] - [id number] Implanted:Qty : 4 on 06/06/2018 by Elijah Thorne MD at [place] [facility] [place] N/A: Spine Lumbar JNJ : [employer] [id number] / / Description:Part of implant set Pre Lordosed Dung W Line 55mm - [id number] Implanted:Qty : 2 on 06/06/2018 by Elijah Thorne MD at [place] [facility] [place] N/A: Spine Lumbar JNJ : [employer] SPINE [id number] / / Description:Part of implant set Expedium Ti Sfx 5.5 Lat A6 - [id number] Implanted:Qty : 1 on 06/06/2018 by Elijah Thorne MD at [place] [facility] [place] N/A: Spine Lumbar JNJ : [employer] [id number] / / Description:Part of implant set Graft Infuse Bone Sm [id number] - [id number] Implanted:12/2017 by Elijah Thorne MD at [place] [facility] [place] (Quantity not on file) [employer] : NEURO CARE 08/29/2019 [id number] / / [id number] 10x22 Caliber Interbody Implanted:Qty : 2 on 06/06/2018 by Elijah Thorne MD at [place] [facility] [place] N/A: Spine Lumbar [employer] 194.122 / / Description:Part of implant set Screw 7x40 Poly Si [id number] - [id number] Implanted:Qty : 2 on 06/06/2018 by lEijah Thorne MD at [place] [facility] [place] N/A: Spine Lumbar JNJ : [employer] [id number] / / Description:Part of implant set Stimulan Rapid Cure 10cc - [id number] Implanted:Qty : 1 on 05/27/2019 by Elijah Thorne MD at [place] [facility] [place] N/A: Spine Lumbar [employer] [id number] 02/28/2022 620-010 / / [id number] Screw 7x50 Poly Si [id number] - [id number] Implanted:Qty : 2 on 05/27/2019 by Elijah Thorne MD at [place] [facility] [place] N/A: Spine Lumbar JNJ : [employer] [id number] / / Screw Set Sng Inner [id number] - [id number] Implanted:Qty : 2 on 05/27/2019 by Elijah Thorne MD at [place] [facility] [place] N/A: Spine Lumbar JNJ : [employer] [id number] / / Depuy 5.5 Dung With Connector Implanted:Qty : 2 on 05/27/2019 by Elijah Thorne MD at [place] [facility] [place] N/A: Spine Lumbar [id number] / / Expedium Ti Sfx 5.5 Lat A6 - [id number] Implanted:Qty : 1 on 05/27/2019 by Elijah Thorne MD at [place] [facility] [place] N/A: Spine Lumbar JNJ : [employer] [id number] / / Globus 10x26 8-12mm Cage Implanted:Qty : 1 on 05/27/2019 by Elijah Thorne MD at [place] [facility] [place] N/A: Spine Lumbar 194.126 / / documented as of this encounter Procedures Procedure Name Priority Date/Time Associated Diagnosis Comments HGB Routine 08/27/2023 7:34 AM EST Stage 3 chronic kidney disease, unspecified whether stage 3a or 3b CKD (HCC) documented in this encounter Results * HGB (08/27/2023 7:34 AM EST) HGB 12.2 12.0 - 15.3 g/dL 08/27/2023 7:44 AM EST [facility]02 Blood Venous blood specimen / Unknown Venipuncture / Unknown 08/27/2023 7:34 AM EST 08/27/2023 7:35 AM EST September Perla [facility] LAB BLOOD ORDERABLES [facility] [place] [address] documented in this encounter Visit Diagnoses Diagnosis [employer] Other*[id number] Acquired hypothyroidism Unspecified hypothyroidism Stage 3b chronic [...] the patient have Health Care Power of Radiology Director? No Code Status History Code Status Date [...] the patient have Health Care Power of Radiology Director? No Full Code 11/24/2009 6:53 AM 11/27/2009 3:28 PM This order reflects the patients wishes and were consensually agreed upon. Question Answer Comments Discussion of Advance Directives occurred with: Patient Does the patient have a Living Will? No Does the patient have Health Care Power of Radiology Director? No Care Teams Chief Deputy Coroner Relationship Specialty Start Date End Date Tushar Mina III, MD [address] [place] [address] PCP - General 02/13/1996 documented as of this encounter
--- OUTSIDE RECORDS SUMMARY | 2023-10-30 20:38 | External Medical Summary ---
Author Name Unknown Address Unknown Organization K01:[facility] [place] [address] [facility] [address] Laboratory Report Ordering Provider Test Date Status 08/27/2023 07:34:37 Final Observation Date Value Abnormality Reference (Units ) Status Triglyceride 08/27/2023 07:34:37 99 <=174 ( mg/dL) Final Triglyceride Reference Range s (mg/dL):
<150 Acceptable
150-174 Borderline high
175-499 High
>=500 Very high Cholesterol 08/27/2023 07:34:37 200 Above high normal <200 (mg/dL) Final Total Cholesterol Reference Ranges (mg/dL):
<200 Desirable
200-239 Borderline high
>=240 High HDL 08/27/2023 07:34:37 57 >49 (mg/dL ) Final HDL Cholesterol Reference Ra nges (mg/dL):
>=60 High (Desirable)
<50 Low (Undesirable) For Females
<40 Low (Undesirable) For Males NON-HDL CHOLESTEROL 08/27/2023 07:34:37 143 <=159 (mg/dL) Final Non-HDL Cholesterol Referenc e Range (mg/dL):
<100 Target level for high risk ASCVD patient
<130 Optimal for general population
130-159 Near optimal for general population
160-189 Borderline High
190-219 High
>=220 Very High LDL, (calculated) 08/27/2023 07:34:37 123 <= 129 (mg/dL) Final LDL Cholesterol Reference Ra nges (mg/dL):
<70 Target level for high risk ASCVD patient
<100 Optimal for general population
100-129 Near optimal for general population
130-159 Borderline high
160-189 High
>=190 Very high Performing Location [facility] [place] [address] [facility] [address]
--- OUTSIDE RECORDS SUMMARY | 2023-10-30 20:38 | External Medical Summary | Summary of Care ---
Author Name Unknown Organization [facility] Address [address] [place] [address] Phone [phone] Care Team Providers Care Grinder Watch Parts Name Role Phone Leopoldo BARNHART MD, Tushar Manzo Primary Care Provider [phone] Encounter Details Date Type Department Care Team (Late st Contact Info) Description 08/27/2023 Orders Only PATIENT PORTAL DO NOT DELETE THIS DEPT USED BY [place] [id number] Allergies Active Allergy Reactions Criticality Noted Date [...] breakfast or other meds)mon-sat,luis f e 1and 1/2 tab sun. 33 Tablet 11 [...] mRNA, LNP-s, No Pre serve, 2-Dose Series (DigiFit) 06/20/2021,09/22/2020,09/01/2020 COVID-19, MRNA-LNP, 23-24, P F, 30 MCG/0.3 mL, 12 YRS AND ABOVE, IM ([place] CK1-Comirnat) 04/08/2023 Covid-19, Mrna, Lnp-s, Pf, B ivalent, 30 Mcg, IM, 12 yrs and above (DigiFit) 04/19/2022 H1N1 2009 Influenza, IM 05/20/2009 Hepatitis [...] Description 08/27/2023 4:00 PM EST Office Visit [facility] [address] [facility] [place] [address] Nannette Duncan PA-C [address] [facility] [place] [address] 09/02/2023 11:30 AM EST Office Visit Otolaryngology/Head & Neck/Facial Plastic Surgery [address] [place] [facility] [place] [address] Gallo Sood MD [address] [place] [address] 01/09/2024 9:00 AM EDT Office Visit [facility] [address] [facility] [place] [address] Tushar Mina III, MD [address] [facility] [place] [address] Health Maintenance Due Date Last Done Comments Cologuard 1994 Sigmoidoscopy 1994 Fecal Occult Blood Test 06/29/2007 06/29/20 06, 06/08/2000, 05/22/1999 Depression Screening 03/01/2023 03/01/2022, 07/07/2015 (Discussed) GFR 07/05/2023 01/02/2023, 01/30, 07/12/2021, Additional history exists Mammogram 12/13/2023 12/12/2022, 11/29, 12/01/2021, Additional history exists Albumin/Creatinine Ratio 03/19/2024 023, 04/12/2022, 09/02/2017, Additional history exists CKD PHOS USE SMARTSET 15073 03/19/202403/01, 02/26/2022, 03/22/2021, Additional history exists TSH 04/02/2024 04/02/2023, 03/02, 03/26/2023, Additional history exists CKD HGB USE SMARTSET 41698 08/27/202408/27, 01/02/2023, 01/02/2023, Additional history exists DXA Scan 05/14/2026 05/14/2022, [...] this encounter Medical Devices Implanted Type Area Wound Care Physician Device Identifier Shelf Expiration Date Model / Serial / Lot Screw 6x45 Poly Si [id number] - [id number] Implanted:Qty : 4 on 10/22/2012 [place] [facility] [place]A: Spine Lumbar JNJ : ETH[employer]ON [employer] [id number] / / Dung 5.5x45 Ti Prbnt [id number] - [id number] Implanted:Qty : 2 on 10/22/2012 [place] [facility] [place]/A: Spine Lumbar JNJ : ETHICON C[employer]OV[employer] [id number] / / Screw Set Sng Inner [id number] - [id number] Implanted:Qty : 4 on 10/22/2012 at [place] [facility] [place] N/A: Spine Lumbar JNJ : DEPUY SPINE [id number] / / Graft Infuse Bone Sm [id number] - [id number] Implanted:Qty : 1 on 10/22/2012 at [place] [facility] [place] N/A: Spine Lumbar MED[employer] : NEUROLOGIC PAIN 12/28/2014 [id number] / / [id number] Expedium Ti Sfx 5.5 Lat A6 - [id number] Implanted:Qty : 1 on 10/22/2012 at [place] [facility] [place] N/A: Spine Lumbar JNJ : ETH[employer]ON C[employer] [id number] / / Cage 13 X 28 Implanted:Qty : 1 on 10/22/2012 at [place] [facility] [place] N/A: Spine Lumbar 08.803.113 / / Screw Set Sng Inner [id number] - [id number] Implanted:Qty : 4 on 06/06/2018 by Elijah Thorne MD at [place] [facility] [place] N/A: Spine Lumbar JNJ : ETH[employer]ON [employer]ATIONS [id number] / / Description:Part of implant set Pre Lordosed Dung W Line 55mm - [id number] Implanted:Qty : 2 on 06/06/2018 by Elijah Thorne MD at [place] [facility] [place] N/A: Spine Lumbar JNJ : DEPUY SPINE [id number] / / Description:Part of implant set Expedium Ti Sfx 5.5 Lat A6 - [id number] Implanted:Qty : 1 on 06/06/2018 by Elijah Thorne MD at [place] [facility] [place] N/A: Spine Lumbar JNJ : ETH[employer]ON C[employer]ATIONS [id number] / / Description:Part of implant set Graft Infuse Bone Sm [id number] - [id number] Implanted:12/2017 by Elijah Thorne MD at [place] [facility] [place] (Quantity not on file) [employer] : NEURO CARE 08/29/2019 [id number] / / [id number] 10x22 Caliber Interbody Implanted:Qty : 2 on 06/06/2018 by Elijah Thorne MD at [place] [facility] [place] N/A: Spine Lumbar [employer] 194.122 / / Description:Part of implant set Screw 7x40 Poly Si [id number] - [id number] Implanted:Qty : 2 on 06/06/2018 by Elijah Thorne MD at [place] [facility] [place] N/A: Spine Lumbar JNJ : ETH[employer]ON C[employer]ATIONS [id number] / / Description:Part of implant set Stimulan Rapid Cure 10cc - [id number] Implanted:Qty : 1 on 05/27/2019 by Elijah Thorne MD at [place] [facility] [place] N/A: Spine Lumbar [employer] [id number] 02/28/2022 620-010 / / [id number] Screw 7x50 Poly Si [id number] - [id number] Implanted:Qty : 2 on 05/27/2019 by Elijah Thorne MD at [place] [facility] [place] N/A: Spine Lumbar JNJ : ETHICON [employer]OVATIONS [id number] / / Screw Set Sng Inner [id number] - [id number] Implanted:Qty : 2 on 05/27/2019 by Elijah Thorne MD at [place] [facility] [place] N/A: Spine Lumbar JNJ : ETH[employer]ON C[employer]ATIONS [id number] / / Depuy 5.5 Dung With Connector Implanted:Qty : 2 on 05/27/2019 by Elijah Thorne MD at [place] [facility] [place] N/A: Spine Lumbar [id number] / / Expedium Ti Sfx 5.5 Lat A6 - [id number] Implanted:Qty : 1 on 05/27/2019 by Elijah Thorne MD at [place] [facility] [place] N/A: Spine Lumbar JNJ : ETH[employer]ON [employer]ATIONS [id number] / / Globus 10x26 8-12mm Cage Implanted:Qty : 1 on 05/27/2019 by Elijah Thorne MD at [place] [facility] [place] N/A: Spine Lumbar 194.126 / / documented [...] the patient have Health Care Power of Engineer Steam? No Code Status History Code Status Date [...] the patient have Health Care Power of Engineer Steam? No Full Code 11/24/2009 6:53 AM 11/27/2009 3:28 PM This order reflects the patients wishes and were consensually agreed upon. Question Answer Comments Discussion of Advance Directives occurred with: Patient Does the patient have a Living Will? No Does the patient have Health Care Power of Engineer Steam? No Care Teams Grinder Watch Parts Relationship Specialty Start Date End Date Tushar Mina III, MD [address] [facility] [place] [address] PCP - General 02/13/1996 documented as of this encounter
--- OUTSIDE RECORDS SUMMARY | 2023-10-30 20:39 | External Medical Summary | Summary of Care ---
Author Name Unknown Organization [facility] Address [address] [place] [address] Phone [phone] Care Team Providers Care Oceanography Teacher Name Role Phone Leopoldo BARNHART MD, Latanya Manzo Primary Care Provider [phone] Reason for Visit * Reason Comments Medication Refill Encounter Details Date Type Department Care Team (Late st Contact Info) Description 07/29/2023 Refill Family Practice [facility] [address] [facility] [place] [address] Nannette Duncan PA-C 200 [facility] [place] [address] Migraine variant Allergies Active Allergy Reactions Criticality Noted Date Comments Bee Stings 04/04/2010 Swelling, sick to stomach Yellow Jacket Venom 02/28/2012 Swelling, sick to stomach documented as of this encounter (statuses as of 08/05/2023) Medications Medication Sig Dispensed Refills Start Date [...] as of this encounter (statuses as of 08/05/2023) Active Problems Problem Noted Date Diagnosed Date [...] as of this encounter (statuses as of 08/05/2023) Resolved Problems Problem Noted Date Diagnosed Date Resolved Date 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 Kidney disease, chronic, sta ge III (GFR 30-59 ml/min) 09/13/2014 05/12/2020 Overview: Per CKD protocol #1 Other osteoporosis without c urrent pathological fracture 07/13/2009 07/14/2021 Overview: ICD-10 update of inactive term Menopause 05/18/2019 INFORMATION 01/02/2023 documented as of this encounter (statuses as of 08/05/2023) Immunizations Name Administration Dates Next Due COVID-19 mRNA, LNP-s, No Pre serve, 2-Dose Series (PrestoBox) 06/20/2021,09/22/2020,09/01/2020 Covid-19, Mrna, Lnp-s, Pf, B ivalent, 30 Mcg, IM, 12 yrs and above (PrestoBox) 04/19/2022 H1N1 2009 Influenza, IM 05/20/2009 Hepatitis [...] any sooner. Patient confirmed phone number as [phone] * Telephone Encounter - Lisette Rodriguez OSA [...] Otolaryngology/Head & Neck/Facial Plastic [facility] [address] [facility] [place] [address] Gallo Sood MD [address] [facility] [place] [address] 11/27/2023 10:00 AM EDT Office Visit [facility] [address] [facility] [place], [place] [address] Latanya Cano III, MD [address] [facility] [place] [address] 01/09/2024 9:00 AM EDT Office Visit [facility] [address] [facility] [place] [address] Latanya Cano III, MD [address] [facility] [place] [address] Health Maintenance Due Date Last Done Comments Cologuard 1994 Sigmoidoscopy 1994 Fecal Occult Blood Test 06/29/2007 06/29/20 06, 06/08/2000, 05/22/1999 Depression Screening 03/01/2023 03/01/2022, 07/07/2015 (Discussed) GFR 07/05/2023 01/02/2023, 01/30, 07/12/2021, Additional history exists Mammogram 12/13/2023 12/12/2022, 11/29, 12/01/2021, Additional history exists CKD HGB USE SMARTSET 59775 01/03/202401/02, 01/02/2023, 04/12/2022, Additional history exists Albumin/Creatinine Ratio 03/19/2024 023, 04/12/2022, 09/02/2017, Additional history exists CKD PHOS USE SMARTSET 55001 03/19/202403/01, 02/26/2022, 03/22/2021, Additional history exists TSH [...] this encounter Medical Devices Implanted Type Area Branch Maker Device Identifier Shelf Expiration Date Model / Serial / Lot Cage 13 X 28 Implanted:Qty : 1 on 10/22/2012 at [place] [facility] [place] N/A: Spine Lumbar 08.803.113 / / Expedium Ti Sfx 5.5 Lat A6 - [id number] Implanted:Qty : 1 on 06/06/2018 by Elijah Thorne MD at [place] [facility] [place] N/A: Spine Lumbar JNJ : ETHICON C[employer] [id number] / / Description:Part of implant set Globus 10x26 8-12mm Cage Implanted:Qty : 1 on 05/27/2019 by Elijah Thorne MD at [place] [facility] [place] N/A: Spine Lumbar [...] the patient have Health Care Power of Sales Representative Supervisor? No Code Status History Code Status Date [...] the patient have Health Care Power of Sales Representative Supervisor? No Full Code 11/24/2009 6:53 AM 11/27/2009 3:28 PM This order reflects the patients wishes and were consensually agreed upon. Question Answer Comments Discussion of Advance Directives occurred with: Patient Does the patient have a Living Will? No Does the patient have Health Care Power of Sales Representative Supervisor? No Care Teams Oceanography Teacher Relationship Specialty Start Date End Date Latanya Cano III, MD [address] [place] [address] PCP - General 02/13/1996 documented as of this encounter
--- OUTSIDE RECORDS SUMMARY | 2023-10-30 20:39 | External Medical Summary | Summary of Care ---
Author Name Unknown Organization [facility] Address [address] [place] [address] Phone [phone] Care Team Providers Care Staff Physical Therapist Name Role Phone Leopoldo BARNHART MD, Latanya Manzo Primary Care Provider [phone] Reason for Visit * Reason Comments Medication Refill Encounter Details Date Type Department Care Team (Late st Contact Info) Description 07/29/2023 Refill Family Practice [facility] 200 [facility] [place] [address] Nannette Duncan PA-C 200 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 Kidney disease, chronic, sta ge III (GFR 30-59 ml/min) 09/13/2014 05/12/2020 Overview: Per CKD protocol #1 Other osteoporosis without c urrent pathological fracture 07/13/2009 07/14/2021 Overview: ICD-10 update of inactive term Menopause 05/18/2019 INFORMATION 01/02/2023 documented as of this encounter (statuses as of 08/02/2023) Immunizations Name Administration Dates Next Due COVID-19 mRNA, LNP-s, No Pre serve, 2-Dose Series ([employer] Systems) 06/20/2021,09/22/2020,09/01/2020 Covid-19, Mrna, Lnp-s, Pf, B ivalent, 30 Mcg, IM, 12 yrs and above ([employer] Systems) 04/19/2022 H1N1 2009 Influenza, IM 05/20/2009 Hepatitis [...] encounter Miscellaneous Notes * Telephone Encounter - Lisette Rodriguez OSA - 08/02/2023 11:06 AM EST My g sent 08/02 2nd attempt * Telephone Encounter - Jen [...] III * Telephone Encounter - Shyla Webber [facility] - 07/30/2023 7:00 AM EST Pending Prescriptions: Disp Refills Topiramate 25 MG Oral Tablet (topAMAX) 360 Ta*3 Sig: TAKE TWO TABLETS BY MOUTH TWICE A DAY * Telephone Encounter - Shyla Webber RP - 07/30/2023 7:00 AM EST Refill pharmacists [...] Otolaryngology/Head & Neck/Facial Plastic Surgery [address] [facility] [place] [facility] [place] [address] Gallo Sood MD [address] [facility] [place] [address] 01/09/2024 9:00 AM EDT Office Visit Family Practice [facility] [place] [facility] [address] [place], [place] [address] Latanya Cano III, MD [address] [place], [place] [address] Health Maintenance Due Date Last Done Comments Cologuard 1994 Sigmoidoscopy 1994 Fecal Occult Blood Test 06/29/2007 06/29/20 06, 06/08/2000, 05/22/1999 Depression Screening 03/01/2023 03/01/2022, 07/07/2015 (Discussed) GFR 07/05/2023 01/02/2023, 01/30, 07/12/2021, Additional history exists Mammogram 12/13/2023 12/12/2022, 11/29, 12/01/2021, Additional history exists CKD HGB USE SMARTSET 97276 01/03/202401/02, 01/02/2023, 04/12/2022, Additional history exists Albumin/Creatinine Ratio 03/19/2024 023, 04/12/2022, 09/02/2017, Additional history exists CKD PHOS USE SMARTSET 61708 03/19/202403/01, 02/26/2022, 03/22/2021, Additional history exists TSH [...] this encounter Medical Devices Implanted Type Area Salvage Grinder Device Identifier Shelf Expiration Date Model / Serial / Lot Cage 13 X 28 Implanted:Qty : 1 on 10/22/2012 at OR [facility] [place] [place] N/A: Spine Lumbar 08.803.113 / / Expedium Ti Sfx 5.5 Lat A6 - [id number] Implanted:Qty : 1 on 06/06/2018 by Elijah Thorne MD at [place] [facility] [place] [place] N/A: Spine Lumbar JNJ : ETH[employer]ON [employer] [id number] / / Description:Part of implant set Globus 10x26 8-12mm Cage Implanted:Qty : 1 on 05/27/2019 by Elijah Thorne MD at [place] [facility] [place] [place] N/A: Spine Lumbar 194.126 / / [...] the patient have Health Care Power of Recreation Assistant? No Code Status History Code Status Date [...] the patient have Health Care Power of Recreation Assistant? No Full Code 11/24/2009 6:53 AM 11/27/2009 3:28 PM This order reflects the patients wishes and were consensually agreed upon. Question Answer Comments Discussion of Advance Directives occurred with: Patient Does the patient have a Living Will? No Does the patient have Health Care Power of Recreation Assistant? No Care Teams Staff Physical Therapist Relationship Specialty Start Date End Date Latanya Cano III, MD [address] [place] [address] PCP - General 02/13/1996 documented as of this encounter
--- OUTSIDE RECORDS SUMMARY | 2023-10-30 20:39 | External Medical Summary | Summary of Care ---
Author Name Unknown Organization [facility] Address [address] [place] [address] Phone [phone] Care Team Providers Care Logistician Name Role Phone Leopoldo BARNHART MD, Latanya Manzo Primary Care Provider [phone] Reason for Visit * Reason Comments Medication Refill Encounter Details Date Type Department Care Team (Late st Contact Info) Description 07/29/2023 Refill Family Practice [facility] 200 [facility] [place] [address] Nannette Duncan PA-C 200 [place] [address] Migraine variant Allergies Active Allergy Reactions Criticality Noted Date Comments Bee Stings 04/04/2010 Swelling, sick to stomach Yellow Jacket Venom 02/28/2012 Swelling, sick to stomach documented as of this encounter (statuses as of 07/31/2023) Medications Medication Sig Dispensed Refills Start Date [...] as of this encounter (statuses as of 07/31/2023) Active Problems Problem Noted Date Diagnosed Date [...] as of this encounter (statuses as of 07/31/2023) Resolved Problems Problem Noted Date Diagnosed Date Resolved Date 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 Kidney disease, chronic, sta ge III (GFR 30-59 ml/min) 09/13/2014 05/12/2020 Overview: Per CKD protocol #1 Other osteoporosis without c urrent pathological fracture 07/13/2009 07/14/2021 Overview: ICD-10 update of inactive term Menopause 05/18/2019 INFORMATION 01/02/2023 documented as of this encounter (statuses as of 07/31/2023) Immunizations Name Administration Dates Next Due COVID-19 mRNA, LNP-s, No Pre serve, 2-Dose Series ([employer]ex[employer] Systems) 06/20/2021,09/22/2020,09/01/2020 Covid-19, Mrna, Lnp-s, Pf, B ivalent, 30 Mcg, IM, 12 yrs and above ([employer] Systems) 04/19/2022 H1N1 2009 Influenza, IM 05/20/2009 [...] encounter Miscellaneous Notes * Telephone Encounter - Jen Rodriguez OSA - 07/31/2023 3:14 PM EST Unable to LMOM 07/31/2023 RMK * Telephone Encounter - Latanya aCno III, MD - 07/30/2023 11:13 AM EST Make a sooner appointment please for following up on chronic kidney disease * Telephone Encounter - Latanya Cano III, MD - 07/30/2023 11:13 AM ESTSigned Prescriptions: Disp Refills Topiramate 25 MG Oral Tablet (topAMAX) 360 Ta*3 Sig: TAKE TWO TABLETS BY MOUTH TWICE A DAY Authorizing Provider: LATANYA CANO III * Telephone Encounter - Shyla Webber [facility] - 07/30/2023 7:00 AM EST Pending Prescriptions: [...] Otolaryngology/Head & Neck/Facial Plastic Surgery [address] [place] [address] Gallo Sood MD [address] [place] [address] 01/09/2024 9:00 AM EDT Office Visit Family Practice [facility] 200 [facility] [place] [place] [address] Latanya Cano III, MD 200 [place] [address] Health Maintenance Due Date Last Done Comments Cologuard 1994 Sigmoidoscopy 1994 Fecal Occult Blood Test 06/29/2007 06/29/20 06, 06/08/2000, 05/22/1999 Depression Screening 03/01/2023 03/01/2022, 07/07/2015 (Discussed) GFR 07/05/2023 01/02/2023, 01/30, 07/12/2021, Additional history exists Mammogram 12/13/2023 12/12/2022, 06/0 08/2021, 11/30/2020, Additional history exists CKD HGB USE SMARTSET 85393 01/03/202401/02, 01/02/2023, 04/12/2022, Additional history exists Albumin/Creatinine Ratio 03/19/2024 023, 04/12/2022, 09/02/2017, Additional history exists CKD PHOS USE SMARTSET 87911 03/19/202403/01, 02/26/2022, 03/22/2021, Additional history exists TSH 04/02/2024 04/02/2023, 03/02, 03/26/2023, Additional history exists DXA Scan 05/14/2026 05/14/2022, 08/02, 05/09/2015, Additional history exists Lipid Panel 07/12/2026 07/12/2021, [...] this encounter Medical Devices Implanted Type Area Interior Plant Caretaker Device Identifier Shelf Expiration Date Model / Serial / Lot Cage 13 X 28 Implanted:Qty : 1 on 10/22/2012 at OR [facility] [place] N/A: Spine Lumbar 08.803.113 / / Expedium Ti Sfx 5.5 Lat A6 - [id number] Implanted:Qty : 1 on 06/06/2018 by Elijah Thorne MD at OR [facility] [place] N/A: Spine Lumbar JNJ : [employer]ON [employer] [id number] / / Description:Part of implant set Globus 10x26 8-12mm Cage Implanted:Qty : 1 on 05/27/2019 by Elijah Thorne MD at OR [facility] [place] N/A: Spine Lumbar 194.126 / / documented [...] the patient have Health Care Power of Bilingual Speech Language Pathologist? No Code Status History Code Status Date [...] the patient have Health Care Power of Bilingual Speech Language Pathologist? No Full Code 11/24/2009 6:53 AM 11/27/2009 3:28 PM This order reflects the patients wishes and were consensually agreed upon. Question Answer Comments Discussion of Advance Directives occurred with: Patient Does the patient have a Living Will? No Does the patient have Health Care Power of Bilingual Speech Language Pathologist? No Care Teams Logistician Relationship Specialty Start Date End Date Latanya Cano III, MD 200 [facility] [place] [address] PCP - General 02/13/1996 documented as of this encounter
--- OUTSIDE RECORDS SUMMARY | 2023-10-30 20:39 | External Medical Summary | Summary of Care ---
Author Name Unknown Organization [facility] Address [address] [place] [address] Phone [phone] Care Team Providers Care Electrical Apprentice Name Role Phone Leopoldo BARNHART MD, Latanya Manzo Primary Care Provider [phone] Reason for Visit * Reason Comments Medication Refill Encounter Details Date Type Department Care Team (Late st Contact Info) Description 07/29/2023 Refill Family Practice [facility] 200 [facility] [place] [address] Nannette Duncan PA-C 200 [facility] [place] [address] Migraine variant Allergies Active Allergy Reactions Criticality Noted Date Comments Bee Stings 04/04/2010 Swelling, sick to stomach Yellow Jacket Venom 02/28/2012 Swelling, sick to stomach documented as of this encounter (statuses as of 07/30/2023) Medications Medication Sig Dispensed Refills Start Date [...] as of this encounter (statuses as of 07/30/2023) Active Problems Problem Noted Date Diagnosed Date [...] as of this encounter (statuses as of 07/30/2023) Resolved Problems Problem Noted Date Diagnosed Date Resolved Date 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 Kidney disease, chronic, sta ge III (GFR 30-59 ml/min) 09/13/2014 05/12/2020 Overview: Per CKD protocol #1 Other osteoporosis without c urrent pathological fracture 07/13/2009 07/14/2021 Overview: ICD-10 update of inactive term Menopause 05/18/2019 INFORMATION 01/02/2023 documented as of this encounter (statuses as of 07/30/2023) Immunizations Name Administration Dates Next Due COVID-19 mRNA, LNP-s, No Pre serve, 2-Dose Series (Filement) 06/20/2021,09/22/2020,09/01/2020 Covid-19, Mrna, Lnp-s, Pf, B ivalent, 30 Mcg, IM, 12 yrs and above (Filement) 04/19/2022 H1N1 2009 Influenza, IM 05/20/2009 Hepatitis [...] encounter Miscellaneous Notes * Telephone Encounter - Latanya Cano III, [...] III * Telephone Encounter - Shyla Webber [facility] - 07/30/2023 7:00 AM EST Pending Prescriptions: Disp Refills Topiramate 25 MG Oral Tablet (topAMAX) 360 Ta*3 Sig: TAKE TWO TABLETS BY MOUTH TWICE A DAY * Telephone Encounter - Shyla Webber [facility] - 07/30/2023 7:00 AM EST Refill pharmacists [...] Otolaryngology/Head & Neck/Facial Plastic Surgery [address] [place] [address] Gallo Sood MD [address] [place] [address] 01/09/2024 9:00 AM EDT Office Visit Family Practice [facility] [address] [place] [address] Latanya Cano III, MD [address] [place] [address] Health Maintenance Due Date Last Done Comments Cologuard 1994 Sigmoidoscopy 1994 Fecal Occult Blood Test 06/29/2007 06/29/20 06, 06/08/2000, 05/22/1999 Depression Screening 03/01/2023 03/01/2022, 07/07/2015 (Discussed) GFR 07/05/2023 01/02/2023, 01/30, 07/12/2021, Additional history exists Mammogram 12/13/2023 12/12/2022, 0608/2021, 11/30/2020, Additional history exists CKD HGB USE SMARTSET 24170 01/03/202401/02, 01/02/2023, 04/12/2022, Additional history exists Albumin/Creatinine Ratio 03/19/2024 023, 04/12/2022, 09/02/2017, Additional history exists CKD PHOS USE SMARTSET 69633 03/19/202403/01, 02/26/2022, 03/22/2021, Additional history exists TSH [...] this encounter Medical Devices Implanted Type Area Roving Tester Laboratory Device Identifier Shelf Expiration Date Model / Serial / Lot Cage 13 X 28 Implanted:Qty : 1 on 10/22/2012 at OR [facility] N/A: Spine Lumbar 08.803.113 / / Expedium Ti Sfx 5.5 Lat A6 - [id number] Implanted:Qty : 1 on 06/06/2018 by Elijah Thorne MD at OR [facility] N/A: Spine Lumbar JNJ : [employer] [id number] / / Description:Part of implant set Globus 10x26 8-12mm Cage Implanted:Qty : 1 on 05/27/2019 by Elijah Thorne MD at OR [facility] N/A: Spine Lumbar 194.126 / / documented [...] the patient have Health Care Power of System Support Specialist? No Code Status History Code Status [...] the patient have Health Care Power of System Support Specialist? No Full Code 11/24/2009 6:53 AM 11/27/2009 3:28 PM This order reflects the patients wishes and were consensually agreed upon. Question Answer Comments Discussion of Advance Directives occurred with: Patient Does the patient have a Living Will? No Does the patient have Health Care Power of System Support Specialist? No Care Teams Electrical Apprentice Relationship Specialty Start Date End Date Latanya Cano III, MD [address] [facility] [place] [address] PCP - General 02/13/1996 documented as of this encounter
--- OUTSIDE RECORDS SUMMARY | 2023-10-30 20:39 | External Medical Summary | Summary of Care ---
Author Name Unknown Organization [facility] Address [address] [place] [address] Phone [phone] Care Team Providers Care Picture Hanger Name Role Phone Leopoldo BARNHART MD, Latanya Manzo Primary Care Provider [phone] Reason for Visit * Reason Comments Medication Refill Encounter Details Date Type Department Care Team (Late st Contact Info) Description 07/29/2023 Refill Family Practice [facility] 200 [facility] [place] [address] Nannette Duncan PA-C 200 [facility] [place] [address] Migraine variant Allergies Active Allergy Reactions Criticality Noted Date Comments Bee Stings 04/04/2010 Swelling, sick to stomach Yellow Jacket Venom 02/28/2012 Swelling, sick to stomach documented as of this encounter (statuses as of 08/03/2023) Medications Medication Sig Dispensed Refills Start Date [...] as of this encounter (statuses as of 08/03/2023) Active Problems Problem Noted Date Diagnosed Date [...] as of this encounter (statuses as of 08/03/2023) Resolved Problems Problem Noted Date Diagnosed Date Resolved Date 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 Kidney disease, chronic, sta ge III (GFR 30-59 ml/min) 09/13/2014 05/12/2020 Overview: Per CKD protocol #1 Other osteoporosis without c urrent pathological fracture 07/13/2009 07/14/2021 Overview: ICD-10 update of inactive term Menopause 05/18/2019 INFORMATION 01/02/2023 documented as of this encounter (statuses as of 08/03/2023) Immunizations Name Administration Dates Next Due COVID-19 mRNA, LNP-s, No Pre serve, 2-Dose Series (Communication Science) 06/20/2021,09/22/2020,09/01/2020 Covid-19, Mrna, Lnp-s, Pf, B ivalent, 30 Mcg, IM, 12 yrs and above (Communication Science) 04/19/2022 H1N1 2009 Influenza, IM 05/20/2009 Hepatitis [...] III * Telephone Encounter - Shyla Webber [facility] - 07/30/2023 7:00 AM EST Pending Prescriptions: Disp Refills Topiramate 25 MG Oral Tablet (topAMAX) 360 Ta*3 Sig: TAKE TWO TABLETS BY MOUTH TWICE A DAY * Telephone Encounter - Shyla Webber [facility] - 07/30/2023 7:00 AM EST Refill pharmacists [...] Otolaryngology/Head & Neck/Facial Plastic Surgery [address] [place] [facility] [place] [address] Gallo Sood MD [address] [place] [facility] [place] [address] 01/09/2024 9:00 AM EDT Office Visit [facility] [place] [address] [place] [address] Latanya Cano III, MD 200 [facility] [place] [address] Health Maintenance Due Date Last Done Comments Cologuard 1994 Sigmoidoscopy 1994 Fecal Occult Blood Test 06/29/2007 06/29/20 06, 06/08/2000, 05/22/1999 Depression Screening 03/01/2023 03/01/2022, 07/07/2015 (Discussed) GFR 07/05/2023 01/02/2023, 01/30, 07/12/2021, Additional history exists Mammogram 12/13/2023 12/12/2022, 11/29, 12/01/2021, Additional history exists CKD HGB USE SMARTSET 07756 01/03/202401/02, 01/02/2023, 04/12/2022, Additional history exists Albumin/Creatinine Ratio 03/19/2024 023, 04/12/2022, 09/02/2017, Additional history exists CKD PHOS USE SMARTSET 23413 03/19/202403/01, 02/26/2022, 03/22/2021, Additional history exists TSH [...] 08/23/2017, 04/05/2014, 09/30/2010 Zoster Vaccines Completed 03/18/2018, /11/2017, 08/10/2009 Influenza Vaccine (FLU shot) Completed , 03/07/2022, 03/20/2021, Additional history exists COVID-19 Vaccine Completed 04/08/2023, , 06/20/2021, Additional history exists GARDASIL-HPV IMMUNIZATION SERIES Aged Out No longer eligible based on patient's age to complete this topic MENINGOCOCCAL (MENACTRA/MENVEO) Aged Out No longer eligible based on patient's age to complete this topic documented as of this encounter Medical Devices Implanted Type Area Program Eligibility Specialist Device Identifier Shelf Expiration Date Model / Serial / Lot Cage 13 X 28 Implanted:Qty : 1 on 10/22/2012 at OR [facility] [place] N/A: Spine Lumbar 08.803.113 / / Expedium Ti Sfx 5.5 Lat A6 - [id number] Implanted:Qty : 1 on 06/06/2018 by Elijah Thorne MD at OR [facility] N/A: Spine Lumbar JNJ : [employer] [id number] / / Description:Part of implant set Globus 10x26 8-12mm Cage Implanted:Qty : 1 on 05/27/2019 by Elijah Thorne MD at OR [facility] [place] N/A: Spine Lumbar 194.126 / / documented [...] the patient have Health Care Power of General Merchandise Manager? No Code Status History Code Status Date [...] the patient have Health Care Power of General Merchandise Manager? No Full Code 11/24/2009 6:53 AM 11/27/2009 3:28 PM This order reflects the patients wishes and were consensually agreed upon. Question Answer Comments Discussion of Advance Directives occurred with: Patient Does the patient have a Living Will? No Does the patient have Health Care Power of General Merchandise Manager? No Care Teams Picture Hanger Relationship Specialty Start Date End Date Latanya Cano III, MD 200 [facility] [place] [address] PCP - General 02/13/1996 documented as of this encounter
--- OUTSIDE RECORDS SUMMARY | 2023-10-30 20:39 | External Medical Summary | Summary of Care ---
Author Name Unknown Organization [facility] Address [address] [place] [address] Phone [phone] Care Team Providers Care Tortilla Maker Name Role Phone Leopoldo BARNHART MD, Latanya Manzo Primary Care Provider [phone] Reason for Visit * Reason Comments Medication Refill Encounter Details Date Type Department Care Team (Late st Contact Info) Description 07/29/2023 Refill Family Practice [facility] 200 [facility] [place] [address] Nannette Duncan PA-C 200 [place] [address] Migraine variant Allergies Active Allergy Reactions Criticality [...] mRNA, LNP-s, No Pre serve, 2-Dose Series (Expreem) 06/20/2021,09/22/2020,09/01/2020 Covid-19, Mrna, Lnp-s, Pf, B ivalent, 30 Mcg, IM, 12 yrs and above (Expreem) 04/19/2022 H1N1 2009 Influenza, IM 05/20/2009 Hepatitis [...] III * Telephone Encounter - Shyla Webber [facility] - 07/30/2023 7:00 AM EST Pending Prescriptions: Disp Refills Topiramate 25 MG Oral Tablet (topAMAX) 360 Ta*3 Sig: TAKE TWO TABLETS BY MOUTH TWICE A DAY * Telephone Encounter - Shyla Webber [facility] - 07/30/2023 7:00 AM EST Refill pharmacists [...] Otolaryngology/Head & Neck/Facial Plastic Surgery [address] [place] [address] Gallo Sood MD [address] [place] [address] 01/09/2024 9:00 AM EDT Office Visit Family Practice [facility] [address] [place] [address] Latanya Cano III, MD [address] [place] [address] Health Maintenance Due Date Last Done Comments Cologuard 1994 Sigmoidoscopy 1994 Fecal Occult Blood Test 06/29/2007 06/29/20 06, 06/08/2000, 05/22/1999 Depression Screening 03/01/2023 03/01/2022, 07/07/2015 (Discussed) GFR 07/05/2023 01/02/2023, 01/30, 07/12/2021, Additional history exists Mammogram 12/13/2023 12/12/2022, 0608/2021, 11/30/2020, Additional history exists CKD HGB USE SMARTSET 60277 01/03/202401/02, 01/02/2023, 04/12/2022, Additional history exists Albumin/Creatinine Ratio 03/19/2024 023, 04/12/2022, 09/02/2017, Additional history exists CKD PHOS USE SMARTSET 48335 03/19/202403/01, 02/26/2022, 03/22/2021, Additional history exists TSH [...] this encounter Medical Devices Implanted Type Area Software Client Architect Device Identifier Shelf Expiration Date Model / Serial / Lot Cage 13 X 28 Implanted:Qty : 1 on 10/22/2012 at [place] [facility] N/A: Spine Lumbar 08.803.113 / / Expedium Ti Sfx 5.5 Lat A6 - [id number] Implanted:Qty : 1 on 06/06/2018 by Elijah Thorne MD at [place] [facility] N/A: Spine Lumbar JNJ : [employer]ON [employer] [id number] / / Description:Part of implant set Globus 10x26 8-12mm Cage Implanted:Qty : 1 on 05/27/2019 by Elijah Thonre MD at [place] [facility] N/A: Spine Lumbar 194.126 / / documented [...] the patient have Health Care Power of Whiskey Proof Reader? No Code Status History Code Status Date [...] the patient have Health Care Power of Whiskey Proof Reader? No Full Code 11/24/2009 6:53 AM 11/27/2009 3:28 PM This order reflects the patients wishes and were consensually agreed upon. Question Answer Comments Discussion of Advance Directives occurred with: Patient Does the patient have a Living Will? No Does the patient have Health Care Power of Whiskey Proof Reader? No Care Teams Tortilla Maker Relationship Specialty Start Date End Date Latanya Cano III, MD 200 [place] [place] [address] PCP - General 02/13/1996 documented as of this encounter
--- OUTSIDE RECORDS SUMMARY | 2023-10-30 20:40 | External Medical Summary | Summary of Care ---
Author Name Unknown Organization [facility] Address [address] [place] [address] Phone [phone] Care Team Providers Care Account Services Coordinator Name Role Phone Leopoldo BARNHART MD, Latanya Manzo Primary Care Provider [phone] Reason for Visit * Reason Comments Medication Refill Encounter Details Date Type Department Care Team (Late st Contact Info) Description 07/03/2023 Refill Family Practice [facility] 200 [facility] [place] [address] Latanya Cano III, MD 200 [place] [address] Allergies Active Allergy Reactions Criticality Noted Date Comments Bee Stings 04/04/2010 Swelling, sick to stomach Yellow Jacket Venom 02/28/2012 Swelling, sick to stomach documented as of this encounter (statuses as of 07/04/2023) Medications Medication Sig Dispensed Refills Start Date End Date Status ASPIRIN 81 MG PO TABS patient takes one tablet by mouth daily at bedtime 0 Active tiZANidine HCl 4 MG Oral Tablet (Zanaflex) Take 1 Tablet by mouth every 6 hours as needed for Muscle spasms. 30 Tablet 0 08/16/2022 Active Propranolol HCl ER 160 MG Oral Capsule Extended Release 24 Hour TAKE ONE CAPSULE BY MOUTH EVERY DAY 90 Capsule 1 12/15/2022 12/15/2023 Active Rizatriptan Benzoate 10 MG Oral Tablet [...] DAY 90 Tablet 1 08/09/2022 08/09/2023 Active Topiramate 25 MG Oral Tablet (topAMAX)Indicat ions:Migraine variant TAKE TWO TABLETS BY MOUTH TWICE A DAY 360 Tablet 3 06/11/2022 08/06/2023 Active Sertraline HCl 100 MG Oral Tablet (Zoloft)Indicati ons:Adjustment disorder with depressed mood TAKE ONE TABLET BY MOUTH EVERY DAY 90 Tablet 3 06/10/2022 08/06/2023 Active traZODone HCl 150 MG Oral Tablet (Desyrel) TAKE ONE TABLET BY MOUTH EVERY DAY AT BEDTIME 90 Tablet 3 06/10/2022 08/06/2023 Active Fluticasone Propionate 50 MCG/ACT Nasal Suspension (Flonase) APPLY ONE SPRAY INTO NOSTRIL EVERY MORNING 48 g 1 02/14/2023 02/14/2024 Active Levothyroxine Sodium 50 MCG Oral Tablet (Levoxyl) Take 1 Tablet by mouth in the morning. (at least 30 min prior to breakfast or other meds)mon-satasa ke 1and 1/2 tab sun. 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 Kidney disease, chronic, sta ge III (GFR 30-59 ml/min) 09/13/2014 05/12/2020 Overview: Per CKD protocol #1 Other osteoporosis without c urrent pathological fracture 07/13/2009 07/14/2021 Overview: ICD-10 update of inactive term Menopause 05/18/2019 INFORMATION 01/02/2023 documented as of this encounter (statuses as of 07/04/2023) Immunizations Name Administration Dates Next Due COVID-19 mRNA, LNP-s, No Pre serve, 2-Dose Series (Nexopia) 06/20/2021,09/22/2020,09/01/2020 Covid-19, Mrna, Lnp-s, Pf, B ivalent, 30 Mcg, IM, 12 yrs and above (Nexopia) 04/19/2022 H1N1 2009 Influenza, IM 05/20/2009 Hepatitis [...] encounter Miscellaneous Notes * Telephone Encounter - Gi Tafoya [facility] - 07/04/2023 3:14 AM ESTSigned Prescriptions: Disp Refills Doxepin HCl 10 MG Oral Capsule (SINEquan) 200 Ca*1 Sig: TAKE TWOCAPSULES BY MOUTH AT BEDTIMEAuthorizing Provider: LATANYA CANO III User: IG TAFOYA- documented in this encounter Plan of Treatment Upcoming Encounters Date Type Department Care Team (Late st Contact Info) Description 09/02/2023 11:30 AM EST Office Visit Otolaryngology/Head & Neck/Facial Plastic Surgery [address] [place] [address] Gallo Sood MD [address] [place] [address] 01/09/2024 9:00 AM EDT [facility] [place] [address] [place] [address] Latanya Cano III, MD [address] [place] [address] [place] [address] Health Maintenance Due Date Last Done Comments Cologuard 1994 Sigmoidoscopy 1994 Fecal Occult Blood Test 06/29/2007 06/29/20 06, 06/08/2000, 05/22/1999 Depression Screening 03/01/2023 03/01/2022, 07/07/2015 (Discussed) GFR 07/05/2023 01/02/2023, 01/30, 07/12/2021, Additional history exists Mammogram 12/13/2023 12/12/2022, 08/2021, 11/30/2020, Additional history exists CKD HGB USE SMARTSET 04428 01/03/202401/02, 01/02/2023, 04/12/2022, Additional history exists Albumin/Creatinine Ratio 03/19/2024 023, 04/12/2022, 09/02/2017, Additional history exists CKD PHOS USE SMARTSET 95570 03/19/202403/01, 02/26/2022, 03/22/2021, Additional history exists TSH [...] this encounter Medical Devices Implanted Type Area Concrete Finisher Device Identifier Shelf Expiration Date Model / Serial / Lot Cage 13 X 28 Implanted:Qty : 1 on 10/22/2012 at OR [facility] [place] N/A: Spine Lumbar 08.803.113 / / Expedium Ti Sfx 5.5 Lat A6 - [id number] Implanted:Qty : 1 on 06/06/2018 by Elijah Thorne MD at OR [facility] N/A: Spine Lumbar JNJ : [employer] [id number] / / Description:Part of implant set Globus 10x26 8-12mm Cage Implanted:Qty : 1 on 05/27/2019 by Elijah Thorne MD at OR [facility] N/A: Spine Lumbar 194.126 / / documented [...] the patient have Health Care Power of Server Security Administrator? No Code Status History Code Status Date [...] the patient have Health Care Power of Server Security Administrator? No Full Code 11/24/2009 6:53 AM 11/27/2009 3:28 PM This order reflects the patients wishes and were consensually agreed upon. Question Answer Comments Discussion of Advance Directives occurred with: Patient Does the patient have a Living Will? No Does the patient have Health Care Power of Server Security Administrator? No Care Teams Account Services Coordinator Relationship Specialty Start Date End Date Latanya Cano III, MD [address] [place] [address] PCP - General 02/13/1996 documented as of this encounter
--- OUTSIDE RECORDS SUMMARY | 2023-10-30 20:40 | External Medical Summary | Summary of Care ---
Author Name Unknown Organization [facility] Address [address] [place] [address] Phone [phone] Care Team Providers Care Roentgenologist Name Role Phone Leopoldo BARNHART MD, Latanya Manzo Primary Care Provider [phone] Reason for Visit * Reason Onset Date Comments Medication Refill 05/09/2023 Encounter Details Date Type Department Care Team (Late st Contact Info) Description 05/09/2023 Refill Family Practice [facility] 200 [facility] [place] [address] Latanya Cano III, MD [address] [place] [address] Allergies Active Allergy Reactions Criticality Noted Date Comments Bee Stings 04/04/2010 Swelling, sick to stomach Yellow Jacket Venom 02/28/2012 Swelling, sick to stomach documented as of this encounter (statuses as of 05/09/2023) Medications Medication Sig Dispensed Refills Start Date [...] DAY 90 Capsule 1 12/15/2022 12/15/2023 Active Doxepin HCl 10 MG Oral Capsule (SINEquan) TAKE TWO CAPSULES BY MOUTH AT BEDTIME 200 Capsule 1 11/14/2022 11/14/2023 Active Rizatriptan Benzoate 10 MG Oral Tablet [...] 30 min prior to breakfast or other meds)asa camarena ke 1and 1/2 tab sun. 33 Tablet 11 03/20/2023 Active Levothyroxine Sodium 50 MCG Oral Tablet (Levoxyl) Take 1 Tablet by mouth in the morning. Mon-Sat -1and 1/2 tab Saturday (at least 30 min prior to breakfast or other meds). 90 Tablet 3 05/09/2023 Active Levothyroxine Sodium 50 MCG Oral Tablet (Levoxyl) Take 1 Tablet by mouth in the morning. Mon-Sat -1and 1/2 tab Saturday (at least 30 min prior to breakfast or other meds). 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 Kidney disease, chronic, sta ge III (GFR 30-59 ml/min) 09/13/2014 05/12/2020 Overview: Per CKD protocol #1 Other osteoporosis without c urrent pathological fracture 07/13/2009 07/14/2021 Overview: ICD-10 update of inactive term Menopause 05/18/2019 INFORMATION 01/02/2023 documented as of this encounter (statuses as of 05/09/2023) Immunizations Name Administration Dates Next Due COVID-19 mRNA, LNP-s, No Pre serve, 2-Dose Series ([employer]) 06/20/2021,09/22/2020,09/01/2020 Covid-19, Mrna, Lnp-s, Pf, B ivalent, 30 Mcg, IM, 12 yrs and above ([employer]) 04/19/2022 H1N1 2009 Influenza, IM 05/20/2009 Hepatitis B, 20+ yrs 11/27/2006,05/22/2006,04/24 PPD 04/24/2006 Pneumococcal Conjugate Vacc, 13 Valent (Prevnar) 04/05/2014 Pneumococcal Polysaccharide PPV23 (Pneumovax) 08/23/2017,09/30/2010 SEASONAL INFLUENZA, PF, 6 M & Above, IM , (FLULAVAL or FLUZONE) 03/16/2020,03/28/2019,03/25/2017 Seasonal Influenza Virus Vac cine, Unspecified Formulation 03/19/2018 Seasonal Influenza, Quadriva lent Hd (Fluzone Hd) [...] or making decisions? (5 years old or older No 05/27/2019 documented as of this encounter Miscellaneous Notes * Telephone Encounter - Latanya Cano III, MD - 05/09/2023 2:00 PM ESTSigned Prescriptions: Disp Refills Levothyroxine Sodium 50 MCG Oral Tablet (L*90 Tab*3 Sig: Take 1 Tablet by mouth in the morning. -07/02 tab Saturday (at least 30 min prior to breakfast or other meds).Authorizing Provider: LATANYA CANO III * Telephone Encounter - Rehana Galarza LPN - 05/09/2023 1:34 PM ESTPending Prescriptions: Disp Refills Levothyroxine Sodium 50 MCG Oral Tablet (L*90 Tab*3 Sig: Take 1 Tablet by mouth in the morning. -07/02 tab Saturday (at least 30 min prior to breakfast or other meds). * Telephone Encounter - Torie Medrano - 05/09/2023 12:01 PM EST 90 day Did you pend patient's preferred pharmacy and medication before forwarding?yes Pharmacy: [id number] [facility] Pending Prescriptions: Disp Refills Levothyroxine Sodium 50 MCG Oral Tablet (*33 Tab*11 Sig: Take 1 Tablet by mouth in the morning. Mon-Sat -1and 1/ tab Saturday (at least 30 min prior to breakfast or other meds). Last Visit: 01/02/2023 (in office), Visit date not found (telemedicine) Next Visit: 01/09/2024 If no future appointments scheduled, and last appointment is greater than a year ago, please schedule patient for a follow-up appointment Last date the medication was ordered: 03/25/23 Is this request for a controlled substance?No Urine Drug Screen:No results found for this or any previous visit. Patient Phone Numbers Labs: Lab Results Component Value Date/Time CREAT 1.3 (H) 01/02/2023 01:01 PM CREAT 1.2 (H) 05/30/2019 06:02 AM POTASSIUM 4.7 01/02/2023 01:01 PM POTASSIUM 4.0 05/30/2019 06:02 AM TSH 36.10 (H) 04/02/2023 01:21 PM TSH 2.10 03/15/2010 04:41 PM LDLCALC 83 07/12/2021 09:15 AM LDLCALC 141 (H) 08/15/2017 07:47 AM LDLDIRECT NOT APPLICABLE 04/01/2014 08:58 AM ALT 8 (L) 01/02/2023 01:01 PM ALT 9 (L) 04/01/2014 08:58 AM HGBA1C 5.2 05/20/2018 03:11 PM documented in this encounter Plan of Treatment Upcoming Encounters Date Type Department Care Team (Late st Contact Info) Description 09/02/2023 11:30 AM EST Office Visit Otolaryngology/Head & Neck/Facial Plastic Surgery [address] [address] Gallo Sood MD [address] [address] 01/09/2024 9:00 AM EDT Office Visit Family Practice [facility] [place] 200 [facility] [place] [address] Latanya Cano III, MD 200 [facility] [address] Health Maintenance Due Date Last Done Comments Cologuard 1994 Sigmoidoscopy 1994 Fecal Occult Blood Test 06/29/2007 06/29/20 06, 06/08/2000, 05/22/1999 Depression Screening 03/01/2023 03/01/2022, 07/07/2015 (Discussed) GFR 07/05/2023 01/02/2023, 01/30, 07/12/2021, Additional history exists Mammogram 12/13/2023 12/12/2022, 08/2021, 11/30/2020, Additional history exists CKD HGB USE SMARTSET 83454 01/03/202401/02, 01/02/2023, 04/12/2022, Additional history exists Albumin/Creatinine Ratio 03/19/2024 023, 04/12/2022, 09/02/2017, Additional history exists CKD PHOS USE SMARTSET 18100 03/19/202403/01, 02/26/2022, 03/22/2021, Additional history exists TSH [...] this encounter Medical Devices Implanted Type Area Keyliner Device Identifier Shelf Expiration Date Model / Serial / Lot Cage 13 X 28 Implanted:Qty : 1 on 10/22/2012 at OR [facility] [place] N/A: Spine Lumbar 08.803.113 / / Expedium Ti Sfx 5.5 Lat A6 - [id number] Implanted:Qty : 1 on 06/06/2018 by Elijah Thorne MD at OR [facility] [place] N/A: Spine Lumbar JNJ : [employer] [id number] / / Description:Part of implant set Globus 10x26 8-12mm Cage Implanted:Qty : 1 on 05/27/2019 by Elijah Thorne MD at OR [facility] [place] N/A: Spine Lumbar 194.126 [...] the patient have Health Care Power of Memorial Adviser? No Code Status History Code Status Date [...] the patient have Health Care Power of Memorial Adviser? No Full Code 11/24/2009 6:53 AM 11/27/2009 3:28 PM This order reflects the patients wishes and were consensually agreed upon. Question Answer Comments Discussion of Advance Directives occurred with: Patient Does the patient have a Living Will? No Does the patient have Health Care Power of Memorial Adviser? No Care Teams Roentgenologist Relationship Specialty Start Date End Date Latanya Cano III, MD [address] [facility] [place] [address] PCP - General 02/13/1996 documented as of this encounter
--- OUTSIDE RECORDS SUMMARY | 2023-10-30 20:40 | External Medical Summary | Summary of Care ---
Author Name Unknown Organization [facility] Address [address] [place] [address] Phone [phone] Care Team Providers Care Fiber Optics Engineer Name Role Phone Leopoldo BARNHART MD, Latanya Manzo Primary Care Provider [phone] Reason for Visit * Reason Comments Medication Refill Encounter Details Date Type Department Care Team (Late st Contact Info) Description 07/29/2023 Refill [facility] [address] Crys Hernandez, 200 [place] [address] Adjustment disorder with depressed mood Allergies Active Allergy Reactions Criticality Noted Date [...] DAY 360 Tablet 3 06/11/2022 08/06/2023 Active Fluticasone Propionate 50 MCG/ACT Nasal Suspension (Flonase) APPLY ONE SPRAY INTO NOSTRIL EVERY MORNING 48 g 1 02/14/2023 02/14/2024 Active Levothyroxine Sodium 50 MCG Oral Tablet (Levoxyl) Take 1 Tablet by mouth in the morning. (at least 30 min prior to breakfast or other meds)mon-satasa ke 1and 1/2 tab sat. 33 Tablet 11 03/20/2023 Active Levothyroxine Sodium [...] DAY 90 Tablet 2 07/30/2023 07/29/2024 Active traZODone HCl 150 MG Oral Tablet (Desyrel) TAKE ONE TABLET BY MOUTH EVERY DAY AT BEDTIME 90 Tablet 2 07/30/2023 07/29/2024 Active Sertraline HCl 100 MG Oral Tablet (Zoloft)Indicati ons:Adjustment disorder with depressed mood TAKE ONE TABLET BY MOUTH EVERY DAY 90 Tablet 3 06/10/2022 07/29/2023 Discontinue d(Refill) traZODone HCl 150 MG Oral Tablet (Desyrel) TAKE ONE TABLET BY MOUTH EVERY DAY AT BEDTIME 90 Tablet 3 06/10/2022 07/29/2023 Discontinue d(Refill) documented as of this [...] mRNA, LNP-s, No Pre serve, 2-Dose Series ([employer]) 06/20/2021,09/22/2020,09/01/2020 Covid-19, Mrna, Lnp-s, Pf, B ivalent, 30 Mcg, IM, 12 yrs and above ([employer]) 04/19/2022 H1N1 2009 Influenza, IM 05/20/2009 Hepatitis [...] encounter Miscellaneous Notes * Telephone Encounter - Shyla Webber [facility] - 07/30/2023 7:00 AM ESTSigned Prescriptions: Disp Refills Sertraline HCl 100 MG Oral Tablet (Zoloft) 90 Tab*2 Sig: TAKE ONE TABLET BY MOUTH EVERY DAY Authorizing Provider: LATANYA CANO III Ordering User: SHYLA WEBBER traZODone HCl 150 MG Oral Tablet (Desyrel) 90 Tab*2 Sig: TAKE ONE TABLET BY MOUTH EVERY DAY AT BEDTIME Authorizing Provider: LATANYA CANO III Ordering User: LOY WEBBER * Telephone Encounter - 07/29/2023 12:11 AM ESTPending Prescriptions: Disp Refills Sertraline HCl 100 MG Oral Tablet (Zoloft) 90 Tab*3 Sig: TAKE ONE TABLET BY MOUTH EVERY DAY traZODone HCl 150 MG Oral Tablet (Desyrel) 90 Tab*3 Sig: TAKE ONE TABLET BY MOUTH EVERY DAY AT BEDTIME documented in this encounter Plan of Treatment Upcoming Encounters Date Type Department Care Team (Late st Contact Info) Description 09/02/2023 11:30 AM EST Office Visit Otolaryngology/Head & Neck/Facial Plastic Surgery [address] [address] Gallo Sood MD [address] [facility] [place] [address] 01/09/2024 9:00 AM EDT Office Visit Family Practice [facility] [place] [address] [facility] [place] [address] Latanya Cano III, MD 200 [facility] [place] [address] Health Maintenance Due Date Last Done Comments Cologuard 1994 Sigmoidoscopy 1994 Fecal Occult Blood Test 06/29/2007 06/29/20 06, 06/08/2000, 05/22/1999 Depression Screening 03/01/2023 03/01/2022, 07/07/2015 (Discussed) GFR 07/05/2023 01/02/2023, 01/30, 07/12/2021, Additional history exists Mammogram 12/13/2023 12/12/2022, 08/2021, 11/30/2020, Additional history exists CKD HGB USE SMARTSET 46820 01/03/202401/02, 01/02/2023, 04/12/2022, Additional history exists Albumin/Creatinine Ratio 03/19/2024 023, 04/12/2022, 09/02/2017, Additional history exists CKD PHOS USE SMARTSET 30064 03/19/202403/01, 02/26/2022, 03/22/2021, Additional history exists TSH [...] this encounter Medical Devices Implanted Type Area Pensions Retirement Plan Specialist Device Identifier Shelf Expiration Date Model / Serial / Lot Cage 13 X 28 Implanted:Qty : 1 on 10/22/2012 at OR [facility] [place] N/A: Spine Lumbar 08.803.113 / / Expedium Ti Sfx 5.5 Lat A6 - [id number] Implanted:Qty : 1 on 06/06/2018 by Elijah Thorne MD at [place] [facility] [place] N/A: Spine Lumbar JNJ : [employer] [id number] / / Description:Part of implant set Globus 10x26 8-12mm Cage Implanted:Qty : 1 on 05/27/2019 by Elijah Thorne MD at OR [facility] [place] N/A: Spine Lumbar 194.126 / / documented as of this encounter Visit Diagnoses Diagnosis Adjustment disorder with depressed mood documented in this encounter Advance Directives Latest [...] the patient have Health Care Power of Roll Contour Grinder? No Code Status History Code Status Date [...] the patient have Health Care Power of Roll Contour Grinder? No Full Code 11/24/2009 6:53 AM 11/27/2009 3:28 PM This order reflects the patients wishes and were consensually agreed upon. Question Answer Comments Discussion of Advance Directives occurred with: Patient Does the patient have a Living Will? No Does the patient have Health Care Power of Roll Contour Grinder? No Care Teams Fiber Optics Engineer Relationship Specialty Start Date End Date Latanya Cano III, MD 200 [facility] [place] [address] PCP - General 02/13/1996 documented as of this encounter
--- OUTSIDE RECORDS SUMMARY | 2023-10-30 20:40 | External Medical Summary | Summary of Care ---
Author Name Unknown Organization [facility] Address [address] [place] [address] Phone [phone] Care Team Providers Care Rooming House Inspector Name Role Phone Leopoldo BARNHART MD, Latanya Manzo Primary Care Provider [phone] Reason for Visit * Reason Comments Medication Refill Encounter Details Date Type Department Care Team (Late st Contact Info) Description 07/20/2023 Refill Family Practice [facility] 200 [facility] [place] [address] Latanya Cano III, MD [address] [place] [address] Allergies Active Allergy Reactions Criticality Noted Date Comments Bee Stings 04/04/2010 Swelling, sick to stomach Yellow Jacket Venom 02/28/2012 Swelling, sick to stomach documented as of this encounter (statuses as of 07/20/2023) Medications Medication Sig Dispensed Refills Start Date [...] DAY 90 Capsule 1 07/20/2023 07/19/2024 Active Propranolol HCl ER 160 MG Oral Capsule Extended Release 24 Hour TAKE ONE CAPSULE BY MOUTH EVERY DAY 90 Capsule 1 12/15/2022 07/20/2023 Discontinue d(Refill) documented as of this encounter (statuses as of 07/20/2023) Active Problems Problem Noted Date Diagnosed Date [...] as of this encounter (statuses as of 07/20/2023) Resolved Problems Problem Noted Date Diagnosed Date Resolved Date 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 Kidney disease, chronic, sta ge III (GFR 30-59 ml/min) 09/13/2014 05/12/2020 Overview: Per CKD protocol #1 Other osteoporosis without c urrent pathological fracture 07/13/2009 07/14/2021 Overview: ICD-10 update of inactive term Menopause 05/18/2019 INFORMATION 01/02/2023 documented as of this encounter (statuses as of 07/20/2023) Immunizations Name Administration Dates Next Due COVID-19 mRNA, LNP-s, No Pre serve, 2-Dose Series ([employer]) 06/20/2021,09/22/2020,09/01/2020 Covid-19, Mrna, Lnp-s, Pf, B ivalent, 30 Mcg, IM, 12 yrs and above ([employer]) 04/19/2022 H1N1 2009 Influenza, IM 05/20/2009 Hepatitis [...] encounter Miscellaneous Notes * Telephone Encounter - Toma Armstrong [facility] - 07/20/2023 12:45 PM EST Signed Prescriptions: Disp Refills Propranolol HCl ER 160 MG Oral Capsule Ext*90 Cap*1 Sig: TAKE ONE CAPSULE BY MOUTH EVERY DAYAuthorizing Provider: LATANYA CANO III User: FAMILIA ARMSTRONG documented in this encounter Plan of Treatment Upcoming Encounters Date Type Department Care Team (Late st Contact Info) Description 09/02/2023 11:30 AM EST Office Visit Otolaryngology/Head & Neck/Facial Plastic Surgery [address] [place] [address] Gallo Sood MD [address] [place] [address] 01/09/2024 9:00 AM EDT Office Visit Family Practice [facility] 200 [facility] [place] [address] Latanya Cano III, MD 200 [facility] [place] [address] Health Maintenance Due Date Last Done Comments Cologuard 1994 Sigmoidoscopy 1994 Fecal Occult Blood Test 06/29/2007 06/29/20 06, 06/08/2000, 05/22/1999 Depression Screening 03/01/2023 03/01/2022, 07/07/2015 (Discussed) GFR 07/05/2023 01/02/2023, 01/30, 07/12/2021, Additional history exists Mammogram 12/13/2023 12/12/2022, 0608/2021, 11/30/2020, Additional history exists CKD HGB USE SMARTSET 57400 01/03/202401/02, 01/02/2023, 04/12/2022, Additional history exists Albumin/Creatinine Ratio 03/19/2024 023, 04/12/2022, 09/02/2017, Additional history exists CKD PHOS USE SMARTSET 96135 03/19/202403/01, 02/26/2022, 03/22/2021, Additional history exists TSH [...] this encounter Medical Devices Implanted Type Area Forensic Photographer Device Identifier Shelf Expiration Date Model / Serial / Lot Cage 13 X 28 Implanted:Qty : 1 on 10/22/2012 at OR [place] N/A: Spine Lumbar 08.803.113 / / Expedium Ti Sfx 5.5 Lat A6 - [id number] Implanted:Qty : 1 on 06/06/2018 by Elijah Thorne MD at OR [place] N/A: Spine Lumbar JNJ : [employer] [id number] / / Description:Part of implant set Globus 10x26 8-12mm Cage Implanted:Qty : 1 on 05/27/2019 by Elijah Thorne MD at OR [place] N/A: Spine Lumbar 194.126 / / documented [...] the patient have Health Care Power of Imitation Marble Mechanic? No Code Status History Code Status Date [...] the patient have Health Care Power of Imitation Marble Mechanic? No Full Code 11/24/2009 6:53 AM 11/27/2009 3:28 PM This order reflects the patients wishes and were consensually agreed upon. Question Answer Comments Discussion of Advance Directives occurred with: Patient Does the patient have a Living Will? No Does the patient have Health Care Power of Imitation Marble Mechanic? No Care Teams Rooming House Inspector Relationship Specialty Start Date End Date Latanya Cano III, MD [address] [place] [address] PCP - General 02/13/1996 documented as of this encounter
--- OUTSIDE RECORDS SUMMARY | 2023-10-30 20:40 | External Medical Summary | Summary of Care ---
Author Name Unknown Organization [facility] Address [address] [place] [address] Phone [phone] Care Team Providers Care Spanish Lecturer Name Role Phone Leopoldo BARNHART MD, Tushar Manzo Primary Care Provider [phone] Encounter Details Date Type Department Care Team (Late st Contact Info) Description 05/28/2023 Result Scan Unspecified Department <No scans attached> Allergies Active Allergy Reactions Criticality Noted Date Comments Bee Stings 04/04/2010 Swelling, sick to stomach Yellow Jacket Venom 02/28/2012 Swelling, sick to stomach documented as of this encounter (statuses as of 05/30/2023) Medications Medication Sig Dispensed Refills Start Date [...] 08/09/2023 Active Topiramate 25 MG Oral Tablet (topAMAX)Indicatio [...] as of this encounter (statuses as of 05/30/2023) Active Problems Problem Noted Date Diagnosed Date [...] as of this encounter (statuses as of 05/30/2023) Resolved Problems Problem Noted Date Diagnosed Date Resolved Date 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 Kidney disease, chronic, sta ge III (GFR 30-59 ml/min) 09/13/2014 05/12/2020 Overview: Per CKD protocol #1 Other osteoporosis without c urrent pathological fracture 07/13/2009 07/14/2021 Overview: ICD-10 update of inactive term Menopause 05/18/2019 INFORMATION 01/02/2023 documented as of this encounter (statuses as of 05/30/2023) Immunizations Name Administration Dates Next Due COVID-19 mRNA, LNP-s, No Pre serve, 2-Dose Series ([employer]) 06/20/2021,09/22/2020,09/01/2020 Covid-19, Mrna, Lnp-s, Pf, B ivalent, 30 Mcg, IM, 12 yrs and above ([employer]) 04/19/2022 H1N1 2009 Influenza, IM 05/20/2009 Hepatitis [...] Otolaryngology/Head & Neck/Facial Plastic Surgery [address] [facility] [place] [address] Gallo Sood MD [address] [facility] [place] [address] 01/09/2024 9:00 AM EDT Office Visit Family Practice [facility] [address] [facility] [place] [address] Tushar Mina III, MD [address] [facility] [place] [address] Health Maintenance Due Date Last Done Comments Cologuard 1994 Sigmoidoscopy 1994 Fecal Occult Blood Test 06/29/2007 06/29/20 06, 06/08/2000, 05/22/1999 Depression Screening 03/01/2023 03/01/2022, 07/07/2015 (Discussed) GFR 07/05/2023 01/02/2023, 01/30, 07/12/2021, Additional history exists Mammogram 12/13/2023 12/12/2022, 0608/2021, 11/30/2020, Additional history exists CKD HGB USE SMARTSET 12680 01/03/202401/02, 01/02/2023, 04/12/2022, Additional history exists Albumin/Creatinine Ratio 03/19/2024 023, 04/12/2022, 09/02/2017, Additional history exists CKD PHOS USE SMARTSET 44254 03/19/202403/01, 02/26/2022, 03/22/2021, Additional history exists TSH [...] this encounter Medical Devices Implanted Type Area Property Preservation Specialist Device Identifier Shelf Expiration Date Model / Serial / Lot Cage 13 X 28 Implanted:Q[place] : [place] [facility] [place]: Spine Lumbar 08.803.113 / / Expedium Ti Sfx 5.5 Lat A6 - [id number] Implanted:Qty : 1 on 06/06/2018 [place] Eli[place] [facility] [place]: Spine Lumbar JNJ : [employer] [id number] / / Description:Part of implant set Globus 10x26 8-12mm Cage Implanted:Qty : 1 on 05/27/2019 [place] Eli[place] [facility] [place]A: Spine Lumbar 194.126 / / documented as of this encounter Procedures Procedure Name Priority Date/Time Associated Diagnosis Comments PROCEDURE SCANNED RESULT 05/28/2023 documented in this encounter Results * PROCEDURE SCANNED RESULT (05/28/2023) 05/28/2023 No Physician Data Unknown SURGERY documented in this encounter Advance Directives Latest [...] the patient have Health Care Power of Oxyacetylene Torch Operator? No Code Status History Code Status Date [...] the patient have Health Care Power of Oxyacetylene Torch Operator? No Full Code 11/24/2009 6:53 AM 11/27/2009 3:28 PM This order reflects the patients wishes and were consensually agreed upon. Question Answer Comments Discussion of Advance Directives occurred with: Patient Does the patient have a Living Will? No Does the patient have Health Care Power of Oxyacetylene Torch Operator? No Care Teams Spanish Lecturer Relationship Specialty Start Date End Date Tushar Mina III, MD [address] [place] [address] PCP - General 02/13/1996 documented as of this encounter
--- OUTSIDE RECORDS SUMMARY | 2023-10-31 02:09 | External Medical Summary | Summary of Care ---
Author Name Unknown Organization [facility] Address [address] [place] [address] Phone [phone] Care Team Providers Care Posting Specialist Name Role Phone Leopoldo BARNHART MD, Tushar Manzo Primary Care Provider [phone] Reason for Visit * Reason Comments Other Black spots on tongu e this am with soreness-no injury Rash Red spotty rash to u pper arms as well now Encounter Details Date Type Department Care Team (Late st Contact Info) Description 10/29/2023 2:15 PM EDT Convenient Care Visit [address] [place] [address] Leslie Aaron PA-C [address] [address] [id number] Tongue lesion* Allergies Active Allergy Reactions Criticality Noted Date Comments Bee Stings 04/04/2010 Swelling, sick to stomach Yellow Jacket Venom 02/28/2012 Swelling, sick to stomach documented as of this encounter (statuses as of 10/29/2023) Medications Medication Sig Dispensed Refills Start Date End Date Status ASPIRIN 81 MG PO TABS patient takes one tablet by mouth daily at bedtime 0 Active tiZANidine HCl 4 MG Oral Tablet (Zanaflex) Take 1 Tablet by mouth every 6 hours as needed for Muscle spasms. 30 Tablet 0 08/16/2022 Active Doxepin HCl 10 MG Oral Capsule [...] breakfast or other meds)mon, tuues,thurs,fri sattake 1and 1/ tab wed and sun. 35 Tablet 11 08/28/2023 Active Docusate Sodium 60 MG/15ML Oral Syrup (Colace) Take 25 mL by mouth in the morning and 25 mL before bedtime. 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 Kidney disease, chronic, sta ge III (GFR 30-59 ml/min) 09/13/2014 05/12/2020 Overview: Per CKD protocol #1 Other osteoporosis without c urrent pathological fracture 07/13/2009 07/14/2021 Overview: ICD-10 update of inactive term Menopause 05/18/2019 INFORMATION 01/02/2023 documented as of this encounter (statuses as of 10/29/2023) Immunizations Name Administration Dates Next Due COVID-19 mRNA, LNP-s, No Pre serve, 2-Dose Series (Zostel) 06/20/2021,09/22/2020,09/01/2020 COVID-19, MRNA-LNP, 23-24, P F, 30 MCG/0.3 mL, 12 YRS AND ABOVE, IM (qLearning-Comirnat) 04/08/2023 Covid-19, Mrna, Lnp-s, Pf, B ivalent, [...] Date Smoking Tobacco: Never Smokeless Tobacco: Never Tobacco Cessation:Counseling Given: Not Answered Alcohol Use Standard Drinks/Week Comments No 0 [...] on file documented as of this encounter Last Filed Vital Signs Vital Sign Reading Time Taken Comments Blood Pressure 114/68 10/29/2023 1:16 PM EDT Pulse 87 10/29/2023 1:16 PM EDT Temperature 37.2 C (98.9 F) 10/29/2023 1:16 PM ED T Respiratory Rate 16 10/29/2023 1:16 PM EDT Oxygen Saturation 98% 10/29/2023 1:16 PM EDT Inhaled Oxygen Concentration - - Weight 69.4 kg (153 lb) 10/29/2023 1:16 PM EDT Height 170.2 cm (5' 7") 10/29/2023 1:16 PM EDT Body Mass Index 23.96 10/29/2023 1:16 PM EDT documented in this encounter Functional Status Functional Status Response [...] as of this encounter Progress Notes * Leslie Aaron PA-C - 10/29/2023 1:20 PM EDT Cecily De La Cruz is a 73 year old female. who presents with sores on tongue x 24 hours. Patient was accompanied by Self. HPI Signs and Symptoms include: patient opens mouth revealing large black spots on tongue that appear to be possible bleeding. Also with purpura that have just appeared on arms. On further questioning, patient notes that she has felt unwell the last few weeks. 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 Notes that she is CKD stage 3. Denies any liver disease. Spoke to patient about findings concerning for bleeding possibly secondary to organ injury. Believethat patient requires higher level of care and should go to ED. Spoke to [facility] and agreeable for ED evaluation. ED triage nurse contacted and patient presented for continuity of care. Care instructions given. Additional instructions per patient instructions attached. Patient agrees with the plan and demonstrates verbal understanding. Patient stable at the time of discharge. Will no charge for visit due to transfer to ED. Patient goals for plan of care were discussed. Leslie Aaron PA-C [address] [place] [address] documented in this encounter Nursing Notes * Alison Barrera LPN - 10/29/2023 1:19 PM EDT Cecily De La Cruz is a 73 year old female who presents to walk-in clinic today complaining of Chief Complaint Patient presents with Other Black spots on tongue this am with soreness-no injury Rash Red spotty rash to upper arms as well now Tried: nothing Pt accompanied by: self documented in this encounter Plan of Treatment Upcoming Encounters Date Type Department Care Team (Late st Contact Info) Description 11/08/2023 8:00 AM EDT Laboratory Laboratory [facility] [address] [facility] [place] [id number] [address] PENDING SALE TO [facility] [place] [address] 01/09/2024 9:00 AM EDT Office Visit Family Practice [facility] [address] [facility] [place] [address] Leopoldo IIITushar MD [address] [facility] [place] [address] Health Maintenance Due Date Last Done Comments Cologuard 1994 Sigmoidoscopy 1994 Fecal Occult Blood Test 06/29/2007 06/29/20 06, 06/08/2000, 05/22/1999 Depression Screening 03/01/2023 03/01/2022, 07/07/2015 (Discussed) Mammogram 12/13/2023 12/12/2022, 11/29, 12/01/2021, Additional history exists GFR 02/25/2024 08/27/2023, 07/0 10/2022, 02/26/2022, Additional history exists Albumin/Creatinine Ratio 08/27/2024 024, 03/19/2023, 04/12/2022, Additional history exists CKD HGB USE SMARTSET 61253 08/27/202408/27, 01/02/2023, 01/02/2023, Additional history exists CKD PHOS USE SMARTSET 67965 08/27/202408/02, 03/19/2023, 02/26/2022, Additional history exists TSH 08/27/2024 08/27/2023, 10/0 08/2022, 03/29/2023, Additional history exists DXA Scan [...] this encounter Medical Devices Implanted Type Area Job Superintendent Device Identifier Shelf Expiration Date Model / Serial / Lot Screw 6x45 Poly Si [id number] - [id number] Implanted:Qty : 4 on 10/22/2012 at [place] [facility] [place]: Spine Lumbar JNJ : [employer] [id number] / / Dung 5.5x45 Ti Prbnt [id number] - [id number] Implanted:Qty : 2 on 10/22/2012 at [place] [facility] [place]/A: Spine Lumbar JNJ : [employer] [id number] / / Screw Set Sng Inner [id number] - [id number] Implanted:Qty : 4 on 10/22/2012 at [place] [facility] [place] N/A: Spine Lumbar JNJ : [employer] [id number] / / Graft Infuse Bone Sm [id number] - [id number] Implanted:Qty : 1 on 10/22/2012 at [place] [facility] [place] N/A: Spine Lumbar [employer] : NEUROLOGIC PAIN 12/28/2014 [id number] / / [id number] Expedium Ti Sfx 5.5 Lat A6 - [id number] Implanted:Qty : 1 on 10/22/2012 at [place] [facility] [place] N/A: Spine Lumbar JNJ : [employer] [id number] / / Cage 13 X 28 Implanted:Qty : 1 on 10/22/2012 at [place] [facility] [place] N/A: Spine Lumbar [id number] / / Screw Set Sng Inner [id number] - [id number] Implanted:Qty : 4 on 06/06/2018 by Elijah Thorne MD at [place] [facility] [place] N/A: Spine Lumbar JNJ : [employer] [id number] / / Description:Part of implant set Pre Lordosed Dung W Line 55mm - [id number] Implanted:Qty : 2 on 06/06/2018 by Elijah Thorne MD at [place] [facility] [place] N/A: Spine Lumbar JNJ : [employer] [id number] / / Description:Part of implant set Expedium Ti Sfx 5.5 Lat A6 - [id number] Implanted:Qty : 1 on 06/06/2018 by Elijah Thorne MD at [place] [facility] [place] N/A: Spine Lumbar JNJ : [employer] [id number] / / Description:Part of implant set Graft Infuse Bone Sm [id number] - [id number] Implanted:12/2017 by Elijah Thorne MD at [place] [facility] [place] (Quantity not on file) [employer] : NEURO CARE 08/29/2019 [id number] / / [id number] 10x22 Caliber Interbody Implanted:Qty : 2 on 06/06/2018 by Elijah Thorne MD at [place] [facility] [place] N/A: Spine Lumbar [employer] [id number] / / Description:Part of implant set Screw 7x40 Poly Si [id number] - [id number] Implanted:Qty : 2 on 06/06/2018 by Elijah Thorne MD at [place] [facility] [place] N/A: Spine Lumbar JNJ : [employer] [id number] / / Description:Part of implant set Stimulan Rapid Cure 10cc - [id number] Implanted:Qty : 1 on 05/27/2019 by Elijah Thorne MD at [place] [facility] [place] N/A: Spine Lumbar [employer] [id number] 02/28/2022 [id number] / / [id number] Screw 7x50 Poly Si [id number] - [id number] Implanted:Qty : 2 on 05/27/2019 by Elijah Thorne MD at [place] [facility] [place] N/A: Spine Lumbar JNJ : [employer] [id number] / / Screw Set Sng Inner [id number] - [id number] Implanted:Qty : 2 on 05/27/2019 by Elijah Thorne MD at [place] [facility] [place] N/A: Spine Lumbar JNJ : [employer] [id number] / / Depuy 5.5 Dung With Connector Implanted:Qty : 2 on 05/27/2019 by Elijah Thorne MD at [place] [facility] [place] N/A: Spine Lumbar [id number] / / Expedium Ti Sfx 5.5 Lat A6 - [id number] Implanted:Qty : 1 on 05/27/2019 by Elijah Thorne MD at [place] [facility] [place] N/A: Spine Lumbar JNJ : [employer] [id number] / / Globus 10x26 8-12mm Cage Implanted:Qty : 1 on 05/27/2019 by Elijah Thorne MD at [place] [facility] [place] N/A: Spine Lumbar [id number] / / documented as of this encounter Visit Diagnoses Diagnosis Tongue lesion- Primary Other specified conditions of the tongue documented in this encounter Advance Directives Latest [...] the patient have Health Care Power of Crane Mechanic? No Code Status History Code Status [...] the patient have Health Care Power of Crane Mechanic? No Full Code 11/24/2009 6:53 AM 11/27/2009 3:28 PM This order reflects the patients wishes and were consensually agreed upon. Question Answer Comments Discussion of Advance Directives occurred with: Patient Does the patient have a Living Will? No Does the patient have Health Care Power of Crane Mechanic? No Care Teams Posting Specialist Relationship Specialty Start Date End Date Tushar Mina III, MD [address] [facility] [place] [address] PCP - General 02/13/1996 documented as of this encounter
[2023-10-31 07:10] LABS: Albumin Globulin Ratio 0.6 (0.9-2); Albumin Level 3.1 gm/dl (3.4-5.0); BUN Creatinine Ratio 16.8 (10-20); Bilirubin,Total 0.7 mg/dl (0.2-1.0); Calcium 8.3 mg/dl (8.6-10.3); Creatinine Clr Calc Pharmacy 49.7 ml/min; Est GFR (African American) 59.2 ml/min; Est GFR (Non-African American) 51.1 ml/min; Globulin 5.6 gm/dl (2.5-4.0); Magnesium 2.1 mg/dl (1.7-2.4); Phosphorus 2.3 mg/dl (2.5-4.9); Total Protein 8.7 gm/dl (6.0-8.3)
[2023-10-31 08:02] LABS: Hematocrit (blood only) 26.7 % (37.0-47.0); Hemoglobin 8.4 g/dl (12.0-16.0); Mean Corpuscular Hgb Conc 31.5 g/dL (32.0-36.0); Platelet Count 17 K/uL (130-400); RDW Standard Deviation 51.8 fL (36.4-46.3); White Blood Count 7.17 K/ul (4.8-10.8)
[2023-10-31 08:03] LABS: Basophils # (auto) 0.01 K/uL (0.00-0.20); Basophils % (auto) 0.1 %; Eosinophils # (auto) 0.01 K/uL (0.00-0.50); Eosinophils % (auto) 0.1 %; Immature Granulocytes # (auto) 0.35 K/uL (0.01-0.20); Immature Granulocytes % (auto) 4.9 %; Lymphocytes # (auto) 0.74 K/uL (1.20-3.40); Lymphocytes % (auto) 10.3 %; Monocytes # (auto) 0.29 K/uL (0.11-0.59); Neutrophils # (auto) 5.77 K/uL (1.40-6.50); Neutrophils % (auto) 80.6 %
[2023-10-31] MEDS: POLYETHYLENE (MIRALAX) 17 GM PACK PO PRN (08:53)
--- NOTE | 2023-10-31 12:17 | Hospitalist Progress Note ---
Date of Service October 31, 2023 Assessment & Plan (1) Acute ITP: (2) CKD (chronic kidney disease), stage III: (3) Ulcerative colitis: (4) Hx of migraines: (5) Insomnia: Plan This is a 73yo F with a PMH of migraine headaches, CKD III, ulcerative colitis, insomnia who presented with a new rash on arms and legs as well as on tongue she first noticed earlier today and was found to have severe thrombocytopenia with platelet count of zero concerning for ITP. Acute ITP Endorsing early satiety, ambulatory instability and intermittent hematuria for past few months, developed lesion on hard palate 2 weeks ago and diffuse petechial/purpuric rash on BUE and BLE as well as tongue and intraorally Platelet count of zero on admission Pancytopenic CBC with WBC 4.4, hgb 10.8, plt 0 No acute bleeding, CT head without evidence of hemorrhage, mass effect, or evidence of acute territorial ischemia by CT criteria. ED provider discussed with Hematology Dr. Aguayo on admission, who recommended methylprednisolone 1gm, IVIG 1g/kg to continue daily, 1u platelets ordered in the ED Coags, peripheral smear, anemia labs pending HIV, hepatitis panel, EBV and CMV testing all pending Discontinued aspirin Reviewed home meds - denies new medications, no obvious cause for drug induced ITP Fall precautions, monitor for acute bleeding Was on IVIG, methylprednisolone as above Heme/onc consulted, appreciate recs -switch to po Dexamethasone 40mg daily x 4 days -if platelets stay above 15,000/mcL with no bleeding she can be discharged safely for an outpatient evaluation Platelet count currently improving. Early satiety Intermittent hematuria Endorsing these complaints for >2 months No N/V, CMP unremarkable aside from tbili 1.1, notably pancytopenic as above UA unremarkable Consider CT abd/pelvis for further evaluation H/o Migraine headaches Denies currently Continue Topamax, doxepin, propranolol with hold parameters, PRN Rizatriptan History of Ulcerative colitis Per chart review Not on any meds, endorses intermittent BRBPR with bowel movements but usually when constipation, attributes to hemorrhoids Insomnia Trazodone HS DVT Ppx: contraindicated given severe thrombocytopenia as above Code status: DNR/DNI Dispo: PT/OT once medically stable Admission and Anticipated Discharge Date Admission Date: October 29, 2023 Subjective Seen with family at bedside. Notes improvement in tongue symptoms. Otherwise no acute concerns. Review of Systems Review of Systems: All systems reviewed & are unremarkable except as noted in Subjective Physical Exam Physical Exam: General: Alert, oriented. No acute distress Skin: noted petechial rash on lower extremities bilaterally, tongue Psych: Appropriate mood and affect Neuro: No gross deficits HEENT: NC/AT Chest: Nontender to palpation. CV: RRR Resp: Breath sounds clear bilaterally, no increased effort of breathing. Abdomen: Soft, nontender, nondistended Extremities: No edema in lower extremities bilaterally. noted petechial rash on lower extremities bilaterally Results & Data Results & Data Vital Signs (Past 12 Hours) Vital Signs Temp Pulse Resp BP Pulse Ox O2 Del Method 10/31/23 07:28 36.8 C 70 16 114/66 97 Room Air 10/31/23 03:29 36.7 C 74 18 120/83 92 Room Air 10/31/23 01:14 73 124/73
[2023-10-31 13:53] LABS: CMV IgG Antibody >10.00 U/mL; CMV IgM Antibody <30.00 AU/mL; HBSAG NON-REACTIVE (NON-REACTIVE); Haptoglobin 47 mg/dL (43-212); Hepatitis A Antibody IgM NON-REACTIVE (NON-REACTIVE); Hepatitis B Core Antibody IgM NON-REACTIVE (NON-REACTIVE)
[2023-10-31 15:57] LABS: EBV Nuclear Ag Antibody >600.00 U/mL; EBV Virus Capsid Ag IgG Ab >750.00 U/mL
[2023-10-31] MEDS ORDERED: SODIUM PHOSPHATE 3 MMOL/1 ML INFUSION IV STA (19:44)
[2023-10-31] MEDS: SODIUM PHOSPHATE 15 MMOL in SODIUM CHLORIDE 0.9% 250 ML IV ONE (21:05)
[2023-11-01 07:12] LABS: Albumin Globulin Ratio 0.4 (0.9-2); Albumin Level 2.9 gm/dl (3.4-5.0); BUN Creatinine Ratio 17.1 (10-20); Bilirubin,Total 0.6 mg/dl (0.2-1.0); Calcium 7.9 mg/dl (8.6-10.3); Creatinine Clr Calc Pharmacy 49.6 ml/min; Est GFR (African American) 56.7 ml/min; Est GFR (Non-African American) 48.9 ml/min; Globulin 6.5 gm/dl (2.5-4.0); Hematocrit (blood only) 26.3 % (37.0-47.0); Hemoglobin 8.3 g/dl (12.0-16.0); Mean Corpuscular Hemoglobin 28.3 pg (25.0-34.0); Mean Corpuscular Hgb Conc 31.6 g/dL (32.0-36.0); Mean Corpuscular Volume 89.8 fL (80.0-100.0); Nucleated RBC # (auto) 0.02 K/uL (0.00-0.12); Nucleated RBC % (auto) 0.4 %; Phosphorus 2.5 mg/dl (2.5-4.9); Platelet Count 41 K/uL (130-400); Potassium 3.6 mmol/L (3.5-5.1); RDW Coefficient of Variation 16.2 % (11.5-14.5); RDW Standard Deviation 52.1 fL (36.4-46.3); Red Blood Count 2.93 M/uL (4.20-5.40); Total Protein 9.4 gm/dl (6.0-8.3); White Blood Count 5.61 K/ul (4.8-10.8)
[2023-11-01 07:24] LABS: Basophils # (auto) 0.01 K/uL (0.00-0.20); Basophils % (auto) 0.2 %; Immature Granulocytes # (auto) 0.43 K/uL (0.01-0.20); Immature Granulocytes % (auto) 7.7 %; Lymphocytes # (auto) 0.82 K/uL (1.20-3.40); Lymphocytes % (auto) 14.6 %; Monocytes # (auto) 0.22 K/uL (0.11-0.59); Monocytes % (auto) 3.9 %; Neutrophils # (auto) 4.13 K/uL (1.40-6.50); Neutrophils % (auto) 73.6 %
[2023-11-01 07:43] LABS: Folate (Folic Acid),Ser orPlas 13.83 ng/ml (>5.38)
[2023-11-01] MEDS: dexAMETHasone 4 MG TAB PO SCH (08:35)
[2023-11-01 10:32] LABS: Ferritin 146.3 ng/ml (8-388)
--- NOTE | 2023-11-01 13:25 | Hospitalist Progress Note ---
Date of Service November 01, 2023 Assessment & Plan (1) Acute ITP: (2) CKD (chronic kidney disease), stage III: (3) Ulcerative colitis: (4) Hx of migraines: (5) Insomnia: Plan This is a 73yo F with a PMH of migraine headaches, CKD III, ulcerative colitis, insomnia who presented with a new rash on arms and legs as well as on tongue she first noticed earlier today and was found to have severe thrombocytopenia with platelet count of zero concerning for ITP. Acute ITP Endorsing early satiety, ambulatory instability and intermittent hematuria for past few months, developed lesion on hard palate 2 weeks ago and diffuse petechial/purpuric rash on BUE and BLE as well as tongue and intraorally Platelet count of zero on admission Pancytopenic CBC with WBC 4.4, hgb 10.8, plt 0 No acute bleeding, CT head without evidence of hemorrhage, mass effect, or evidence of acute territorial ischemia by CT criteria. ED provider discussed with Hematology Dr. Aguayo on admission, who recommended methylprednisolone 1gm, IVIG 1g/kg to continue daily, 1u platelets ordered in the ED Coags, peripheral smear, anemia labs pending HIV, hepatitis panel, EBV and CMV testing all pending Discontinued aspirin Reviewed home meds - denies new medications, no obvious cause for drug induced ITP Fall precautions, monitor for acute bleeding Was on IVIG, methylprednisolone as above Heme/onc consulted, appreciate recs -switch to po Dexamethasone 40mg daily x 4 days -if platelets stay above 15,000/mcL with no bleeding she can be discharged safely for an outpatient evaluation Platelet count currently improving. 10/31- discussion of discharge, pt wants to further monitor decreasing hgb in case need for transfusion (see below) Anemia Hgb of 10.8 on admission Has since downtrended during hospitalization to 8.3 Iron, folate and b12 levels currently wnl Continue to monitor with AM labs. Transfuse for hgb <7 Early satiety Intermittent hematuria Endorsing these complaints for >2 months No N/V, CMP unremarkable aside from tbili 1.1, notably pancytopenic as above UA unremarkable Consider CT abd/pelvis for further evaluation H/o Migraine headaches Denies currently Continue Topamax, doxepin, propranolol with hold parameters, PRN Rizatriptan History of Ulcerative colitis Per chart review Not on any meds, endorses intermittent BRBPR with bowel movements but usually when constipation, attributes to hemorrhoids Insomnia Trazodone HS DVT Ppx: contraindicated given severe thrombocytopenia as above Code status: DNR/DNI Dispo: PT/OT once medically stable Admission and Anticipated Discharge Date Admission Date: October 29, 2023 Subjective pt seen with and son at bedside. Discussion of labs today, hematology recs and going home today. Jackson concern for downtrending Hgb from 10 on admission to 8 today. Pt and would like further monitoring in case need for blood transfusion. Pt denies any further episodes of bleeding. Does note she is tired. Review of Systems Review of Systems: All systems reviewed & are unremarkable except as noted in Subjective Physical Exam Physical Exam: General: Alert, oriented. No acute distress Skin: noted petechial rash on lower extremities bilaterally, tongue Psych: Appropriate mood and affect Neuro: No gross deficits HEENT: NC/AT Chest: Nontender to palpation. CV: RRR Resp: Breath sounds clear bilaterally, no increased effort of breathing. Abdomen: Soft, nontender, nondistended Extremities: No edema in lower extremities bilaterally. noted petechial rash on lower extremities bilaterally Results & Data Results & Data Vital Signs (Past 12 Hours) Vital Signs Temp Pulse Pulse Resp BP Pulse Ox O2 Del Method 11/01/23 11:02 36.3 C L 66 17 139/78 97 Room Air 11/01/23 08:00 Room Air 11/01/23 07:03 36.4 C L 70 18 129/73 98 Room Air 11/01/23 07:00 74 11/01/23 02:24 36.6 C 70 18 104/65 97 Room Air
[2023-11-02 07:39] LABS: Hemoglobin 8.9 g/dl (12.0-16.0); Mean Corpuscular Hemoglobin 28.3 pg (25.0-34.0); Mean Corpuscular Hgb Conc 31.8 g/dL (32.0-36.0); Mean Corpuscular Volume 89.2 fL (80.0-100.0); Mean Platelet Volume 11.5 fL (9.4-12.4); Nucleated RBC # (auto) 0.05 K/uL (0.00-0.12); Nucleated RBC % (auto) 0.8 %; Platelet Count 70 K/uL (130-400); RDW Coefficient of Variation 15.9 % (11.5-14.5); RDW Standard Deviation 50.5 fL (36.4-46.3); Red Blood Count 3.14 M/uL (4.20-5.40); White Blood Count 6.54 K/ul (4.8-10.8)
[2023-11-02 07:49] LABS: Albumin Globulin Ratio 0.5 (0.9-2); BUN Creatinine Ratio 22.3 (10-20); Bilirubin,Total 0.8 mg/dl (0.2-1.0); Creatinine Clr Calc Pharmacy 58.3 ml/min; Est GFR (African American) 69.3 ml/min; Est GFR (Non-African American) 59.8 ml/min; Globulin 5.8 gm/dl (2.5-4.0); Phosphorus 2.3 mg/dl (2.5-4.9); Potassium 3.7 mmol/L (3.5-5.1); Total Protein 8.8 gm/dl (6.0-8.3)
[2023-11-02 08:19] LABS: ALC (manual) 1.83 K/uL (1.2-3.4); ANC (manual) 3.86 K/uL (1.4-6.5); Lymphocytes # (manual) 1.83 K/uL (1.2-3.4); Lymphocytes % (manual) 28 %; Metamyelocytes # (manual) 0.33 K/uL (0-0); Metamyelocytes % (manual) 5 %; Monocytes # (manual) 0.26 K/uL (0.11-0.59); Monocytes % (manual) 4 %; Myelocytes # (manual) 0.26 K/uL (0-0); Myelocytes % (manual) 4 %; Neutrophils # (manual) 3.86 K/uL (1.40-6.50); Neutrophils % (manual) 59 %; Polychromasia 1+; Rouleaux 1+
[2023-11-02] MEDS ORDERED: POTASSIUM PHOS 3 MMOL/1 ML INFUSION IV STA (08:45)
[2023-11-02] MEDS: POTASSIUM PHOSPHATE 21 MMOL in SODIUM CHLORIDE 0.9% 500 ML IV ONE (09:10)
--- NOTE | 2023-11-02 13:07 | Discharge Summary ---
Discharge Summary Date of Service November 02, 2023 Notes For Next Care Provider Please ensure close followup with Hematology Please closely monitor hemoglobin to ensure no need for transfusion, hgb 8.9 on discharge Consider ordering CMV PCR testing for followup Medication Changes From Visit Dexamethasone 40mg daily x 2 more days per Hematology Admission HPI Per Admitting Provider This is a 73yo F with a PMH of migraine headaches, CKD III, ulcerative colitis, insomnia and other medical problems listed below who presents with a new rash on arms and legs as well as on tongue she first noticed earlier today. Noted a black ulcer on top of mouth 2 weeks ago but rash on limps, tongue developed today and patient came to ED for further evaluation. Endorses feeling poorly over the past 3 months - first noted some "stumbling" with walking but denies fall, does not use assistive device to walk but "probably should". Also endorses feeling sick after eating over the past 2 months. She has been cooking and then takes a bite or two and feels like she cannot eat anymore and needs to lay down. Denies nausea, vomiting or abdominal pain. Endorses occasional gum bleeding when brushes teeth and also occasionally notes bright red urine in toilet bowl but "hasn't thought much of it". Does not remember the last time she went to PCP. No recent medication changes, URI symptoms or significant tylenol/advil use. Admission Exam Per Admitting Provider GENERAL APPEARANCE: AxOx4, generally well-appearing female , no acute distress. HEENT: multiple nodular lesions, purple/black in color, on tongue and lip; flat small ulcerated black lesion on roof of mouth NECK: Supple without lymphadenopathy. No stiffness or restricted ROM. HEART: Normal rate and regular rhythm, normal S1/S1, no m/r/g LUNGS: CTAB, moving air well. No crackles or wheezes are heard. ABDOMEN: Soft, nontender, nondistended with good bowel sounds heard. BACK: No CVAT, no obvious deformity. EXTREMITIES: Without cyanosis, clubbing or edema. NEUROLOGICAL: Grossly nonfocal. Alert and oriented, moving all 4 extremities. CN not formally tested but appear grossly intact. Skin: diffuse petechiae on BLE, scattered peticiae on face and abdomen, ecchymosis on bilateral upper extremities Principal Dx & Hospital Course #1 = Principal Diagnosis (1) Acute ITP: (2) CKD (chronic kidney disease), stage III: (3) Ulcerative colitis: (4) Hx of migraines: (5) Insomnia: Plan This is a 73yo F with a PMHx significant for migraine headaches, CKD III, ulcerative colitis, insomnia who presented with a new rash on arms and legs as well as on tongue she first noticed earlier today and was found to have severe thrombocytopenia with platelet count of zero concerning for ITP. Acute ITP Endorsed early satiety, ambulatory instability and intermittent hematuria for past few months, developed lesion on hard palate 2 weeks [employer] and diffuse petechial/purpuric rash on BUE and BLE as well as tongue and intraorally Platelet count of zero on admission Pancytopenic CBC with WBC 4.4, hgb 10.8, plt 0 No acute bleeding, CT head without evidence of hemorrhage, mass effect, or evidence of acute territorial ischemia by CT criteria. ED provider discussed with Hematology Dr. Aguayo on admission, who recommended methylprednisolone 1gm, IVIG 1g/kg to continue daily x 3 days, 1u platelets ordered in the ED Peripheral smear noted no overt changes of a "myelodysplastic syndrome, neoplastic process or hemolytic anemia" HIV was nonreactive, hepatitis panel negative EBV testing was IgG positive with by lab/pathology interpretation as a past infection. In particular it noted "Suggestive of a past Katerina-Duarte virus infection. In infants, a similar pattern may occur as a result of passive mate rnal transfer of antibody... 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 It does not dif ferentiate between an active or past infection." Case discussed with Infectious Disease Dr. Burns. He advised that CMV IgG indicates a past infection, CMV PCR can be ordered for further followup, if there is true concern. PCP followup for ordering as needed. Discontinued aspirin Reviewed home meds - denies new medications, no obvious cause for drug induced ITP Fall precautions, monitor for acute bleeding Per hematology/Oncology recommendations was treated with IVIG and methylprednisolone for 3 days before transitioning to oral dexamethasone 40mg daily for a total of 4 days. Pt was discharged with 2 days of dexamethasone 40mg to complete the course. Hematology recommended discharge if platelets stayed above 15,000/mcL with no bleeding. Platelet count currently improving was 70K on discharge. Close Hematology and PCP followup after discharge Anemia Hgb of 10.8 on admission Has since downtrended during hospitalization but stabilized around 8 Iron, folate and b12 levels currently wnl Close PCP followup for continued Hgb monitoring. Early satiety Intermittent hematuria Endorsing these complaints for >2 months No N/V, CMP unremarkable aside from tbili 1.1, notably pancytopenic as above UA unremarkable Consider CT abd/pelvis for further evaluation PCP followup after discharge H/o Migraine headaches Denies currently Continue Topamax, doxepin, propranolol with hold parameters, PRN Rizatriptan History of Ulcerative colitis Per chart review Not on any meds, endorses intermittent BRBPR with bowel movements but usually when constipation, attributes to hemorrhoids PCP followup Insomnia Trazodone HS Discharge Exam General: Alert, oriented. No acute distress Skin: noted petechial rash on lower extremities bilaterally, tongue Psych: Appropriate mood and affect Neuro: No gross deficits HEENT: NC/AT Chest: Nontender to palpation. CV: RRR Resp: Breath sounds clear bilaterally, no increased effort of breathing. Abdomen: Soft, nontender, nondistended Extremities: No edema in lower extremities bilaterally. noted petechial rash on lower extremities bilaterally Updated Medication List Medication Instructions Recorded Confirmed Type doxepin 10 mg capsule 20 mg PO HS 06/06/20 10/29/23 History rizatriptan 10 mg tablet 10 mg PO UD 06/06/20 10/29/23 History topiramate 25 mg tablet 50 mg PO BID 06/06/20 10/29/23 History trazodone 150 mg tablet 150 mg PO HS 06/06/20 10/29/23 History docusate sodium 100 mg tablet 100 mg PO HS 10/29/23 10/29/23 History fluticasone propionate 50 1 spray intranasal DAILY 10/29/23 10/29/23 History mcg/actuation nasal spray,suspension levothyroxine 50 mcg tablet 50 mcg PO DAILY 10/29/23 10/29/23 History propranolol 160 mg capsule,24 160 mg PO HS 10/29/23 10/29/23 History hr,extended release sertraline 100 mg tablet 100 mg PO HS 10/29/23 10/29/23 History dexamethasone 4 mg tablet 40 mg (10 x 4 mg) PO DAILY #20 tabs 11/02/23 Rx Hospital Stay Data Consultations 10/29/23 15:55 ED Decision to Admit Stat 10/29/23 16:35 Consult Hematology Routine Diagnostic Imagining Performed 10/29/23 15:42 CT head/brain wo con Stat Head CT 10/29/23 15:42 CT SCAN OF THE BRAIN WITHOUT IV CONTRAST CLINICAL HISTORY: Bruising. Rash. COMPARISON STUDY: CT of the brain dated 07/05/2006. TECHNIQUE: Unenhanced axial CT scan of the brain is performed from the vertex to the skull base. A dose lowering technique was utilized adhering to the principles of ALARA. CT DOSE: 625.8 mGy.cm FINDINGS: Brain parenchyma: There is age-related involutional change noting mild subcortical and periventricular microangiopathic disease. There is no hemorrhage, mass effect, or evidence of acute territorial ischemia by CT criteria. Lopez-white matter differentiation is preserved. No extra-axial fluid collection is seen. Ventricles, sulci, cisterns: Prominent secondary to involutional change. Intracranial vasculature: There is atherosclerotic calcification of the cavernous carotid arteries. Calvarium: Unremarkable. Sinuses and mastoids: There is moderate mucosal thickening in the left maxillary antrum. The remaining visualized paranasal sinuses are clear. There is a right mastoid effusion. The left mastoid air cells are well pneumatized. Orbits: The bony orbits are grossly intact. There are bilateral ocular lens implants. IMPRESSION: There is no hemorrhage, mass effect, or evidence of acute territorial ischemia by CT criteria. ACT 112: Negative or not required by law. Electronically signed by: Mitch Tarango M.D. 10/29/2023 4:18 PM Pending Results Patient Have Any Pending Studies at Discharge: No Discharge Instructions Given to Patient (Per Discharging Provider) Ms. De La Cruz You were seen and treated for Immune Thrombocytopenia with IVIG (immune globulin) and steroids. You were seen by the [employer] and they are recommen ding discharge home as your platelets are greater than 15, 000 and you have not had episodes of bleeding. They recommend discharge home with Dexamethasone 40mg daily for 2 more days after discharge. We discontinued your home aspirin as it affects your platelets. Please keep close followup with Hematology and your primary care provider after discharge for continued evaluation and monitoring. Please be cautious at home, avoiding trauma or falls as much as possible. Please continue to monitor for signs of bleeding in the form of nosebleeds, blood in your urine, blood in your stool (black stool or stool with red or maroon changes), coughing or vomitting blood, etc. Please do not hesitate to come back to the emergency room if your symptoms worsen or return. It was a pleasure taking care of you while you were here. Total Time Total Time Spent Total Time Spent (In Minutes): > 30 minutes
== END 2023-11-02 15:22 | disposition home or self-care (01) | DRG 813 ==
LOC: ED 14:07 → 2S 16:32 → SUATTDRO 16:32 → 2S 19:43

== ENCOUNTER 2023-11-08 09:58 | Inpatient (IN) ==
--- NOTE | 2023-11-08 11:08 | Emergency Department Note ---
Impression & Plan Acute ITP ED Provider Note CHIEF COMPLAINT: Blood lesions on tongue HISTORY OF PRESENTING ILLNESS: This 73-year-old female patient presents to the emergency department with her for evaluation of lesions in her mouth as well as a rash on her leg and arms. The patient has a history of ITP with anemia and thrombocytopenia. She was just discharged from the hospital on 11/02/2023. The patient states that the black lesions on her tongue and lesions on her body resolved about 2 days after discharge. However, she noticed the black lesions on her tongue and the rash on her body again this morning. She finished the oral steroids on 11/04/23 per patient. Denies bleeding of her gums, nosebleeds, hematochezia, melena, hematuria, hemoptysis, hematemesis, or other signs of active bleeding. Denies abdominal pain, nausea, or vomiting. Denies chest pain or SOB. The patient denies any head injury, trauma, or any falls. She states that she did not bump her head or fall even a little bit. She denies any headache, dizziness, lightheadedness, vision changes, or other head injury symptoms. She denies any symptoms other than the lesions on her tongue and body. She has a follow up with [facility] hematology scheduled for next week. She has a CT scan of her abdomen and pelvis scheduled for next week as well to evaluate her liver and to evaluate for any bleeding. Per the discharge summary, the patient noted a black ulcer on the top of her mouth 2 weeks prior to admission as well as a rash on her body. The patient has not been eating well over the past 3 months and has had some trouble with stumbling. The patient noted some bleeding from her gums as well as some hematuria prior to admission. The patient was admitted with severe thrombocytopenia with a platelet count of 0 and was diagnosed with ITP. She also had a pancytopenia with a white blood cell count of 4.4 and hemoglobin of 10.8. The patient had no acute bleeding and CT scan of the head was negative for bleeding or acute intracranial abnormalities. The patient was given methylprednisolone 1 g and IVIG 1 g/kg for 3 days as well as 1 unit of platelets in the ER. Peripheral smear without acute abnormalities. HIV and hepatitis panel negative. Previous EBV infection, but no current infection. Previous CMV infection, but no current infection. The case was discussed with infectious disease. Her aspirin was discontinued. No other obvious medications concerning for drug-induced ITP. Per hematology/oncology recommendations were to be treated with IVIG and methylprednisolone for 3 days prior to transitioning to oral dexamethasone 40 mg daily for total 4 days. Platelet count was 70,000 on discharge. Hemoglobin had dropped to 8 during admission, but then stabilized. Iron, folate, and vitamin B12 levels were within normal limits. She was referred to hematology for outpatient follow-up after discharge. REVIEW OF SYSTEMS: See HPI for pertinent positives and pertinent negatives. ALLERGIES: NKDA, honey bees MEDICATIONS: See below PAST MEDICAL HISTORY: Migraines, chronic kidney disease stage III, ulcerative colitis, insomnia, ITP, history of breast cancer. Surgical history as below. PHYSICAL EXAM: VITALS: Vitals are noted on the nurse's note and reviewed by myself. GENERAL: Non toxic, no acute distress, non-diaphoretic. SKIN: The patient has multiple areas of ecchymosis as well as petechiae. The petechiae are mainly to the lower extremities, but also of the upper extremities and scattered on the body. No obvious purpura. No signs of bacterial infection. See mouth exam as well. Capillary refill <2 sec. EYES: PERRLA. EOMI. Conjunctivae without injection, sclerae without icterus. NOSE: Patent without discharge. No evidence for epistaxis, dried blood, or septal hematoma. MOUTH: Mucous membranes moist. Uvula midline. Airway patent. The patient has black lesions to her tongue and a few to the buccal membranes consistent with signs of bleeding/petechiae. A few pinpoint petechiae to the roof of the mouth. No bleeding of the gums. NECK: Supple without nuchal rigidity. HEART: Regular rate and rhythm without murmurs gallops or rubs. LUNGS: Clear to auscultation bilaterally without wheezes, rales or rhonchi. No retractions or accessory muscle use. ABDOMEN: Positive bowel sounds x 4. Normal tympanic percussion. Soft, nontender. No masses or organomegaly. Driscoll sign negative. No guarding or rebound tenderness. No focal RLQ or LLQ tenderness. MUSCULOSKELETAL: No gross musculoskeletal defects other than the skin lesions. Peripheral pulses 2+. NEURO: Patient was alert and oriented. No focal neurological deficits. DIFFERENTIAL DIAGNOSIS: Differential diagnosis includes ITP, TTP, thrombocytopenia, anemia, active bleeding, infection, or others. ED COURSE AND MEDICAL DECISION MAKING: MONITOR: Continuous monitoring manager: Order was placed for continuous monitoring manager. Patient was placed on the monitoring manager and continuous pulse ox. Patient was noted to be in normal sinus rhythm at an initial rate of 70 bpm per my interpretation. MEDICATIONS GIVEN: 500 mL normal saline solution bolus. 1 g methylprednisolone IV, 1 g/kg IVIG, 1 unit of platelets INTERPRETATION OF LABS: I interpreted the labs with full lab results as below in the lab section of this note. White blood cell count normal at 6.08. Hemoglobin low, but improved to 10.4. Platelet count is 1. Coags were normal. Sodium 130 and total bilirubin 1.5. CMP otherwise without significant abnormalities. Urinalysis is normal without evidence of blood or UTI. INTERPRETATION OF IMAGING: Imaging studies were interpreted by myself and read by radiology as per the imaging section of this note. CT scan of the chest with IV contrast showed no acute abnormalities. There are few linear densities within the lingula and lower lobes suggestive of scarring which are similar to the prior study. CT scan of the abdomen pelvis with IV contrast showed no acute process and no evidence of hemoperitoneum, retroperitoneal hematoma, or other evidence for bleeding. There is mild splenomegaly. No other acute abnormalities. EXTERNAL RECORDS REVIEWED: I reviewed the patient's past admission as summarized above. CONSULTATIONS: Dr. Aguayo of hematology. On-call hospitalist. MDM SUMMARY: I examined the patient. The patient presented to the emergency department with lesions on her tongue as well as a rash on her skin. I reviewed the patient's past medical records including her recent admission for ITP with a platelet count of 0. The patient's platelet count had increased to 70 prior to discharge after 1 unit of platelets, IV steroids, IVIG, and oral steroids. The patient states that her oral lesions and rash resolved 2 days after discharge. However, they returned again today. The patient has symptoms consistent with petechiae on exam. The patient denies any other symptoms of bleeding and denies any other symptoms or concerns. An IV lock was placed and labs were drawn. The patient's hemoglobin had improved to 10.4. However, her platelet count is back down to 1 again. Additional laboratory studies as above. CT scan of the chest, abdomen, and pelvis with IV contrast showed no evidence for bleeding or obvious evidence of source of the ITP or other acute abnormalities. There was mild splenomegaly. I spoke with Dr. Aguayo of hematology who recommended the patient receive 1 unit of platelets, 1 g of methylprednisolone IV, and 1 g/kg of IVIG. Transfusion consent form was discussed with the patient and consent form completed. The patient was medicated and transfused as recommended. The patient has had no recent head injury, falls, or trauma. She denies any head injury symptoms. Therefore, repeat CT scan of the head was not performed after discussion with hematology. The patient was independently evaluated by Dr. Cali, who agrees with my assessment and treatment plan. I spoke with the on-call hospitalist who agreed to admit the patient for further evaluation and treatment. Please refer to their dictation for further details. The patient's care was transferred in stable condition. DIAGNOSIS: ITP Past Med/Surg History Medical History Hypothyroidism Adjustment disorder with depressed mood History of breast cancer 20 years ago, s/p partial mastectomy Insomnia CKD (chronic kidney disease), stage III Ulcerative colitis Hx of migraines Surgical History Hx of tonsillectomy H/O laminectomy H/O spinal fusion H/O partial mastectomy H/O Spinal surgery Family History Other Diabetes Heart disease Rheumatoid arthritis Social History Smoking Status: Never smoker Hx Alcohol Use: Yes Hx Substance Use: No Preferred Language: Egyptian Communication Ability: Effective Roll Or Tape Edge Machine Operator Required: No Beliefs That Will Affect Care: None Current Living Situation: Spouse Current Living Situation Comment: From Home with Other Information That Helps Us Care for You: No Feels Safe at Home: Yes and No Is there a partner from a previous relationship who is making you feel unsafe now?: No Any Concerns about Your Family Situation: No Would You Like to Speak to Someone About Your Situation: No Safety Concerns: Feels Safe At This Time Assistive Devices: Cane, Glasses, Hearing Aid - Bilateral and Walker Allergies Allergies Allergy/AdvReac Type Severity Reaction Status Date / Time bee venom protein (honey bee) Allergy Mild Verified 06/06/20 16:18 No Known Drug Allergies Allergy Unknown . Verified 06/06/20 16:18 Home Meds Home Medications Medication Instructions Recorded Confirmed doxepin 10 mg capsule 20 mg PO HS 06/06/20 11/08/23 rizatriptan 10 mg tablet 10 mg PO UD 06/06/20 11/08/23 topiramate 25 mg tablet 50 mg PO BID 06/06/20 11/08/23 trazodone 150 mg tablet 150 mg PO HS 06/06/20 11/08/23 docusate sodium 100 mg tablet 100 mg PO HS 10/29/23 11/08/23 fluticasone propionate 50 1 spray intranasal DAILY 10/29/23 11/08/23 mcg/actuation nasal spray,suspension levothyroxine 50 mcg tablet 50 mcg PO DAILY 10/29/23 11/08/23 propranolol 160 mg capsule,24 160 mg PO HS 10/29/23 11/08/23 hr,extended release sertraline 100 mg tablet 100 mg PO HS 10/29/23 11/08/23 mupirocin 2 % topical ointment See Rx Instructions .Route .COMPLEX 11/08/23 11/08/23 Results & Data (ED) Vital Signs Vital Signs - 24 hr 11/08/23 09:59 11/08/23 09:59 11/08/23 14:00 Temperature 36.6 C Temperature Source Oral Pulse Rate 74 Pulse Rate [Finger] 65 Pulse Rhythm [Finger] Regular Respiratory Rate 18 18 18 Respiratory Effort / Characteristics Non-Labored Spontaneous Respiratory Depth Normal Respiratory Pattern Regular Blood Pressure 123/81 Blood Pressure [Right Arm] 120/72 Blood Pressure Mean 95 Blood Pressure Mean [Right Arm] 88 Blood Pressure Position [Right Arm] Lying Pulse Oximetry 100 100 Oxygen Delivery Method Room Air Sepsis Recent Fever Within 48 Hours No Sepsis New/Unexplained Change in Mental Status N/A Sepsis Action Taken by Nursing No Action Required 11/08/23 14:23 Temperature 36.5 C Temperature Source Oral Pulse Rate 68 Pulse Rate [Finger] Pulse Rhythm [Finger] Respiratory Rate 18 Respiratory Effort / Characteristics Respiratory Depth Respiratory Pattern Blood Pressure 106/71 Blood Pressure [Right Arm] Blood Pressure Mean 82 Blood Pressure Mean [Right Arm] Blood Pressure Position [Right Arm] Pulse Oximetry 99 Oxygen Delivery Method Sepsis Recent Fever Within 48 Hours Sepsis New/Unexplained Change in Mental Status Sepsis Action Taken by Nursing Laboratory Data 11/08/23 11:38 11/08/23 11:38 Lab Results 11/08/23 11/08/23 Range/Units 11:38 12:13 WBC 6.08 (4.8-10.8) K/ul RBC 3.62 L (4.20-5.40) M/uL Hgb 10.4 L (12.0-16.0) g/dl Hct 32.2 L (37.0-47.0) % MCV 89.0 (80.0-100.0) fL MCH 28.7 (25.0-34.0) pg MCHC 32.3 (32.0-36.0) g/dL RDW Std Deviation 54.3 H (36.4-46.3) fL RDW Coeff of Ashley 17.4 H (11.5-14.5) % Plt Count 1 L* (130-400) K/uL Neutrophils % (Manual) 42 % Lymphocytes % (Manual) 33 % Monocytes % (Manual) 8 % Eosinophils % (Manual) 2 % Metamyelocytes % (Man) 8 % Myelocytes % (Man) 7 % Neutrophils # (Manual) 2.55 (1.40-6.50) K/uL Total Absolute Neuts 2.55 (1.4-6.5) K/uL Lymphocytes # (Manual) 2.01 (1.2-3.4) K/uL Total Abs Lymphocytes 2.01 (1.2-3.4) K/uL Monocytes # (Manual) 0.49 (0.11-0.59) K/uL Eosinophils # (Manual) 0.12 (0-0.50) K/uL Metamyelocytes # (Man) 0.49 H (0-0) K/uL Myelocytes # (Manual) 0.43 H (0-0) K/uL Platelet Estimate Signific. Decreased L (Normal) Polychromasia 1+ Anisocytosis Present Tear Drop Cells 1+ PT 10.5 (9.0-12.0) Seconds INR 1.0 (0.9-1.1) APTT 28 (21-31) Seconds PTT Ratio 1.0 Sodium 130 L (136-145) mmol/L Potassium 3.7 (3.5-5.1) mmol/L Chloride 100 (98-107) mmol/L Carbon Dioxide 23 (21-32) mmol/L Anion Gap 7 (3-11) BUN 19 (6-23) mg/dl Creatinine 1.06 (0.6-1.2) mg/dl Est Cr Clr Drug Dosing 45.3 ml/min Est GFR ( Amer) 59.9 ml/min Est GFR (Non-Af Amer) 51.7 ml/min BUN/Creatinine Ratio 17.9 (10-20) Glucose 85 (70-99(Fasting)) mg/dl Calcium 8.6 (8.6-10.3) mg/dl Magnesium 2.0 (1.7-2.4) mg/dl Total Bilirubin 1.5 H (0.2-1.0) mg/dl AST 33 (13-39) U/L ALT 26 (7-52) U/L Alkaline Phosphatase 80 (34-104) U/L Total Protein 8.8 H (6.0-8.3) gm/dl Albumin 3.4 (3.4-5.0) gm/dl Globulin 5.4 H (2.5-4.0) gm/dl Albumin/Globulin Ratio 0.6 L (0.9-2) Urine Color Yellow Urine Appearance Clear (Clear) Urine pH 6.0 (4.5-7.5) Ur Specific [place] 1.007 (1.000-1.030) Urine Protein Negative (Negative) Urine Glucose (UA) Negative (Negative) Urine Ketones Negative (Negative) Urine Blood Negative (Negative) Urine Nitrite Negative (Negative) Urine Bilirubin Negative (Negative) Urine Urobilinogen Negative (Negative) Ur Leukocyte Esterase Negative (Negative) Blood Type A Positive Antibody Screen NEGATIVE Administered Medications Immune Globulin (Octagam 10%) 200 mls @ 43.56 mls/hr IV TODAY@1615,1800,2000 [facility]; Protocol Stop: 11/09/23 00:36 Last Titration: 11/08/23 19:23 Dose: Infused Documented By: Admin: 11/08/23 17:44 Dose: 2.3 mg/kg/min, 100 mls/hr Documented By: Titration: 11/08/23 17:44 Dose: Infused Documented By: Titration: 11/08/23 16:53 Dose: 4.59 mg/kg/min, 200 mls/hr Documented By: Admin: 11/08/23 16:48 Dose: 1 mg/kg/min, 43.6 mls/hr Documented By: ANGELES Discontinued Medications Sodium Chloride (Nss) 500 mls @ 999 mls/hr IV .Q31M STA Stop: 11/08/23 11:49 Last Infusion: 11/08/23 12:46 Dose: Infused Documented By: Admin: 11/08/23 11:36 Dose: 999 mls/hr Documented By: LEIDY Methylprednisolone 1,000 mg/ (Dextrose) 266 mls @ 266 mls/hr IV ONE ONE Stop: 11/08/23 14:59 Last Infusion: 11/08/23 15:47 Dose: Infused Documented By: Admin: 11/08/23 14:38 Dose: 266 mls/hr Documented By: LEIDY Immune Globulin (Octagam 10%) 100 mls @ 43.56 mls/hr IV TODAY@1400 [facility]; Protocol Stop: 11/08/23 16:18 Last Titration: 11/08/23 17:37 Dose: Infused Documented By: Admin: 11/08/23 14:55 Dose: 1 mg/kg/min, 43.6 mls/hr Documented By: LEIDY Immune Globulin (Immune Globulin (Human) Soln ) 1 each IV NOW ONE Stop: 11/08/23 13:36 Last Admin: 11/08/23 14:39 Dose: Not Given Documented By: LEIDY Ioversol (Optiray 320 100ml) 95 ml IV ONCE ONE Stop: 11/08/23 12:52 Last Admin: 11/08/23 12:52 Dose: 95 ml Documented By: WALLY Methylprednisolone (Methylprednisolone 1000 Mg/16 Ml) 1,000 mg IV NOW STA Stop: 11/08/23 13:36 Last Admin: 11/08/23 13:51 Dose: Not Given Documented By: LEIDY Imaging Data Radiologist's Impression: Abdomen/Pelvis CT 11/08/23 11:19 CT OF THE ABDOMEN AND PELVIS WITH CONTRAST CLINICAL HISTORY: Thrombocytopenia, anemia, ITP - eval bleeding COMPARISON STUDY: CT of the abdomen and pelvis May 28, 2021. Right upper quadrant ultrasound June 02, 2011. TECHNIQUE: Following IV administration of 95 mL of Optiray, axial images of the abdomen and pelvis were obtained from the lung bases to the proximal femurs. Images were reviewed in the axial, sagittal, and coronal planes. IV contrast was administered without complication. Automated exposure control was utilized for the study. A dose lowering technique was utilized adhering to the principles of ALARA. FINDINGS: Please note that the chest CT will be reported separately. No pneumatosis, free air or portal gas is present. There is minimal periportal edema. There are no hepatic lesions and there is no biliary or pancreatic ductal dilatation. Spleen is mildly enlarged. Adrenal glands, kidneys and pancreas are unremarkable. There is no hydronephrosis. No peripancreatic or pericholecystic infiltration is present. The appendix is normal. There is no evidence for a bowel obstruction. There is sigmoid diverticulosis without evidence for acute diverticulitis. No hemoperitoneum is present. There is no retroperitoneal hematoma. Small fat-containing umbilical hernia is incidentally noted. There is no hydronephrosis. No acute fractures are identified. Postoperative findings consistent with L3-S1 decompression and fusion. IMPRESSION: 1. No acute process within the abdomen or pelvis. 2. No hemoperitoneum. No retroperitoneal hematoma. 3. Mild splenomegaly. 4. Normal appendix. No bowel obstruction. No bowel wall thickening. ACT 112: Negative or not required by law. Electronically signed by: Agustín Wharton M.D. 11/08/2023 1:[address] 11/08/23 11:[address] WITH CONTRAST CT DOSE: 1492.55 mGy.cm HISTORY: Thrombocytopenia, anemia, ITP - eval bleeding TECHNIQUE: Multiaxial CT images of the chest were performed following the intravenous administration of contrast. A dose lowering technique was utilized adhering to the principles of ALARA. COMPARISON: Chest CTA 06/06/2020. FINDINGS: No acute fractures within the chest. No suspicious lytic are blastic osseous lesions. The abdominal structures will be reported on the same day abdomen and pelvis CT. Normal thyroid gland. Normal esophagus. No pleural or pericardial effusions. The heart is normal in size. No mediastinal or hilar lymphadenopathy. Normal caliber thoracic aorta with no evidence for a dissection. Mild coronary artery calcifications are noted. The the central pulmonary arteries are patent. No pneumothorax. Mild dependent changes seen at the lung bases. There are few linear densities within the lingula and lower lobe suggestive of scarring. This is similar to the prior study. Otherwise, no focal lung consolidations to suggest pneumonia. No evidence for pulmonary edema. IMPRESSION: 1. No acute abnormality within the chest. 2. Additional findings as described above. ACT 112: Negative or not required by law. Electronically signed by: Bartolome Hughes M.D. 11/08/2023 1:25 PM Discharge Plan Visit Data Chief Complaint: Dental/Oral Stated Complaint: BLOOD LESIONS ON TONGUE ED Provider: Toño Cali ED Midlevel Provider: Shruthi Jerome Discharge Problem: Acute ITP Patient Disposition: Admitted As Inpatient Condition: Good Discharge Instructions Interventions: ED Discharge Assessment Last Done: 11/08/23 16:23
[2023-11-08] MEDS: SODIUM CHLORIDE 0.9% 500 ML IV STA (11:36)
[2023-11-08 12:04] LABS: Appearance Urine Clear (Clear); Bilirubin Urine Negative (Negative); Blood Urine Negative (Negative); Color Urine Yellow; Glucose Urine UA Negative (Negative); Ketones Urine Negative (Negative); Leukocyte Esterase Urine Negative (Negative); Nitrite Urine Negative (Negative); Protein Urine Negative (Negative); Specific Gravity Urine 1.007 (1.000-1.030); Urobilinogen Urine Negative (Negative)
[2023-11-08 12:22] LABS: Partial Thromboplastin Time 28 Seconds (21-31); Prothrombin Time 10.5 Seconds (9.0-12.0)
[2023-11-08 12:34] LABS: Hematocrit (blood only) 32.2 % (37.0-47.0); Hemoglobin 10.4 g/dl (12.0-16.0); Mean Corpuscular Hemoglobin 28.7 pg (25.0-34.0); Mean Corpuscular Hgb Conc 32.3 g/dL (32.0-36.0); Platelet Count 1 K/uL (130-400); RDW Coefficient of Variation 17.4 % (11.5-14.5); RDW Standard Deviation 54.3 fL (36.4-46.3); Red Blood Count 3.62 M/uL (4.20-5.40); White Blood Count 6.08 K/ul (4.8-10.8)
[2023-11-08 12:35] LABS: ALC (manual) 2.01 K/uL (1.2-3.4); ANC (manual) 2.55 K/uL (1.4-6.5); Anisocytosis Present; Eosinophils # (manual) 0.12 K/uL (0-0.50); Eosinophils % (manual) 2 %; Lymphocytes # (manual) 2.01 K/uL (1.2-3.4); Lymphocytes % (manual) 33 %; Metamyelocytes # (manual) 0.49 K/uL (0-0); Metamyelocytes % (manual) 8 %; Monocytes # (manual) 0.49 K/uL (0.11-0.59); Monocytes % (manual) 8 %; Myelocytes # (manual) 0.43 K/uL (0-0); Myelocytes % (manual) 7 %; Neutrophils # (manual) 2.55 K/uL (1.40-6.50); Neutrophils % (manual) 42 %; Platelet Estimate Signific. Decreased (Normal); Polychromasia 1+; Tear Drop Cells 1+
[2023-11-08 12:37] LABS: Albumin Globulin Ratio 0.6 (0.9-2); Albumin Level 3.4 gm/dl (3.4-5.0); BUN Creatinine Ratio 17.9 (10-20); Bilirubin,Total 1.5 mg/dl (0.2-1.0); Calcium 8.6 mg/dl (8.6-10.3); Creatinine Clr Calc Pharmacy 45.3 ml/min; Est GFR (African American) 59.9 ml/min; Est GFR (Non-African American) 51.7 ml/min; Globulin 5.4 gm/dl (2.5-4.0); Potassium 3.7 mmol/L (3.5-5.1); Total Protein 8.8 gm/dl (6.0-8.3)
[2023-11-08] MEDS: OPTIRAY 320 100ml IV ONE (12:52)
--- NOTE | 2023-11-08 13:12 | CT Scan Report ---
CT OF THE ABDOMEN AND PELVIS WITH CONTRAST CLINICAL HISTORY: Thrombocytopenia, anemia, ITP - eval bleeding COMPARISON STUDY: CT of the abdomen and pelvis May 28, 2021. Right upper quadrant ultrasound [id number]. TECHNIQUE: Following IV administration of 95 mL of Optiray, axial images of the abdomen and pelvis we re obtained from the lung bases to the proximal femurs. Images were reviewed in the axial, sagittal, and coronal planes. IV contrast was administered without complication. Automated exposure control wa s utilized for the study. A dose lowering technique was utilized adhering to the principles of ALARA . FINDINGS: Please note that the chest CT will be reported separately. No pneumatosis, free air or port al gas is present. There is minimal periportal edema. There are no hepatic lesions and there is no bi liary or pancreatic ductal dilatation. Spleen is mildly enlarged. Adrenal glands, kidneys and pancrea s are unremarkable. There is no hydronephrosis. No peripancreatic or pericholecystic infiltration is present. The appendix is normal. There is no evidence for a bowel obstruction. There is sigmoid diver ticulosis without evidence for acute diverticulitis. No hemoperitoneum is present. There is no retrop eritoneal hematoma. Small fat-containing umbilical hernia is incidentally noted. There is no hydronep hrosis. No acute fractures are identified. Postoperative findings consistent with L3-S1 decompression and fusion. IMPRESSION: 1. No acute process within the abdomen or pelvis. 2. No hemoperitoneum. No retroperitoneal hematoma. 3. Mild splenomegaly. 4. Normal appendix. No bowel obstruction. No bowel wall thickening. ACT 112: Negative or not required by law. Electronically signed by: Agustín Wharton M.D. 11/08/2023 1:10 PM
--- NOTE | 2023-11-08 13:26 | Emergency Department Note ---
ED Visit Note I was consulted by the Advanced Practice Provider Ilene Jerome PA-C. I personally made/approved the management plan and take responsibility for the patient management. I performed a substantive portion of the visit. This includes the aspects of: -History/Physical/Personally seeing the patient -MDM -I independently interpreted the following studies: CT of the chest does not show obvious pneumothorax with formal report to follow. Patient presented due to concern for petechial rash. Patient was noted to have platelet count of 1. Hematology consulted. Patient was ordered 1 g of methylprednisolone IVIG and the patient was admitted to the medicine service. .
--- NOTE | 2023-11-08 13:27 | CT Scan Report ---
CHEST CT WITH CONTRAST CT DOSE: 1492.55 mGy.cm HISTORY: Thrombocytopenia, anemia, ITP - eval bleeding TECHNIQUE: Multiaxial CT images of the chest were performed following the intravenous administration of contrast. A dose lowering technique was utilized adhering to the principles of ALARA. COMPARISON: Chest CTA 06/06/2020. FINDINGS: No acute fractures within the chest. No suspicious lytic are blastic osseous lesions. The a bdominal structures will be reported on the same day abdomen and pelvis CT. Normal thyroid gland. Nor mal esophagus. No pleural or pericardial effusions. The heart is normal in size. No mediastinal or hi lar lymphadenopathy. Normal caliber thoracic aorta with no evidence for a dissection. Mild coronary a rtery calcifications are noted. The the central pulmonary arteries are patent. No pneumothorax. Mild dependent changes seen at the lung bases. There are few linear densities within the lingula and lower lobe suggestive of scarring. This is similar to the prior study. Otherwise, no focal lung consolidat ions to suggest pneumonia. No evidence for pulmonary edema. IMPRESSION: 1. No acute abnormality within the chest. 2. Additional findings as described above. ACT 112: Negative or not required by law. Electronically signed by: Bartolome Hughes M.D. 11/08/2023 1:25 PM
[2023-11-08] MEDS: methylPREDNISolone 1000 MG/16 ML IV STA (13:51)
--- NOTE | 2023-11-08 14:08 | History & Physical Report ---
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 Patient was admitted from 10/29/23 - 11/02/23 w/ rash and oral lesions, and was found to have ITP. During that admission, peripheral smear noted to have "no overt changes of a myelodysplastic syndrome, neoplastic process or hemolytic anemia." HIV testing nonreactive, negative hepatitis panel. 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 Dr. Aguayo was involved with care of patient during last admission, and was treated with IVIG and methylprednisolone for 3 days before transitioning to oral dexamethasone 40mg daily for a total of 4 days (completed on 11/03). Per ED lab work: Severe thrombocytopenia, plt count of 1. RBC 3.62, Hgb 10.4 and Hct 32.2. Imaging performed in ED: * Chest CT displays no acute abnormality w/in the chest. * CT abdomen/pelvis displays no acute process w/in abdomen or pelvis, mild splenomegaly. -Dr. Aguayo contacted by ED provider --> Pt given 1 unit of platelets, 1g methylprednisolone IV and 1g/kg IVIG per her recommendation. -Per Dr. Aguayo, head CT not required/recommendation at this time as there are no reported falls since previous admission w/ negative head CT. -Fall precautions, continue to monitor for any acute bleeding. -Continue IVIG, IV methylprednisolone -Hematology consult ordered (2) Hx of migraines: Plan: -Denies currently -Continue topiramate, propranolol w/ hold parameters, PRN rizatriptan (3) Insomnia: Plan: -Continue trazodone, doxepin (4) Adjustment disorder with depressed mood: Plan: -Continue sertraline (5) Hypothyroidism: Plan: -Continue levothyroxine DVT Prophylaxis: Contraindicated given severe thrombocytopenia as above. Code Status: DNR/DNI - No Resuscitation PCP: Tushar Mina MD Dispo: Admit to PCU Patient seen in collaboration with Dr. Gates. Please see addendum. I spent a total of 75 minutes coordinating, documenting, and providing care for this patient excluding time spent in the performance of separately billed services. This included personally reviewing all current laboratories and imaging studies, medical reconciliation, outpatient chart review and discussion with specialists. History of Present Illness Chief Complaint: Rash/Oral Lesions Primary Care Provider: Tushar Mina MD This is a 73yo F with a PMHx significant for migraine headaches, CKD III, ulcerative colitis, insomnia and recent admission for ITP who presented to the ED for evaluation of oral lesions in addition to a rash on her arms and legs. History obtained from patient, and previous admission/ED/PCP records. Patient was seen at bedside with Dr. Gates. Patient was admitted from 10/29/23 - 11/02/23 w/ rash and oral lesions, and was found to have ITP. Dr. Aguayo was involved with care of patient during last admission, and was treated with IVIG and methylprednisolone for 3 days before transitioning to oral dexamethasone 40mg daily for a total of 4 days. Patient completed oral course of steroids on Saturday (11/03). Patient mentions that the rash and oral lesions pretty much resolved after ~2 days following d/c. However, she woke up this morning with the same type of rash on her arms/legs and oral lesions that she was experiencing during her last admission. Patient denies any bleeding of her gums or nose bleeds. She also denies any chest pain or SOB. She has not had any falls since being home, and denies any occurrences of bodily trauma. She further denies any bloody BMs, reports urine is clear/no issues with urination. Reports no fevers or body aches. Per ED lab work: Severe thrombocytopenia, plt count of 1. RBC 3.62, Hgb 10.4 and Hct 32.2. Imaging performed in ED: * Chest CT displays no acute abnormality w/in the chest. * CT abdomen/pelvis displays no acute process w/in abdomen or pelvis, mild splenomegaly. Allergies Allergy/AdvReac Type Severity Reaction Status Date / Time bee venom protein (honey bee) Allergy Mild Verified 06/06/20 16:18 No Known Drug Allergies Allergy Unknown . Verified 06/06/20 16:18 Home Medications Medication Instructions Recorded Confirmed Type doxepin 10 mg capsule 20 mg PO HS 06/06/20 11/08/23 History rizatriptan 10 mg tablet 10 mg PO UD 06/06/20 11/08/23 History topiramate 25 mg tablet 50 mg PO BID 06/06/20 11/08/23 History trazodone 150 mg tablet 150 mg PO HS 06/06/20 11/08/23 History docusate sodium 100 mg tablet 100 mg PO HS 10/29/23 11/08/23 History fluticasone propionate 50 1 spray intranasal DAILY 10/29/23 11/08/23 History mcg/actuation nasal spray,suspension levothyroxine 50 mcg tablet 50 mcg PO DAILY 10/29/23 11/08/23 History propranolol 160 mg capsule,24 160 mg PO HS 10/29/23 11/08/23 History hr,extended release sertraline 100 mg tablet 100 mg PO HS 10/29/23 11/08/23 History mupirocin 2 % topical ointment See Rx Instructions .Route .COMPLEX 11/08/23 11/08/23 History Past Med/Surg History Medical History Hypothyroidism Adjustment disorder with depressed mood History of breast cancer 20 years ago, s/p partial mastectomy Insomnia CKD (chronic kidney disease), stage III Ulcerative colitis Hx of migraines Surgical History Hx of tonsillectomy H/O laminectomy H/O spinal fusion H/O partial mastectomy H/O Spinal surgery Family History Other Diabetes Heart disease Rheumatoid arthritis Social History Smoking Status: Former smoker Hx Alcohol Use: Yes Hx Substance Use: No Preferred Language: Maori Communication Ability: Effective 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 Physical Exam Physical Exam: Please see Dr. Gates addendum for physical exam findings. Results & Data Results & Data Vital Signs (Past 12 Hours) Vital Signs Temp Pulse Pulse Resp BP BP Pulse Ox 11/08/23 14:00 65 18 120/72 100 11/08/23 09:59 18 11/08/23 09:59 36.6 C 74 18 123/81 100 O2 Del Method 11/08/23 14:00 Room Air 11/08/23 09:59 11/08/23 09:59 Laboratory Results Short CBC 11/08/23 Range/Units 11:38 WBC 6.08 (4.8-10.8) K/ul Hgb 10.4 L (12.0-16.0) g/dl Hct 32.2 L (37.0-47.0) % Plt Count 1 L* (130-400) K/uL BMP 11/08/23 11:38 Sodium 130 L Potassium 3.7 Chloride 100 Carbon Dioxide 23 BUN 19 Creatinine 1.06 Glucose 85 Calcium 8.6 Liver Function 11/08/23 Range/Units 11:38 Total Bilirubin 1.5 H (0.2-1.0) mg/dl AST 33 (13-39) U/L ALT 26 (7-52) U/L Alkaline Phosphatase 80 (34-104) U/L Albumin 3.4 (3.4-5.0) gm/dl Urine 11/08/23 Range/Units 11:38 Urine Color Yellow Urine Appearance Clear (Clear) Urine pH 6.0 (4.5-7.5) Ur Specific [place] 1.007 (1.000-1.030) Urine Protein Negative (Negative) Urine Glucose (UA) Negative (Negative) Diagnostic Findings Abdomen/Pelvis CT 11/08/23 11:19 CT OF THE ABDOMEN AND PELVIS WITH CONTRAST CLINICAL HISTORY: Thrombocytopenia, anemia, ITP - eval bleeding COMPARISON STUDY: CT of the abdomen and pelvis May 28, 2021. Right upper quadrant ultrasound June 02, 2011. TECHNIQUE: Following IV administration of 95 mL of Optiray, axial images of the abdomen and pelvis were obtained from the lung bases to the proximal femurs. Images were reviewed in the axial, sagittal, and coronal planes. IV contrast was administered without complication. Automated exposure control was utilized for the study. A dose lowering technique was utilized adhering to the principles of ALARA. FINDINGS: Please note that the chest CT will be reported separately. No pneumatosis, free air or portal gas is present. There is minimal periportal edema. There are no hepatic lesions and there is no biliary or pancreatic ductal dilatation. Spleen is mildly enlarged. Adrenal glands, kidneys and pancreas are unremarkable. There is no hydronephrosis. No peripancreatic or pericholecystic infiltration is present. The appendix is normal. There is no evidence for a bowel obstruction. There is sigmoid diverticulosis without evidence for acute diverticulitis. No hemoperitoneum is present. There is no retroperitoneal hematoma. Small fat-containing umbilical hernia is incidentally noted. There is no hydronephrosis. No acute fractures are identified. Postoperative findings consistent with L3-S1 decompression and fusion. IMPRESSION: 1. No acute process within the abdomen or pelvis. 2. No hemoperitoneum. No retroperitoneal hematoma. 3. Mild splenomegaly. 4. Normal appendix. No bowel obstruction. No bowel wall thickening. ACT 112: Negative or not required by law. Electronically signed by: Agustín Wharton M.D. 11/08/2023 1:[address] 11/08/23 11:[address] WITH CONTRAST CT DOSE: 1492.55 mGy.cm HISTORY: Thrombocytopenia, anemia, ITP - eval bleeding TECHNIQUE: Multiaxial CT images of the chest were performed following the intravenous administration of contrast. A dose lowering technique was utilized adhering to the principles of ALARA. COMPARISON: Chest CTA 06/06/2020. FINDINGS: No acute fractures within the chest. No suspicious lytic are blastic osseous lesions. The abdominal structures will be reported on the same day abdomen and pelvis CT. Normal thyroid gland. Normal esophagus. No pleural or pericardial effusions. The heart is normal in size. No mediastinal or hilar lymphadenopathy. Normal caliber thoracic aorta with no evidence for a dissection. Mild coronary artery calcifications are noted. The the central pulmonary arteries are patent. No pneumothorax. Mild dependent changes seen at the lung bases. There are few linear densities within the lingula and lower lobe suggestive of scarring. This is similar to the prior study. Otherwise, no focal lung consolidations to suggest pneumonia. No evidence for pulmonary edema. IMPRESSION: 1. No acute abnormality within the chest. 2. Additional findings as described above. ACT 112: Negative or not required by law. Electronically signed by: Bartolome Hughes M.D. 11/08/2023 1:25 PM Medications Administered Methylprednisolone 1,000 mg/ (Dextrose) 266 mls @ 266 mls/hr IV ONE ONE Stop: 11/08/23 14:59 Last Admin: 11/08/23 14:38 Dose: 266 mls/hr Documented By: LEIDY Discontinued Medications Sodium Chloride (Nss) 500 mls @ 999 mls/hr IV .Q31M STA Stop: 11/08/23 11:49 Last Infusion: 11/08/23 12:46 Dose: Infused Documented By: Admin: 11/08/23 11:36 Dose: 999 mls/hr Documented By: LEIDY Immune Globulin (Immune Globulin (Human) Soln ) 1 each IV NOW ONE Stop: 11/08/23 13:36 Last Admin: 11/08/23 14:39 Dose: Not Given Documented By: LEIDY Ioversol (Optiray 320 100ml) 95 ml IV ONCE ONE Stop: 11/08/23 12:52 Last Admin: 11/08/23 12:52 Dose: 95 ml Documented By: WALLY Methylprednisolone (Methylprednisolone 1000 Mg/16 Ml) 1,000 mg IV NOW STA Stop: 11/08/23 13:36 Last Admin: 11/08/23 13:51 Dose: Not Given Documented By: LEIDY Code Status & VTE Plan Code Status DNR/DNI - No Resuscitation Supervising Physician Co-Signing Physician Notes I have seen and discussed the case with the collaborating advanced practitioner. I agree with the above H&P. I have reviewed and confirmed the patients medical history, the findings on physical examination, and the patients diagnosis and treatment plan with Wili CHO and agree with the information documented. In short, Ms De La Cruz is a 73 year old woman with history CKD III, migraines, history of ulcerative colitis, history of breast cancer who is admitted for eval and management of ITP. Patient states she awoke this morning with new, black and painful lesions on tongue. She reports a small painful lesion on the roof of her mouth that was p resent roughly 1-2 weeks prior, but she didn't pay much mind. She reports feeling poorly for last 2 months--marked by poor appetite, but states that last few days it was much better. She reports weakness when walking, noting she should, but doesn't, use a cane. She also mentions vague history of intermittent hematuria--stating her urine is bright red at times and she thought that just was "apart of stage 3 kidney issues." She denies fevers. Endorses night sweats and attributes it to weather. Denies chest pain, abdominal pain, or other concerns. She states she does not take NSAIDS--outside of a daily aspirin. No recent falls. No recent medication adjustments. No history of autoimmunity. CT: FINDINGS: Please note that the chest CT will be reported separately. No pneumatosis, free air or portal gas is present. There is minimal periportal edema. There are no hepatic lesions and there is no biliary or pancreatic ductal dilatation. Spleen is mildly enlarged. Adrenal glands, kidneys and pancreas are unremarkable. There is no hydronephrosis. No peripancreatic or pericholecystic infiltration is present. The appendix is normal. There is no evidence for a bowel obstruction. There is sigmoid diverticulosis without evidence for acute diverticulitis. No hemoperitoneum is present. There is no retroperitoneal hematoma. Small fat-containing umbilical hernia is incidentally noted. There is no hydronephrosis. No acute fractures are identified. Postoperative findings consistent with L3-S1 decompression and fusion. IMPRESSION: 1. No acute process within the abdomen or pelvis. 2. No hemoperitoneum. No retroperitoneal hematoma. 3. Mild splenomegaly. 4. Normal appendix. No bowel obstruction. No bowel wall thickening. GENERAL APPEARANCE: AxOx4, generally well-appearing female , no acute distress. HEENT: few nodular lesions, purple/black in color, on tongue and lip; small petechiae on right buccal mucosa NECK: Supple without lymphadenopathy. No stiffness or restricted ROM. HEART: Normal rate and regular rhythm, normal S1/S1, no m/r/g LUNGS: CTAB, moving air well. No crackles or wheezes are heard. ABDOMEN: Soft, nontender, nondistended with good bowel sounds heard. BACK: No CVAT, no obvious deformity. EXTREMITIES: Without cyanosis, clubbing or edema. NEUROLOGICAL: Grossly nonfocal. Alert and oriented, moving all 4 extremities. CN not formally tested but appear grossly intact. Skin: scattered petechiae on BLE (much improved compared to recent admission) #ITP Platelets 70K on discharge. 1K on admission s/p 1g methylpred. IVIG Hematology consult -1g methylprednisolone daily - If platelets < 50K in am, IVIG -1 U platelets to be administered in ED HIV, hepatitis panel negative at last admission EBV positive for past infection, CMV positive, not differentiated between past/active -CMV PCR to eval CBC and coags in am No longer on ASA #Migraines doxepin, propranolol, topamax #insomnia trazadone rest of plan as above I spent a total of 35 minutes coordinating, documenting, and providing care for this patient excluding time spent in the performance of separately billed services. All of the aforementioned completed outside of collaborating with the assigned advanced practitioner for a full treatment plan. I have reviewed the advanced practitioner's documentation, and I agree with, and take responsibility for the plan of care (3) Insomnia Insomnia type: unspecified Qualified Code(s): G47.00 - Insomnia, unspecified (5) Hypothyroidism Hypothyroidism type: unspecified Qualified Code(s): E03.9 - Hypothyroidism, unspecified
[2023-11-08] MEDS: methylPREDNISolone 1,000 MG in DEXTROSE 5% 250 ML IV ONE (14:38)
[2023-11-08] MEDS: IMMUNE GLOBULIN (HUMAN) SOLN IV ONE (14:39)
[2023-11-08] MEDS: Octagam 10% IVIG 10 gram bottle IV SCH (14:55)
[2023-11-08] MEDS ORDERED: ONDANSETRON INJ 2 MG/ML 2 ML VIAL IV PRN (16:38)
[2023-11-08] MEDS ORDERED: ACETAMINOPHEN 325 MG TAB PO PRN (16:38)
[2023-11-08] MEDS ORDERED: MAGNESIUM HYDROXIDE SUSP 30 ML UDC PO PRN (16:38)
[2023-11-08] MEDS ORDERED: POLYETHYLENE (MIRALAX) 17 GM PACK PO PRN (16:38)
[2023-11-08] MEDS ORDERED: RIZATRIPTAN BENZOATE 10 MG TAB PO PRN (16:38)
[2023-11-08] MEDS ORDERED: ALUMINUM/MAGNESIUM SUSP 30 ML UDC PO PRN (16:38)
[2023-11-08] MEDS: Octagam 10% IVIG 20 gram bottle IV SCH (16:48)
[2023-11-08] MEDS: traZODone HCL 50 MG TAB PO SCH (20:32)
[2023-11-08] MEDS: PROPRANOLOL HCL LA 80 MG CAPCR PO SCH (20:33)
[2023-11-08] MEDS: DOCUSATE SODIUM 100 MG CAP PO SCH (20:33)
[2023-11-08] MEDS: DOXEPIN HCL 10 MG CAPSULE PO SCH (20:35)
[2023-11-08] MEDS: SERTRALINE HCL 100 MG TABLET PO SCH (20:35)
[2023-11-08] MEDS: TOPIRAMATE 50 MG TAB PO SCH (20:35)
--- OUTSIDE RECORDS SUMMARY | 2023-11-08 20:40 | External Medical Summary | Summary of Care ---
Author Name Unknown Organization [facility] Address [address] [place] [address] Phone [phone] Care Team Providers Care Stage Rigger Name Role Phone Leopoldo BARNHART MD, Tushar Manzo Primary Care Provider [phone] Reason for Referral * Precert (Within 10 days (routine)) - Pending Review Specialty Diagnoses / Procedures Referred By Contac t Referred To Contact Radiology Diagnoses Gross hematuria Procedures CT ABD/PELVIS W WO IV CONTRAST AND W ORAL CONT Nannette Duncan PA-C [address] [facility] [place] [address] Referral ID Status Reason Start Date Expiration Date V isits Requested Visits Authorized [id number] Pending Review 05/04/2024 999 999 * Evaluate & Treat - Unlimited Visits (Within 3 days (urgent)) - Authorized Specialty Diagnoses / Procedures Referred By Contac t Referred To Contact Hematology/Oncology / Hematology Oncology Diagnoses Acute ITP (HCC) Nannette Duncan PA-C [address] [place] [address] Referral ID Status Reason Start Date Expiration Date Visits Requested Visits Authorized [id number] Authorized Specialty Services Required 11/06/2023 999 999 Question Answer Referral Priority Within 3 days (urgent) Where should this appointment be scheduled? [facility] Reason for Referral Thrombosis/Bruising/Abnormal Coagulation Reason for Visit * Reason Comments Hospital Follow-Up Encounter Details Date Type Department Care Team (Late st Contact Info) Description 11/06/2023 12:00 PM EDT Office Visit Family [facility] [employer] [address] [facility] [place] [address] Nannette Duncan PA-C [address] [facility] [place] [address] Acute ITP (HCC)*; External nasal lesion; Gross hematuria; Stage 3b chronic kidney disease; Ulcerative colitis without complications, unspecified location (HCC); Adjustment disorder with depressed mood Allergies Active Allergy Reactions Criticality Noted Date Comments Bee Stings 04/04/2010 Swelling, sick to stomach Yellow Jacket Venom 02/28/2012 Swelling, sick to stomach documented as of this encounter (statuses as of 11/06/2023) Medications Medication Sig Dispensed Refills Start Date [...] and 25 mL before bedtime. 0 Active PreserVision AREDS 2+Multi Vit Oral Capsule Take by mouth. 0 Active Mupirocin 2 % External Ointment (Bactroban)Indicat ions:External nasal lesion Apply topically to affected area 3 times a day for 14 days. To affected area for up to 14 days. 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 Kidney disease, chronic, sta ge III (GFR 30-59 ml/min) 09/13/2014 05/12/2020 Overview: Per CKD protocol #1 Other osteoporosis without c urrent pathological fracture 07/13/2009 07/14/2021 Overview: ICD-10 update of inactive term CLASSICAL MIGRAINE WITHOU ME NTION OF INTRACTABLE MIGRAINE 11/06/2023 Menopause 05/18/2019 INFORMATION 01/02/2023 documented as of this encounter (statuses as of 11/06/2023) Immunizations Name Administration Dates Next Due COVID-19 mRNA, LNP-s, No Pre serve, 2-Dose Series ([employer]) 06/20/2021,09/22/2020,09/01/2020 COVID-19, MRNA-LNP, 23-24, P F, 30 MCG/0.3 mL, 12 YRS AND ABOVE, IM ([employer]) 04/08/2023 Covid-19, Mrna, Lnp-s, Pf, B ivalent, 30 Mcg, IM, 12 yrs and above ([employer]) 04/19/2022 H1N1 2009 Influenza, IM 05/20/2009 [...] Sign Reading Time Taken Comments Blood Pressure 120/78 11/06/2023 12:15 PM EDT Pulse 100 11/06/2023 12:15 PM EDT Temperature 37.2 C (98.9 F) 11/06/2023 12:15 PM E DT Respiratory Rate 16 11/06/2023 12:15 PM EDT Oxygen Saturation 99% 11/06/2023 12:15 PM EDT Inhaled Oxygen Concentration - - Weight 68.5 kg (151 lb 1.9 oz) 11/06/2023 12:15 PM EDT Height - - Body Mass Index 23.67 10/29/2023 1:16 PM EDT documented in this [...] as of this encounter Progress Notes * Nannette Duncan PA-C - 11/06/2023 1:05 PM EDT Images from the original note were not included. History of Present Illness Cecily De La Cruz is a 73 year old female that presents for Hospital Follow-Up Patient is a 73 year old female who presents for a follow up after a hospitalization for ITP. Was hospitalized from 10/29/23-11/02/23. Feeling better. Still fatigued. Mouth lesions have cleared. Rash on extremities is clearing. Urine has been clear. Not sure if blood in stools. Some pink with brushing teeth. Denies chest pain, sob, palpitations, edema, headaches, Some dizzy. Using cane. Appetite improving Sleep normal Physical Exam Vitals: 11/06/23 1215 Temp: 37.2 C (98.9 F) Pulse: 100 Resp: 16 SpO2: 99% BP: 120/78 BP Readings from Last 3 Encounters: 11/06/23 120/78 10/29/23 114/68 01/02/23 105/68 Wt Readings from Last 3 Encounters: 11/06/23 68.5 kg (151 lb 1.9 oz) 10/29/23 69.4 kg (153 lb) 01/02/23 69.9 kg (154 lb) General: alert, healthy, no distress, well nourished, well developed, and cooperative Head: Normocephalic, No masses, lesions, tenderness or abnormalities Eye Exam: PERRLA, extraocular movements intact, conjunctiva are pink and non- injected, sclera clear Ears: External ears normal, Canals clear, TM's Normal Nose: no mucosal erythema, no mucosal edema, no purulent discharge Oropharynx: no exudate, no erythema, lips, buccal mucosa, and tongue normal, and mucous membranes are moist Neck: supple, no adenopathy, no bruits, thyroid normal size, non-tender, without nodularity Heart: regular rate & rhythm, no murmur, and no gallops Lungs: chest symmetric with normal AP diameter, no chest deformities noted, normal respiratory rateand rhythm, no chest wall tenderness, diaphragmatic excursion normal, lungs clear to auscultation Abdomen: abdomen soft, non-tender, normal bowel sounds, no masses or organomegaly, no rebound or guarding, no CVA tenderness, and no bladder distention identified Back: back symmetric, no curvature, no costovertebral angle tenderness, range of motion is normal, no skin lesions, erythema or scars, no tenderness to percussion or palpation Extremities: less than 2 second capillary refill, no joint deformities, effusion, or inflammation, no edema, no skin discoloration, no clubbing, no cyanosis Skin: skin color, texture, turgor are normal, few petechiae lesions on legs. I have reviewed the following results: CBC and BMP Assessment and Plan Acute ITP (HCC) (Primary) - CBC; Future; Expected date: 11/06/2023 - HEMATOLOGY/ONCOLOGY REFERRAL OP External nasal lesion - Mupirocin 2 % External Ointment (Bactroban); Apply topically to affected area 3 times a day for 14 days. To affected area for up to 14 days. Gross hematuria - CT ABD/PELVIS W WO IV CONTRAST AND W ORAL CONT; Future; Expected date: 05/04/2024 Stage 3b chronic kidney disease Ulcerative colitis without complications, unspecified location (HCC) Adjustment disorder with depressed mood Check-out note: Schedule hematology/ct scan Wrap-Up Time: I spent a total of 30-39 minutes (exact time 38 mins) on the date of service in preparation, delivery, and documentation of the care provided to Cecily De La Cruz excluding any time spent in the performance of separately billed services. documented in this encounter Nursing Notes * Jaimee Valenzuela LPN - 11/06/2023 12:12 PM EDT Cecily De La Cruz presents for hospital follow up. Medications & HM reviewed. Denies any concerns at this time documented in this encounter Plan of Treatment Upcoming Encounters Date Type Department Care Team (Late st Contact Info) Description 11/13/2023 12:45 PM EDT Imaging Radiology [address], [place] [address] [place] [address] 11/15/2023 12:15 PM EDT Office Visit Hematology/Oncology [facility] [address] [facility] [place] [phone] Aguila Peng MD [address] [place] [place] [address] 01/09/2024 9:00 AM EDT Office Visit Family Practice [facility] [address] [facility] [place] [address] Tushar Mina III, MD [address] [facility] [place] [address] Scheduled Orders Name Type Priority Associated Diagnoses Orde r Schedule CT ABD/PELVIS W WO IV CONTRAST AND W ORAL CONT Medical Imaging Routine Gross hematuria Expected: 05/04/2024 (Approximate), Expires: 12/06/2024 Scheduled Referrals Name Type Priority Associated Diagnoses Orde r Schedule HEMATOLOGY/ONCOLOGY REFERRAL OP Referral Within 3 days (urgent) Acute ITP (HCC) Ordered: 11/06/2023 Health Maintenance Due Date Last Done Comments Cologuard 1994 Sigmoidoscopy 1994 Fecal Occult Blood Test 06/29/2007 06/29/20 06, 06/08/2000, 05/22/1999 Depression Screening 03/01/2023 03/01/2022, 07/07/2015 (Discussed) Mammogram 12/13/2023 12/12/2022, 11/29, 12/01/2021, Additional history exists GFR 02/25/2024 08/27/2023, 070 10/2022, 02/26/2022, Additional history exists Albumin/Creatinine Ratio 08/27/2024 024, 03/19/2023, 04/12/2022, Additional history exists CKD PHOS USE SMARTSET 86717 08/27/202408/02, 03/19/2023, 02/26/2022, Additional history exists TSH 08/27/2024 08/27/2023, 100 08/2022, 03/29/2023, Additional history exists CKD HGB USE SMARTSET 41796 11/05/202411/05, 08/27/2023, 01/02/2023, Additional history exists DXA Scan 05/14/2026 [...] this encounter Medical Devices Implanted Type Area Camera Maker Device Identifier Shelf Expiration Date Model / Serial / Lot Screw 6x45 Poly Si [id number] - [id number] Implanted:Qty : 4 on 10/22/2012 at OR [facility] [place] N/A: Spine Lumbar JNJ : [employer] [id number] / / Dung 5.5x45 Ti Prbnt [id number] - [id number] Implanted:Qty : 2 on 10/22/2012 at OR [facility] [place] N/A: Spine Lumbar JNJ : [employer] [id number] / / Screw Set Sng Inner [id number] - [id number] Implanted:Qty : 4 on 10/22/2012 at OR [facility] [place] N/A: Spine Lumbar JNJ : [employer] [id number] / / Graft Infuse Bone Sm [id number] - [id number] Implanted:Qty : 1 on 10/22/2012 at OR [facility] [place] N/A: Spine Lumbar [employer] : NEUROLOGIC PAIN 12/28/2014 [id number] / / [id number] Expedium Ti Sfx 5.5 Lat A6 - [id number] Implanted:Qty : 1 on 10/22/2012 at OR [facility] [place] N/A: Spine Lumbar JNJ : [employer] [id number] / / Cage 13 X 28 Implanted:Qty : 1 on 10/22/2012 at OR [facility] [place] N/A: Spine Lumbar 08.803.113 / / Screw Set Sng Inner [id number] - [id number] Implanted:Qty : 4 on 06/06/2018 by Elijah Thorne MD at OR [facility] [place] N/A: Spine Lumbar JNJ : [employer] [id number] / / Description:Part of implant set Pre Lordosed Dung W Line 55mm - [id number] Implanted:Qty : 2 on 06/06/2018 by Elijah Thorne MD at OR [facility] [place] N/A: Spine Lumbar JNJ : [employer] [id number] / / Description:Part of implant set Expedium Ti Sfx 5.5 Lat A6 - [id number] Implanted:Qty : 1 on 06/06/2018 by Elijah Thorne MD at OR [facility] [place] N/A: Spine Lumbar JNJ : [employer] [id number] / / Description:Part of implant set Graft Infuse Bone Sm [id number] - [id number] Implanted:12/2017 by Elijah Thorne MD at OR [facility] [place] (Quantity not on file) [employer] : NEURO CARE 08/29/2019 [id number] / / [id number] 10x22 Caliber Interbody Implanted:Qty : 2 on 06/06/2018 by Elijah Thorne MD at OR [facility] [place] N/A: Spine Lumbar [employer] 194.122 / / Description:Part of implant set Screw 7x40 Poly Si [id number] - [id number] Implanted:Qty : 2 on 06/06/2018 by Elijah Thorne MD at OR [facility] [place] N/A: Spine Lumbar JNJ : [employer] [id number] / / Description:Part of implant set Stimulan Rapid Cure 10cc - [id number] Implanted:Qty : 1 on 05/27/2019 by Elijah Thorne MD at OR [facility] [place] N/A: Spine Lumbar [employer] [id number] 02/28/2022 620-010 / / [id number] Screw 7x50 Poly Si [id number] - [id number] Implanted:Qty : 2 on 05/27/2019 by Elijah Thorne MD at OR [facility] [place] N/A: Spine Lumbar JNJ : [employer] [id number] / / Screw Set Sng Inner [id number] - [id number] Implanted:Qty : 2 on 05/27/2019 by Elijah Thorne MD at OR [facility] [place] N/A: Spine Lumbar JNJ : [employer] [id number] / / Depuy 5.5 Dung With Connector Implanted:Qty : 2 on 05/27/2019 by Elijah Thorne MD at OR [facility] [place] N/A: Spine Lumbar [id number] / / Expedium Ti Sfx 5.5 Lat A6 - [id number] Implanted:Qty : 1 on 05/27/2019 by Elijah Thorne MD at OR [facility] [place] N/A: Spine Lumbar JNJ : [employer] [id number] / / Globus 10x26 8-12mm Cage Implanted:Qty : 1 on 05/27/2019 by Elijah Thorne MD at OR [facility] [place] N/A: Spine Lumbar 194.126 / / documented as of this encounter Results * (ABNORMAL) CBC (11/06/2023 1:28 PM EDT) [facility] WBC 11.80(H) 4.00 - 10.80 K/uL 11/06/2023 1:52 PM EDT [facility] 56-02 RBC 3.80 3.85 - 5.15 M/uL 11/06/2023 1:52 PM EDT [facility] 56-02 HGB 11.0(L) 12.0 - 15.3 g/dL 11/06/2023 1:52 PM EDT [facility] 56 HCT 34.9(L) 36.0 - 45.2 % 11/06/2023 1:52 PM EDT [facility] 56- MCV 91.8 81.5 - 97.5 fL 11/06/2023 1:52 PM EDT [facility] 56 MCH 28.9 27.0 - 34.0 pg 11/06/2023 1:52 PM EDT [address] MCHC 31.5 32.0 - 36.0 g/dL 11/06/2023 1:52 PM EDT [facility] 56 RDW 18.0 11.5 - 15.5 % 11/06/2023 1:52 PM EDT [facility] 56 PLT 68(L) 140 - 400 K/uL 11/06/2023 1:52 PM EDT [address] MPV 11.3 6.6 - 11.1 fL 11/06/2023 1:52 PM EDT [facility] 56 Blood Venous blood specimen / Unknown Venipuncture / Unknown 11/06/2023 1:28 PM EDT 11/06/2023 1:28 PM EDT September Perla [facility] LAB BLOOD ORDERABLES [facility] [address] [place] [address] documented in this encounter Visit Diagnoses Diagnosis 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 No Code Status History Code Status Date [...] the patient have Health Care Power of Corn Picker? No Full Code 11/24/2009 6:53 AM 11/27/2009 3:28 PM This order reflects the patients wishes and were consensually agreed upon. Question Answer Comments Discussion of Advance Directives occurred with: Patient Does the patient have a Living Will? No Does the patient have Health Care Power of Corn Picker? No Care Teams Stage Rigger Relationship Specialty Start Date End Date Tushar Mina III, MD [facility] [place] [address] PCP - General 02/13/1996 documented as of this encounter
--- OUTSIDE RECORDS SUMMARY | 2023-11-08 20:40 | External Medical Summary | Summary of Care ---
Author Name Unknown Organization [facility] Address [address] [place] [address] Phone [phone] Care Team Providers Care Od Grinder Operator Name Role Phone Leopoldo BARNHART MD, Tushar Manzo Primary Care Provider [phone] Encounter Details Date Type Department Care Team (Late st Contact Info) Description 11/07/2023 Telephone Family Practice [facility] [address] [place] [address] Tushar Mina III, MD [address] [place] [address] Allergies Active Allergy Reactions Criticality Noted Date Comments Bee Stings 04/04/2010 Swelling, sick to stomach Yellow Jacket Venom 02/28/2012 Swelling, sick to stomach documented as of this encounter (statuses as of 11/07/2023) Medications Medication Sig Dispensed Refills Start Date [...] MOUTH AT BEDTIME 200 Capsule 1 07/04/2023 Active Propranolol HCl ER 160 MG Oral Capsule Extended Release 24 Hour TAKE ONE CAPSULE BY MOUTH EVERY DAY 90 Capsule 1 07/20/2023 5 Active Sertraline HCl 100 MG Oral Tablet (Zoloft)Indicati ons:Adjustment disorder with depressed mood TAKE ONE TABLET BY MOUTH EVERY DAY 90 Tablet 2 07/30/2023 5 Active Topiramate 25 MG Oral Tablet (topAMAX)Indicat ions:Migraine variant TAKE TWO TABLETS BY MOUTH TWICE A DAY 360 Tablet 3 07/30/2023 5 Active traZODone HCl 150 MG Oral Tablet (Desyrel) TAKE ONE TABLET BY MOUTH EVERY DAY AT BEDTIME 90 Tablet 2 07/30/2023 5 Active Fluticasone Propionate 50 MCG/ACT Nasal Suspension (Flonase) APPLY ONE SPRAY INTO NOSTRIL EVERY MORNING 48 g 1 08/14/2023 5 Active Levothyroxine Sodium 50 MCG Oral Tablet [...] Vit Oral Capsule Take by mouth. 0 Acti ve Mupirocin 2 % External Ointment (Bactroban)Indic ations:External nasal lesion Apply topically to affected area 3 times a day for 14 days. To affected area for up to 14 days. 22 g 1 11/06/2023 4 Active dexAMETHasone 20 MG Oral Tablet 2 tabs daily for 2 days, then 1 tab daily until finished 7 Tablet 0 11/07/2023 Active dexAMETHasone 4 MG Oral Tablet (Decadron) Take 1 Tablet by mouth. 0 11/02/2023 4 Discontinued documented as of this encounter (statuses as of 11/07/2023) Active Problems Problem Noted Date Diagnosed Date [...] as of this encounter (statuses as of 11/07/2023) Resolved Problems Problem Noted Date Diagnosed Date [...] as of this encounter (statuses as of 11/07/2023) Immunizations Name Administration Dates Next Due COVID-19 mRNA, LNP-s, No Pre serve, 2-Dose Series ([employer]ing) 06/20/2021,09/22/2020,09/01/2020 COVID-19, MRNA-LNP, 23-24, P F, 30 MCG/0.3 mL, 12 YRS AND ABOVE, IM ([employer]-Comirnaty) 04/08/2023 Covid-19, Mrna, Lnp-s, Pf, B ivalent, [...] encounter Miscellaneous Notes * Telephone Encounter - Nannette Duncan PA-C - 11/07/2023 8:10 PM EDT Script sent * Telephone Encounter - Tavia Lao LPN - 11/07/2023 8:53 AM EDT ----- Message from Nannette Duncan PA-C sent at 11/06/2023 6:32 PM EDT ----- Please call and inform improved hemoglobin. Platelets dropped to 68. Would recommend 5 days additional steroids. Pharmacy? documented in this encounter Plan of Treatment Upcoming Encounters Date Type Department Care Team (Late st Contact Info) Description 11/13/2023 12:45 PM EDT Imaging Radiology [address] [place] [address] 11/15/2023 12:15 PM EDT Office Visit Hematology/Oncology [facility] [address] [place] [phone] Aguila Peng MD [address] [place] [address] 01/09/2024 9:00 AM EDT Office Visit Family Practice [facility] [address] [place] [address] Tushar Mina III, MD [address] [facility] [place] [address] Health Maintenance Due Date Last Done Comments Cologuard 1994 Sigmoidoscopy 1994 Fecal Occult Blood Test 06/29/2007 06/29/20 06, 06/08/2000, 05/22/1999 Depression Screening 03/01/2023 03/01/2022, 07/07/2015 (Discussed) Mammogram 12/13/2023 12/12/2022, 11/29, 12/01/2021, Additional history exists GFR 02/25/2024 08/27/2023, 10/2022, 02/26/2022, Additional history exists Albumin/Creatinine Ratio 08/27/2024 024, 03/19/2023, 04/12/2022, Additional history exists CKD PHOS USE SMARTSET 13119 08/27/202408/02, 03/19/2023, 02/26/2022, Additional history exists TSH 08/27/2024 08/27/2023, 1008/2022, 03/29/2023, Additional history exists CKD HGB USE SMARTSET 04631 11/05/202411/05, 08/27/2023, 01/02/2023, Additional history exists DXA [...] this encounter Medical Devices Implanted Type Area Reinsurance Clerk Device Identifier Shelf Expiration Date Model / Serial / Lot Screw 6x45 Poly Si [id number] - [id number] Implanted:Qty : 4 on 10/22/2012 at [place] [facility] [place] N/A: Spine Lumbar JNJ : [employer] [id number] / / Dung 5.5x45 Ti Prbnt [id number] - [id number] Implanted:Qty : 2 on 10/22/2012 at [place] [facility] N/A: Spine Lumbar JNJ : [employer] [id number] / / Screw Set Sng Inner [id number] - [id number] Implanted:Qty : 4 on 10/22/2012 at [place] [facility] [place] N/A: Spine Lumbar JNJ : DEPUY SPINE [id number] / / Graft Infuse Bone Sm 6197800 - [id number] Implanted:Qty : 1 on 10/22/2012 at [place] [facility] N/A: Spine Lumbar [employer] : NEUROLOGIC PAIN 12/28/2014 [id number] / / [id number] Expedium Ti Sfx 5.5 Lat A6 - [id number] Implanted:Qty : 1 on 10/22/2012 at [place] [facility] [place] N/A: Spine Lumbar JNJ : [employer] [id number] / / Cage 13 X 28 Implanted:Qty : 1 on 10/22/2012 at [place] [facility] N/A: Spine Lumbar 08.803.113 / / Screw Set Sng Inner [id number] - [id number] Implanted:Qty : 4 on 06/06/2018 by Elijah Thorne MD at [place] [facility] N/A: Spine Lumbar JNJ : [employer] [id number] / / Description:Part of implant set Pre Lordosed Dung W Line 55mm - [id number] Implanted:Qty : 2 on 06/06/2018 by Elijah Thorne MD at [place] [facility] N/A: Spine Lumbar JNJ : DEPUY SPINE [id number] / / Description:Part of implant set Expedium Ti Sfx 5.5 Lat A6 - [id number] Implanted:Qty : 1 on 06/06/2018 by Elijah Thorne MD at [place] [facility] N/A: Spine Lumbar JNJ : ETH[employer]ON [employer]ATIONS [id number] / / Description:Part of implant set Graft Infuse Bone Sm 1556413 - [id number] Implanted:12/2017 by Elijah Thorne MD at [place] [facility] (Quantity not on file) [employer] : NEURO CARE 08/29/2019 [id number] / / [id number] 10x22 Caliber Interbody Implanted:Qty : 2 on 06/06/2018 by Elijah Thorne MD at [place] [facility] N/A: Spine Lumbar [employer] 194.122 / / Description:Part of implant set Screw 7x40 Poly Si [id number] - [id number] Implanted:Qty : 2 on 06/06/2018 by Elijah Thorne MD at [place] [facility] N/A: Spine Lumbar JNJ : ETH[employer]ON [employer]ATIONS [id number] / / Description:Part of implant set Stimulan Rapid Cure 10cc - [id number] Implanted:Qty : 1 on 05/27/2019 by Elijah Thorne MD at [place] [facility] N/A: Spine Lumbar [employer] [id number] 02/28/2022 620-010 / / [id number] Screw 7x50 Poly Si [id number] - [id number] Implanted:Qty : 2 on 05/27/2019 by Elijah Thorne MD at [place] [facility] N/A: Spine Lumbar JNJ : [employer] [id number] / / Screw Set Sng Inner [id number] - [id number] Implanted:Qty : 2 on 05/27/2019 by Elijah Thorne MD at [place] [facility] N/A: Spine Lumbar JNJ : [employer] [id number] / / Depuy 5.5 Dung With Connector Implanted:Qty : 2 on 05/27/2019 by Elijah Thorne MD at [place] [facility] N/A: Spine Lumbar [id number] / / Expedium Ti Sfx 5.5 Lat A6 - [id number] Implanted:Qty : 1 on 05/27/2019 by Elijah Thorne MD at [place] [facility] N/A: Spine Lumbar JNJ : [employer] [id number] / / Globus 10x26 8-12mm Cage Implanted:Qty : 1 on 05/27/2019 by Elijah Thorne MD at [place] [facility] N/A: Spine Lumbar 194.126 / / documented [...] the patient have Health Care Power of Search Manager? No Code Status History Code Status [...] the patient have Health Care Power of Search Manager? No Full Code 11/24/2009 6:53 AM 11/27/2009 3:28 PM This order reflects the patients wishes and were consensually agreed upon. Question Answer Comments Discussion of Advance Directives occurred with: Patient Does the patient have a Living Will? No Does the patient have Health Care Power of Search Manager? No Care Teams Od Grinder Operator Relationship Specialty Start Date End Date Tushar Mina III, MD [address] [facility] [address] PCP - General 02/13/1996 documented as of this encounter
--- OUTSIDE RECORDS SUMMARY | 2023-11-08 20:40 | External Medical Summary | Summary of Care ---
Author Name Unknown Organization [facility] Address [address] [place] [address] Phone [phone] Care Team Providers Care Film Laboratory Technician Name Role Phone Leopoldo BARNHART MD, Tushar Manzo Primary Care Provider [phone] Reason for Visit * Reason Onset Date Comments Referral 11/06/2023 Hem/onc Encounter Details Date Type Department Care Team (Late st Contact Info) Description 11/06/2023 Telephone Hematology/Oncology Treatment, [place] [address] [place] [phone] Rehana Salinas CRNP [address] [place] [address] Referral (Hem/onc) Allergies Active Allergy Reactions Criticality Noted Date [...] mRNA, LNP-s, No Pre serve, 2-Dose Series ([employer]) 06/20/2021,09/22/2020,09/01/2020 COVID-19, MRNA-LNP, 23-24, P F, 30 MCG/0.3 mL, 12 YRS AND ABOVE, IM ([facility]) 04/08/2023 Covid-19, Mrna, Lnp-s, Pf, B ivalent, 30 Mcg, IM, 12 yrs and above ([employer]) 04/19/2022 H1N1 2009 Influenza, IM 05/20/2009 Hepatitis [...] Influenza, Split, I IV3, With Preserve, Inj 03/21/2015,03/22/2014,03/16/2013,03/01,03/27/2011,03/15/2010,05/25/20,05/12/2008,05/06/2007,04/24/2006,07/09/2004,04/15/2003,05/12/2002,06/0203/22/2015 Seasonal Influenza, Trivalen t, High Dose, No [...] encounter Miscellaneous Notes * Telephone Encounter - Myra Gonzalez LPN - 11/06/2023 2:29 PM EDT Called and spoke with patient, informed patient we were able to schedule her with OUMOU Pickens tomorrow at 11:00 am. Patient verbalized understanding, then stated she "will not be here" tomorrow. Per patient request rescheduled her to next available appointment on 11/15/2023 at 12:15 pm. Provided patient with directions to [facility] entrance 1. Patient repeated instructions and denies any further needs or concerns at this time. * Telephone Encounter - Jaimee Jara RN - 11/06/2023 1:51 PM EDT Received 3 day referral for ITP. Called lab- platelet count today 68 (not yet finalized). Rehana has 2-30 minute spots tomorrow. Haja: can you move one of Rehana's return appts tomorrow to make a 1 hour spot for this patient to be added tomorrow? Thanks! documented in this encounter Plan of Treatment Upcoming Encounters Date Type Department Care Team (Late st Contact Info) Description 11/13/2023 12:45 PM EDT Imaging Radiology [facility] [address] [facility] [place] [address] 11/15/2023 12:15 PM EDT Office Visit [facility]ology[facility]On[facility] [address] [facility] [phone] Aguila Peng MD 200 [facility] [place], [place] [address] 01/09/2024 9:00 AM EDT Office Visit Family Practice [facility] [place] [address] [facility] [place], [place] [address] Tushar Mina III, MD [address] [facility] [place], [place] [address] Health Maintenance Due Date Last Done Comments Cologuard 1994 Sigmoidoscopy 1994 Fecal Occult Blood Test 06/29/2007 06/29/20, 06/08/2000, 05/22/1999 Depression Screening 03/01/2023 03/01/2022, 07/07/2015 (Discussed) Mammogram 12/13/2023 12/12/2022, 11/29, 12/01/2021, Additional history exists GFR 02/25/2024 08/27/2023, 07/0 10/2022, 02/26/2022, Additional history exists Albumin/Creatinine Ratio 08/27/2024 024, 03/19/2023, 04/12/2022, Additional history exists CKD PHOS USE SMARTSET 71609 08/27/202408/02, 03/19/2023, 02/26/2022, Additional history exists TSH 08/27/2024 08/27/2023, 10/0 08/2022, 03/29/2023, Additional history exists CKD HGB USE SMARTSET 80219 11/05/202411/05, 08/27/2023, 01/02/2023, Additional history exists DXA [...] this encounter Medical Devices Implanted Type Area Safety Officer Device Identifier Shelf Expiration Date Model / Serial / Lot Screw 6x45 Poly Si [id number] - [id number] Implanted:Qty : 4 [place] 10[place] [facility] [place]: Spine Lumbar JNJ : [employer] [id number] / / Dung 5.5x45 Ti Prbnt [id number] - [id number] Implanted:Qty : 2 on 10/22/2012 [place] [facility]A: Spine Lumbar JNJ : [employer] [id number] / / Screw Set Sng Inner 871008075 - [id number] Implanted:Qty : 4 on 10/22/2012 [place] [facility] [place]/A: Spine Lumbar JNJ : DEPUY SPINE [id number] / / Graft Infuse Bone Sm 3585433 - [id number] Implanted:Qty : 1 on 10/22/2012 [place] [facility]/A: Spine Lumbar [employer] : NEUROLOGIC PAIN 12/28/2014 [id number] / / [id number] Expedium Ti Sfx 5.5 Lat A6 - [id number] Implanted:Qty : 1 on 10/22/2012 [place] [facility]/A: Spine Lumbar JNJ : [employer] [id number] / / Cage 13 X 28 Implanted:Qty : 1 on 10/22/2012 [place] [facility]/A: Spine Lumbar 08.803.113 / / Screw Set Sng Inner [id number] - [id number] Implanted:Qty : 4 on 06/06/2018 by Elijah Thorne MD [place] [facility]/A: Spine Lumbar JNJ : [employer] [id number] / / Description:Part of implant set Pre Lordosed Dung W Line 55mm - [id number] Implanted:Qty : 2 on 06/06/2018 by Elijah Thorne MD [place] [facility]/A: Spine Lumbar JNJ : [facility] SPINE [id number] / / Description:Part of implant set Expedium Ti Sfx 5.5 Lat A6 - [id number] Implanted:Qty : 1 on 06/06/2018 by Elijah Thorne MD [place] [facility]/A: Spine Lumbar JNJ : [employer] [id number] / / Description:Part of implant set Graft Infuse Bone Sm 7376338 - [id number] Implanted:12/2017 by Elijah Thorne MD [place] [facility] (Quantity not on file) [employer] : NEURO CARE 08/29/2019 [id number] / / [id number] 10x22 Caliber Interbody Implanted:Qty : 2 on 06/06/2018 by Elijah Thorne MD [place] [facility] N/A: Spine Lumbar [employer] 194.122 / / Description:Part of implant set Screw 7x40 Poly Si [id number] - [id number] Implanted:Qty : 2 on 06/06/2018 by Elijah Thorne MD [place] [facility] [place]/A: Spine Lumbar JNJ : [employer] [id number] / / Description:Part of implant set Stimulan Rapid Cure 10cc - [id number] Implanted:Qty : 1 on 05/27/2019 by Elijah Thorne MD [place] [facility] N/A: Spine Lumbar [employer] [id number] 02/28/2022 620-010 / / [id number] Screw 7x50 Poly Si [id number] - [id number] Implanted:Qty : 2 on 05/27/2019 by Elijah Thorne MD [place] [facility] [place]/A: Spine Lumbar JNJ : [employer] [id number] / / Screw Set Sng Inner [id number] - [id number] Implanted:Qty : 2 on 05/27/2019 by Elijah Thorne MD [place] [facility] [place]/A: Spine Lumbar JNJ : [employer] [id number] / / Depuy 5.5 Dung With Connector Implanted:Qty : 2 on 05/27/2019 by Elijah Thorne MD [place] [facility] N/A: Spine Lumbar [id number] / / Expedium Ti Sfx 5.5 Lat A6 - [id number] Implanted:Qty : 1 on 05/27/2019 by Elijah Thorne MD [place] [facility] N/A: Spine Lumbar JNJ : [employer] [id number] / / Globus 10x26 8-12mm Cage Implanted:Qty : 1 on 05/27/2019 by Elijah Thorne MD [place] [facility] N/A: Spine Lumbar 194.126 / / documented [...] the patient have Health Care Power of Silver Solution Mixer? No Code Status History Code Status Date [...] the patient have Health Care Power of Silver Solution Mixer? No Full Code 11/24/2009 6:53 AM 11/27/2009 3:28 PM This order reflects the patients wishes and were consensually agreed upon. Question Answer Comments Discussion of Advance Directives occurred with: Patient Does the patient have a Living Will? No Does the patient have Health Care Power of Silver Solution Mixer? No Care Teams Film Laboratory Technician Relationship Specialty Start Date End Date Tushar Mina III, MD [address] [place] [address] PCP - General 02/13/1996 documented as of this encounter
--- OUTSIDE RECORDS SUMMARY | 2023-11-08 20:40 | External Medical Summary | Summary of Care ---
Author Name Unknown Organization [facility] Address [address] [place] [address] Phone [phone] Care Team Providers Care Computer Numerical Control Grinder Name Role Phone Leopoldo BARNHART MD, Tushar Manzo Primary Care Provider [phone] Reason for Visit * Reason Comments Outpatient Testing Encounter Details Date Type Department Care Team (Late st Contact Info) Description 11/06/2023 1:30 PM EDT Laboratory Laboratory [facility] [address] [place] [address] [place] [address] [place] [address] Acute ITP (HCC) Allergies Active Allergy Reactions Criticality Noted Date [...] mRNA, LNP-s, No Pre serve, 2-Dose Series ([facility]) 06/20/2021,09/22/2020,09/01/2020 COVID-19, MRNA-LNP, 23-24, P F, 30 MCG/0.3 mL, 12 YRS AND ABOVE, IM ([employer]Comirnat) 04/08/2023 Covid-19, Mrna, Lnp-s, Pf, B ivalent, [...] Description 11/13/2023 12:45 PM EDT Imaging Radiology [address] [facility] [place] [address] 01/09/2024 9:00 AM EDT Office Visit [facility] [address] [facility] [place] [address] Tushar Mina III, MD 200 [facility] [place] [address] Pending Results Name Type Priority Associated Diagnoses Date /Time CBC Lab Routine Acute ITP (HCC) 11/06/2023 1:28 PM EDT Health Maintenance Due Date Last Done Comments Cologuard 1994 Sigmoidoscopy 1994 Fecal Occult Blood Test 06/29/2007 06/29/20 06, 06/08/2000, 05/22/1999 Depression Screening 03/01/2023 03/01/2022, 07/07/2015 (Discussed) Mammogram 12/13/2023 12/12/2022, 11/29, 12/01/2021, Additional history exists GFR 02/25/2024 08/27/2023, 10/2022, 02/26/2022, Additional history exists Albumin/Creatinine Ratio 08/27/2024 024, 03/19/2023, 04/12/2022, Additional history exists CKD HGB USE SMARTSET 93255 08/27/202408/27, 01/02/2023, 01/02/2023, Additional history exists CKD PHOS USE SMARTSET 33688 08/27/202408/02, 03/19/2023, 02/26/2022, Additional history exists TSH [...] this encounter Medical Devices Implanted Type Area Barrel Driller Device Identifier Shelf Expiration Date Model / Serial / Lot Screw 6x45 Poly Si [id number] - [id number] Implanted:Qty : 4 on 10/22/2012 at [place] [facility] [place] N/A: Spine Lumbar JNJ : [employer] [id number] / / Dung 5.5x45 Ti Prbnt [id number] - [id number] Implanted:Qty : 2 on 10/22/2012 at [place] [facility] N/A: Spine Lumbar JNJ : [employer] [id number] / / Screw Set Sng Inner [id number] - [id number] Implanted:Qty : 4 on 10/22/2012 at [place] [facility] N/A: Spine Lumbar JNJ : [employer] [id number] / / Graft Infuse Bone Sm 7862556 - [id number] Implanted:Qty : 1 on 10/22/2012 at [place] [facility] [place] N/A: Spine Lumbar [employer] : NEUROLOGIC PAIN 12/28/2014 [id number] / / [id number] Expedium Ti Sfx 5.5 Lat A6 - [id number] Implanted:Qty : 1 on 10/22/2012 at [place] [facility] N/A: Spine Lumbar JNJ : [employer] [id number] / / Cage 13 X 28 Implanted:Qty : 1 on 10/22/2012 at [place] [facility] N/A: Spine Lumbar 08.803.113 / / Screw Set Sng Inner [id number] - [id number] Implanted:Qty : 4 on 06/06/2018 by Elijah Thorne MD at [place] [facility] N/A: Spine Lumbar JNJ : [employer] [id number] / / Description:Part of implant set Pre Lordosed Dung W Line 55mm - [id number] Implanted:Qty : 2 on 06/06/2018 by Elijah Thorne MD at [place] [facility] [place] N/A: Spine Lumbar JNJ : [employer] [id number] / / Description:Part of implant set Expedium Ti Sfx 5.5 Lat A6 - [id number] Implanted:Qty : 1 on 06/06/2018 by Elijah Thorne MD at [place] [facility] [place] N/A: Spine Lumbar JNJ : [employer] [id number] / / Description:Part of implant set Graft Infuse Bone Sm 9919873 - [id number] Implanted:12/2017 by Elijah Thorne MD at [place] [facility] (Quantity not on file) [employer] : NEURO CARE 08/29/2019 [id number] / / [id number] 10x22 Caliber Interbody Implanted:Qty : 2 on 06/06/2018 by Elijah Thorne MD at [place] [facility] N/A: Spine Lumbar [employer] 194.122 / / Description:Part of implant set Screw 7x40 Poly Si [id number] - [id number] Implanted:Qty : 2 on 06/06/2018 by Elijah Thorne MD at [place] [facility] N/A: Spine Lumbar JNJ : [employer] [id number] / / Description:Part of implant set Stimulan Rapid Cure 10cc - [id number] Implanted:Qty : 1 on 05/27/2019 by Elijah Thorne MD at [place] [facility] N/A: Spine Lumbar [employer] [id number] 02/28/2022 620-010 / / [id number] Screw 7x50 Poly Si [id number] - [id number] Implanted:Qty : 2 on 05/27/2019 by Elijah Thorne MD at [place] [facility] [place] N/A: Spine Lumbar JNJ : [employer] [id number] / / Screw Set Sng Inner [id number] - [id number] Implanted:Qty : 2 on 05/27/2019 by Elijah Thorne MD at [place] [facility] [place] N/A: Spine Lumbar JNJ : [employer] [id number] / / Depuy 5.5 Dung With Connector Implanted:Qty : 2 on 05/27/2019 by Elijah Thorne MD at [place] [facility] [place] N/A: Spine Lumbar [id number] / / Expedium Ti Sfx 5.5 Lat A6 - [id number] Implanted:Qty : 1 on 05/27/2019 by Elijah Thorne MD at [place] [facility] [place] N/A: Spine Lumbar JNJ : [employer] [id number] / / Globus 10x26 8-12mm Cage Implanted:Qty : 1 on 05/27/2019 by Elijah Thorne MD at [place] [facility] [place] N/A: Spine Lumbar 194.126 / / documented as of this encounter Visit Diagnoses Diagnosis Acute ITP (HCC) Immune thrombocytopenic purpura documented in this encounter Advance Directives Latest [...] the patient have Health Care Power of Telegraph Messenger? No Code Status History Code Status Date [...] the patient have Health Care Power of Telegraph Messenger? No Full Code 11/24/2009 6:53 AM 11/27/2009 3:28 PM This order reflects the patients wishes and were consensually agreed upon. Question Answer Comments Discussion of Advance Directives occurred with: Patient Does the patient have a Living Will? No Does the patient have Health Care Power of Telegraph Messenger? No Care Teams Computer Numerical Control Grinder Relationship Specialty Start Date End Date Tushar Mina III, MD [address] [place] [address] PCP - General 02/13/1996 documented as of this encounter
--- OUTSIDE RECORDS SUMMARY | 2023-11-08 20:40 | External Medical Summary | Summary of Care ---
Author Name Unknown Organization [facility] Address [address] [place] [address] Phone [phone] Care Team Providers Care Binder Coverstitch Name Role Phone Leopoldo BARNHART MD, Tushar Manzo Primary Care Provider [phone] Reason for Visit * Reason Onset Date Comments Referral 11/06/2023 Hem/onc Encounter Details Date Type Department Care Team (Late st Contact Info) Description 11/06/2023 Telephone Hematology/Oncology Treatment, [place] [address] [place] [phone] Rehana Salinas CRNP [address] [place] [address] Referral (Hem/onc) Allergies Active Allergy [...] mRNA, LNP-s, No Pre serve, 2-Dose Series ([employer]) 06/20/2021,09/22/2020,09/01/2020 COVID-19, MRNA-LNP, 23-24, P F, 30 MCG/0.3 mL, 12 YRS AND ABOVE, IM ([facility]) 04/08/2023 Covid-19, Mrna, Lnp-s, Pf, B ivalent, [...] encounter Miscellaneous Notes * Telephone Encounter - Jaimee Jara RN [...] Team (Late st Contact Info) Description 11/07/2023 11:00 AM EDT Office Visit Hematology/Oncology [facility] [address] [place] [address] Rehana Salinas CRNP [address] [facility] [place] [address] 11/13/2023 12:45 PM EDT Imaging Radiology [address] [facility] [place] [address] 01/09/2024 9:00 AM EDT Office Visit Family Practice [facility] [address] [place] [address] Tushar Mina III, MD [address] [place] [address] Health Maintenance Due Date Last Done Comments Cologuard 1994 Sigmoidoscopy 1994 Fecal Occult Blood Test 06/29/2007 06/29/20 06, 06/08/2000, 05/22/1999 Depression Screening 03/01/2023 03/01/2022, 07/07/2015 (Discussed) Mammogram 12/13/2023 12/12/2022, 11/29, 12/01/2021, Additional history exists GFR 02/25/2024 08/27/2023, 07/0 10/2022, 02/26/2022, Additional history exists Albumin/Creatinine Ratio 08/27/2024 024, 03/19/2023, 04/12/2022, Additional history exists CKD PHOS USE SMARTSET 51764 08/27/202408/02, 03/19/2023, 02/26/2022, Additional history exists TSH 08/27/2024 08/27/2023, 10/0 08/2022, 03/29/2023, Additional history exists CKD HGB USE SMARTSET 13625 11/05/202411/05, 08/27/2023, 01/02/2023, Additional history exists DXA [...] this encounter Medical Devices Implanted Type Area Cork Wirer Device Identifier Shelf Expiration Date Model / Serial / Lot Screw 6x45 Poly Si [id number] - [id number] Implanted:Qty : 4 [place] [facility] [place] Spine Lumbar JNJ : ETHIC[employer]ATIONS [id number] / / Dung 5.5x45 Ti Prbnt [id number] - [id number] Implanted:Qty : 2 on 10[place]22/[place] [facility] [place] Spine Lumbar JNJ : ETH[employer]OVATIONS [id number] / / Screw Set Sng Inner [id number] - [id number] Implanted:Qty : 4 on 10/22/2012 [place] [facility] [place] Spine Lumbar JNJ : DEPUY SPINE [id number] / / Graft Infuse Bone Sm 6678638 - [id number] Implanted:Qty : 1 on 10/22/2012 [place] [facility] [place]: Spine Lumbar [employer] : NEUROLOGIC PAIN 12/28/2014 [id number] / / [id number] Expedium Ti Sfx 5.5 Lat A6 - [id number] Implanted:Qty : 1 on 10/22/2012 [place] [facility] [place]: Spine Lumbar JNJ : ETHICON CARDIOVATIONS [id number] / / Cage 13 X 28 Implanted:Qty : 1 on 10/22/2012 [place] [facility] [place]: Spine Lumbar 08.803.113 / / Screw Set Sng Inner [id number] - [id number] Implanted:Qty : 4 on 06/06/2018 by Elijah Thorne MD [place] [facility] [place]: Spine Lumbar JNJ : ETHICON C[employer]IOVATIONS [id number] / / Description:Part of implant set Pre Lordosed Dung W Line 55mm - [id number] Implanted:Qty : 2 on 06/06/2018 by Elijah Thorne MD [place] [facility] [place]: Spine Lumbar JNJ : DEPUY SPINE [id number] / / Description:Part of implant set Expedium Ti Sfx 5.5 Lat A6 - [id number] Implanted:Qty : 1 on 06/06/2018 by Elijah Thorne MD [place] [facility] [place]: Spine Lumbar JNJ : ETHICON C[employer]IOVATIONS [id number] / / Description:Part of implant set Graft Infuse Bone Sm [id number] - [id number] Implanted:12/2017 by Elijah Thorne MD [place] [facility] [place] file) [employer] : NEURO CARE 08/29/2019 [id number] / / [id number] 10x22 Caliber Interbody Implanted:Qty : 2 on 06/06/2018 by Elijah [place]orne MD [place] [facility] [place]: Spine Lumbar [employer] 194.122 / / Description:Part of implant set Screw 7x40 Poly Si [id number] - [id number] Implanted:Qty : 2 on 06/06/2018 by Elijah Thorne MD [place] [facility] [place]: Spine Lumbar JNJ : ETHICON CARDIOVATIONS [id number] / / Description:Part of implant set Stimulan Rapid Cure 10cc - [id number] Implanted:Qty : 1 on 05/27/2019 by Elijah Thorne MD [place] [facility] [place]: Spine Lumbar [employer] [id number] 02/28/2022 620-010 / / [id number] Screw 7x50 Poly Si [id number] - [id number] Implanted:Qty : 2 on 05/27/2019 by Elijah Thorne MD [place] [facility] [place]: Spine Lumbar JNJ : ETHICON CARDIOVATIONS [id number] / / Screw Set Sng Inner [id number] - [id number] Implanted:Qty : 2 on 05/27/2019 by Elijah [place]orne MD [place] [facility] [place]: Spine Lumbar JNJ : ETHICON C[employer]IOVATIONS [id number] / / Depuy 5.5 Dung With Connector Implanted:Qty : 2 on 05/27/2019 by Elijah Thorne MD [place] [facility] [place]: Spine Lumbar [id number] / / Expedium Ti Sfx 5.5 Lat A6 - [id number] Implanted:Qty : 1 on 05/27/2019 by Elijah Thorne MD [place] [facility] [place]A: Spine Lumbar JNJ : ETHICON C[employer]IOVATIONS [id number] / / Globus 10x26 8-12mm Cage Implanted:Qty : 1 on 05/27/2019 by Elijah [place]orne MD [place] [facility] [place]: Spine Lumbar 194.126 / [...] the patient have Health Care Power of Insulation Engineman? No Code Status History Code Status Date [...] the patient have Health Care Power of Insulation Engineman? No Full Code 11/24/2009 6:53 AM 11/27/2009 3:28 PM This order reflects the patients wishes and were consensually agreed upon. Question Answer Comments Discussion of Advance Directives occurred with: Patient Does the patient have a Living Will? No Does the patient have Health Care Power of Insulation Engineman? No Care Teams Binder Coverstitch Relationship Specialty Start Date End Date Tushar Mina III, MD [address] [place] [address] PCP - General 02/13/1996 documented as of this encounter
--- OUTSIDE RECORDS SUMMARY | 2023-11-08 20:40 | External Medical Summary | Summary of Care ---
Author Name Unknown Organization [facility] Address [address] [place] [address] Phone [phone] Care Team Providers Care Brazer Resistance Name Role Phone Leopoldo BARNHART MD, Tushar Manzo Primary Care Provider [phone] Reason for Visit * Reason Onset Date Comments Hospital Follow-Up 11/04/2023 Encounter Details Date Type Department Care Team (Late st Contact Info) Description 11/04/2023 Telephone General Internal Medicine [facility] [address] [facility] [address] Tushar Mina III, MD [address] [place] [address] Hospital Follow-Up Allergies Active Allergy Reactions Criticality Noted Date Comments Bee Stings 04/04/2010 Swelling, sick to stomach Yellow Jacket Venom 02/28/2012 Swelling, sick to stomach documented as of this encounter (statuses as of 11/04/2023) Medications Medication Sig Dispensed Refills Start Date [...] as of this encounter (statuses as of 11/04/2023) Active Problems Problem Noted Date Diagnosed Date [...] as of this encounter (statuses as of 11/04/2023) Resolved Problems Problem Noted Date Diagnosed Date Resolved Date 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 Kidney disease, chronic, sta ge III (GFR 30-59 ml/min) 09/13/2014 05/12/2020 Overview: Per CKD protocol #1 Other osteoporosis without c urrent pathological fracture 07/13/2009 07/14/2021 Overview: ICD-10 update of inactive term Menopause 05/18/2019 INFORMATION 01/02/2023 documented as of this encounter (statuses as of 11/04/2023) Immunizations Name Administration Dates Next Due COVID-19 mRNA, LNP-s, No Pre serve, 2-Dose Series ([employer]) 06/20/2021,09/22/2020,09/01/2020 COVID-19, MRNA-LNP, 23-24, P F, 30 MCG/0.3 mL, 12 YRS AND ABOVE, IM ([employer]) 04/08/2023 Covid-19, Mrna, Lnp-s, Pf, B ivalent, 30 Mcg, IM, 12 yrs and above ([employer]) 04/19/2022 H1N1 2009 Influenza, IM 05/20/2009 Hepatitis [...] Telephone Encounter - Nannette Duncan PA-C - 11/04/2023 7:05 PM EDT noted * Telephone Encounter - Juan Miguel Dela Cruz RN - 11/04/2023 11:34 AM EDT Patient discharged to home from [facility] 11/03/23 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 Discharging physician recommends very close monitoring of hgb (8.9 at dc) and a hematology evaluation. Patient has a hospital dcfollow up appointment with Nannette Duncan PA-C on 11/05. Thank you documented in this encounter Plan of Treatment Upcoming Encounters Date Type Department Care Team (Late st Contact Info) Description 11/06/2023 12:00 PM EDT Office [place] [address] [place] [address] Nannette Duncan PA-C [address] [facility] [place] [address] 01/09/2024 9:00 AM EDT Office Visit [facility] [address] [facility] [address] ColumbianaTushar herman III, MD [address] [facility] [place] [address] Health Maintenance Due Date Last Done Comments Cologuard 1994 Sigmoidoscopy 1994 Fecal Occult Blood Test 06/29/2007 06/29/20 06, 06/08/2000, 05/22/1999 Depression Screening 03/01/2023 03/01/2022, 07/07/2015 (Discussed) Mammogram 12/13/2023 12/12/2022, 11/29, 12/01/2021, Additional history exists GFR 02/25/2024 08/27/2023, 07/0 10/2022, 02/26/2022, Additional history exists Albumin/Creatinine Ratio 08/27/2024 024, 03/19/2023, 04/12/2022, Additional history exists CKD HGB USE SMARTSET 87556 08/27/202408/27, 01/02/2023, 01/02/2023, Additional history exists CKD PHOS USE SMARTSET 16841 08/27/202408/02, 03/19/2023, 02/26/2022, Additional history exists TSH [...] this encounter Medical Devices Implanted Type Area Short Order Cook Device Identifier Shelf Expiration Date Model / Serial / Lot Screw 6x45 Poly Si [id number] - [id number] Implanted:Qty : 4 on 10/22/2012 [place] [facility] [place] Spine Lumbar JNJ : ETH[employer]ON C[employer]IOVATIONS [id number] / / Dung 5.5x45 Ti Prbnt [id number] - [id number] Implanted:Qty : 2 on 10/22/2012 at [place] [facility] [place]: Spine Lumbar JNJ : ETH[employer] C[employer]IOVATIONS [id number] / / Screw Set Sng Inner [id number] - [id number] Implanted:Qty : 4 on 10/22/2012 at [place] [facility] [place]: Spine Lumbar JNJ : DEPUY SPINE [id number] / / Graft Infuse Bone Sm 9955795 - [id number] Implanted:Qty : 1 on 10/22/2012 at [place] [facility] [place]: Spine Lumbar [employer] : NEUROLOGIC PAIN 12/28/2014 [id number] / / [id number] Expedium Ti Sfx 5.5 Lat A6 - [id number] Implanted:Qty : 1 on 10/22/2012 at [place] [facility] [place]/A: Spine Lumbar JNJ : ETH[employer]ON CARDIOVATIONS [id number] / / Cage 13 X 28 Implanted:Qty : 1 on 10/22/2012 at [place] [facility] [place]/A: Spine Lumbar 08.803.113 / / Screw Set Sng Inner 666268674 - [id number] Implanted:Qty : 4 on 06/06/2018 by Elijah Thorne MD at [place] [facility] [place]/A: Spine Lumbar JNJ : ETH[employer] C[employer]IOVATIONS [id number] / / Description:Part of implant set Pre Lordosed Dung W Line 55mm - [id number] Implanted:Qty : 2 on 06/06/2018 by Elijah Thorne MD at [place] [facility] [place]/A: Spine Lumbar JNJ : DEPUY SPINE [id number] / / Description:Part of implant set Expedium Ti Sfx 5.5 Lat A6 - [id number] Implanted:Qty : 1 on 06/06/2018 by Elijah Thorne MD at [place] [facility] [place]/A: Spine Lumbar JNJ : ETH[employer] C[employer]ATIONS [id number] / / Description:Part of implant set Graft Infuse Bone Sm 9079964 - [id number] Implanted:12/2017 by Elijah Thorne MD at [place] [facility] [place] (Quantity not on file) [employer] : NEURO CARE 08/29/2019 [id number] / / [id number] 10x22 Caliber Interbody Implanted:Qty : 2 on 06/06/2018 by Elijah Thorne MD at [place] [facility] [place] N/A: Spine Lumbar [employer] 194.122 / / Description:Part of implant set Screw 7x40 Poly Si [id number] - [id number] Implanted:Qty : 2 on 06/06/2018 by Elijah Thorne MD at [place] [facility] [place]/A: Spine Lumbar JNJ : [employer] [id number] / / Description:Part of implant set Stimulan Rapid Cure 10cc - [id number] Implanted:Qty : 1 on 05/27/2019 by Elijah Thorne MD at [place] [facility] [place] N/A: Spine Lumbar [employer] [id number] 02/28/2022 620-010 / / [id number] Screw 7x50 Poly Si [id number] - [id number] Implanted:Qty : 2 on 05/27/2019 by Elijah Thorne MD at [place] [facility] [place]/A: Spine Lumbar JNJ : ETH[employer] C[employer]IOVATIONS [id number] / / Screw Set Sng Inner [id number] - [id number] Implanted:Qty : 2 on 05/27/2019 by Elijah Thorne MD at [place] [facility] [place]/A: Spine Lumbar JNJ : ETH[employer] C[employer]ATIONS [id number] / / Depuy 5.5 Dung With Connector Implanted:Qty : 2 on 05/27/2019 by Elijah Thorne MD at [place] [facility] [place]/A: Spine Lumbar [id number] / / Expedium Ti Sfx 5.5 Lat A6 - [id number] Implanted:Qty : 1 on 05/27/2019 by Elijah Thorne MD at [place] [facility] [place]/A: Spine Lumbar JNJ : [employer] [id number] / / Globus 10x26 8-12mm Cage Implanted:Qty : 1 on 05/27/2019 by Elijah Thorne MD at [place] [facility] [place] N/A: Spine Lumbar 194.126 / [...] the patient have Health Care Power of Rail Layer? No Code Status History Code Status Date [...] the patient have Health Care Power of Rail Layer? No Full Code 11/24/2009 6:53 AM 11/27/2009 3:28 PM This order reflects the patients wishes and were consensually agreed upon. Question Answer Comments Discussion of Advance Directives occurred with: Patient Does the patient have a Living Will? No Does the patient have Health Care Power of Rail Layer? No Care Teams Brazer Resistance Relationship Specialty Start Date End Date Tushar Mina III, MD [address] [place] [address] PCP - General 02/13/1996 documented as of this encounter
--- OUTSIDE RECORDS SUMMARY | 2023-11-08 20:40 | External Medical Summary ---
Author Name Unknown Address Unknown Organization K09:[facility] [address] Laboratory Report Ordering Provider Test Date Status 11/06/2023 13:28:15 Final Observation Date Value Abnormality Reference (Units ) Status WBC, Total 11/06/2023 13:28:15 11.80 Above high normal 4 .00-10.80 (K/uL) Final RBC 11/06/2023 13:28:15 3.80 3.85-5.15 (M/uL) Final Hemoglobin 11/06/2023 13:28:15 11.0 Below low normal 12 .0-15.3 (g/dL) Final HCT 11/06/2023 13:28:15 34.9 Below low normal 36. 0-45.2 (%) Final MCV 11/06/2023 13:28:15 91.8 81.5-97.5 (fL) Final MCH 11/06/2023 13:28:15 28.9 27.0-34.0 (pg) Final MCHC 11/06/2023 13:28:15 31.5 32.0-36.0 (g/dL) Final RDW 11/06/2023 13:28:15 18.0 11.5-15.5 (%) Final Platelets 11/06/2023 13:28:15 68 Below low normal 140 -400 (K/uL) Final MPV 11/06/2023 13:28:15 11.3 6.6-11.1 ( fL) Final Performing Location [facility] [place] [address]
[2023-11-08] MEDS: FIRST - Mouthwash BLM 119 ML PO PRN (22:47)
[2023-11-09 05:00] LABS: Hematocrit (blood only) 24.1 % (37.0-47.0); Hemoglobin 7.9 g/dl (12.0-16.0); Mean Corpuscular Hgb Conc 32.8 g/dL (32.0-36.0); Mean Corpuscular Volume 88.6 fL (80.0-100.0); Platelet Count 4 K/uL (130-400); RDW Standard Deviation 53.2 fL (36.4-46.3); Red Blood Count 2.72 M/uL (4.20-5.40); White Blood Count 2.77 K/ul (4.8-10.8)
[2023-11-09 05:06] LABS: BUN Creatinine Ratio 19.8 (10-20); Calcium 7.9 mg/dl (8.6-10.3); Creatinine Clr Calc Pharmacy 45.3 ml/min; Est GFR (African American) 59.9 ml/min; Est GFR (Non-African American) 51.7 ml/min; Potassium 3.7 mmol/L (3.5-5.1)
[2023-11-09 05:22] LABS: ANC (manual) 2.08 K/uL (1.4-6.5); Basophils # (manual) 0.03 K/uL (0-0.2); Basophils % (manual) 1 %; Lymphocytes % (manual) 11 %; Metamyelocytes # (manual) 0.22 K/uL (0-0); Metamyelocytes % (manual) 8 %; Monocytes # (manual) 0.08 K/uL (0.11-0.59); Monocytes % (manual) 3 %; Myelocytes # (manual) 0.06 K/uL (0-0); Myelocytes % (manual) 2 %; Neutrophils # (manual) 2.08 K/uL (1.40-6.50); Neutrophils % (manual) 75 %; Polychromasia 1+
[2023-11-09] MEDS: LEVOTHYROXINE SODIUM 50 MCG TABLET PO SCH (05:45)
[2023-11-09] MEDS ORDERED: IMMUNE GLOBULIN (HUMAN) SOLN IV ONE (08:00)
[2023-11-09] MEDS ORDERED: methylPREDNISolone 1,000 MG in SYRINGE 0 ML IV SCH (09:00)
--- OUTSIDE RECORDS SUMMARY | 2023-11-09 09:03 | External Medical Summary | Summary of Care ---
Author Name Unknown Organization [facility] Address [address] [place] [address] Phone [phone] Care Team Providers Care Carburizing Furnace Operator Name Role Phone Leopoldo BARNHART MD, Tushar Manzo Primary Care Provider [phone] Reason for Visit * Reason Onset Date Comments Returning Call 11/07/2023 Encounter Details Date Type Department Care Team (Late st Contact Info) Description 11/07/2023 Telephone Family Practice [facility] [address] [facility] [address] Tushar Mina III, MD [address] [place] [address] Returning Call Allergies Active Allergy Reactions Criticality Noted Date Comments Bee Stings 04/04/2010 Swelling, sick to stomach Yellow Jacket Venom 02/28/2012 Swelling, sick to stomach documented as of this encounter (statuses as of 11/08/2023) Medications Medication Sig Dispensed Refills Start Date [...] as of this encounter (statuses as of 11/08/2023) Active Problems Problem Noted Date Diagnosed Date [...] as of this encounter (statuses as of 11/08/2023) Resolved Problems Problem Noted Date Diagnosed Date [...] as of this encounter (statuses as of 11/08/2023) Immunizations Name Administration Dates Next Due COVID-19 mRNA, LNP-s, No Pre serve, 2-Dose Series ([employer]) 06/20/2021,09/22/2020,09/01/2020 COVID-19, MRNA-LNP, 23-24, P F, 30 MCG/0.3 mL, 12 YRS AND ABOVE, IM ([employer]-Comirnat) 04/08/2023 Covid-19, Mrna, Lnp-s, Pf, B ivalent, [...] encounter Miscellaneous Notes * Telephone Encounter - Roberta Caldwell welder production line combination - 11/08/2023 9:47 AM EDT Advised pt that script dexAMETHasone 20 MG Oral Tablet was sent to [facility]. * Telephone Encounter - Nannette Duncan PA-C [...] Description 11/13/2023 12:45 PM EDT Imaging Radiology [address], [address] [place] [address] 11/15/2023 12:15 PM EDT Office Visit Hematology/Oncology [facility] [place] [address] [facility] [place], [place] [id number] Aguila Peng MD [address] [facility] [place] [address] 01/09/2024 9:00 AM EDT Office Visit [facility] [place] [place] [address] [facility] [place] [address] Tushar Mina III, MD [address] [facility] [place], [place] [address] Health Maintenance Due Date Last Done Comments Cologuard 1994 Sigmoidoscopy 1994 Fecal Occult Blood Test 06/29/2007 06/29/20 06, 06/08/2000, 05/22/1999 Depression Screening 03/01/2023 03/01/2022, 07/07/2015 (Discussed) Mammogram 12/13/2023 12/12/2022, 11/29, 12/01/2021, Additional history exists GFR 02/25/2024 08/27/2023, 07/0 10/2022, 02/26/2022, Additional history exists Albumin/Creatinine Ratio 08/27/2024 024, 03/19/2023, 04/12/2022, Additional history exists CKD PHOS USE SMARTSET 01964 08/27/202408/02, 03/19/2023, 02/26/2022, Additional history exists TSH 08/27/2024 08/27/2023, 10/0 08/2022, 03/29/2023, Additional history exists CKD HGB USE SMARTSET 06406 11/05/202411/05, 08/27/2023, 01/02/2023, Additional history exists DXA [...] this encounter Medical Devices Implanted Type Area Cement Sprayer Helper Device Identifier Shelf Expiration Date Model / Serial / Lot Screw 6x45 Poly Si [id number] - [id number] Implanted:Qty : 4 on 10/22/2012 at [place] [facility] [place] N/A: Spine Lumbar JNJ : [employer] [id number] / / Dung 5.5x45 Ti Prbnt [id number] - [id number] Implanted:Qty : 2 on 10/22/2012 at OR [facility] [place] N/A: Spine Lumbar JNJ : [employer] [id number] / / Screw Set Sng Inner [id number] - [id number] Implanted:Qty : 4 on 10/22/2012 at [place] [facility] [place] N/A: Spine Lumbar JNJ : DE[employer] SPINE [id number] / / Graft Infuse Bone Sm 9587412 - [id number] Implanted:Qty : 1 on 10/22/2012 at [place] [facility] [place] N/A: Spine Lumbar [employer] : NEUROLOGIC PAIN 12/28/2014 [id number] / / [id number] Expedium Ti Sfx 5.5 Lat A6 - [id number] Implanted:Qty : 1 on 10/22/2012 at [place] [facility] [place] N/A: Spine Lumbar JNJ : [employer] [id number] / / Cage 13 X 28 Implanted:Qty : 1 on 10/22/2012 at OR [facility] [place] N/A: Spine Lumbar 08.803.113 / / Screw Set Sng Inner [id number] - [id number] Implanted:Qty : 4 on 06/06/2018 by Elijah Thorne MD at OR [facility] [place] N/A: Spine Lumbar JNJ : [employer] [id number] / / Description:Part of implant set Pre Lordosed Dung W Line 55mm - [id number] Implanted:Qty : 2 on 06/06/2018 by Elijah Thorne MD at [place] [facility] [place] N/A: Spine Lumbar JNJ : [facility] [id number] / / Description:Part of implant set Expedium Ti Sfx 5.5 Lat A6 - [id number] Implanted:Qty : 1 on 06/06/2018 by Elijah Thorne MD at OR [facility] [place] N/A: Spine Lumbar JNJ : [employer] [id number] / / Description:Part of implant set Graft Infuse Bone Sm 3490099 - [id number] Implanted:12/2017 by Elijah Thorne MD at [place] [facility] [place] (Quantity not on file) [employer] : NEURO CARE 08/29/2019 [id number] / / [id number] 10x22 Caliber Interbody Implanted:Qty : 2 on 06/06/2018 by Elijah Thorne MD at OR [facility] [place] N/A: Spine Lumbar [employer] 194.122 / / Description:Part of implant set Screw 7x40 Poly Si [id number] - [id number] Implanted:Qty : 2 on 06/06/2018 by Elijah Thorne MD at OR [facility] [place] N/A: Spine Lumbar JNJ : [employer] [id number] / / Description:Part of implant set Stimulan Rapid Cure 10cc - [id number] Implanted:Qty : 1 on 05/27/2019 by Elijah Thorne MD at OR [facility] [place] N/A: Spine Lumbar [employer] [id number] 02/28/2022 620-010 / / [id number] Screw 7x50 Poly Si [id number] - [id number] Implanted:Qty : 2 on 05/27/2019 by Elijah Thorne MD at OR [facility] [place] N/A: Spine Lumbar JNJ : [employer] [id number] / / Screw Set Sng Inner [id number] - [id number] Implanted:Qty : 2 on 05/27/2019 by Elijah Thorne MD at OR [facility] [place] N/A: Spine Lumbar JNJ : [employer] [id number] / / Depuy 5.5 Dung With Connector Implanted:Qty : 2 on 05/27/2019 by Elijah Thorne MD at OR [facility] [place] N/A: Spine Lumbar 1797-76-555 / / Expedium Ti Sfx 5.5 Lat A6 - [id number] Implanted:Qty : 1 on 05/27/2019 by Elijah Thorne MD at OR [facility] [place] N/A: Spine Lumbar JNJ : [employer] [id number] / / Globus 10x26 8-12mm Cage Implanted:Qty : 1 on 05/27/2019 by Elijah Thorne MD at OR [facility] [place] N/A: Spine Lumbar 194.126 / / documented [...] the patient have Health Care Power of Bill Peddler? No Code Status History Code Status Date [...] the patient have Health Care Power of Bill Peddler? No Full Code 11/24/2009 6:53 AM 11/27/2009 3:28 PM This order reflects the patients wishes and were consensually agreed upon. Question Answer Comments Discussion of Advance Directives occurred with: Patient Does the patient have a Living Will? No Does the patient have Health Care Power of Bill Peddler? No Care Teams Carburizing Furnace Operator Relationship Specialty Start Date End Date Tushar Mina III, MD [address] [place] [address] PCP - General 02/13/1996 documented as of this encounter
[2023-11-09] MEDS: FLUTICASONE PROPIONATE NA SPR 16 GM BTL SCH (09:08)
[2023-11-09] MEDS: methylPREDNISolone 1,000 MG in DEXTROSE 5% 250 ML IV SCH (09:10)
[2023-11-09 11:47] LABS: Hematocrit (blood only) 25.7 % (37.0-47.0); Hemoglobin 8.5 g/dl (12.0-16.0); Mean Corpuscular Hemoglobin 29.5 pg (25.0-34.0); Mean Corpuscular Hgb Conc 33.1 g/dL (32.0-36.0); Mean Corpuscular Volume 89.2 fL (80.0-100.0); Platelet Count 15 K/uL (130-400); RDW Coefficient of Variation 17.2 % (11.5-14.5); RDW Standard Deviation 54.5 fL (36.4-46.3); Red Blood Count 2.88 M/uL (4.20-5.40); White Blood Count 6.35 K/ul (4.8-10.8)
[2023-11-09 12:03] LABS: Basophils # (auto) 0.01 K/uL (0.00-0.20); Basophils % (auto) 0.2 %; Immature Granulocytes # (auto) 0.44 K/uL (0.01-0.20); Immature Granulocytes % (auto) 6.9 %; Lymphocytes # (auto) 0.46 K/uL (1.20-3.40); Lymphocytes % (auto) 7.2 %; Monocytes # (auto) 0.16 K/uL (0.11-0.59); Monocytes % (auto) 2.5 %; Neutrophils # (auto) 5.28 K/uL (1.40-6.50); Neutrophils % (auto) 83.2 %; RBC Morphology Unremarkable
--- NOTE | 2023-11-09 13:08 | Hospitalist Progress Note ---
Date of Service November 09, 2023 Assessment & Plan (1) Acute ITP: Plan: 73yo F with a PMHx significant for migraine headaches, CKD III, ulcerative colitis, insomnia and recent admission for ITP who presented to the ED for evaluation of oral lesions in addition to a rash on her arms and legs that developed today, and was found to have severe thrombocytopenia with a platelet count of 1 concerning for recurrent ITP. Patient was admitted from 10/29/23 - 11/02/23 w/ rash and oral lesions, and was found to have ITP. During that admission, peripheral smear noted to have "no overt changes of a myelodysplastic syndrome, neoplastic process or hemolytic anemia." HIV testing nonreactive, negative hepatitis panel. 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 Dr. Aguayo was involved with care of patient during last admission, and was treated with IVIG and methylprednisolone for 3 days before transitioning to oral dexamethasone 40mg daily for a total of 4 days (completed on 11/03). On presentation this time, she was noted to have severe thrombocytopenia with Platelet count of 1. RBC 3.62, Hgb 10.4 and Hct 32.2. Chest CT displays no acute abnormality w/in the chest. CT abdomen/pelvis displays no acute process w/in abdomen or pelvis, mild splenomegaly. -Dr. Aguayo contacted by ED provider --> Pt given 1 unit of platelets, 1g methylprednisolone IV and 1g/kg IVIG per her recommendation. -Per Dr. Aguayo, head CT not required/recommendation at this time as there are no reported falls since previous admission w/ negative head CT. -Fall precautions, continue to monitor for any acute bleeding. Continue IVIG, IV methylprednisolone Got 1 Plt early this AM for Plt count of 4 Plt count improved to 15 Awaiting Hematology evaluation (2) Hx of migraines: Plan: Controlled Continue topiramate, propranolol w/ hold parameters, PRN rizatriptan (3) Insomnia: Plan: -Continue trazodone, doxepin (4) Adjustment disorder with depressed mood: Plan: -Continue sertraline (5) Hypothyroidism: Plan: -Continue levothyroxine DVT Prophylaxis: Pharmacological agent contraindicated given severe thrombocytopenia as above. Code Status: DNR/DNI - No Resuscitation PCP: Tushar Mina MD I spent a total of 55 minutes coordinating, documenting and providing care for this patient excluding time spent in performance of separately billed services Admission and Anticipated Discharge Date Admission Date: November 08, 2023 Subjective Patient seen and examined. Reports feeling better. Stated oral sores are resolved. Reports lower extremity rash is improving. Denies any nausea, vomiting, abdominal pain, diarrhea. Denies any hematemesis, hematochezia, hematuria, melena. Denied fever, chills Denied dysuria,freq,urgency Denied headache, dizziness, blurred vision, localized weakness Reports feeling better today and would like to advance diet to regular and not soft bite-size Physical Exam Constitutional: + well hydrated; no acute distress Eyes: PERRL, conjunctivae normal, anicteric sclerae ENMT: Some petechia in oral mucosa especially on the right Respiratory: normal respiratory effort, lungs clear to auscultation Cardiovascular: S1 S2 Gastrointestinal (Abdomen): normal bowel sounds, soft, nontender, no hepato splenomegaly Musculoskeletal: No pedal edema Few petechial rash in legs Neurologic: PERRL, EOMI, accommodation nl, no face palsy, no dysarthria Psychiatric: A+Ox3, euthymic affect Results & Data Results & Data Vital Signs (Past 12 Hours) Vital Signs Temp Pulse Pulse Resp BP BP Pulse Ox 11/09/23 12:12 36.4 C L 75 18 122/70 97 11/09/23 08:14 36.7 C 71 16 116/72 97 11/09/23 08:06 92 H 11/09/23 07:13 36.6 C 70 16 115/69 97 11/09/23 06:43 36.5 C 71 16 110/71 97 11/09/23 06:28 36.4 C L 68 18 126/79 96 11/09/23 06:11 36.3 C L 68 16 124/78 96 11/09/23 03:57 36.5 C 67 18 109/67 97 O2 Del Method 11/09/23 12:12 Room Air 11/09/23 08:14 11/09/23 08:06 11/09/23 07:13 05/11/24 06:43 11/09/23 06:28 11/09/23 06:11 11/09/23 03:57 Room Air Laboratory Results Abnormal lab results 11/09/23 11/09/23 Range/Units 03:55 11:05 WBC 2.77 L (4.8-10.8) K/ul RBC 2.72 L 2.88 L (4.20-5.40) M/uL Hgb 7.9 L 8.5 L (12.0-16.0) g/dl Hct 24.1 L 25.7 L (37.0-47.0) % RDW Std Deviation 53.2 H 54.5 H (36.4-46.3) fL RDW Coeff of Ashley 17.0 H 17.2 H (11.5-14.5) % Plt Count 4 L* D 15 L* D (130-400) K/uL Lymph # (Auto) 0.46 L (1.20-3.40) K/uL Immature Gran # (Auto) 0.44 H (0.01-0.20) K/uL Lymphocytes # (Manual) 0.30 L (1.2-3.4) K/uL Total Abs Lymphocytes 0.30 L (1.2-3.4) K/uL Monocytes # (Manual) 0.08 L (0.11-0.59) K/uL Metamyelocytes # (Man) 0.22 H (0-0) K/uL Myelocytes # (Manual) 0.06 H (0-0) K/uL Sodium 131 L (136-145) mmol/L Carbon Dioxide 17 L (21-32) mmol/L Glucose 153 H (70-99(Fasting)) mg/dl Calcium 7.9 L (8.6-10.3) mg/dl (3) Insomnia Insomnia type: unspecified Qualified Code(s): G47.00 - Insomnia, unspecified (5) Hypothyroidism Hypothyroidism type: unspecified Qualified Code(s): E03.9 - Hypothyroidism, unspecified
[2023-11-09] MEDS: Octagam 10% IVIG 10 gram bottle IV SCH (14:10)
[2023-11-09] MEDS: Octagam 10% IVIG 20 gram bottle IV SCH (16:41)
[2023-11-10 07:00] LABS: Hematocrit (blood only) 27.4 % (37.0-47.0); Mean Corpuscular Hemoglobin 29.9 pg (25.0-34.0); Mean Corpuscular Hgb Conc 32.8 g/dL (32.0-36.0); Platelet Count 27 K/uL (130-400); RDW Coefficient of Variation 17.9 % (11.5-14.5); RDW Standard Deviation 57.3 fL (36.4-46.3); Red Blood Count 3.01 M/uL (4.20-5.40); White Blood Count 9.75 K/ul (4.8-10.8)
--- NOTE | 2023-11-10 07:02 | Oncology Consultation ---
Date of Consultation November 10, 2023 Assessment & Plan (1) Acute ITP: (2) Ulcerative colitis: (3) Anemia: Plan -Pleasant female recently diagnosed with ITP who has had a good but unsustained response to steroids. Patient has had 2 episodes of acute ITP in less 2 weeks. Duing current admission, she has received IVIG 1 g/kg/day x 2 days and is also on high-dose steroids with methylprednisolone 1 g daily for which she has received a total of 2 doses. Platelet count has improved from 1000 on 11/08/2023 to 27,000 on 11/10/2023. Workup for ITP including hepatitis and HIV testing obtained during prior admission was negative.Suspected ITP likely an extra intestinal manifestation of ulcerative colitis.Will however obtain H pylori stool antigen testing -She has responded appropriately to IVIG and steroids. Ideally, would recommend discharging home once platelet count is above 30,000 on pulse dexamethasone 40 mg daily x 4 days. However, given 2 episodes of recurrent ITP within less than 1 month after discontinuing steroids would recommend oral prednisone 1 mg/kg/day for 1 week followed by gradual taper. She indicates that she is scheduled to be evaluated by [facility] hematology on 11/15/2023. Steroid taper can be started at that time. -She also has anemia which although could be due to renal insufficiency will require further outpatient workup with possible bone marrow biopsy. Nutritional labs including testing for vitamin B12, folate, iron studies were unremarkable. Will obtain SPEP with [facility] today. Thank you for this consult. Hematology will follow peripherally while she is in the hospital. Patient will follow-up with hematology at [facility]. Please feel free to call if you have any further questions. History of Present Illness Reason for Consultation: ITP Attending Physician: Heavenly Giron MD History of Present Illness 73-year-old female with medical history significant for ulcerative colitis, CKD stage III and recent diagnosis of ITP. She was admitted to [facility] on 10/29/2023 after presenting with petechial rash and mouth blisters. Labs at that time revealed platelet count of 0. ED physician had reached out to me and I had recommended IVIG 1 g/kg x 2 days and IV steroids with methylprednisolone 1 g IV. Patient was subsequently evaluated by carlos Panchal while inpatient who agreed with IVIG and IV steroids. He also recommended patient be discharged home on dexamethasone 40 mg daily x 4 days. Workup for ITP including acute hepatitis panel and HIV testing was unremarkable. Patient's platelet count eventually improved to around 70,000 prior to discharge. She was discharged home on dexamethasone but she states that she did not fill this prescription due to insurance reasons. Patient was supposed to follow-up with Dr. Panchal at [facility] on 11/08/2023 but called to cancel that appointment indicating that she had decided to follow-up with [facility] hematology. Prior to evaluation at [facility] hematology, she presented to the ER [facility] on 11/08/2023 with similar complaints of easy bruising and mouth blisters. Platelet count was found to be 1000.I recommended similar treatment as before with IVIG 1 g/kg/day and IV steroids with methylprednisolone 1 g daily. Platelet count has subsequently improved to 27,000 today. She however has persistent anemia with hemoglobin of 9.0 and hematocrit of 27.4. WBC is normal at 9.75. Allergies Allergy/AdvReac Type Severity Reaction Status Date / Time bee venom protein (honey bee) Allergy Mild Verified 06/06/20 16:18 No Known Drug Allergies Allergy Unknown . Verified 06/06/20 16:18 Home Medications Medication Instructions Recorded Confirmed Type doxepin 10 mg capsule 20 mg PO HS 06/06/20 11/08/23 History rizatriptan 10 mg tablet 10 mg PO UD 06/06/20 11/08/23 History topiramate 25 mg tablet 50 mg PO BID 06/06/20 11/08/23 History trazodone 150 mg tablet 150 mg PO HS 06/06/20 11/08/23 History docusate sodium 100 mg tablet 100 mg PO HS 10/29/23 11/08/23 History fluticasone propionate 50 1 spray intranasal DAILY 10/29/23 11/08/23 History mcg/actuation nasal spray,suspension levothyroxine 50 mcg tablet 50 mcg PO DAILY 10/29/23 11/08/23 History propranolol 160 mg capsule,24 160 mg PO HS 10/29/23 11/08/23 History hr,extended release sertraline 100 mg tablet 100 mg PO HS 10/29/23 11/08/23 History mupirocin 2 % topical ointment See Rx Instructions .Route .COMPLEX 11/08/23 11/08/23 History Patient History Medical History Hypothyroidism Adjustment disorder with depressed mood History of breast cancer 20 years ago, s/p partial mastectomy Insomnia CKD (chronic kidney disease), stage III Ulcerative colitis Hx of migraines Surgical History Hx of tonsillectomy H/O laminectomy H/O spinal fusion H/O partial mastectomy H/O Spinal surgery Family History Other Diabetes Heart disease Rheumatoid arthritis Social History Smoking Status: Never smoker Hx Alcohol Use: Yes Hx Substance Use: No Preferred Language: Japanese Communication Ability: Effective 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: No Beliefs That Will Affect Care: None Current Living Situation: Spouse Current Living Situation Comment: From Home with Other Information That Helps Us Care for You: No Feels Safe at Home: Yes and No Is there a partner from a previous relationship who is making you feel unsafe now?: No Any Concerns about Your Family Situation: No Would You Like to Speak to Someone About Your Situation: No Safety Concerns: Feels Safe At This Time Assistive Devices: Cane, Glasses, Hearing Aid - Bilateral and Walker Results & Data Vital Signs (Past 12 Hours) Vital Signs Temp Pulse Pulse Resp BP Pulse Ox O2 Del Method 11/10/23 02:37 36.5 C 67 18 127/77 97 Room Air 11/09/23 23:17 36.6 C 69 18 115/69 96 Room Air 11/09/23 23:00 71 11/09/23 20:25 36.6 C 80 16 123/67 97 Room Air 11/09/23 19:36 36.6 C 82 16 109/66 96 Room Air 11/09/23 19:10 36.6 C 78 18 117/74 97 Room Air
[2023-11-10 07:45] LABS: BUN Creatinine Ratio 19.4 (10-20); Calcium 8.3 mg/dl (8.6-10.3); Creatinine Clr Calc Pharmacy 44.4 ml/min; Est GFR (African American) 58.6 ml/min; Est GFR (Non-African American) 50.5 ml/min; Potassium 3.6 mmol/L (3.5-5.1)
[2023-11-10 09:31] LABS: Ferritin 250.7 ng/ml (8-388)
[2023-11-10 09:55] LABS: Folate (Folic Acid),Ser orPlas 12.57 ng/ml (>5.38)
--- NOTE | 2023-11-10 13:24 | Hospitalist Progress Note ---
Date of Service November 10, 2023 Assessment & Plan (1) Acute ITP: Plan: 73yo F with a PMHx significant for migraine headaches, CKD III, ulcerative colitis, insomnia and recent admission for ITP who presented to the ED for evaluation of oral lesions in addition to a rash on her arms and legs that developed today, and was found to have severe thrombocytopenia with a platelet count of 1 concerning for recurrent ITP. Patient was admitted from 10/29/23 - 11/02/23 w/ rash and oral lesions, and was found to have ITP. During that admission, peripheral smear noted to have "no overt changes of a myelodysplastic syndrome, neoplastic process or hemolytic anemia." HIV testing nonreactive, negative hepatitis panel. 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 Dr. Aguayo was involved with care of patient during last admission, and was treated with IVIG and methylprednisolone for 3 days before transitioning to oral dexamethasone 40mg daily for a total of 4 days (completed on 11/03). On presentation this time, she was noted to have severe thrombocytopenia with Platelet count of 1. RBC 3.62, Hgb 10.4 and Hct 32.2. Chest CT displays no acute abnormality w/in the chest. CT abdomen/pelvis displays no acute process w/in abdomen or pelvis, mild splenomegaly. -Dr. Aguayo contacted by ED provider --> Pt given 1 unit of platelets, 1g methylprednisolone IV and 1g/kg IVIG per her recommendation. -Per Dr. Aguayo, head CT not required/recommendation at this time as there are no reported falls since previous admission w/ negative head CT. -Fall precautions, continue to monitor for any acute bleeding. Received IVIG Continue IV methylprednisolone Got 2 Plt since admission Plt has been improving steadily. Now at 27K today Hematology eval noted. Recommend plan to dc home on prednisone 1mgkg/day for 1 week, followed by gradual taper. Steroid taper can be started after patient sees [facility] Hematology on 11/15/23 (2) Hx of migraines: Plan: Controlled Continue topiramate, propranolol w/ hold parameters, PRN rizatriptan (3) Insomnia: Plan: -Continue trazodone, doxepin (4) Adjustment disorder with depressed mood: Plan: -Continue sertraline (5) Hypothyroidism: Plan: -Continue levothyroxine DVT Prophylaxis: Pharmacological agent contraindicated given severe thrombocytopenia as above. Code Status: DNR/DNI - No Resuscitation PCP: Tushar Mina MD I spent a total of 40 minutes coordinating, documenting and providing care for this patient excluding time spent in performance of separately billed services Admission and Anticipated Discharge Date Admission Date: November 08, 2023 Subjective Patient seen and examined. Denied any new complaints today Physical Exam Constitutional: + well hydrated; no acute distress Eyes: PERRL, conjunctivae normal, anicteric sclerae ENMT: Some petechia in right buccal mucosa Respiratory: normal respiratory effort, lungs clear to auscultation Cardiovascular: S1 S2 Gastrointestinal (Abdomen): normal bowel sounds, soft, nontender, no hepatosplenomegaly Neurologic: PERRL, EOMI, accommodation nl, no face palsy, no dysarthria Psychiatric: A+Ox3, euthymic affect Results & Data Results & Data Vital Signs (Past 12 Hours) Vital Signs Temp Pulse Pulse Resp BP Pulse Ox O2 Del Method 11/10/23 11:47 36.5 C 72 16 121/74 98 Room Air 11/10/23 10:18 67 11/10/23 07:39 36.7 C 87 16 135/72 96 Room Air 11/10/23 02:37 36.5 C 67 18 127/77 97 Room Air Laboratory Results Abnormal lab results 11/10/23 Range/Units 05:20 RBC 3.01 L (4.20-5.40) M/uL Hgb 9.0 L (12.0-16.0) g/dl Hct 27.4 L (37.0-47.0) % RDW Std Deviation 57.3 H (36.4-46.3) fL RDW Coeff of Ashley 17.9 H (11.5-14.5) % Plt Count 27 L* D (130-400) K/uL Sodium 131 L (136-145) mmol/L Carbon Dioxide 19 L (21-32) mmol/L Glucose 101 H (70-99(Fasting)) mg/dl Calcium 8.3 L (8.6-10.3) mg/dl TIBC 242 L (250-450) mcg/dl Unsaturated IBC 112 L (155-355) mcg/dl Transferrin % Sat 54 H (15-50) % (3) Insomnia Insomnia type: unspecified Qualified Code(s): G47.00 - Insomnia, unspecified (5) Hypothyroidism Hypothyroidism type: unspecified Qualified Code(s): E03.9 - Hypothyroidism, unspecified
[2023-11-11 06:23] LABS: Hematocrit (blood only) 25.4 % (37.0-47.0); Hemoglobin 8.4 g/dl (12.0-16.0); Mean Corpuscular Hemoglobin 29.8 pg (25.0-34.0); Mean Corpuscular Hgb Conc 33.1 g/dL (32.0-36.0); Mean Corpuscular Volume 90.1 fL (80.0-100.0); Mean Platelet Volume 12.3 fL (9.4-12.4); Nucleated RBC # (auto) 0.05 K/uL (0.00-0.12); Nucleated RBC % (auto) 0.6 %; Platelet Count 60 K/uL (130-400); RDW Coefficient of Variation 17.7 % (11.5-14.5); RDW Standard Deviation 57.8 fL (36.4-46.3); Red Blood Count 2.82 M/uL (4.20-5.40); White Blood Count 8.84 K/ul (4.8-10.8)
[2023-11-11 07:00] LABS: BUN Creatinine Ratio 21.4 (10-20); Calcium 7.9 mg/dl (8.6-10.3); Creatinine Clr Calc Pharmacy 46.6 ml/min; Est GFR (Non-African American) 53.5 ml/min; Potassium 3.7 mmol/L (3.5-5.1)
--- NOTE | 2023-11-11 16:16 | Discharge Summary ---
Date of Service November 11, 2023 Admission HPI Per Admitting Provider This is a 73yo F with a PMHx significant for migraine headaches, CKD III, ulcerative colitis, insomnia and recent admission for ITP who presented to the ED for evaluation of oral lesions in addition to a rash on her arms and legs. History obtained from patient, and previous admission/ED/PCP records. Patient was seen at bedside with Dr. Gates. Patient was admitted from 10/29/23 - 11/02/23 w/ rash and oral lesions, and was found to have ITP. Dr. Aguayo was involved with care of patient during last admission, and was treated with IVIG and methylprednisolone for 3 days before transitioning to oral dexamethasone 40mg daily for a total of 4 days. Patient completed oral course of steroids on Saturday (11/03). Patient mentions that the rash and oral lesions pretty much resolved after ~2 days following d/c. However, she woke up this morning with the same type of rash on her arms/legs and oral lesions that she was experiencing during her last admission. Patient denies any bleeding of her gums or nose bleeds. She also denies any chest pain or SOB. She has not had any falls since being home, and denies any occurrences of bodily trauma. She further denies any bloody BMs, reports urine is clear/no issues with urination. Reports no fevers or body aches. Per ED lab work: Severe thrombocytopenia, plt count of 1. RBC 3.62, Hgb 10.4 and Hct 32.2. Imaging performed in ED: * Chest CT displays no acute abnormality w/in the chest. * CT abdomen/pelvis displays no acute process w/in abdomen or pelvis, mild splenomegaly. Admission Exam Per Admitting Provider GENERAL APPEARANCE: AxOx4, generally well-appearing female , no acute distress. HEENT: few nodular lesions, purple/black in color, on tongue and lip; small petechiae on right buccal mucosa NECK: Supple without lymphadenopathy. No stiffness or restricted ROM. HEART: Normal rate and regular rhythm, normal S1/S1, no m/r/g LUNGS: CTAB, moving air well. No crackles or wheezes are heard. ABDOMEN: Soft, nontender, nondistended with good bowel sounds heard. BACK: No CVAT, no obvious deformity. EXTREMITIES: Without cyanosis, clubbing or edema. NEUROLOGICAL: Grossly nonfocal. Alert and oriented, moving all 4 extremities. CN not formally tested but appear grossly intact. Skin: scattered petechiae on BLE (much improved compared to recent admission) Principal Diagnosis Acute ITP Discharge Exam Constitutional + well hydrated; no acute distress Eyes PERRL, conjunctivae normal, anicteric sclerae Respiratory normal respiratory effort, lungs clear to auscultation Cardiovascular S1 S2 Gastrointestinal (Abdomen) normal bowel sounds, soft, nontender, no hepatosplenomegaly Musculoskeletal No pedal edema Neurologic PERRL, EOMI, accommodation nl, no face palsy, no dysarthria Psychiatric A+Ox3, euthymic affect Discharge Data Allergies Allergy/AdvReac Type Severity Reaction Status Date / Time bee venom protein (honey bee) Allergy Mild Verified 06/06/20 16:18 No Known Drug Allergies Allergy Unknown . Verified 06/06/20 16:18 Consultations 11/08/23 14:10 ED Decision to Admit Stat 11/08/23 16:38 Consult Hematology Routine Ordered Studies 11/08/23 11:19 CT abd pelvis IV con only Stat CT chest diagnostic w con Stat Hospital Course (1) Acute ITP: 73yo F with a PMHx significant for migraine headaches, CKD III, ulcerative colitis, insomnia and recent admission for ITP who presented to the ED for evaluation of oral lesions in addition to a rash on her arms and legs that developed today, and was found to have severe thrombocytopenia with a platelet count of 1 concerning for recurrent ITP. Patient was admitted from 10/29/23 - 11/02/23 w/ rash and oral lesions, and was found to have ITP. During that admission, peripheral smear noted to have "no overt changes of a myelodysplastic syndrome, neoplastic process or hemolytic anemia." HIV testing nonreactive, negative hepatitis panel. 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 Dr. Aguayo was involved with care of patient during last admission, and was treated with IVIG and methylprednisolone for 3 days before transitioning to oral dexamethasone 40mg daily for a total of 4 days (completed on 5/6). On presentation this time, she was noted to have severe thrombocytopenia with Platelet count of 1. RBC 3.62, Hgb 10.4 and Hct 32.2. Chest CT displays no acute abnormality w/in the chest. CT abdomen/pelvis displays no acute process w/in abdomen or pelvis, mild splenomegaly. -Dr. Aguayo contacted by ED provider --> Pt given 1 unit of platelets, 1g methylprednisolone IV and 1g/kg IVIG per her recommendation. -Per Dr. Aguayo, head CT not required/recommendation at this time as there are no reported falls since previous admission w/ negative head CT. -Fall precautions Received IVIG and IV methylprednisolone inpatient Got 2 Plt since admission Platelet trended up from 1K/uL on admission to 60 k/uL today Hematology evaluated and recommend dc home on prednisone 1mgkg/day for 1 week, followed by gradual taper. Steroid taper can be started after patient sees [facility] Hematology on 11/19/23 Patient discharged on Prednisone 70mg daily for 1 week to taper by 20mg per week or as directed by Hematology Prescribed Pantoprazole while on Prednisone. To follow up with PCP/Hematology. May need antiinfective prophylaxis if going to be on high dose steroid for a long time (2) Hx of migraines: Controlled Continue topiramate, propranolol w/ hold parameters, PRN rizatriptan (3) Insomnia: -Continue trazodone, doxepin (4) Adjustment disorder with depressed mood: -Continue sertraline (5) Hypothyroidism: -Continue levothyroxine Total Time Total Time Spent Total Time Spent (In Minutes): 35 Total Time Includes: Examination of the Patient, Discharge Planning and Medication Reconciliation Discharge Plan Discharge Items Patient Disposition: Home - Self-Care Reason For Visit: SEVERE THROMBOCYTOPENIA Discharge Diagnosis: Acute ITP Condition on Discharge: Good Activity: Resume your previous activity Non-emergency contact: Primary Care Provider Call non-emergency contact if: you have any medication questions and your symptoms worsen Follow-up/Referrals: Aguila Peng MD [Surgeon] - (Date & Time 11/19/2023 12:15 PM Provider Aguila Peng MD Department Hematology/Oncology [facility] ) Tushar Mina MD [Primary Care Provider] - (Date & Time 11/14/2023 2:20 PM Provider Torie Sebastian MD Department Family Practice [facility] ) Diet: Heart Healthy Addtl Attending Provider Instructions: Mrs De La Cruz You came to the hospital with sores in your mouth. You were managed for the above listed diagnosis with IVIG and steroid. You are being discharged on Prednisone 70mg daily for next 1 week until your appointment with Hematology on 11/20/23 who will advise you on how to taper it down. You are being discharged on pantoprazole while on prednisone. It was a pleasure taking care of you. Pending Studies at Discharge: Yes (SPEP) Stand-Alone Forms: My [facility], Smoking Cessation Medications and DC Order Prescriptions: New prednisone 20 mg tablet See Rx Instructions .ROUTE .COMPLEX Qty: 56 0RF Rx Instructions: Take 70mg daily for 1 week, taper by 20mg per week or as directed by [employer] pantoprazole 40 mg tablet,delayed release (DR/EC) 40 mg PO DAILY 28 Days Qty: 28 0RF Continued doxepin 10 mg capsule 20 mg PO HS topiramate 25 mg tablet 50 mg PO BID trazodone 150 mg tablet 150 mg PO HS rizatriptan 10 mg Tablet 10 mg PO UD Rx Instructions: Take 1 tab PO for migraine at onset of headache propranolol 160 mg capsule,extended release 24 hr 160 mg PO HS sertraline 100 mg tablet 100 mg PO HS levothyroxine 50 mcg tablet 50 mcg PO DAILY fluticasone propionate 50 mcg/actuation spray,suspension 1 spray INTRANASAL DAILY docusate sodium 100 mg Tablet 100 mg PO HS mupirocin 2 % ointment See Rx Instructions .ROUTE .COMPLEX Rx Instructions: as directed Discharge Orders: Discharge Order (Routine); Ordered 11/11/23 Ordered By: Heavenly Giron Admission Data Admit Date/Time: 11/08/23 14:30 Attending Provider: Heavenly Giron I. Admit Provider: Ann-Marie Gates Primary Care Provider: Tushar iMna Other Providers: Ann-Marie Gates; Eliana Aguayo Other Interventions: Discharge Summary Assessment (RN) Last Done: 11/11/23 12:45
[2023-11-13 03:53] LABS: CMV DNA PCR Qual NOT DETECTED; Source Urine
[2023-11-13 06:58] LABS: Albumin 3.4 g/dL (3.8-4.8); Alpha 1 Globulin 0.4 g/dL (0.2-0.3); Alpha 2 Globulin 0.5 g/dL (0.5-0.9); Beta-1-Globulin 0.4 g/dL (0.4-0.6); Beta-2-Globulin 0.4 g/dL (0.2-0.5); Gamma Globulin 5.8 g/dL (0.8-1.7); Monoclonal Protein Band 1 DNR g/dL (NONE DETECTED); Monoclonal Protein Band 2 DNR g/dL (NONE DETECTED); Monoclonal Protein Band 3 DNR g/dL (NONE DETECTED); Total Protein 10.9 g/dL (6.1-8.1)
== END 2023-11-11 13:27 | disposition home or self-care (01) | DRG 813 ==
LOC: ED 09:58 → 4W 14:30 → SUATTDRO 14:30 → 4W 16:23